=== PATIENT | female | born 1975 | race Caucasian/White ===

== ENCOUNTER → 2016-09-17 | Outpatient (CLI) | payer MEDICARE, OTHER ==
[~2016-09-17] MED LIST: ACET500T2; ALBU83IN; APLENZIN; CLAR5CHW; DARV100T; FLEXERIL; FLON0.05; FLUT22IN; INSULANT; Janumet; PRED10TA2; SERT25TA2; VENTAER
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
== END ==
LOC: M PAIN 13:20
PROVIDERS: ATTEND Nurse Practitioner Family
DX: Z09 Encounter for follow-up examination after completed treatment for conditions other than malignant neoplasm (principal); G89.29 Other chronic pain; M05.79 Rheumatoid arthritis with rheumatoid factor of multiple sites without organ or systems involvement; M47.892 Other spondylosis, cervical region; M43.07 Spondylolysis, lumbosacral region; M79.7 Fibromyalgia; E11.9 Type 2 diabetes mellitus without complications; I10 Essential (primary) hypertension; F32.9 Major depressive disorder, single episode, unspecified; F41.9 Anxiety disorder, unspecified; Z88.8 Allergy status to other drugs, medicaments and biological substances; Z91.048 Other nonmedicinal substance allergy status; Z79.891 Long term (current) use of opiate analgesic; Z79.52 Long term (current) use of systemic steroids; Z79.4 Long term (current) use of insulin; Z79.899 Other long term (current) drug therapy

== ENCOUNTER → 2016-10-03 | Outpatient (CLI) | payer MEDICARE, OTHER ==
[~2016-10-03] MED LIST changes: +BUPIVACAINE HCL 0.25% 30 ML VIAL As Ordered ONE; +ISOVUE-M 300 61% 15ML VIAL (Q9967) As Ordered ONE; +LIDOCAINE 1% SDV INJ 30 ML VIAL As Ordered ONE; +TRIAMCINOLONE ACETONIDE SUSP 40 MG/ML VIAL (J3301) As Ordered ONE; +diazePAM 5 MG TAB As Ordered ONE; +oxyCODONE 5MG TAB As Ordered ONE
--- NOTE | 2016-10-03 12:17 | REP ---
Partial lumbar spine series: Five views. History: Therapeutic injection for pain. 34 seconds of fluoroscopy time is reported. Findings: A sequence of five fluoroscopically obtained intraprocedural spot radiographs of the lumbar spine document various needle positions and contrast injections associated with bilateral facet injection procedure. Signed by Amaury Emery MD 10/03/2016 03:09 P
--- NOTE | 2016-10-10 | ECWPNPC ---
PATIENT NAME: WAQAR ESPINOZA : 1975 GENDER: FEMALE VISIT DATE: 10/03/2016 DISCHARGE DATE: 10/03/16 1052 VISIT LOCKED DATE TIME: PHYSICIAN: ELEAZAR MROIN RESOURCE: ELEAZAR MORIN REASON FOR APPOINTMENT 1. THERAPEUTIC LUMBAR FACET HISTORY OF PRESENT ILLNESS HISTORY OF PRESENT ILLNESS: PAIN THE PATIENT DESCRIBES THE PAIN... FALL RISK SCREENING: SCREENING :NO FALLS IN THE PAST YEAR CURRENT MEDICATIONS TAKING METHOTREXATE 2.5 MG TABLET 8 TABS ORALLY EVERY ., NOTES: 09/18/16 TAKING LYRICA 150 MG CAPSULE 1 CAPSULE ORALLY THREE TIMES A DAY, NOTES: 10/03/16644 TAKING VICODIN ES 7.5-300 MG TABLET 2 TABLET NEEDED ORALLY EVERY 8 HRS, NOTES: 10/03/16644 TAKING FETZIMA 40 MG CAPSULE EXTENDED RELEASE 24 HOUR 1 CAPSULE ORALLY ONCE A DAY, NOTES: 10/03/16644 TAKING LISINOPRIL 20 MG TABLET 1 TABLET ORALLY ONCE A DAY, NOTES: 10/03/16644 TAKING LASIX 20 MG TABLET 1 TO 2 TABLETS ORALLY ONCE A DAY/ NEEDED, NOTES: > 2 WEEKS TAKING TIZANIDINE HCL 4 MG TABLET 1 TABLET NEEDED ORALLY EVERY 8 HRS, NOTES: 10/03/16644 TAKING PREDNISONE 5 MG TABLET 1-2 TABLETS ORALLY ONCE A DAY DIRECTED, NOTES: 10/03/16644 TAKING OMEPRAZOLE 40 MG CAPSULE DELAYED RELEASE 1 CAPSULE ORALLY ONCE A DAY, NOTES: 10/03/16644 TAKING LORATADINE 10 MG TABLET 1 TABLET ORALLY ONCE A DAY NEEDED, NOTES: > 2 WEEKS AGO TAKING JANUMET 50-1000 MG TABLET 1 TABLET WITH MEALS ORALLY TWICE A DAY, NOTES: 10/03/16644 TAKING FOLIC ACID 1 MG TABLET 1 TABLET ORALLY ONCE A DAY, NOTES: 10/03/16644 TAKING TRAZODONE HCL 100 MG TABLET 1 TABLET AT BEDTIME ORALLY ONCE A DAY/ NEEDED, NOTES: > 2 WEEKS TAKING HYDROCHLOROTHIAZIDE 25 MG TABLET 1 TABLET ORALLY ONCE A DAY, NOTES: 10/03/16644 TAKING BUSPIRONE HCL 10 MG TABLET 2 TABS ORALLY TWICE A DAY, NOTES: 10/03/16644 TAKING SULFASALAZINE 500 MG TABLET 3TABLET ORALLY TWICE DAILY, NOTES: 10/03/16644 TAKING HUMIRA 40 MG/0.8ML PREFILLED SYRINGE KIT 0.8 ML SUBCUTANEOUS EVERY OTHER WK., NOTES: 09/02/16 TAKING FLONASE 50 MCG/ACT SUSPENSION 1 SPRAY IN EACH NOSTRIL NASALLY ONCE A DAY NEEDED, NOTES: > 2 WEEKS AGO TAKING MULTIVITAMINS - TABLET 1 TABLET ORALLY ONCE A DAY, NOTES: 10/03/16644 TAKING VITAMIN B12 100 MCG TABLET 1 500MCG. TAB ORALLY ONCE A DAY, NOTES: 10/03/16644 TAKING HUMALOG 100 UNIT/ML SOLUTION SUBCUTANEOUS SLIDING SCALE BEFORE BREAKFAST AND BEFORE DINNER, NOTES: 10/02/16 0700 TAKING ROPINIROLE HCL 0.25 MG TABLET 1 TABLET 1 TO 3 HOURS BEFORE BEDTIME ORALLY ONCE A DAY, NOTES: 10/03/162129 TAKING PROAIR HFA 108 (90 BASE) MCG/ACT AEROSOL SOLUTION 2 PUFFS NEEDED INHALATION EVERY 4 HRS, NOTES: 10/02/16 07 TAKING ALBUTEROL-IPRATROPIUM 2.5-0.5 MG/3ML SOLUTION 3 ML NEBULIZER EVERY 6 HRS NEEDED, NOTES: > 2 WEEKS TAKING VITAMIN D-3 1000 UNIT CAPSULE 1 CAPSULE ORALLY ONCE A DAY (PT UNSURE OF DOSE), NOTES: 10/03/16644 TAKING TOUJEO SOLOSTAR 300 UNIT/ML SOLUTION PEN-INJECTOR 50 UNITS SUBCUTANEOUS BID, NOTES: 10/02/162229 TAKING MAGNESIUM 500 MG TABLET 1 TABLET WITH A MEAL ORALLY ONCE A DAY, NOTES: 10/03/16644 NOT-TAKING ROPINIROLE HCL 0.25 MG TABLET 1 TABLET ORALLY ONCE A DAY/AT NIGHT NOT-TAKING PLAQUENIL 200 MG TABLET 2 TABLET WITH FOOD OR MILK ORALLY ONCE A DAY NOT-TAKING LANTUS 100 UNIT/ML SOLUTION 50 UNITS SUBCUTANEOUS AT HOUR OF SLEEP MEDICATION LIST REVIEWED AND RECONCILED WITH THE PATIENT PAST MEDICAL HISTORY DM RHEUMATOID ARTHRITIS FIBROMYALGIA CHRONIC FUNGAL INFECTIONS HTN DEPRSSION ANXIETY UTI ALLERGIES ZOLOFT: EXCESSIVE SWEATING: SIDE EFFECTS CODEINE PHOSPHATE (FOR ALLERGIES USE ONLY): SOB: ALLERGY ALOE VERA: RASH: ALLERGY BACITRACIN: RASH: ALLERGY PRISTIQ: ANGRY OUTBURSTS: ALLERGY SOCIAL HISTORY GENERAL: TOBACCO USE ARE YOU A:NONSMOKER LEARNING BARRIERS / SPECIAL NEEDS ORIENTED TO PLAN OF CARE: PATIENT, PAIN MANAGEMENT PATIENT, ORIENTED TO PLAN OF CARE: PATIENT, PAIN MANAGEMENT PATIENT. NEW PATIENT PAIN DIARY TODAY'S VISITNOTES FROM 0-10, WHAT LEVEL IS YOUR PAIN TODAY?0 PAIN CLINIC PFS, CLERGY, PUBLIC HEALTH REFERRALS PFS REFERRAL NEEDED?NO CLERGY REFERRAL NEEDED?NO PUBLIC HEALTH REFERRAL NEEDED?NO WAS THE PROVIDER NOTIFIED OF ANY PERTINENT INFO?NO PFS REFERRAL NEEDED?NO CLERGY REFERRAL NEEDED?NO PUBLIC HEALTH REFERRAL NEEDED?NO WAS THE PROVIDER NOTIFIED OF ANY PERTINENT INFO?NO REVIEW OF SYSTEMS CONSTITUTIONAL: ANY CHANGE IN YOUR MEDICAL CONDITION? NO . CHILLS NO . FEVER NO . INFECTION: DO YOU HAVE NEW INFECTIONS? NO . DO YOU HAVE HISTORY OF MRSA? NO . MUSCULOSKELETAL: ANY NEW PATTERNS OF PAIN OR NUMBNESS? NO . GASTROENTEROLOGY: ANY NEW CHANGE IN BOWEL CONTROL? NO . GENITOURINARY: ANY NEW CHANGE IN BLADDER CONTROL? NO . IS THERE A CHANCE YOU COULD BE ? NO . HEMATOLOGY/LYMPH: DO YOU TAKE ANY BLOOD THINNERS? (FOR EXAMPLE- COUMADIN, PLAVIX, AGGRENOX, PLATEL, PRADAXA, OR XARELTO) NO . WHEN WAS YOUR LAST DOSE? DATE: TIME: . NEUROLOGY: HAVE YOU FALLEN IN THE PAST 6 MONTHS? NO . ANY NEW EXTREMITY NUMBNESS OR WEAKNESS? NO . CARDIOLOGY: DO YOU HAVE A PACEMAKER OR DEFIBRILLATOR? NO . RESPIRATORY: HAVE YOU BEEN SICK IN THE PAST WEEK? NO . FEVER NO . FLU LIKE SYMPTOMS? NO . COUGH NO . INTEGUMENTARY: DO YOU HAVE ANY RASHES OR OPEN SORES? NO . ALLERGIC/IMMUNO: ARE YOU ALLERGIC TO SHELLFISH OR IV DYE? NO . ANY NEW ALLERGIES? NO . PSYCHIATRIC: DO YOU HAVE THOUGHTS OF HURTING YOURSELF OR SOMEONE ELSE? NO . ARE YOU ABUSED, NEGLECTED, OR IN AN UNSAFE ENVIRONMENT? NO . ENDOCRINOLOGY: ARE YOU DIABETIC? YES . OTHER: DO YOU NEED ANY PRESCRIPTIONS? NO . IF YES, PLEASE LIST: ____ . ANY NEW PROBLEMS WITH YOUR MEDICATIONS? NO . WHEN DID YOU LAST EAT? ____10/02/16 2130 . WHEN DID YOU LAST DRINK? ____10/03/16 0655 . WHAT DID YOU LAST DRINK? ____WATER . NAME OF PERSON DRIVING YOU HOME? ____DEBBIE (MOM) . DO YOU HAVE ANY OTHER QUESTIONS OR CONCERNS NO . REVIEWED BY: PROVIDER: . VITAL SIGNS WT 363 LBS, HT 66 IN, BMI 58.58 INDEX, BP 134/60 MM HG, HR 96 /MIN, RR 16 /MIN, TEMP 96.8 F, OXYGEN SAT % 97, BLOOD GLUCOSE LEVEL 163, SAFE IN ENV? (Y/N) YES, NA INITIALS TL 0905, REVIEWED BY: LAS. 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 ELEAZAR MORIN DRYWALL CARRIER NONE ANESTHESIA LOCAL PRE PROCEDURE NOTE THE PATIENT HAS A HISTORY OF CHRONIC LOW BACK PAIN. I EVALUATE THE PATIENT AND REVIEWED THE CHART. I WENT OVER THE RISKS, ALTERNATIVES, AND BENEFITS ASSOCIATED WITH THIS PROCEDURE. THE PATIENT WOULD LIKE TO PROCEED AND GIVE CONSENT TO PERFORMED THE PROCEDURE. THE PATIENT DENIES UNEXPLAINABLE WEIGHT LOSS, FEVER, CHILLS, OR NEW CHANGES IN URINARY OR BOWEL CONTROL DESCRIPTION OF PROCEDURE THE PATIENT WAS BROUGHT TO THE PROCEDURE ROOM AND PLACED IN THE PRONE POSITION. THE LUMBOSACRAL AREA WAS CLEANED WITH CHLORAPREP SOLUTION AND DRAPED ASEPTICALLY. THE PROCEDURE WAS DONE UNDER STERILE CONDITIONS. I CHECKED LATERALITY AND THE LEVEL WHERE THE PROCEDURE WAS GOING TO BE PERFORMED WITH THE PATIENT AND THE SUPPORTING STAFF AT THE MOMENT OF THE TIME OUT IN THE PROCEDURE ROOM. UNDER FLUOROSCOPIC GUIDANCE, THE TARGET POINT WAS SELECTED AT THE RIGHT AND LEFT L2-L3 AND RIGHT AND LEFT L3-L4 FACET JOINT. TARGET POINT WAS SELECTED AFTER LATERAL ROTATION AND TILT OF THE MAGNIFIER OF THE C-ARM. LIDOCAINE 0.5% WAS USED TO NUMB THE SKIN AND THE SUBCUTANEOUS TISSUE BELOW IT. SPINAL NEEDLES, 22-GAUGE, WERE ADVANCED UNDER FLUOROSCOPIC GUIDANCE AND FOLLOWING PATIENT FEEDBACK UNTIL THE TARGETS WERE TOUCHED. THE POSITION OF THE NEEDLES WAS VERIFIED WITH AP AND LATERAL VIEWS. AFTER PROPER POSITION OF THE NEEDLES WAS ACHIEVED, ISOVUE-M DYE 30% 0.1 ML WAS INJECTED SHOWING ADEQUATE SPREAD OF THE DYE. THEN A SOLUTION OF 1.9 ML OF BUPIVACAINE 0.125% OF KENALOG 10 MG WAS INJECTED AT EACH SITE. THERE WAS NO EVIDENCE OF BLOOD, PARESTHESIA OR CEREBROSPINAL FLUID DURING THE PROCEDURE. THE PATIENT WAS SENT TO THE RECOVERY ROOM. THE PATIENT WAS MOVING THE EXTREMITIES AND DOING WELL. THERE WAS NO COMPLICATION DURING THE PROCEDURE. FLUOROSCOPY TIME WAS 34 SECONDS POST PROCEDURE NOTE THE PATIENT WILL BE SEEN IN A FOLLOW UP IN THE NEXT FEW WEEKS. INSTRUCTIONS WERE GIVEN, QUESTIONS WERE ANSWERED, AND THE PATIENT EXPRESSED UNDERSTANDING AND AGREES WITH THE PLAN. INSTRUCTIONS WERE GIVEN, QUESTIONS WERE ANSWERED, PATIENT REPORTS UNDERSTANDING AND AGREES WITH THE PLAN. I, ANITHA OMALLEY, DOCUMENTED THE ABOVE INFORMATION ACTING A SCRIBE FOR DR. MORIN. I HAVE REVIEWED THE ABOVE DOCUMENT, WRITTEN BY ANITHA OMALLEY SCRIBE AND I VERIFY THAT IT IS ACCURATE. DIAGNOSTIC IMAGING [facility] FACET BLOCK (PAIN)[id number] PROCEDURE CODES 30900 INJ PARAVERT F JNT L/S 1 LEV 24996 INJ PARAVERT F JNT L/S 2 LEV 6045F RADXPS IN END [id number] PXD FOLLOW UP 3 WEEKS ELECTRONICALLY SIGNED BY ELEAZAR MORIN MD ON 10/09/2016 AT 09:45 PM EST DISCLAIMER : THIS IS A VISIT SUMMARY EXTRACTED FROM THE [employer] CHART. IT IS NOT A COPY OF THE [employer] PROGRESS NOTE. MTDD
== END ==
LOC: M PAIN 09:10
PROVIDERS: ATTEND Anesthesiology
DX: G89.29 Other chronic pain (principal); M47.816 Spondylosis without myelopathy or radiculopathy, lumbar region; E11.9 Type 2 diabetes mellitus without complications; M06.9 Rheumatoid arthritis, unspecified; M79.7 Fibromyalgia; I10 Essential (primary) hypertension; F32.9 Major depressive disorder, single episode, unspecified; F41.9 Anxiety disorder, unspecified; Z88.5 Allergy status to narcotic agent; Z91.048 Other nonmedicinal substance allergy status; Z88.1 Allergy status to other antibiotic agents; Z88.8 Allergy status to other drugs, medicaments and biological substances; Z79.891 Long term (current) use of opiate analgesic; Z79.899 Other long term (current) drug therapy; Z79.52 Long term (current) use of systemic steroids; Z79.4 Long term (current) use of insulin
CPT/HCPCS: 64493; 64494; J3301; Q9967

== ENCOUNTER → 2016-10-14 | Outpatient (CLI) | payer MEDICARE, OTHER ==
[~2016-10-14] MED LIST changes: -BUPIVACAINE HCL 0.25% 30 ML VIAL As Ordered ONE; -ISOVUE-M 300 61% 15ML VIAL (Q9967) As Ordered ONE; -LIDOCAINE 1% SDV INJ 30 ML VIAL As Ordered ONE; -TRIAMCINOLONE ACETONIDE SUSP 40 MG/ML VIAL (J3301) As Ordered ONE; -diazePAM 5 MG TAB As Ordered ONE; -oxyCODONE 5MG TAB As Ordered ONE
[2016-10-14 12:34] LABS: ALBUMIN 3.7 GM/DL (3.2-5.2); ALBUMIN/GLOBULIN RATIO 0.88 (1.00-1.93); ALKALINE PHOSPHATASE 113 U/L (45-117); ALT/SGPT 46 U/L (12-78); ANION GAP 9 MEQ/L (8-16); AST/SGOT 39 U/L (15-37); BILIRUBIN,TOTAL 0.3 MG/DL (0.2-1.0); BLOOD UREA NITROGEN 13 MG/DL (7-18); CALCIUM LEVEL 8.9 MG/DL (8.5-10.1); CARBON DIOXIDE LEVEL 29 MEQ/L (21-32); CHLORIDE LEVEL 101 MEQ/L (98-107); CREATININE FOR GFR 0.74 MG/DL (0.55-1.02); GLOMERULAR FILTRATION RATE > 60.0 (>60); GLUCOSE, FASTING 135 MG/DL (70-105); MAGNESIUM LEVEL 1.8 MG/DL (1.8-2.4); POTASSIUM SERUM 4.2 MEQ/L (3.5-5.1); SODIUM LEVEL 139 MEQ/L (136-145); TOTAL PROTEIN 7.9 GM/DL (6.4-8.2)
== END | disposition home or self-care (01) ==
LOC: M WUC 08:48
PROVIDERS: ATTEND Family Medicine
DX: E11.9 Type 2 diabetes mellitus without complications (principal); R25.2 Cramp and spasm

== ENCOUNTER → 2016-10-17 | Outpatient (CLI) | payer MEDICARE, OTHER ==
--- NOTE | 2016-10-19 00:19 | ECWPNPC ---
PATIENT NAME: WAQAR ESPINOZA : 1975 GENDER: FEMALE VISIT DATE: 10/17/2016 DISCHARGE DATE: 10/17/16 1008 VISIT LOCKED DATE TIME: PHYSICIAN: AMBER LOUISE RESOURCE: AMBER LOUISE REASON FOR APPOINTMENT 1. POST PROCEDURE HISTORY OF PRESENT ILLNESS HISTORY OF PRESENT ILLNESS: HERE FOR POST PROC. F/U.HAD BILAT. THERAPEUTIC FACET BLOCK 10-03-16.REPORTS>50% REDUCTION IN PAIN THAT CONTINUES TODAY.RATING PAIN VAS 2/10.PAIN IS LOCATED IN NECK AND LOW BACK. PAIN THE PATIENT DESCRIBES THE PAIN... FALL RISK SCREENING: SCREENING :NO FALLS IN THE PAST YEAR CURRENT MEDICATIONS TAKING METHOTREXATE 2.5 MG TABLET 8 TABS ORALLY EVERY ., NOTES: 09/18/16 TAKING LYRICA 150 MG CAPSULE 1 CAPSULE ORALLY THREE TIMES A DAY, NOTES: 10/03/16644 TAKING VICODIN ES 7.5-300 MG TABLET 2 TABLET NEEDED ORALLY EVERY 8 HRS, NOTES: 10/03/16644 TAKING FETZIMA 40 MG CAPSULE EXTENDED RELEASE 24 HOUR 1 CAPSULE ORALLY ONCE A DAY, NOTES: 10/03/16644 TAKING LISINOPRIL 20 MG TABLET 1 TABLET ORALLY ONCE A DAY, NOTES: 10/03/16644 TAKING LASIX 20 MG TABLET 1 TO 2 TABLETS ORALLY ONCE A DAY/ NEEDED, NOTES: > 2 WEEKS TAKING TIZANIDINE HCL 4 MG TABLET 1 TABLET NEEDED ORALLY EVERY 8 HRS, NOTES: 10/03/16644 TAKING PREDNISONE 5 MG TABLET 1-2 TABLETS ORALLY ONCE A DAY DIRECTED, NOTES: 10/03/16644 TAKING OMEPRAZOLE 40 MG CAPSULE DELAYED RELEASE 1 CAPSULE ORALLY ONCE A DAY, NOTES: 10/03/16644 TAKING LORATADINE 10 MG TABLET 1 TABLET ORALLY ONCE A DAY NEEDED, NOTES: > 2 WEEKS AGO TAKING JANUMET 50-1000 MG TABLET 1 TABLET WITH MEALS ORALLY TWICE A DAY, NOTES: 10/03/16644 TAKING FOLIC ACID 1 MG TABLET 1 TABLET ORALLY ONCE A DAY, NOTES: 10/03/16644 TAKING TRAZODONE HCL 100 MG TABLET 1 TABLET AT BEDTIME ORALLY ONCE A DAY/ NEEDED, NOTES: > 2 WEEKS TAKING HYDROCHLOROTHIAZIDE 25 MG TABLET 1 TABLET ORALLY ONCE A DAY, NOTES: 1/19/17 0645 TAKING BUSPIRONE HCL 10 MG TABLET 2 TABS ORALLY TWICE A DAY, NOTES: 10/03/16644 TAKING SULFASALAZINE 500 MG TABLET 3TABLET ORALLY TWICE DAILY, NOTES: 10/03/16644 TAKING HUMIRA 40 MG/0.8ML PREFILLED SYRINGE KIT 0.8 ML SUBCUTANEOUS EVERY OTHER WK., NOTES: 09/02/16 TAKING FLONASE 50 MCG/ACT SUSPENSION 1 SPRAY IN EACH NOSTRIL NASALLY ONCE A DAY NEEDED, NOTES: > 2 WEEKS AGO TAKING MULTIVITAMINS - TABLET 1 TABLET ORALLY ONCE A DAY, NOTES: 10/03/16644 TAKING VITAMIN B12 100 MCG TABLET 1 500MCG. TAB ORALLY ONCE A DAY, NOTES: 10/03/16644 TAKING HUMALOG 100 UNIT/ML SOLUTION SUBCUTANEOUS SLIDING SCALE BEFORE BREAKFAST AND BEFORE DINNER, NOTES: 10/02/16 07 TAKING ROPINIROLE HCL 0.25 MG TABLET 1 TABLET 1 TO 3 HOURS BEFORE BEDTIME ORALLY ONCE A DAY, NOTES: 10/03/162129 TAKING PROAIR HFA 108 (90 BASE) MCG/ACT AEROSOL SOLUTION 2 PUFFS NEEDED INHALATION EVERY 4 HRS, NOTES: 10/02/16 07 TAKING ALBUTEROL-IPRATROPIUM 2.5-0.5 MG/3ML SOLUTION 3 ML NEBULIZER EVERY 6 HRS NEEDED, NOTES: > 2 WEEKS TAKING VITAMIN D-3 1000 UNIT CAPSULE 1 CAPSULE ORALLY ONCE A DAY (PT UNSURE OF DOSE), NOTES: 10/03/16644 TAKING TOUJEO SOLOSTAR 300 UNIT/ML SOLUTION PEN-INJECTOR 50 UNITS SUBCUTANEOUS BID, NOTES: 10/02/162229 TAKING MAGNESIUM 500 MG TABLET 1 TABLET WITH A MEAL ORALLY ONCE A DAY, NOTES: 10/03/16644 NOT-TAKING ROPINIROLE HCL 0.25 MG TABLET 1 TABLET ORALLY ONCE A DAY/AT NIGHT NOT-TAKING PLAQUENIL 200 MG TABLET 2 TABLET WITH FOOD OR MILK ORALLY ONCE A DAY NOT-TAKING LANTUS 100 UNIT/ML SOLUTION 50 UNITS SUBCUTANEOUS AT HOUR OF SLEEP MEDICATION LIST REVIEWED AND RECONCILED WITH THE PATIENT PAST MEDICAL HISTORY DM RHEUMATOID ARTHRITIS FIBROMYALGIA CHRONIC FUNGAL INFECTIONS HTN DEPRSSION ANXIETY UTI ALLERGIES ZOLOFT: EXCESSIVE SWEATING: SIDE EFFECTS CODEINE PHOSPHATE (FOR ALLERGIES USE ONLY): SOB: ALLERGY ALOE VERA: RASH: ALLERGY BACITRACIN: RASH: ALLERGY PRISTIQ: ANGRY OUTBURSTS: ALLERGY SOCIAL HISTORY GENERAL: TOBACCO USE ARE YOU A:NONSMOKER LEARNING BARRIERS / SPECIAL NEEDS ORIENTED TO PLAN OF CARE: PATIENT, PAIN MANAGEMENT PATIENT, ORIENTED TO PLAN OF CARE: PATIENT, PAIN MANAGEMENT PATIENT. NEW PATIENT PAIN DIARY TODAY'S VISITNOTES FROM 0-10, WHAT LEVEL IS YOUR PAIN TODAY?0 PAIN CLINIC PFS, CLERGY, PUBLIC HEALTH REFERRALS PFS REFERRAL NEEDED?NO CLERGY REFERRAL NEEDED?NO PUBLIC HEALTH REFERRAL NEEDED?NO WAS THE PROVIDER NOTIFIED OF ANY PERTINENT INFO?NO PFS REFERRAL NEEDED?NO CLERGY REFERRAL NEEDED?NO PUBLIC HEALTH REFERRAL NEEDED?NO WAS THE PROVIDER NOTIFIED OF ANY PERTINENT INFO?NO REVIEW OF SYSTEMS CONSTITUTIONAL: ANY CHANGE IN YOUR MEDICAL CONDITION? NO . CHILLS NO . FEVER NO . INFECTION: DO YOU HAVE NEW INFECTIONS? NO . DO YOU HAVE HISTORY OF MRSA? NO . MUSCULOSKELETAL: ANY NEW PATTERNS OF PAIN OR NUMBNESS? YES, PAIN RIGHT SHOULDER, INTERMITENT,RANGES FROM SHARP, STABBING TO DULL ACHE . GASTROENTEROLOGY: ANY NEW CHANGE IN BOWEL CONTROL? NO . GENITOURINARY: ANY NEW CHANGE IN BLADDER CONTROL? NO . IS THERE A CHANCE YOU COULD BE ? NO . HEMATOLOGY/LYMPH: DO YOU TAKE ANY BLOOD THINNERS? (FOR EXAMPLE- COUMADIN, PLAVIX, AGGRENOX, PLATEL, PRADAXA, OR XARELTO) NO . WHEN WAS YOUR LAST DOSE? DATE: TIME: . NEUROLOGY: HAVE YOU FALLEN IN THE PAST 6 MONTHS? NO . ANY NEW EXTREMITY NUMBNESS OR WEAKNESS? NO . CARDIOLOGY: DO YOU HAVE A PACEMAKER OR DEFIBRILLATOR? NO . RESPIRATORY: HAVE YOU BEEN SICK IN THE PAST WEEK? NO . FEVER NO . FLU LIKE SYMPTOMS? NO . COUGH NO . INTEGUMENTARY: DO YOU HAVE ANY RASHES OR OPEN SORES? YES CHRONIC RASH IN AREAS THAT SHE TENDS TO SWEAT, NOW UNDER BREAST . ALLERGIC/IMMUNO: ARE YOU ALLERGIC TO SHELLFISH OR IV DYE? NO . ANY NEW ALLERGIES? NO . PSYCHIATRIC: DO YOU HAVE THOUGHTS OF HURTING YOURSELF OR SOMEONE ELSE? NO . ARE YOU ABUSED, NEGLECTED, OR IN AN UNSAFE ENVIRONMENT? NO . ENDOCRINOLOGY: ARE YOU DIABETIC? YES . OTHER: DO YOU NEED ANY PRESCRIPTIONS? NO . IF YES, PLEASE LIST: ____ . ANY NEW PROBLEMS WITH YOUR MEDICATIONS? NO . WHEN DID YOU LAST EAT? ____ . WHEN DID YOU LAST DRINK? ____ . WHAT DID YOU LAST DRINK? ____ . NAME OF PERSON DRIVING YOU HOME? ____ . DO YOU HAVE ANY OTHER QUESTIONS OR CONCERNS NO . REVIEWED BY: PROVIDER: AMBER GAMBINO . VITAL SIGNS WT 366 LBS, HT 66 IN, BMI 59.07 INDEX, BP 185/96 (L), REPEAT BP DID NOT REGISTER IN RIGHT ARM, HR 113 /MIN, RR 20 /MIN, TEMP 97.3 F, OXYGEN SAT % 100, NA INITIALS MP, REVIEWED BY: ADNURSE NOTIFIED OF HIGH BLOOD PRESSURE AND PULSEREPEAT B/P 143/96, HR 102. EXAMINATION GENERAL EXAMINATION: HEENT:HEAD:, NORMOCEPHALIC, EYES:, EYES NORMAL, NOSE:, NOSE CLEAR, THROAT: NORMAL. LUNGS:LUNG SOUNDS ARE CLEAR. HEART:HEART RATE REGULAR. ABDOMEN:SOFT AND NOT TENDER, NON-DISTENDED. MUSCULOSKELETAL:*. LUMBAR SACRAL SPINEMUSCLE STRENGTH TESTING 5/5 BILATERAL LOWER EXTREMITIES. PALPATION: POSITIVE FOR PAIN OVER L/S SPINE. POSITIVE FOR PAIN OVER L/S PARASPINALS. THORACIC SPINENEGATIVE FOR PAIN WITH PALPATION OF THORACIC SPINE. NEGATIVE FOR PAIN WITH PALPATION OF THORACIC PARASPINAL. CERVICALPOSITIVE FOR PAIN WITH PALPATION OF CERVICAL SPINE. POSITIVE FOR PAIN WITH PALPATION OF CERVICAL PARASPINALS. NEGATIVE FOR PAIN WITH PALPATION OF TRAPEZIUS BILAT. SKIN:NORMAL, NO RASH. NEUROLOGIC EXAM:ALERT AND ORIENTED X 3, DTRS 1-2+ IN ALL 4 EXTREMITIES, DENIES UPPER EXTREMETIES SENSORY LOSS, DENIES LOWER EXTREMETIES SENSORY LOSS. DIAGNOSTIC:MRI L/S [id number]-REVIEWED.. 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 PREVENTIVE MEDICINE PRINTED INFORMATION ON HCP PROVIDED TO AND EXPLAINED TO PATIENT. PROCEDURE CODES FA211 ESTABILISHED PATIENT [facility] CHARGE F1354 BP SCR PRFRM RCMDD DEFIND SCR INTVL G7595 PAIN ASSESS POS TOOL F/U PLAN DOC 3016F PT SCRND UNHLTHY [place] USE 1124F ACP DISCUSS-NO DSCNMKR DOCD 1036F TOBACCO NON-USER 0518F FALL PLAN OF CARE DOCD G8427 DOC MEDS VERIFIED W/PT OR RE G8417 BMI >=30 CALCUATE W/FOLLOWUP 3288F FALL RISK ASSESSMENT DOCD FOLLOW UP 2 MONTHS ELECTRONICALLY SIGNED BY MAKI ZHAO ON 10/18/2016 AT 02:38 PM EST DISCLAIMER : THIS IS A VISIT SUMMARY EXTRACTED FROM THE [email or web address] CHART. IT IS NOT A COPY OF THE [email or web address] PROGRESS NOTE. MTDD
== END ==
LOC: M PAIN 09:00
PROVIDERS: ATTEND Nurse Practitioner Family
DX: Z09 Encounter for follow-up examination after completed treatment for conditions other than malignant neoplasm (principal); G89.29 Other chronic pain; M05.79 Rheumatoid arthritis with rheumatoid factor of multiple sites without organ or systems involvement; M47.892 Other spondylosis, cervical region; M43.07 Spondylolysis, lumbosacral region; M79.7 Fibromyalgia; E11.9 Type 2 diabetes mellitus without complications; M06.9 Rheumatoid arthritis, unspecified; I10 Essential (primary) hypertension; F32.9 Major depressive disorder, single episode, unspecified; Z87.440 Personal history of urinary (tract) infections; Z88.8 Allergy status to other drugs, medicaments and biological substances; Z88.5 Allergy status to narcotic agent; L23.89 Allergic contact dermatitis due to other agents; Z88.1 Allergy status to other antibiotic agents; Z79.891 Long term (current) use of opiate analgesic; Z79.52 Long term (current) use of systemic steroids; Z79.4 Long term (current) use of insulin; Z79.899 Other long term (current) drug therapy

== ENCOUNTER → 2016-11-05 | Outpatient (CLI) | payer MEDICARE ==
--- NOTE | 2016-11-05 12:07 | REP ---
Clinical: Abnormal menstrual cycles . Technique: Transabdominal pelvic ultrasound followed by transvaginal examination for better evaluation of the endometrium and adnexa with color Doppler evaluation of the ovaries. Findings: Bladder is collapsed currently measuring 2.3 x 1.5 x 5.0 cm. Retroverted uterus measures 9.3 x 4.3 x 4.8 cm . The endometrial complex measures up to 13.9 mm thickness. Nabothian cysts measuring up to 2.4 cm are identified. The ovaries are not visualized. No pelvic fluid or adnexal mass lesion identified. Impression: 1. Uterus with mildly thickened endometrium and Nabothian cysts measuring up to 2.4 cm. 2. Ovaries not visualized. No pelvic fluid or adnexal mass lesion identified.
== END ==
LOC: M WHC 10:19
PROVIDERS: ATTEND Nurse Practitioner Family
DX: N92.1 Excessive and frequent menstruation with irregular cycle (principal)

== ENCOUNTER → 2016-11-22 | Outpatient (CLI) | payer MEDICARE, MEDICAID ==
[2016-11-22 19:52] LABS: MEAN CORPUSCULAR HEMOGLOBIN 27.7 pg (27.0-33.0); MEAN CORPUSCULAR HGB CONC 30.6 g/dl (32.0-36.5); MEAN CORPUSCULAR VOLUME 90.8 fl (80.0-96.0); RED CELL DISTRIBUTION WIDTH 14.7 % (11.5-14.5); WHITE BLOOD COUNT 12.8 K/mm3 (4.0-10.0)
[2016-11-22 20:07] LABS: BLOOD UREA NITROGEN 8 MG/DL (7-18); GLUCOSE, FASTING 281 MG/DL (70-105)
[2016-11-22 20:08] LABS: ALBUMIN 3.3 GM/DL (3.2-5.2); ALBUMIN/GLOBULIN RATIO 0.89 (1.00-1.93); ALKALINE PHOSPHATASE 95 U/L (45-117); ALT/SGPT 57 U/L (12-78); ANION GAP 13 MEQ/L (8-16); AST/SGOT 46 U/L (15-37); BILIRUBIN,TOTAL 0.2 MG/DL (0.2-1.0); CALCIUM LEVEL 8.2 MG/DL (8.5-10.1); CARBON DIOXIDE LEVEL 24 MEQ/L (21-32); CHLORIDE LEVEL 102 MEQ/L (98-107); GLOMERULAR FILTRATION RATE > 60.0 (>60); MAGNESIUM LEVEL 1.5 MG/DL (1.8-2.4); POTASSIUM SERUM 4.3 MEQ/L (3.5-5.1); SODIUM LEVEL 139 MEQ/L (136-145)
== END ==
LOC: M WUC 12:52
PROVIDERS: ATTEND Family Medicine
DX: E61.2 Magnesium deficiency (principal); R60.9 Edema, unspecified; R06.02 Shortness of breath

== ENCOUNTER → 2016-12-06 | Outpatient (CLI) | payer MEDICARE, MEDICAID ==
[2016-12-06 18:19] LABS: ANION GAP 13 MEQ/L (8-16); BLOOD UREA NITROGEN 10 MG/DL (7-18); CARBON DIOXIDE LEVEL 25 MEQ/L (21-32); CHLORIDE LEVEL 99 MEQ/L (98-107); GLOMERULAR FILTRATION RATE > 60.0 (>60); GLUCOSE, FASTING 191 MG/DL (70-105); MAGNESIUM LEVEL 1.4 MG/DL (1.8-2.4); POTASSIUM SERUM 3.7 MEQ/L (3.5-5.1); SODIUM LEVEL 137 MEQ/L (136-145)
== END ==
LOC: M WUC 11:49
PROVIDERS: ATTEND Family Medicine
DX: E61.2 Magnesium deficiency (principal); R60.9 Edema, unspecified

== ENCOUNTER → 2016-12-16 | Outpatient (CLI) | payer MEDICARE ==
--- NOTE | 2016-12-20 00:59 | ECWPNPC ---
PATIENT NAME: WAQAR ESPINOZA : 1975 GENDER: FEMALE VISIT DATE: 12/16/2016 DISCHARGE DATE: 12/16/16 1011 VISIT LOCKED DATE TIME: PHYSICIAN: AMBER LOUISE RESOURCE: AMBER LOUISE REASON FOR APPOINTMENT 1. FOLLOWUP-BACK HISTORY OF PRESENT ILLNESS HISTORY OF PRESENT ILLNESS: HERE FOR F/U.HAD BILAT. THERAPEUTIC FACET BLOCK 10-03-16.REPORTED>50% REDUCTION IN PAIN THAT CONTINUES TODAY.RATING PAIN VAS 6/10.PAIN IS LOCATED IN NECK AND LOW BACK.WORSE AREA OF PAIN NECK AND SHOULDERS.SUFFERS FROM RHEUMATOID DISEASE.DISCUSSED TREATMENT OPTIONS.SHE HAS BENEFITED FROM PT IN PAST. PAIN THE PATIENT DESCRIBES THE PAIN... THE PATIENT DESCRIBES THE PAIN... FALL RISK SCREENING: SCREENING :NO FALLS IN THE PAST YEAR CURRENT MEDICATIONS TAKING METHOTREXATE 2.5 MG TABLET 8 TABS ORALLY EVERY ., NOTES: 09/18/16 TAKING LYRICA 150 MG CAPSULE 1 CAPSULE ORALLY THREE TIMES A DAY, NOTES: 10/03/16644 TAKING VICODIN ES 7.5-300 MG TABLET 2 TABLET NEEDED ORALLY EVERY 8 HRS, NOTES: 10/03/16644 TAKING FETZIMA 40 MG CAPSULE EXTENDED RELEASE 24 HOUR 1 CAPSULE ORALLY ONCE A DAY, NOTES: 10/03/16644 TAKING LISINOPRIL 20 MG TABLET 1 TABLET ORALLY ONCE A DAY, NOTES: 10/03/16644 TAKING TIZANIDINE HCL 4 MG TABLET 1 TABLET NEEDED ORALLY EVERY 8 HRS, NOTES: 10/03/16644 TAKING PREDNISONE 5 MG TABLET 1 TABLET ORALLY ONCE A DAY, NOTES: 10/03/16644 TAKING OMEPRAZOLE 40 MG CAPSULE DELAYED RELEASE 1 CAPSULE ORALLY ONCE A DAY, NOTES: 10/03/16644 TAKING LORATADINE 10 MG TABLET 1 TABLET ORALLY ONCE A DAY NEEDED, NOTES: > 2 WEEKS AGO TAKING JANUMET 50-1000 MG TABLET 1 TABLET WITH MEALS ORALLY TWICE A DAY, NOTES: 10/03/16644 TAKING FOLIC ACID 1 MG TABLET 1 TABLET ORALLY ONCE A DAY, NOTES: 10/03/16644 TAKING TRAZODONE HCL 100 MG TABLET 1 TABLET AT BEDTIME ORALLY ONCE A DAY/ NEEDED TAKING BUSPIRONE HCL 10 MG TABLET 2 TABS ORALLY TWICE A DAY, NOTES: 10/03/16644 TAKING SULFASALAZINE 500 MG TABLET 3TABLET ORALLY TWICE DAILY, NOTES: 10/03/16644 TAKING HUMIRA 40 MG/0.8ML PREFILLED SYRINGE KIT 0.8 ML SUBCUTANEOUS EVERY OTHER WK., NOTES: 09/02/16 TAKING FLONASE 50 MCG/ACT SUSPENSION 1 SPRAY IN EACH NOSTRIL NASALLY ONCE A DAY NEEDED, NOTES: > 2 WEEKS AGO TAKING MULTIVITAMINS - TABLET 1 TABLET ORALLY ONCE A DAY, NOTES: 10/03/16644 TAKING VITAMIN B12 100 MCG TABLET 1 500MCG. TAB ORALLY ONCE A DAY, NOTES: 10/03/16644 TAKING HUMALOG 100 UNIT/ML SOLUTION SUBCUTANEOUS SLIDING SCALE, BEFORE MEALS, NOTES: 10/02/16 0700 TAKING ROPINIROLE HCL 0.25 MG TABLET 1 TABLET 1 TO 3 HOURS BEFORE BEDTIME ORALLY ONCE A DAY, NOTES: 10/03/162129 TAKING PROAIR HFA 108 (90 BASE) MCG/ACT AEROSOL SOLUTION 2 PUFFS NEEDED INHALATION EVERY 4 HRS, NOTES: 10/02/16 07 TAKING ALBUTEROL-IPRATROPIUM 2.5-0.5 MG/3ML SOLUTION 3 ML NEBULIZER EVERY 6 HRS NEEDED, NOTES: > 2 WEEKS TAKING VITAMIN D-3 1000 UNIT CAPSULE 1 CAPSULE ORALLY ONCE A DAY (PT UNSURE OF DOSE), NOTES: 10/03/16644 TAKING TOUJEO SOLOSTAR 300 UNIT/ML SOLUTION PEN-INJECTOR 55 SUBCUTANEOUS BID, NOTES: 10/02/162229 TAKING MAGNESIUM 400 MG TABLET 1 TABLET WITH A MEAL ORALLY ONCE A DAY, NOTES: 10/03/16644 TAKING TORSEMIDE 20 MG TABLET 2 ORALLY DISCONTINUED LASIX 20 MG TABLET 2 TABLETS ORALLY ONCE A DAY, NOTES: > 2 WEEKS DISCONTINUED PROVERA 10 MG TABLET 1 TABLET ORALLY ONCE A DAY MEDICATION LIST REVIEWED AND RECONCILED WITH THE PATIENT PAST MEDICAL HISTORY DM RHEUMATOID ARTHRITIS FIBROMYALGIA CHRONIC FUNGAL INFECTIONS HTN DEPRSSION ANXIETY UTI ALLERGIES ZOLOFT: EXCESSIVE SWEATING: SIDE EFFECTS CODEINE PHOSPHATE (FOR ALLERGIES USE ONLY): SOB: ALLERGY ALOE VERA: RASH: ALLERGY BACITRACIN: RASH: ALLERGY PRISTIQ: ANGRY OUTBURSTS: ALLERGY SOCIAL HISTORY GENERAL: PAIN CLINIC PFS, CLERGY, PUBLIC HEALTH REFERRALS CLERGY REFERRAL NEEDED?NO WAS THE PROVIDER NOTIFIED OF ANY PERTINENT INFO?NO PFS REFERRAL NEEDED?NO PUBLIC HEALTH REFERRAL NEEDED?NO PATIENT: ____. REVIEW OF SYSTEMS CONSTITUTIONAL: ANY CHANGE IN YOUR MEDICAL CONDITION? YES, RETAINING FLUID . CHILLS NO . FEVER NO . INFECTION: DO YOU HAVE NEW INFECTIONS? NO . DO YOU HAVE HISTORY OF MRSA? NO . MUSCULOSKELETAL: ANY NEW PATTERNS OF PAIN OR NUMBNESS? YES, . GASTROENTEROLOGY: ANY NEW CHANGE IN BOWEL CONTROL? NO . GENITOURINARY: ANY NEW CHANGE IN BLADDER CONTROL? NO . IS THERE A CHANCE YOU COULD BE ? NO . HEMATOLOGY/LYMPH: DO YOU TAKE ANY BLOOD THINNERS? (FOR EXAMPLE- COUMADIN, PLAVIX, AGGRENOX, PLATEL, PRADAXA, OR XARELTO) NO . WHEN WAS YOUR LAST DOSE? DATE: TIME: . NEUROLOGY: HAVE YOU FALLEN IN THE PAST 6 MONTHS? NO . ANY NEW EXTREMITY NUMBNESS OR WEAKNESS? NO . CARDIOLOGY: DO YOU HAVE A PACEMAKER OR DEFIBRILLATOR? NO . RESPIRATORY: HAVE YOU BEEN SICK IN THE PAST WEEK? NO . FEVER NO . FLU LIKE SYMPTOMS? NO . COUGH NO . INTEGUMENTARY: DO YOU HAVE ANY RASHES OR OPEN SORES? YES . ALLERGIC/IMMUNO: ARE YOU ALLERGIC TO SHELLFISH OR IV DYE? NO . ANY NEW ALLERGIES? NO . PSYCHIATRIC: DO YOU HAVE THOUGHTS OF HURTING YOURSELF OR SOMEONE ELSE? NO . ARE YOU ABUSED, NEGLECTED, OR IN AN UNSAFE ENVIRONMENT? NO . ENDOCRINOLOGY: ARE YOU DIABETIC? YES . OTHER: DO YOU NEED ANY PRESCRIPTIONS? NO . IF YES, PLEASE LIST: ____ . ANY NEW PROBLEMS WITH YOUR MEDICATIONS? NO . WHEN DID YOU LAST EAT? ____ . WHEN DID YOU LAST DRINK? ____ . WHAT DID YOU LAST DRINK? ____ . NAME OF PERSON DRIVING YOU HOME? ____ . DO YOU HAVE ANY OTHER QUESTIONS OR CONCERNS YES, OTHER ROUTES OF TREATMENT . REVIEWED BY: PROVIDER: AMBER GAMBINO . VITAL SIGNS WT 376.2 LBS, HT 66 IN, BMI 60.71 INDEX, BP 131/67 MM HG, HR 104 /MIN, RR 18 /MIN, TEMP 97.3 F, OXYGEN SAT % 96%, NA INITIALS SC09:23. EXAMINATION GENERAL EXAMINATION: HEENT:HEAD:, NORMOCEPHALIC, EYES:, EYES NORMAL, NOSE:, NOSE CLEAR, THROAT: NORMAL. LUNGS:LUNG SOUNDS ARE CLEAR. HEART:HEART RATE REGULAR. ABDOMEN:SOFT AND NOT TENDER, NON-DISTENDED. MUSCULOSKELETAL:*. LUMBAR SACRAL SPINEMUSCLE STRENGTH TESTING 5/5 BILATERAL LOWER EXTREMITIES. PALPATION: POSITIVE FOR PAIN OVER L/S SPINE. POSITIVE FOR PAIN OVER L/S PARASPINALS. THORACIC SPINENEGATIVE FOR PAIN WITH PALPATION OF THORACIC SPINE. NEGATIVE FOR PAIN WITH PALPATION OF THORACIC PARASPINAL. CERVICALPOSITIVE FOR PAIN WITH PALPATION OF CERVICAL SPINE. POSITIVE FOR PAIN WITH PALPATION OF CERVICAL PARASPINALS. NEGATIVE FOR PAIN WITH PALPATION OF TRAPEZIUS BILAT. SKIN:NORMAL, NO RASH. NEUROLOGIC EXAM:ALERT AND ORIENTED X 3, DTRS 1-2+ IN ALL 4 EXTREMITIES, DENIES UPPER EXTREMETIES SENSORY LOSS, DENIES LOWER EXTREMETIES SENSORY LOSS. DIAGNOSTIC:MRI L/S [id number]-REVIEWED.. ASSESSMENTS RHEUMATOID ARTHRITIS INVOLVING MULTIPLE SITES WITH POSITIVE RHEUMATOID FACTOR - M05.79 (PRIMARY) OTHER OSTEOARTHRITIS OF SPINE, CERVICAL REGION - M47.892 LUMBOSACRAL SPONDYLOLYSIS - M43.07 MYALGIA - M79.1 TREATMENT RHEUMATOID ARTHRITIS INVOLVING MULTIPLE SITES WITH POSITIVE RHEUMATOID FACTOR NOTES: PT 2XWK MYOFASCIAL RELEASE UPPER BACK /NECK. PROCEDURE CODES FA211 ESTABILISHED PATIENT [facility] CHARGE DISPOSITION & COMMUNICATION FOLLOW UP 2 MONTHS ELECTRONICALLY SIGNED BY MAKI ZHAO ON 12/16/2016 AT 03:57 PM EDT DISCLAIMER : THIS IS A VISIT SUMMARY EXTRACTED FROM THE [employer] CHART. IT IS NOT A COPY OF THE [employer] PROGRESS NOTE. MTDD
== END ==
LOC: M PAIN 09:00
PROVIDERS: ATTEND Nurse Practitioner Family
DX: Z09 Encounter for follow-up examination after completed treatment for conditions other than malignant neoplasm (principal); M47.892 Other spondylosis, cervical region; M54.2 Cervicalgia; M54.5 Low back pain; M05.79 Rheumatoid arthritis with rheumatoid factor of multiple sites without organ or systems involvement; M43.07 Spondylolysis, lumbosacral region; M79.1 Myalgia; E11.9 Type 2 diabetes mellitus without complications; I10 Essential (primary) hypertension; F32.9 Major depressive disorder, single episode, unspecified; F41.9 Anxiety disorder, unspecified; Z88.5 Allergy status to narcotic agent; Z88.1 Allergy status to other antibiotic agents; Z88.8 Allergy status to other drugs, medicaments and biological substances; Z91.048 Other nonmedicinal substance allergy status; Z79.891 Long term (current) use of opiate analgesic; Z79.52 Long term (current) use of systemic steroids; Z79.4 Long term (current) use of insulin; Z79.84 Long term (current) use of oral hypoglycemic drugs; Z79.899 Other long term (current) drug therapy

== ENCOUNTER 2017-01-09 10:46 | Outpatient (RCR) | payer MEDICARE ==
[2017-01-14] MEDS ORDERED: TOUJ1.2I SC (16:01)
[2017-01-14] MEDS ORDERED: OMEP40CA2 PO (16:01)
[2017-01-14] MEDS ORDERED: VITA500T53 PO (16:01)
[2017-01-14] MEDS ORDERED: LYRI150C PO (16:01)
[2017-01-14] MEDS ORDERED: MAGN1TAB25 PO (16:01)
[2017-01-14] MEDS ORDERED: HUMA100I3 SC (16:01)
[2017-01-14] MEDS ORDERED: ALBU83IN INH (16:01)
[2017-01-14] MEDS ORDERED: PROA1AER INH (16:01)
[2017-01-14] MEDS ORDERED: MULTCAP8 PO (16:01)
[2017-01-14] MEDS ORDERED: VICO5TAB16 PO (16:01)
[2017-01-14] MEDS ORDERED: LISI-538 PO (16:01)
[2017-01-14] MEDS ORDERED: TRAZ10TA GT (16:01)
[2017-01-14] MEDS ORDERED: ROPI0.25 PO (16:01)
[2017-01-14] MEDS ORDERED: TORS20TA2 PO (16:01)
[2017-01-14] MEDS ORDERED: HUMI40KI SC (16:01)
[2017-01-14] MEDS ORDERED: FLUT1SPR2 (16:01)
[2017-01-14] MEDS ORDERED: CLAR10CA3 PO (16:01)
[2017-01-14] MEDS ORDERED: SULF500T2 PO (16:01)
[2017-01-14] MEDS ORDERED: METH2.5TA PO (16:01)
[2017-01-14] MEDS ORDERED: FOLI1TAB2 PO (16:01)
[2017-01-14] MEDS ORDERED: TIZA4CAP3 PO (16:01)
[2017-01-14] MEDS ORDERED: FLUT22IN INH (16:01)
[2017-01-14] MEDS ORDERED: VITA20008 PO (16:01)
[2017-01-14] MEDS ORDERED: PRED5CON PO (16:01)
[2017-01-14] MEDS ORDERED: FETZ1CAP3 PO (16:01)
== END 2017-01-12 ==
LOC: M PT 10:46
PROVIDERS: ATTEND Nurse Practitioner Family
DX: Z51.89 Encounter for other specified aftercare (principal); M54.2 Cervicalgia; M79.1 Myalgia
CPT/HCPCS: 97110; 97140; 97161; G8984; G8985

== ENCOUNTER → 2017-01-14 | Outpatient (CLI) | payer MEDICARE ==
[~2017-01-14] MED LIST changes: +ALBU83IN INH; +CLAR10CA3 PO; +FETZ1CAP3 PO; +FLUT1SPR2; +FLUT22IN INH; +FOLI1TAB2 PO; +HUMA100I3 SC; +HUMI40KI SC; +LISI-538 PO; +LYRI150C PO; +MAGN1TAB25 PO; +METH2.5TA PO; +MULTCAP8 PO; +OMEP40CA2 PO; +PRED5CON PO; +PROA1AER INH; +ROPI0.25 PO; +SULF500T2 PO; +TIZA4CAP3 PO; +TORS20TA2 PO; +TOUJ1.2I SC; +TRAZ10TA GT; +VICO5TAB16 PO; +VITA20008 PO; +VITA500T53 PO
[2017-01-14 14:00] LABS: MEAN CORPUSCULAR HEMOGLOBIN 28.1 pg (27.0-33.0); MEAN CORPUSCULAR HGB CONC 31.8 g/dl (32.0-36.5); MEAN CORPUSCULAR VOLUME 88.1 fl (80.0-96.0); RED CELL DISTRIBUTION WIDTH 16.8 % (11.5-14.5)
[2017-01-14 14:32] LABS: ALBUMIN 3.5 GM/DL (3.2-5.2); ALKALINE PHOSPHATASE 112 U/L (45-117); ALT/SGPT 47 U/L (12-78); ANION GAP 8 MEQ/L (8-16); AST/SGOT 31 U/L (15-37); BILIRUBIN,TOTAL 0.2 MG/DL (0.2-1.0); BLOOD UREA NITROGEN 11 MG/DL (7-18); CALCIUM LEVEL 8.3 MG/DL (8.5-10.1); CARBON DIOXIDE LEVEL 29 MEQ/L (21-32); CHLORIDE LEVEL 98 MEQ/L (98-107); CREATININE FOR GFR 0.74 MG/DL (0.55-1.02); GLOMERULAR FILTRATION RATE > 60.0 (>60); GLUCOSE, FASTING 225 MG/DL (70-105); POTASSIUM SERUM 3.5 MEQ/L (3.5-5.1); SODIUM LEVEL 135 MEQ/L (136-145); TOTAL PROTEIN 7.9 GM/DL (6.4-8.2)
--- NOTE | 2017-01-16 18:03 | ECGEPIP ---
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
== END ==
LOC: M EKG 12:17 → M LAB 12:17
PROVIDERS: ATTEND Family Medicine
DX: E11.9 Type 2 diabetes mellitus without complications (principal); R00.0 Tachycardia, unspecified

== ENCOUNTER 2017-01-21 11:00 | Outpatient (RCR) | payer MEDICARE ==
[2017-01-24] MEDS ORDERED: JANU50TA8 PO ×2 (10:06→10:08)
[2017-01-24] MEDS ORDERED: BUSP10TA PO (10:06)
== END 2017-02-12 ==
LOC: M PT 11:00
PROVIDERS: ATTEND Nurse Practitioner Family
DX: Z51.89 Encounter for other specified aftercare (principal); M54.2 Cervicalgia; M79.1 Myalgia
CPT/HCPCS: 97110; 97140; 97530; G8984; G8985; G8986

== ENCOUNTER → 2017-01-24 | Day surgery (SDC) | payer MEDICARE ==
[~2017-01-24] VITALS: Ht 165.1 cm; Wt 170.6 kg
[~2017-01-24] MED LIST changes: +BUSP10TA PO; +CHLOROPROCAINE 2 % INJ PRES.FREE 20 ML VIAL (J2400) As Ordered ONE; +JANU50TA8 PO; +KETAMINE HCL 200 MG/20 ML VIAL As Ordered ONE; +KETOROLAC 30 MG/ML VIAL (J1885) As Ordered ONE; +KETOROLAC 30 MG/ML VIAL (J1885) IV ONE; +LIDOCAINE 1% SDV INJ 30 ML VIAL As Ordered ONE; +LR 1,000 ML IV ONE; +LR 1,000 ML IV SCH; +MIDAZOLAM INJ 2 MG/2 ML VIAL (J2250) As Ordered ONE; +ONDANSETRON 4MG/2ML VIAL (J2405) IV PRN; +PHENYLephrine HCL 500 MCG/5 ML (100MCG/ML) SYRINGE (J2370) As Ordered ONE; +PROPOFOL 200 MG/20 ML VIAL As Ordered ONE; +SILVER NITRATE APPLICATOR XX ONE; +ePHEDrine SULFATE 25 MG/5 ML(5MG/ML) SYRINGE As Ordered ONE; +fentaNYL 100 MCG/2 ML INJECTION (J3010) As Ordered ONE; +fentaNYL 100 MCG/2 ML INJECTION (J3010) IV PRN
[2017-01-24 09:51] LABS: MEAN CORPUSCULAR HEMOGLOBIN 27.9 pg (27.0-33.0); MEAN CORPUSCULAR HGB CONC 32.4 g/dl (32.0-36.5); RED CELL DISTRIBUTION WIDTH 16.6 % (11.5-14.5); WHITE BLOOD COUNT 12.8 K/mm3 (4.0-10.0)
[2017-01-24 10:09] LABS: CONTROL LINE HCG INT CTR LINE PRESENT
[2017-01-24 15:20] VITALS: BP 172/89
--- NOTE | 2017-01-26 07:53 | RO ---
DATE OF PROCEDURE: 01/24/2017 PREOPERATIVE DIAGNOSES: 1. Abnormal uterine bleeding. 2. Morbid obesity with multiple comorbidities, body mass index (BMI) of 62. POSTOPERATIVE DIAGNOSES: 1. Abnormal uterine bleeding. 2. Morbid obesity with multiple comorbidities, body mass index (BMI) of 62. PROCEDURE PERFORMED: 1. Cervical cancer screening with co-testing, Pap smear and direct human papillomavirus (HPV). 2. Hysteroscopy, dilation and curettage (D and C). 3. Insertion of Mirena intrauterine device (IUD). SURGEON: Dr. Rome Alvarado. FASHION BUYER: MARY Bishop-3 ANESTHESIA: Spinal. ESTIMATED BLOOD LOSS: 5 mL FLUIDS REPLACED: 700 mL lactated ringers. DRAINS: In-and-out catheter 50 mL. COMPLICATIONS: None. PREOPERATIVE ANTIBIOTICS: None indicated. INDICATIONS FOR PROCEDURE: 41-year-old G0 with abnormal uterine bleeding. She has multiple comorbidities to include morbid obesity and insulin dependent diabetes. Her BMI is 62. An attempt at in office endometrial biopsy and Pap smear was unsuccessful by her primary care provider, therefore the decision was made to proceed with the following under anesthesia: Cervical cancer screening, hysteroscopy, dilation and curettage and Mirena IUD insertion. The patient was preoperatively counseled on potential benefits of local progesterone therapy on a long-term basis. PROCEDURE: The patient was counseled and consented on the risks, benefits, indications and alternatives of the procedure. Informed consent was obtained. She was taken to the operating room with an IV running and she was placed on operating table where spinal anesthesia was obtained without any difficulty. She was placed in dorsal supine position. Anesthesia was found be adequate. The patient was placed in low lithotomy. She was prepared and draped in normal sterile fashion. Time-out was performed per protocol. The patient was then placed in high lithotomy. The bladder was drained with an in-and-out catheter. Sterile speculum was placed with good visualization of the cervix. Cervical cancer screening was performed (Pap and direct HPV). Glove switch was performed. The cervix was then sequentially dilated with Matthew dilators. The uterus sounded to 9.5 cm. The 3 mm hysteroscope was placed transcervically into the intrauterine cavity and the intrauterine cavity was examined, uniform thin appearance of the endometrium was noted. Bilateral tubal ostia were visualized. No intrauterine mass present. The hysteroscope was removed. Sharp curette was placed transcervically into the intrauterine cavity and sharp curettage was performed throughout the entire intrauterine cavity until gritty texture was noted throughout. Tissue obtained was sent to pathology for permanent section. The sharp curette was removed. The uterine sound was placed transcervically. No evidence of uterine perforation was noted by palpation. The uterus again sounded to 9.5 cm. The uterine sound was removed. The Mirena IUD was inserted under statement clerks supervisor's guidelines. The strings were cut approximately 2.5 to 3 cm beyond the external cervical os. Minimal bleeding from the cervical os was noted. The single-tooth tenaculum was placed, the anterior lip of the cervix was removed and the tenaculum sites were noted to be hemostatic. Sponge, lap, needle, and instrument counts were correct. The patient tolerated the entire procedure very well. She was transferred to the postanesthesia care unit in good and stable condition. ARIA
== END | disposition home or self-care (01) ==
LOC: M SDC 09:06
PROVIDERS: ATTEND Obstetrics & Gynecology
DX: N93.9 Abnormal uterine and vaginal bleeding, unspecified (principal); N84.0 Polyp of corpus uteri; R87.610 Atypical squamous cells of undetermined significance on cytologic smear of cervix (ASC-US); Z12.4 Encounter for screening for malignant neoplasm of cervix; E66.01 Morbid (severe) obesity due to excess calories; Z68.44 Body mass index [BMI] 60.0-69.9, adult; Z30.430 Encounter for insertion of intrauterine contraceptive device; E11.9 Type 2 diabetes mellitus without complications; I10 Essential (primary) hypertension; J45.20 Mild intermittent asthma, uncomplicated; M79.7 Fibromyalgia; M79.89 Other specified soft tissue disorders; K21.9 Gastro-esophageal reflux disease without esophagitis; M06.9 Rheumatoid arthritis, unspecified; F41.9 Anxiety disorder, unspecified; F32.9 Major depressive disorder, single episode, unspecified; G25.81 Restless legs syndrome; G47.00 Insomnia, unspecified; G47.33 Obstructive sleep apnea (adult) (pediatric); M19.90 Unspecified osteoarthritis, unspecified site; F43.10 Post-traumatic stress disorder, unspecified; Z88.5 Allergy status to narcotic agent; Z88.3 Allergy status to other anti-infective agents; Z88.8 Allergy status to other drugs, medicaments and biological substances; Z87.891 Personal history of nicotine dependence; Z79.899 Other long term (current) drug therapy; Z79.4 Long term (current) use of insulin; Z79.51 Long term (current) use of inhaled steroids
CPT/HCPCS: 36415; 58300; 58558; 84703; 85027; 86850; 86900; 86901; 87624; 88305; G0123; J1885; J2250; J2370; J2400; J3010; J7298

== ENCOUNTER → 2017-02-13 | Outpatient (CLI) | payer MEDICARE ==
[~2017-02-13] MED LIST changes: -CHLOROPROCAINE 2 % INJ PRES.FREE 20 ML VIAL (J2400) As Ordered ONE; -KETAMINE HCL 200 MG/20 ML VIAL As Ordered ONE; -KETOROLAC 30 MG/ML VIAL (J1885) As Ordered ONE; -KETOROLAC 30 MG/ML VIAL (J1885) IV ONE; -LIDOCAINE 1% SDV INJ 30 ML VIAL As Ordered ONE; -LR 1,000 ML IV ONE; -LR 1,000 ML IV SCH; -MIDAZOLAM INJ 2 MG/2 ML VIAL (J2250) As Ordered ONE; -ONDANSETRON 4MG/2ML VIAL (J2405) IV PRN; -PHENYLephrine HCL 500 MCG/5 ML (100MCG/ML) SYRINGE (J2370) As Ordered ONE; -PROPOFOL 200 MG/20 ML VIAL As Ordered ONE; -SILVER NITRATE APPLICATOR XX ONE; -ePHEDrine SULFATE 25 MG/5 ML(5MG/ML) SYRINGE As Ordered ONE; -fentaNYL 100 MCG/2 ML INJECTION (J3010) As Ordered ONE; -fentaNYL 100 MCG/2 ML INJECTION (J3010) IV PRN
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
== END ==
LOC: M PAIN 10:00
PROVIDERS: ATTEND Nurse Practitioner Family
DX: G89.29 Other chronic pain (principal); M05.79 Rheumatoid arthritis with rheumatoid factor of multiple sites without organ or systems involvement; M47.892 Other spondylosis, cervical region; M43.07 Spondylolysis, lumbosacral region; M79.1 Myalgia; E11.9 Type 2 diabetes mellitus without complications; I10 Essential (primary) hypertension; F32.9 Major depressive disorder, single episode, unspecified; F41.9 Anxiety disorder, unspecified; Z87.440 Personal history of urinary (tract) infections; Z79.891 Long term (current) use of opiate analgesic; Z79.52 Long term (current) use of systemic steroids; Z79.84 Long term (current) use of oral hypoglycemic drugs; Z79.4 Long term (current) use of insulin; Z79.899 Other long term (current) drug therapy; Z88.5 Allergy status to narcotic agent; Z88.1 Allergy status to other antibiotic agents; Z88.8 Allergy status to other drugs, medicaments and biological substances; Z91.048 Other nonmedicinal substance allergy status

== ENCOUNTER → 2017-09-23 | Outpatient (CLI) | payer MEDICARE, OTHER, MEDICAID ==
[2017-09-23 20:56] LABS: ALBUMIN 3.4 GM/DL (3.2-5.2); ALBUMIN/GLOBULIN RATIO 0.71 (1.00-1.93); ALKALINE PHOSPHATASE 118 U/L (45-117); ALT/SGPT 31 U/L (12-78); ANION GAP 7 MEQ/L (8-16); AST/SGOT 19 U/L (7-37); BILIRUBIN,TOTAL 0.2 MG/DL (0.2-1.0); BLOOD UREA NITROGEN 9 MG/DL (7-18); CALCIUM LEVEL 8.4 MG/DL (8.5-10.1); CARBON DIOXIDE LEVEL 31 MEQ/L (21-32); CHLORIDE LEVEL 99 MEQ/L (98-107); CREATININE FOR GFR 0.67 MG/DL (0.55-1.02); GLOMERULAR FILTRATION RATE > 60.0 (>60); GLUCOSE, FASTING 234 MG/DL (70-105); SODIUM LEVEL 137 MEQ/L (136-145); TOTAL PROTEIN 8.2 GM/DL (6.4-8.2)
== END ==
LOC: M WUC 17:22
DX: R60.9 Edema, unspecified (principal)
CPT/HCPCS: 84443

== ENCOUNTER → 2017-11-21 | Outpatient (CLI) | payer MEDICARE, MEDICAID ==
[2017-11-21 16:23] LABS: BASO # 0.1 10^3/uL (0.0-0.2); BASO % 0.6 % (0.0-1.0); EOS # 0.3 10^3/uL (0.0-0.50); EOS % 3.2 % (0.0-3.0); HEMATOCRIT 39.1 % (36.0-47.0); IMMATURE GRANULOCYTE % 0.5 % (0-3.0); LYMPH # 2.8 10^3/uL (1.5-4.5); LYMPH % 29.5 % (24.0-44.0); MEAN CORPUSCULAR HEMOGLOBIN 30.7 pg (27.0-33.0); MEAN CORPUSCULAR HGB CONC 33.2 g/dl (32.0-36.5); MEAN CORPUSCULAR VOLUME 92.4 fl (80.0-96.0); MONO # 0.7 10^3/uL (0.0-0.8); MONO % 7.5 % (0.0-5.0); NEUTROPHILS # 5.7 10^3/uL (1.8-7.7); NEUTROPHILS % 58.7 % (36.0-66.0); PLATELET COUNT, AUTOMATED 350 10^3/uL (150-450); RED BLOOD COUNT 4.23 10^6/uL (4.00-5.40); RED CELL DISTRIBUTION WIDTH 13.5 % (11.5-14.5); WHITE BLOOD COUNT 9.6 10^3/uL (4.0-10.0)
[2017-11-21 16:51] LABS: ERYTHROCYTE SEDIMENTATION RATE 79 mm/hr (0-20)
[2017-11-21 17:04] LABS: ALBUMIN 4.1 GM/DL (3.2-5.2); ALBUMIN/GLOBULIN RATIO 0.82 (1.00-1.93); ALKALINE PHOSPHATASE 136 U/L (45-117); ALT/SGPT 35 U/L (12-78); ANION GAP 8 MEQ/L (8-16); AST/SGOT 25 U/L (7-37); BILIRUBIN,TOTAL 0.3 MG/DL (0.2-1.0); BLOOD UREA NITROGEN 11 MG/DL (7-18); CALCIUM LEVEL 9.2 MG/DL (8.5-10.1); CARBON DIOXIDE LEVEL 30 MEQ/L (21-32); CHLORIDE LEVEL 98 MEQ/L (98-107); GLOMERULAR FILTRATION RATE > 60.0 (>60); GLUCOSE, FASTING 189 MG/DL (70-100); POTASSIUM SERUM 4.2 MEQ/L (3.5-5.1); SODIUM LEVEL 136 MEQ/L (136-145); TOTAL PROTEIN 9.1 GM/DL (6.4-8.2)
== END ==
LOC: M WUC 14:19
DX: R60.9 Edema, unspecified (principal); M06.9 Rheumatoid arthritis, unspecified
CPT/HCPCS: 80053

== ENCOUNTER → 2018-01-30 | Outpatient (CLI) | payer MEDICARE, OTHER | LOC: M RAD 18:02 | DX: N88.8 Other specified noninflammatory disorders of cervix uteri (principal) | CPT/HCPCS: 76856 ==

== ENCOUNTER → 2018-02-23 | Outpatient (REF) | payer MEDICARE, MEDICAID | LOC: M LAB REF 19:02 | DX: Z12.4 Encounter for screening for malignant neoplasm of cervix (principal) | CPT/HCPCS: G0123 ==

== ENCOUNTER → 2018-08-25 | Outpatient (CLI) | payer MEDICARE, OTHER ==
[~2018-08-25] MED LIST changes: -FOLI1TAB2 PO; +FOLI1TAB5 PO; +METH2.5T48 PO; -METH2.5TA PO; -PROA1AER INH; +PROAAER10 INH; -ROPI0.25 PO; +ROPI0.253 PO; +TIZA4CAP PO; -TIZA4CAP3 PO
[2018-08-25 17:58] LABS: HEMATOCRIT 39.1 % (36.0-47.0); HEMOGLOBIN 12.9 g/dl (12.0-15.5); MEAN CORPUSCULAR HEMOGLOBIN 31.2 pg (27.0-33.0); MEAN CORPUSCULAR VOLUME 94.7 fl (80.0-96.0); PLATELET COUNT, AUTOMATED 261 10^3/uL (150-450); RED BLOOD COUNT 4.13 10^6/uL (4.00-5.40)
[2018-08-25 18:34] LABS: FREE THYROXINE INDEX 2.1 % (1.3-4.8); THYROID STIMULATING HORMONE 0.845 uIU/ML (0.358-3.740); THYROXINE (T4) 9.6 UG/DL (4.5-12.0)
== END ==
LOC: M SMT 14:36
PROVIDERS: ATTEND Obstetrics & Gynecology
DX: N93.9 Abnormal uterine and vaginal bleeding, unspecified (principal); R53.82 Chronic fatigue, unspecified

== ENCOUNTER → 2018-10-05 | Outpatient (CLI) | payer MEDICARE, MEDICAID ==
[~2018-10-05] MED LIST changes: +FOLI1TAB11 PO; -FOLI1TAB5 PO; +NORC1TAB4 PO
[2018-10-05 17:11] LABS: BASO % 0.5 % (0.0-1.0); EOS # 0.3 10^3/uL (0.0-0.50); EOS % 3.3 % (0.0-3.0); HEMOGLOBIN 12.2 g/dl (12.0-15.5); LYMPH # 2.3 10^3/uL (1.5-4.5); LYMPH % 28.6 % (24.0-44.0); MEAN CORPUSCULAR HGB CONC 33.9 g/dl (32.0-36.5); MEAN CORPUSCULAR VOLUME 91.4 fl (80.0-96.0); MONO # 0.4 10^3/uL (0.0-0.8); MONO % 4.9 % (0.0-5.0); PLATELET COUNT, AUTOMATED 278 10^3/uL (150-450); RED BLOOD COUNT 3.94 10^6/uL (4.00-5.40); WHITE BLOOD COUNT 8.1 10^3/uL (4.0-10.0)
[2018-10-05 17:28] LABS: HEMOGLOBIN A1c 10.2 %
[2018-10-05 17:32] LABS: ALBUMIN 3.5 GM/DL (3.2-5.2); ALT/SGPT 49 U/L (12-78); BILIRUBIN,TOTAL 0.4 MG/DL (0.2-1.0); BLOOD UREA NITROGEN 8 MG/DL (7-18); CALCIUM LEVEL 8.8 MG/DL (8.5-10.1); CARBON DIOXIDE LEVEL 27 MEQ/L (21-32); CHLORIDE LEVEL 100 MEQ/L (98-107); CREATININE FOR GFR 0.86 MG/DL (0.55-1.30); GLOMERULAR FILTRATION RATE > 60.0 (>58); GLUCOSE, FASTING 361 MG/DL (70-100); POTASSIUM SERUM 4.7 MEQ/L (3.5-5.1); SODIUM LEVEL 134 MEQ/L (136-145); TOTAL PROTEIN 7.8 GM/DL (6.4-8.2)
--- NOTE | 2018-10-05 21:21 | ECGEPIP ---
Stationary ECG Study [facility] Test Date: 2018-10-05 Pat Name: WAQAR ESPINOZA Department: Room: - Gender: F Case Checker: [facility] : 1975 Requested By: ALFRED LI Order Number: [id number] Reading MD: Claudio Davis Measurements Intervals [place] Rate: 109 P: 56 OR: 145 QRS: 53 QRSD: 84 T: 24 QT: 323 QTc: 437 Interpretive Statements Sinus tachycardia Left atrial enlargement Low QRS complex voltage in the limb leads Delayed anterior R wave progression Nonspecific T wave abnormality No significant change when compared to prior tracing of 01/14/2017 Electronically Signed On 10-05-2018 21:20:30 EST by Claudio Davis
== END ==
LOC: M LAB 16:00
PROVIDERS: ATTEND Family Medicine
DX: Z01.812 Encounter for preprocedural laboratory examination (principal); Z79.899 Other long term (current) drug therapy

== ENCOUNTER 2018-10-07 18:01 | Emergency (ER) | payer OTHER, MEDICARE, MEDICAID ==
[~2018-10-07] VITALS: Ht 167.6 cm; Wt 150.9 kg
[~2018-10-07 18:01] MED LIST changes: -NORC1TAB4 PO
[2018-10-07] MEDS ORDERED: NS 1,000 ML IV ONE (19:15)
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
[2018-10-07 20:22] LABS: BASO # 0.1 10^3/uL (0.0-0.2); BASO % 0.4 % (0.0-1.0); EOS # 0.5 10^3/uL (0.0-0.50); EOS % 3.9 % (0.0-3.0); HEMOGLOBIN 12.8 g/dl (12.0-15.5); LYMPH # 2.4 10^3/uL (1.5-4.5); LYMPH % 18.7 % (24.0-44.0); MEAN CORPUSCULAR HEMOGLOBIN 31.3 pg (27.0-33.0); MEAN CORPUSCULAR HGB CONC 33.7 g/dl (32.0-36.5); MEAN CORPUSCULAR VOLUME 92.9 fl (80.0-96.0); MONO # 0.6 10^3/uL (0.0-0.8); MONO % 4.5 % (0.0-5.0); NEUTROPHILS # 9.4 10^3/uL (1.8-7.7); NEUTROPHILS % 71.7 % (36.0-66.0); RED BLOOD COUNT 4.09 10^6/uL (4.00-5.40); WHITE BLOOD COUNT 13.1 10^3/uL (4.0-10.0)
[2018-10-07 20:26] LABS: INR 0.9; PROTHROMBIN TIME 12.3 SECONDS (12.1-14.4)
[2018-10-07 20:38] LABS: ALBUMIN 3.7 GM/DL (3.2-5.2); ALT/SGPT 42 U/L (12-78); AMYLASE 36 U/L (25-115); BILIRUBIN,DIRECT < 0.1 MG/DL (0.0-0.2); BILIRUBIN,TOTAL 0.3 MG/DL (0.2-1.0); BLOOD UREA NITROGEN 12 MG/DL (7-18); CALCIUM LEVEL 8.6 MG/DL (8.5-10.1); CARBON DIOXIDE LEVEL 26 MEQ/L (21-32); CHLORIDE LEVEL 99 MEQ/L (98-107); CPK CREATINE PHOSPHOKINASE 107 U/L (26-192); CREATININE FOR GFR 0.91 MG/DL (0.55-1.30); ETHYL ALCOHOL (ETHANOL) < 0.003 % (0.000-0.010); GLOMERULAR FILTRATION RATE > 60.0 (>58); GLUCOSE, FASTING 265 MG/DL (70-100); LIPASE 104 U/L (73-393); MB/CK RELATIVE INDEX 1.03 (< OR =4); POTASSIUM SERUM 4.2 MEQ/L (3.5-5.1); SODIUM LEVEL 135 MEQ/L (136-145); TOTAL PROTEIN 7.8 GM/DL (6.4-8.2); TROPONIN I < 0.02 NG/ML (< 0.10)
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
[2018-10-07 21:46] LABS: AMPHETAMINES LEVEL URINE NEGATIVE (NEGATIVE); BARBITURATES URINE NEGATIVE (NEGATIVE); BENZODIAZEPINES URINE NEGATIVE (NEGATIVE); CANNABINOIDS URINE POSITIVE (NEGATIVE); COCAINE METABOLITE URINE NEGATIVE (NEGATIVE); METHADONE URINE NEGATIVE (NEGATIVE); OPIATES URINE POSITIVE (NEGATIVE); PHENCYCLIDINE URINE NEGATIVE (NEGATIVE)
[2018-10-07] MEDS ORDERED: NORC1TAB4 PO (22:03)
[2018-10-07] MEDS ORDERED: KETOROLAC 30 MG/ML VIAL (J1885) IV ONE (22:15)
[2018-10-07 22:28] VITALS: BP 142/78
--- NOTE | 2018-10-11 11:18 | ED PDOC ---
Post-Departure Follow-Up dr ordaz faxed formal report of t c spine for Louisa Lazo MD Oct 11, 2018 11:18
== END 2018-10-07 22:30 | disposition home or self-care (01) ==
LOC: M ED 18:01 → EDBD 18:01 → M ED 22:30
DX: Z04.1 Encounter for examination and observation following transport accident (principal); E11.9 Type 2 diabetes mellitus without complications; I10 Essential (primary) hypertension; F32.9 Major depressive disorder, single episode, unspecified; Z87.891 Personal history of nicotine dependence
CPT/HCPCS: 70450; 72125; 73030; 80048; 80076; 80307; 81001; 82150; 82550; 82553; 83605; 83690; 84484; 85025; 85610; 85730; 87086; 96361; 96374; 99284; G0480; J1885

== ENCOUNTER → 2018-10-22 | Outpatient (CLI) | payer MEDICARE ==
[~2018-10-22] MED LIST changes: +NORC1TAB4 PO
[2018-10-22 15:34] LABS: FREE T4 1.12 NG/DL (0.76-1.46); THYROID STIMULATING HORMONE 1.15 uIU/ML (0.358-3.740)
== END ==
LOC: M WUC 11:14
DX: E11.42 Type 2 diabetes mellitus with diabetic polyneuropathy (principal); E11.65 Type 2 diabetes mellitus with hyperglycemia

== ENCOUNTER 2019-01-12 21:58 | Emergency (ER) | payer MEDICARE, MEDICAID ==
[~2019-01-12] VITALS: Ht 167.6 cm; Wt 147.7 kg
[~2019-01-12 21:58] MED LIST changes: -MAGN1TAB25 PO; +MAGN1TAB26 PO; -NORC1TAB4 PO; +NORC1TAB7 PO; -VICO5TAB16 PO; +VICO5TAB17 PO; +VITA500T17 PO; -VITA500T53 PO
[2019-01-12] MEDS ORDERED: CLON0.5T17 PO (22:20)
[2019-01-12] MEDS ORDERED: SPIR50TA4 PO (22:20)
[2019-01-12] MEDS ORDERED: VICT18IN SC (22:20)
[2019-01-12] MEDS ORDERED: BRIM0.2S13 OS (22:20)
[2019-01-12] MEDS ORDERED: PODI1CAP PO (22:20)
[2019-01-12] MEDS ORDERED: MIXE1CAP PO (22:20)
[2019-01-12] MEDS ORDERED: SERO1TAB3 PO (22:20)
[2019-01-12] MEDS ORDERED: KP BTAB PO (22:20)
[2019-01-12] MEDS ORDERED: LEFL20TA10 PO (22:20)
[2019-01-12] MEDS ORDERED: ENBR50IN2 SC (22:20)
[2019-01-12] MEDS ORDERED: SYMB80INH INH (22:20)
[2019-01-12] MEDS ORDERED: TUMS500C PO (22:20)
[2019-01-12] MEDS ORDERED: ALPH600C PO (22:20)
[2019-01-13] MEDS ORDERED: KETOROLAC 30 MG/ML VIAL (J1885) IM ONE
[2019-01-13] MEDS ORDERED: predniSONE 5 MG TAB PO ONE (00:15)
[2019-01-13 00:35] VITALS: BP 142/86
== END 2019-01-13 00:42 | disposition home or self-care (01) ==
LOC: M ED 21:58
DX: M25.50 Pain in unspecified joint (principal); E11.65 Type 2 diabetes mellitus with hyperglycemia; M06.9 Rheumatoid arthritis, unspecified; I10 Essential (primary) hypertension; J45.909 Unspecified asthma, uncomplicated; M79.7 Fibromyalgia; E11.40 Type 2 diabetes mellitus with diabetic neuropathy, unspecified; G56.00 Carpal tunnel syndrome, unspecified upper limb; G47.30 Sleep apnea, unspecified; K21.9 Gastro-esophageal reflux disease without esophagitis; F17.210 Nicotine dependence, cigarettes, uncomplicated; Z88.5 Allergy status to narcotic agent; Z88.8 Allergy status to other drugs, medicaments and biological substances; Z79.899 Other long term (current) drug therapy; Z79.51 Long term (current) use of inhaled steroids; F33.1 Major depressive disorder, recurrent, moderate; F40.10 Social phobia, unspecified; F43.10 Post-traumatic stress disorder, unspecified
CPT/HCPCS: 90834; 96372; 99284; J1885

== ENCOUNTER → 2019-02-25 | Outpatient (CLI) | payer MEDICARE, MEDICAID ==
[~2019-02-25] MED LIST changes: +ALPH600C PO; +BRIM0.2S13 OS; +CLON0.5T17 PO; +ENBR50IN2 SC; +KP BTAB PO; +LEFL20TA10 PO; +MIXE1CAP PO; +PODI1CAP PO; +SERO1TAB3 PO; +SPIR50TA4 PO; +SYMB80INH INH; +TUMS500C PO; +VICT18IN SC
== END ==
LOC: M SMT 13:41
PROVIDERS: ATTEND Obstetrics & Gynecology
DX: Z15.01 Genetic susceptibility to malignant neoplasm of breast (principal)

== ENCOUNTER → 2019-03-11 | Outpatient (CLI) | payer MEDICARE, MEDICAID ==
[~2019-03-11] MED LIST changes: +AMMO12CR7 TOP; -BRIM0.2S13 OS; +BRIM0.2S13 OU; +FETZ1CAP2 PO; +FLUTISP; +HUMA50IN4 SC; +HYDR-4514 PO; +MULT-40 PO; +VITA200028 PO
[2019-03-11 13:16] LABS: BASO # 0.1 10^3/uL (0.0-0.2); BASO % 0.4 % (0.0-1.0); EOS # 0.4 10^3/uL (0.0-0.50); HEMATOCRIT 41.4 % (36.0-47.0); HEMOGLOBIN 13.4 g/dl (12.0-15.5); LYMPH # 2.3 10^3/uL (1.5-4.5); LYMPH % 19.5 % (24.0-44.0); MEAN CORPUSCULAR HEMOGLOBIN 29.8 pg (27.0-33.0); MEAN CORPUSCULAR HGB CONC 32.4 g/dl (32.0-36.5); MEAN CORPUSCULAR VOLUME 92.2 fl (80.0-96.0); MONO # 0.4 10^3/uL (0.0-0.8); MONO % 3.5 % (0.0-5.0); NEUTROPHILS # 8.6 10^3/uL (1.8-7.7); NEUTROPHILS % 73.1 % (36.0-66.0); PLATELET COUNT, AUTOMATED 306 10^3/uL (150-450); RED BLOOD COUNT 4.49 10^6/uL (4.00-5.40); WHITE BLOOD COUNT 11.8 10^3/uL (4.0-10.0)
[2019-03-11 13:23] LABS: HCG, SERUM QUALITATIVE NEGATIVE (NEGATIVE)
[2019-03-11 13:28] LABS: ALBUMIN 3.2 GM/DL (3.2-5.2); ALT/SGPT 25 U/L (12-78); BILIRUBIN,TOTAL 0.4 MG/DL (0.2-1.0); BLOOD UREA NITROGEN 7 MG/DL (7-18); CALCIUM LEVEL 8.1 MG/DL (8.5-10.1); CARBON DIOXIDE LEVEL 29 MEQ/L (21-32); CHLORIDE LEVEL 98 MEQ/L (98-107); CREATININE FOR GFR 0.84 MG/DL (0.55-1.30); GLOMERULAR FILTRATION RATE > 60.0 (>58); GLUCOSE, FASTING 325 MG/DL (70-100); POTASSIUM SERUM 3.7 MEQ/L (3.5-5.1); SODIUM LEVEL 136 MEQ/L (136-145); TOTAL PROTEIN 7.6 GM/DL (6.4-8.2)
== END ==
LOC: M SMT 10:45
PROVIDERS: ATTEND Family Medicine
DX: R11.10 Vomiting, unspecified (principal)

== ENCOUNTER → 2019-03-19 | Outpatient (CLI) | payer MEDICARE, MEDICAID ==
[2019-03-19 17:07] LABS: ALBUMIN 3.2 GM/DL (3.2-5.2); ALT/SGPT 22 U/L (12-78); BILIRUBIN,TOTAL 1.2 MG/DL (0.2-1.0); BLOOD UREA NITROGEN 7 MG/DL (7-18); CALCIUM LEVEL 9.9 MG/DL (8.5-10.1); CARBON DIOXIDE LEVEL 29 MEQ/L (21-32); CHLORIDE LEVEL 99 MEQ/L (98-107); CREATININE FOR GFR 0.76 MG/DL (0.55-1.30); GLOMERULAR FILTRATION RATE > 60.0 (>58); GLUCOSE, FASTING 216 MG/DL (70-100); SODIUM LEVEL 136 MEQ/L (136-145); TOTAL PROTEIN 7.4 GM/DL (6.4-8.2)
[2019-03-19 17:35] LABS: BASO % 0.2 % (0.0-1.0); EOS # 0.1 10^3/uL (0.0-0.50); EOS % 0.4 % (0.0-3.0); HEMATOCRIT 40.5 % (36.0-47.0); HEMOGLOBIN 13.1 g/dl (12.0-15.5); LYMPH # 2.1 10^3/uL (1.5-4.5); LYMPH % 11.3 % (24.0-44.0); MEAN CORPUSCULAR HEMOGLOBIN 30.6 pg (27.0-33.0); MEAN CORPUSCULAR HGB CONC 32.3 g/dl (32.0-36.5); MEAN CORPUSCULAR VOLUME 94.6 fl (80.0-96.0); MONO # 0.5 10^3/uL (0.0-0.8); MONO % 2.5 % (0.0-5.0); NEUTROPHILS # 15.5 10^3/uL (1.8-7.7); NEUTROPHILS % 85.2 % (36.0-66.0); PLATELET COUNT, AUTOMATED 236 10^3/uL (150-450); RED BLOOD COUNT 4.28 10^6/uL (4.00-5.40); WHITE BLOOD COUNT 18.2 10^3/uL (4.0-10.0)
== END ==
LOC: M WUC 13:04
PROVIDERS: ATTEND Physician Assistant
DX: L03.313 Cellulitis of chest wall (principal)

== ENCOUNTER 2019-03-26 17:51 | Inpatient (IN) | payer MEDICARE, MEDICAID ==
[~2019-03-26] VITALS: Ht 167.6 cm; Wt 153.6 kg
[~2019-03-26 17:51] MED LIST changes: +DOXY-350 PO; +NICO21PAT TD
[2019-03-26] MEDS ORDERED: METF500T4 PO (18:07)
[2019-03-26 21:06] LABS: BASO % 0.4 % (0.0-1.0); EOS # 0.2 10^3/uL (0.0-0.50); EOS % 2.3 % (0.0-3.0); HEMATOCRIT 34.1 % (36.0-47.0); LYMPH # 1.5 10^3/uL (1.5-4.5); LYMPH % 18.6 % (24.0-44.0); MEAN CORPUSCULAR HEMOGLOBIN 30.1 pg (27.0-33.0); MEAN CORPUSCULAR HGB CONC 32.3 g/dl (32.0-36.5); MEAN CORPUSCULAR VOLUME 93.4 fl (80.0-96.0); MONO # 0.4 10^3/uL (0.0-0.8); MONO % 5.3 % (0.0-5.0); NEUTROPHILS # 5.7 10^3/uL (1.8-7.7); NEUTROPHILS % 72.1 % (36.0-66.0); PLATELET COUNT, AUTOMATED 411 10^3/uL (150-450); RED BLOOD COUNT 3.65 10^6/uL (4.00-5.40); WHITE BLOOD COUNT 7.9 10^3/uL (4.0-10.0)
[2019-03-26 21:24] LABS: ERYTHROCYTE SEDIMENTATION RATE 116 mm/hr (0-20)
[2019-03-26 21:28] LABS: ALBUMIN 2.5 GM/DL (3.2-5.2); ALT/SGPT 41 U/L (12-78); BILIRUBIN,DIRECT < 0.1 MG/DL (0.0-0.2); BILIRUBIN,TOTAL < 0.1 MG/DL (0.2-1.0); C REACTIVE PROTEIN QUANTITATIV 7.69 MG/DL (0.00-0.30)
--- NOTE | 2019-03-26 21:39 | REPVR ---
EXAM: US Right Breast Limited EXAM DATE/TIME: 03/26/2019 8:43 PM CLINICAL HISTORY: 43 years old, female; Pain; Other: Redness and swelling; Additional info: Swelling/red/drainage TECHNIQUE: Imaging protocol: Limited ultrasound of Right breast with image documentation, including axilla when performed. COMPARISON: US Breast 03/19/2019 11:31 PM FINDINGS: Scanning in the area of interest demonstrates a complex fluid collection measuring 3.5 x 2.5 x 1.8 cm with irregular shape. No internal vascularity. IMPRESSION: Complex collection in the area of interest measuring 3.5 x 2.5 x 1.8 cm which may reflect abscess. Electronically signed by: Lazaro Pina On 03/26/2019 21:39:16 PM
[2019-03-26] MEDS ORDERED: NORCO, ANEXSIA 5/325MG TABLET (HYDROcodone/ACETAMINOPHEN) PO ONE (21:45)
--- NOTE | 2019-03-26 23:49 | REPVR ---
EXAM: CT Chest Without Contrast EXAM DATE/TIME: 03/26/2019 11:25 PM CLINICAL HISTORY: 43 years old, female; Abnormal findings; Abnormal radiologic exam of lung or chest; Additional info: ? Mass vs infiltrate on cxr. SOB TECHNIQUE: Imaging protocol: Axial computed tomography images of the chest without intravenous contrast. Coronal and sagittal reformatted images were created and reviewed. 3D rendering: MIP reconstructed images were created and reviewed. Radiation optimization: All CT scans at this facility use at least one of these dose optimization techniques: automated exposure control; mA and/or kV adjustment per patient size (includes targeted exams where dose is matched to clinical indication); or iterative reconstruction. COMPARISON: CR Chest, 2 view PA, Lat 03/26/2019 9:15 PM FINDINGS: Lungs: Bilateral patchy pulmonary infiltrates with focal areas of consolidation in the superior segment of the right lower lobe and the anterolateral left upper lobe. Small mediastinal nodes which are upper normal. Pleural space: Unremarkable. No pneumothorax. No pleural effusion. Heart: Unremarkable. No cardiomegaly. No pericardial effusion. Aorta: Unremarkable. No aortic aneurysm. Lymph nodes: See Lungs Finding. Bones/joints: Unremarkable. No acute fracture. Soft tissues: Subcutaneous edema about the upper abdomen, right greater than left. IMPRESSION: 1. Minimal patchy bilateral pulmonary infiltrates with mild focal areas of consolidation in the superior segment of the right lower lobe and the left upper lobe consistent with pneumonia. 2. Otherwise negative CT chest. Electronically signed by: Lazaro Pina On 03/26/2019 23:48:43 PM
[2019-03-27] VITALS (8 sets, daily range): BP systolic 105–162; BP diastolic 61–83
[2019-03-27] MEDS ORDERED: UNRESOLVED CLARIFICATION ENTRY XX SCH (00:01)
[2019-03-27] MEDS ORDERED: DOXY100T16 PO (00:41)
[2019-03-27] MEDS ORDERED: LACTIC ACID 12% LOTION 225 GM BTL TOP PRN (01:00)
[2019-03-27] MEDS ORDERED: GLUCAGON FOR INJ 1 MG VIAL (J1610) SC PRN (01:00)
[2019-03-27] MEDS ORDERED: GLUCOSE 4 GM CHEW TABLET PO PRN (01:00)
[2019-03-27] MEDS ORDERED: PERCOCET 5MG/325MG TAB PO PRN (01:00)
[2019-03-27] MEDS ORDERED: DEXTROSE 50% 50 ML SYRINGE IV PRN (01:00)
[2019-03-27] MEDS ORDERED: VANCOMYCIN HCL 1,000 MG, VIAL MATE ADAPTER 1 EACH in D5W 250 ML IV ONE ×8 (01:00→03:00)
--- NOTE | 2019-03-27 02:41 | HPEPDOC ---
General Date of Admission Mar 27, 2019 at 00:46 Date of Service: Mar 27, 2019 Chief Complaint The patient is a 43-year-old female admitted with a reason for visit of Breast Abcess. History of Present Illness 43-year-old female with past medical history of hypertension, diabetes mellitus, asthma, tobacco use, rheumatoid arthritis, fibromyalgia, depression/anxiety was initially admitted from 03/20-03/25/19 for right breast cellulitis. Patient was treated with IV antibiotic therapy and transitioned to by mouth medications when her white blood cell count normalized and her CRP markers continue to downward trend. After discharge, the patient states that she began to have increased redness and swelling of the right breast with increased purulent discharge. The patient also endorsed having increased cough, but no sputum production. She also noted subjective fevers at home. She returned to the ER for further evaluation. In the ER, an ultrasound of the breast revealed a 3.5 x 2.5 x 1.8 cm fluid ty ection suggestive of possible abscess. The ER provider did discuss the case with Dr. Gaspar of General Surgery, who did not recommend any surgical intervention at this time. The patient will be admitted to the hospitalist service for further evaluation and management. Home Medications Scheduled Alpha Lipoic Acid (Alpha Lipoic Acid) 600 Mg Capsule, 600 MG PO DAILY, (Reported) Brimonidine Tartrate (Brimonidine Tartrate) 0.2% 5ML Drops, 1 DROP OU TID, (Reported) Budesonide/Formoterol (Symbicort 80-4.5 Mcg Inhaler) 6.9 Gm Hfa.aer.ad, 2 PUFF INH BID, (Reported) Buspirone HCl (Buspirone HCl) 10 Mg Tab, 20 MG PO BID, (Reported) Cyanocobalamin (Vitamin B-12) (Vitamin B-12) 500 Mcg Tab, 500 MCG PO DAILY, (Reported) Doxycycline Monohydrate (Doxycycline Monohydrate) 100 Mg Tablet, 100 MG PO BID, (Reported) Ergocalciferol (Vitamin D2) (Vitamin D2) 2,000 Unit Tablet, 2,000 UNIT PO DAILY, (Reported) Etanercept (Enbrel) 50 Mg/1 Ml Syringe, 50 MG SC 1XWK, (Reported) USES ON FRIDAY Fluticasone Propionate (Fluticasone Propionate) 16 Gm [place].susp, 1 SPRAY NA BID, (Reported) Folic Acid (Folic Acid) 1 Mg Tab, 1 MG PO DAILY, (Reported) Insulin Glargine,Hum.rec.anlog (Toujeo Solostar) 300 Unit/Ml Inj, 100 UNIT SC BID, (Reported) Insulin Lispro (Humalog Kwikpen U-200) 200 Unit/1 Ml Insuln.pen, 200 UNIT SC AC, (Reported) Leflunomide (Leflunomide) 10 Mg Tablet, 10 MG PO DAILY, (Reported) Liraglutide (Victoza 2-Usman) 0.6 Mg/0.1 Ml Pen.injctr, 1.8 MG SC DAILY, (Reported) TAKES WITH 1.2 MG FOR TOTAL AM DOSE OF 3MG Liraglutide (Victoza 2-Usman) 0.6 Mg/0.1 Ml Pen.injctr, 1.2 MG SC DAILY, (Rep orted) TAKES WITH 1.8MG FOR TOTAL AM DOSE OF 3.0 MG Lisinopril (Lisinopril) 20 Mg Tab, 20 MG PO DAILY, (Reported) Magnesium Oxide (Magnesium Oxide) 400 Mg Tab, 400 MG PO BID, (Reported) Metformin HCl (Metformin HCl ER) 500 Mg Tab.er.24h, 2 TAB PO BID, (Reported) Methotrexate Sodium (Methotrexate) 2.5 Mg Tab, 20 MG PO QWEEK, (Reported) TAKES ON WEDNESDAYS Multivitamin (Multivitamins) 1 Each Tablet, 1 TAB PO DAILY, (Reported) Nicotine (Nicotine Patch) 21 Mg Patch.td24, 1 PATCH TD DAILY Omeprazole (Omeprazole) 40 Mg Cap, 40 MG PO DAILY, (Reported) Pregabalin (Lyrica) 150 Mg Cap, 150 MG PO TID, (Reported) Ropinirole HCl (Ropinirole HCl) 0.25 Mg Tab, 0.25 MG PO QHS, (Reported) Spironolactone (Spironolactone) 50 Mg Tablet, 50 MG PO DAILY, (Reported) Torsemide (Torsemide) 20 Mg Tab, 40 MG PO DAILY, (Reported) Vit B1 Mn/B2/B3/B5/B6/B12/C/FA (B Complex with Vitamin C Tab) 1 Each Tablet, 1 TAB PO DAILY, (Reported) Vit B6/Me-Thfolate/Me-B12/Ala (Podiapn Capsule) 1 Each Capsule, 1 CAP PO DAILY, (Reported) Vit E/Vit E Mx/Squal/Phytostrl (Mixed Tocotrienols 50 mg Sftgl) 1 Each Capsule, 1 CAP PO DAILY, (Reported) Scheduled PRN Albuterol Sulf (Albuterol Sulfate) 2.5 Mg/3 Ml Nebu, 1 INH INH Q4H PRN for SHORTNESS OF BREATH, (Reported) Ammonium Lactate (Ammonium Lactate) 12% Cream..g., 1 DOSE TOP BID PRN for DRY SKIN, (Reported) Hydrocodone/Acetaminophen (Hydrocodone-Acetamin 7.5-325) 1 Each Tablet, 1-2 TAB PO Q6H PRN for PAIN, (Reported) Prednisone (Prednisone Intensol) 5 Mg/Ml Con, 5 MG PO PRN PRN for FOR COMFORT, (Reported) Tizanidine HCl (Tizanidine HCl) 4 Mg Cap, 4 MG PO Q8HP PRN for PAIN, (Reported) Miscellaneous Medications Levomilnacipran HCl (Fetzima) 20 Mg Cap.sa.24h, 100 MG PO, (Reported) Allergies Coded Allergies: codeine (Verified Allergy, Severe, SOB, 03/19/19) desvenlafaxine (Verified Adverse Reaction, Intermediate, ANGRY OUTBURSTS, 03/19/19) polymyxin B (Verified Adverse Reaction, Intermediate, CONTACT DERMATITIS, 03/19/19) aloe vera (Verified Adverse Reaction, Mild, CONTACT DERMATITIS, 03/19/19) bacitracin (Verified Adverse Reaction, Mild, CONTACT DERMATITIS, 03/19/19) neomycin (Verified Adverse Reaction, Mild, CONTACT DERMATITIS, 03/19/19) sertraline (Verified Adverse Reaction, Unknown, SWEATING, 03/19/19) Past Medical History Medical History As noted in HPI. Surgical History IUD Placement Social History * Smoker: current smoker (smokes greater than one pack of tobacco per day) Alcohol: Denies Drugs: denies Review of Systems Other systems 10 point review of systems negative unless otherwise specified in HPI. Physical Examination General Exam: Positive: Alert, Cooperative, No Acute Distress ENT Exam: Positive: Atraumatic, Mucous membr. moist/pink Neck Exam: Negative: JVD Chest Exam: Positive: Diminished Heart Exam: Positive: Rate Normal, Normal S1, Normal S2 Abdomen Exam: Positive: Soft; Negative: Tenderness Extremity Exam: Negative: Tenderness, Swelling Skin Exam: Positive: Other skin issue (Right breast noted to have an area of induration, erythema along the lateral surface with associated swelling. No clear open wound noted, however the patient is noted to be draining serosanguineous fluid. No drainage or involvement of the nipple noted. No pain on palpation.) Psych Exam: Positive: Oriented x 3 Vital Signs Vital Signs Date Time Temp Pulse Resp B/P (MAP) Pulse Ox O2 Delivery O2 Flow Rate FiO2 03/27/19 02:00 96.8 109 22 134/83 (100) 96 03/26/19 22:33 Room Air Laboratory Data Labs 24H Laboratory Tests 2 03/26/19 20:52: Immature Granulocyte % (Auto) 1.3, White Blood Count 7.9, Red Blood Count 3.65L, Hemoglobin 11.0L, Hematocrit 34.1L, Mean Corpuscular Volume 93.4, Mean Corpuscular Hemoglobin 30.1, Mean Corpuscular Hemoglobin Concent 32.3, Red Cell Distribution Width 15.1H, Platelet Count 411, Neutrophils (%) (Auto) 72.1H, Lymphocytes (%) (Auto) 18.6L, Monocytes (%) (Auto) 5.3H, Eosinophils (%) (Auto) 2.3, Basophils (%) (Auto) 0.4, Neutrophils # (Auto) 5.7, Lymphocytes # (Auto) 1.5, Monocytes # (Auto) 0.4, Eosinophils # (Auto) 0.2, Basophils # (Auto) 0.0, Nucleated Red Blood Cells % (auto) 0.0, Erythrocyte Sedimentation Rate 116H, Lactic Acid Level 1.1, Aspartate Amino Transf (AST/SGOT) 28, Alanine Mcfarland otransferase (ALT/SGPT) 41, Alkaline Phosphatase 117, Total Bilirubin < 0.1L, Direct Bilirubin < 0.1, C-Reactive Protein, Quantitative 7.69H, Total Protein 7.0, Albumin 2.5L, Albumin/Globulin Ratio 0.56L 03/26/19 21:02: POC Glucose (Misc Panel) 144H, POC Sodium (Misc Panel) 138, POC Potassium (Misc Panel) 3.9, POC Chloride (Misc Panel) 96L, POC Total CO2 (Misc Panel) 30.0H, POC Blood Urea Nitrogen (Misc Panel 4L, POC Ionized Calcium (Misc Panel) 4.5, POC Creatinine (Misc Panel) 0.6, POC Hematocrit (Misc Panel) 30.0L CBC/BMP Laboratory Tests 03/26/19 20:52 Red Blood Count 3.65 L, Mean Corpuscular Volume 93.4, Mean Corpuscular Hemoglobin 30.1, Mean Corpuscular Hemoglobin Concent 32.3, Red Cell Distribution Width 15.1 H, Neutrophils (%) (Auto) 72.1 H, Lymphocytes (%) (Auto) 18.6 L, Monocytes (%) (Auto) 5.3 H, Eosinophils (%) (Auto) 2.3, Basophils (%) (Auto) 0.4, Neutrophils # (Auto) 5.7, Lymphocytes # (Auto) 1.5, Monocytes # (Auto) 0.4, Eosinophils # (Auto) 0.2, Basophils # (Auto) 0.0 Microbiology Microbiology 03/26/19 Blood Culture, Received Pending 03/26/19 Blood Culture, Received Pending Plan / VTE VTE Prophylaxis Ordered?: Yes Plan Plan Right Breast Cellulitis with Fluid Collection vs Abscess U/S of the Right Breast notable for complex fluid collection measuring 3.5 x 2.5 x 1.8 cm The ER provider did discuss the case with Dr. Gaspar of General Surgery, who did not recommend any surgical intervention at this time Blood and wound cultures ordered We will start the patient on empiric antibiotic therapy and place a formal consultation to Gen. surgery in the a.m. The patient may benefit from ultrasound-guided drainage if this does not improve, and surgery is not indicated We will continue to monitor the patient closely in the interim--plan of care discussed at length with the patient, and her mother at the bedside. They have verbalized understanding of the care plan and agree with the same. RLL and AUSTEN Pneumonia, HAP Given recent hospitalization we will cover the patient with Vanco and Zosyn Procalcitonin level, sputum cultures ordered Diabetes mellitus Continue insulin regimen as ordered Asthma, stable Continue current regimen Hypertension Continue lisinopril, spironolactone, torsemide Anxiety/depression Continue current regimen GERD Continue PPI Peripheral neuropathy Continue Lyrica Tobacco use Nicotine patch Morbid obesity Complicating medical care DVT prophylaxis Lovenox subcutaneous VIDAL CASTRO MD Mar 27, 2019 02:41
[2019-03-27] MEDS: rOPINIRole 0.25 MG TAB(REQUIP) PO SCH ×2 (04:45→20:52)
[2019-03-27] MEDS: PERCOCET 5MG/325MG TAB PO PRN ×3 (04:46→17:43)
--- NOTE | 2019-03-27 05:08 | PHACANCOPD ---
PHARMACY VANCOMYCIN DOSING Pt Demographics Demographics Patient Age:43 , Weight:153.600 , Gender: female Adjusted Body Weight Date: 03/27/19, Adjusted Body Weight: [93.8] Kg Vancomycin Vancomycin indication: BREAST ABCESS/CELLULITIS Vancomycin Target Ranges: 15-20 mcg/ml Vancomycin Load Y/N: Yes Load Dose Date Time Vancomycin Load Dose: 2GM Date:03/27 Time: 2-3AM Vancomycin Dose Date: 03/27/19. Current Vancomycin Dose: [1 GM Q8H] Intermittent Dosing?: No Labs Labs Laboratory Tests 03/26/19 20:52 Red Blood Count 3.65 L, Mean Corpuscular Volume 93.4, Mean Corpuscular Hemoglobin 30.1, Mean Corpuscular Hemoglobin Concent 32.3, Red Cell Distribution Width 15.1 H, Neutrophils (%) (Auto) 72.1 H, Lymphocytes (%) (Auto) 18.6 L, Monocytes (%) (Auto) 5.3 H, Eosinophils (%) (Auto) 2.3, Basophils (%) (Auto) 0.4, Neutrophils # (Auto) 5.7, Lymphocytes # (Auto) 1.5, Monocytes # (Auto) 0.4, Eosinophils # (Auto) 0.2, Basophils # (Auto) 0.0 Micro Microbiology 03/26/19 Blood Culture, Received Pending 03/26/19 Blood Culture, Received Pending Creatinine Clearance Date:03/27/19. Creatinine Clearance: [123].CALCULATED Assessment and Plan Maintaining Current Dose?: Yes Reason for dose change: Significant event Pharmacist Note Pharmacist Note Date: 03/27/19. Pharmacist note:43 yof ADMITTED W/CELLULITIS & BREAST ABCESS.HT:5.6,TU=043.45KGABW=93.8)KG.SCR=0.6,SAZM=912 CALCULATED.tO RECEIVE PIP/TAZO 3.375GM [id number] DOSED VANCOMYCIN.vANCOMYCIN 2 GRAM LOAD BEGUN 03/26@2330 WITH A REGIMEN OF 1 GRAM IV [id number].FIRST TROUGH IS DUE 03/28 @0200 (PRIOR TO THE 4TH DOSE).wILL CONTINUE TO FOLLOW LABS AND MAKE ADJUSTMENTS NEEDED. [facility] Mar 27, 2019 05:08
[2019-03-27] MEDS: ENOXAPARIN 40 MG/0.4 ML SYRINGE (J1650) SC SCH (05:50)
[2019-03-27 06:44] LABS: HEMATOCRIT 30.4 % (36.0-47.0); HEMOGLOBIN 9.8 g/dl (12.0-15.5); MEAN CORPUSCULAR HEMOGLOBIN 29.3 pg (27.0-33.0); MEAN CORPUSCULAR HGB CONC 32.2 g/dl (32.0-36.5); PLATELET COUNT, AUTOMATED 388 10^3/uL (150-450); RED BLOOD COUNT 3.34 10^6/uL (4.00-5.40); WHITE BLOOD COUNT 6.5 10^3/uL (4.0-10.0)
[2019-03-27] MEDS: PIPERACILLIN/TAZOBACTAM SOD 3.375 GM in D5W MINI-BAG PLUS 50 ML IV SCH ×4 (06:46→22:28)
[2019-03-27] MEDS: IPRATROPIUM 0.5MG/ALBUTEROL 2.5MG INH SOL UD 3ML (DUONEB)(J7620) NEB PRN ×3 (06:57→20:52)
[2019-03-27 07:06] LABS: ALBUMIN 2.4 GM/DL (3.2-5.2); ALT/SGPT 31 U/L (12-78); BILIRUBIN,TOTAL 0.3 MG/DL (0.2-1.0); BLOOD UREA NITROGEN 5 MG/DL (7-18); C REACTIVE PROTEIN QUANTITATIV 6.22 MG/DL (0.00-0.30); CALCIUM LEVEL 8.6 MG/DL (8.5-10.1); CARBON DIOXIDE LEVEL 30 MEQ/L (21-32); CHLORIDE LEVEL 101 MEQ/L (98-107); CREATININE FOR GFR 0.69 MG/DL (0.55-1.30); GLOMERULAR FILTRATION RATE > 60.0 (>58); GLUCOSE, FASTING 151 MG/DL (70-100); MAGNESIUM LEVEL 1.7 MG/DL (1.8-2.4); POTASSIUM SERUM 3.8 MEQ/L (3.5-5.1); SODIUM LEVEL 136 MEQ/L (136-145); TOTAL PROTEIN 7.3 GM/DL (6.4-8.2)
[2019-03-27] MEDS: SYMBICORT 80/4.5MCG INHALER 6GM INH SCH ×2 (07:59→20:00)
[2019-03-27] MEDS: MAGNESIUM OXIDE 400 MG TAB (MAG-OX) PO SCH ×2 (08:56→20:52)
[2019-03-27] MEDS: CYANOCOBALAMIN 500 MCG TAB PO SCH (08:56)
[2019-03-27] MEDS: VITAMIN D 1,000 INTERNATIONAL UNITS TABLET PO SCH (08:57)
[2019-03-27] MEDS: OMEPRAZOLE 20 MG CAP PO SCH (08:57)
[2019-03-27] MEDS: PREGABALIN 75 MG CAP(LYRICA) PO SCH ×3 (08:57→20:52)
[2019-03-27] MEDS: TORSEMIDE 20 MG TAB PO SCH (08:57)
[2019-03-27] MEDS: busPIRone 10 MG TAB PO SCH ×2 (08:58→20:51)
[2019-03-27] MEDS: NICOTINE 21MG/24HR 1 EA TRANSDERMAL TD SCH (08:58)
[2019-03-27] MEDS: HumaLOG INSULIN (NovoLOG) PER UNIT SC SCH ×4 (08:59→20:53)
[2019-03-27] MEDS: LEVEMIR (INSULIN DETEMIR) 1 UNITS/0.01ML SC SCH ×2 (08:59→22:27)
[2019-03-27] MEDS: FLUTICASONE PROP 0.05% NASAL SPRAY 16 GM (FLONASE) SCH ×2 (09:00→20:54)
[2019-03-27] MEDS: FOLIC ACID 1 MG TAB PO SCH (09:00)
[2019-03-27] MEDS: SPIRONOLACTONE 50 MG TAB PO SCH (09:00)
[2019-03-27] MEDS: LISINOPRIL 20 MG TAB PO SCH (09:00)
--- NOTE | 2019-03-27 09:21 | REP ---
Chest x-ray: Three views presented. History: Short of breath. Comparison study: January 25. Findings: There is an infiltrate just below the minor fissure on the frontal view. This is difficult to localize on the lateral film but appears to be in the lower lobe distribution. There is also a patchy somewhat linear area of increased density in the left perihilar region. The heart is not enlarged. Pulmonary vasculature is not increased. The pleural angles are sharp. Impression: Bilateral infiltrate suspected. Consistent with pneumonia. Electronically Signed by Amaury Emery MD 03/27/2019 09:13 A
[2019-03-27] MEDS ORDERED: MAG SULF 1GM/100ML (MAG RUN) 1 GM in APPROPRIATE DILUENT 1 EA IV ONE (10:00)
[2019-03-27] MEDS: VANCOMYCIN HCL 1,000 MG, VIAL MATE ADAPTER 1 EACH in D5W 250 ML IV SCH ×2 (11:31→18:30)
[2019-03-27] MEDS: LEVOMILNACIPRAN PO SCH (18:13)
[2019-03-27] MEDS: BRIMONIDINE 0.15% OPHTH SOLN 5 ML OU SCH (20:53)
[2019-03-27] MEDS: ACETAMINOPHEN TAB 650MG DOSE (2X325MG) PO PRN (22:28)
[2019-03-28] VITALS (8 sets, daily range): BP systolic 118–142; BP diastolic 65–88
[2019-03-28] MEDS: IPRATROPIUM 0.5MG/ALBUTEROL 2.5MG INH SOL UD 3ML (DUONEB)(J7620) NEB PRN ×6 (02:46→19:35)
[2019-03-28] MEDS: VANCOMYCIN HCL 1,000 MG, VIAL MATE ADAPTER 1 EACH in D5W 250 ML IV SCH ×3 (03:36→18:30)
[2019-03-28] MEDS ORDERED: VANCOMYCIN HCL 500 MG in D5W MINI-BAG PLUS 100 ML IV ONE (04:00)
[2019-03-28] MEDS: ENOXAPARIN 40 MG/0.4 ML SYRINGE (J1650) SC SCH (05:13)
[2019-03-28] MEDS: PIPERACILLIN/TAZOBACTAM SOD 3.375 GM in D5W MINI-BAG PLUS 50 ML IV SCH ×4 (06:20→23:06)
--- NOTE | 2019-03-28 06:38 | PHACANCOPD ---
PHARMACY VANCOMYCIN DOSING Pt Demographics Demographics Patient Age:43 , Weight:153.600 , Gender: female Adjusted Body Weight Date: 03/27/19, Adjusted Body Weight: [93.8] Kg Vancomycin Vancomycin indication: BREAST ABCESS/CELLULITIS Vancomycin Target Ranges: 15-20 mcg/ml Vancomycin Load Y/N: Yes Load Dose Date Time Vancomycin Load Dose: 2GM Date:03/27 Time: 2-3AM Vancomycin Dose Date: 03/27/19. Current Vancomycin Dose: [1 GM Q8H] Intermittent Dosing?: No Labs Micro Microbiology 03/26/19 Blood Culture - Preliminary, Resulted No growth after 24 hours . All specim... 03/26/19 Blood Culture - Preliminary, Resulted No growth after 24 hours . All specim... 03/27/19 Gram Stain, Received Pending 03/27/19 Body Fluid Culture, Received Pending Creatinine Clearance Date:03/27/19. Creatinine Clearance: [123].CALCULATED Assessment and Plan Maintaining Current Dose?: Yes Reason for dose change: No Dose Change Pharmacist Note Pharmacist Note Date: 03/28/19. Pharmacist note:Vancomycin trough drawn this morning@2:19 reported as 12.5.Will administer additional 500mg Vancomycin@0400 and maintain current 1 gram IV Q8Hour regimen.Next trough is scheduled for 03/29@000 Date: 03/27/19. Pharmacist note:43 yof ADMITTED W/CELLULITIS & BREAST ABCESS.HT:5.6,YE=541.45KGABW=93.8)KG.SCR=0.6,TOZL=770 CALCULATED.tO RECEIVE PIP/TAZO 3.375GM [id number] DOSED VANCOMYCIN.vANCOMYCIN 2 GRAM LOAD BEGUN 03/26@2330 WITH A REGIMEN OF 1 GRAM IV [id number].FIRST TROUGH IS DUE 03/28 @0200 (PRIOR TO THE 4TH DOSE).wILL CONTINUE TO FOLLOW LABS AND MAKE ADJUSTMENTS NEEDED. [facility] Mar 28, 2019 06:38
--- NOTE | 2019-03-28 07:01 | REP ---
Ultrasound-guided needle aspiration procedure right breast: History: Right breast abscess. The patient reports recent spontaneous drainage and improvement in the size of the right breast. Comparison sonography March 26, 2019 showed a 3.5 x 2.5 x 1.8 cm complex collection thought likely to be abscess. Procedure: The patient was interviewed and informed consent was obtained. The patient was brought to sonography. Preliminary scanning showed significant improvement compared to the ultrasound findings from the previous day. Despite this, a 1.5 x 0.5 cm irregular hypoechoic area was identified and targeted. The patient safety time-out was articulated and agreed upon. The skin was marked at the projected skin entry site. The skin in the undersurface of the right breast was prepped and draped in the usual fashion. 1% lidocaine was utilized for local anesthetic with a total of 4 ml injected. Under real time sonographic guidance, a 5-Spanish Skater catheter was passed into the hypoechoic area under direct visualization without technical difficulty. Only 1 ml of serosanguineous fluid was aspirated through the Skater catheter lumen. This was submitted for gram stain and C S. The patient tolerated procedure well. Impression: Procedure note for ultrasound-guided right breast aspiration procedure. Only 1 ml of aspirate was retrieved. The sonographic findings are improved from the previous day. Electronically Signed by Amaury Emery MD 03/28/2019 09:36 A
[2019-03-28] MEDS: SYMBICORT 80/4.5MCG INHALER 6GM INH SCH ×2 (07:32→21:24)
[2019-03-28 07:37] LABS: HEMATOCRIT 32.2 % (36.0-47.0); HEMOGLOBIN 10.4 g/dl (12.0-15.5); MEAN CORPUSCULAR HEMOGLOBIN 30.2 pg (27.0-33.0); MEAN CORPUSCULAR HGB CONC 32.3 g/dl (32.0-36.5); MEAN CORPUSCULAR VOLUME 93.6 fl (80.0-96.0); PLATELET COUNT, AUTOMATED 387 10^3/uL (150-450); RED BLOOD COUNT 3.44 10^6/uL (4.00-5.40); WHITE BLOOD COUNT 6.3 10^3/uL (4.0-10.0)
[2019-03-28] MEDS: PERCOCET 5MG/325MG TAB PO PRN ×3 (07:40→20:36)
[2019-03-28 08:00] LABS: ALBUMIN 2.4 GM/DL (3.2-5.2); ALT/SGPT 26 U/L (12-78); BILIRUBIN,TOTAL 0.2 MG/DL (0.2-1.0); BLOOD UREA NITROGEN 6 MG/DL (7-18); C REACTIVE PROTEIN QUANTITATIV 9.71 MG/DL (0.00-0.30); CALCIUM LEVEL 8.6 MG/DL (8.5-10.1); CARBON DIOXIDE LEVEL 31 MEQ/L (21-32); CHLORIDE LEVEL 98 MEQ/L (98-107); CREATININE FOR GFR 0.88 MG/DL (0.55-1.30); GLOMERULAR FILTRATION RATE > 60.0 (>58); GLUCOSE, FASTING 116 MG/DL (70-100); POTASSIUM SERUM 3.8 MEQ/L (3.5-5.1); SODIUM LEVEL 136 MEQ/L (136-145); TOTAL PROTEIN 7.5 GM/DL (6.4-8.2)
[2019-03-28] MEDS: LISINOPRIL 20 MG TAB PO SCH (09:00)
[2019-03-28] MEDS: SPIRONOLACTONE 50 MG TAB PO SCH (09:00)
[2019-03-28] MEDS: LEVOMILNACIPRAN PO SCH (09:34)
[2019-03-28] MEDS: LEVEMIR (INSULIN DETEMIR) 1 UNITS/0.01ML SC SCH ×2 (09:34→22:42)
[2019-03-28] MEDS: FOLIC ACID 1 MG TAB PO SCH (09:34)
[2019-03-28] MEDS: CYANOCOBALAMIN 500 MCG TAB PO SCH (09:34)
[2019-03-28] MEDS: PREGABALIN 75 MG CAP(LYRICA) PO SCH ×3 (09:34→20:33)
[2019-03-28] MEDS: OMEPRAZOLE 20 MG CAP PO SCH (09:35)
[2019-03-28] MEDS: HumaLOG INSULIN (NovoLOG) PER UNIT SC SCH ×5 (09:35→21:00)
[2019-03-28] MEDS: VITAMIN D 1,000 INTERNATIONAL UNITS TABLET PO SCH (09:35)
[2019-03-28] MEDS: TORSEMIDE 20 MG TAB PO SCH (09:36)
[2019-03-28] MEDS: busPIRone 10 MG TAB PO SCH ×2 (09:36→20:33)
[2019-03-28] MEDS: BRIMONIDINE 0.15% OPHTH SOLN 5 ML OU SCH ×3 (09:36→22:42)
[2019-03-28] MEDS: FLUTICASONE PROP 0.05% NASAL SPRAY 16 GM (FLONASE) SCH ×2 (09:36→20:48)
[2019-03-28] MEDS: NICOTINE 21MG/24HR 1 EA TRANSDERMAL TD SCH ×2 (09:36→13:03)
[2019-03-28] MEDS: MAGNESIUM OXIDE 400 MG TAB (MAG-OX) PO SCH ×2 (09:37→20:33)
--- NOTE | 2019-03-28 10:17 | IPNPDOC ---
Text Note Date of Service The patient was seen on 03/28/19. NOTE Subjective: Patient seen and examined at bedside. Feels better today with regards to her breast pain. She notes coughing occasionally productive. Objective: General: NAD, lying comfortably in bed eating breakfast HEENT: NC/AT Lungs: diminished breath sounds Heart: +S1S2, RRR Abd: soft, obese, NT, +BS Ext: trace edema A/P: 43 yo female for right breast cellulitis failing outpatient therapy #Right Breast Cellulitis with Fluid Collection vs Abscess - s/p drainage - fluid gram stain/culture pending - surgery c/s appreciated - continue vanco #RLL and AUSTEN Pneumonia, HAP - SCx pending - contineu Vanco and Zosyn - respiratory treatments - IS/acapella #Diabetes mellitus - Continue insulin regimen as ordered #Asthma, stable - Continue current regimen #Hypertension - Continue lisinopril, spironolactone, torsemide #Anxiety/depression - Continue current regimen #GERD - Continue PPI #Peripheral neuropathy - Continue Lyrica #Tobacco use - Nicotine patch #Morbid obesity - Complicating medical care #DVT prophylaxis - Lovenox subcutaneous VS,Fishbone, I+O VS, Fishbone, I+O Laboratory Tests 03/28/19 07:04 Red Blood Count 3.44 L, Mean Corpuscular Volume 93.6, Mean Corpuscular Hemoglobin 30.2, Mean Corpuscular Hemoglobin Concent 32.3, Red Cell Distribution Width 15.5 H, Calcium Level 8.6, Aspartate Amino Transf (AST/SGOT) 18, Alanine Aminotransferase (ALT/SGPT) 26, Alkaline Phosphatase 87, Total Bilirubin 0.2, Total Protein 7.5, Albumin 2.4 L Vital Signs Date Time Temp Pulse Resp B/P (MAP) Pulse Ox O2 Delivery O2 Flow Rate FiO2 03/28/19 09:00 118/71 03/28/19 08:30 110 18 03/28/19 06:00 98.6 90 03/26/19 22:33 Room Air I&O- Last 24 Hours up to 6 AM 03/28/19 06:00 Intake Total 2510 ml Output Total 8450 ml Balance -5940 ml ROSEANNE CAMERON MD Mar 28, 2019 10:17
[2019-03-28] MEDS: guaiFENesin 200 MG TAB PO PRN ×2 (12:41→17:11)
[2019-03-28] MEDS: BENZONATATE 100 MG CAP PO PRN (14:43)
[2019-03-28] MEDS ORDERED: DEXTROMETHORPHAN 5 ML SYRUP (ROBITUSSIN PEDIATRIC COUGH) PO PRN (20:30)
[2019-03-28] MEDS: rOPINIRole 0.25 MG TAB(REQUIP) PO SCH (20:33)
[2019-03-28] MEDS: guaiFENesin DM LIQ 10ML UD PO PRN (22:34)
[2019-03-29] MEDS: BENZONATATE 100 MG CAP PO PRN ×2 (00:50→17:25)
[2019-03-29] MEDS: IPRATROPIUM 0.5MG/ALBUTEROL 2.5MG INH SOL UD 3ML (DUONEB)(J7620) NEB PRN ×3 (01:25→21:53)
[2019-03-29 02:00] VITALS: BP 114/72
[2019-03-29] MEDS: VANCOMYCIN HCL 1,000 MG, VIAL MATE ADAPTER 1 EACH in D5W 250 ML IV SCH ×2 (03:26→11:12)
[2019-03-29] MEDS: PIPERACILLIN/TAZOBACTAM SOD 3.375 GM in D5W MINI-BAG PLUS 50 ML IV SCH ×4 (04:55→22:22)
[2019-03-29 06:00] VITALS: BP 138/74
[2019-03-29] MEDS: ACETAMINOPHEN TAB 650MG DOSE (2X325MG) PO PRN (06:18)
[2019-03-29] MEDS: ENOXAPARIN 40 MG/0.4 ML SYRINGE (J1650) SC SCH (06:19)
[2019-03-29 06:26] LABS: HEMATOCRIT 32.2 % (36.0-47.0); HEMOGLOBIN 10.3 g/dl (12.0-15.5); MEAN CORPUSCULAR HEMOGLOBIN 29.3 pg (27.0-33.0); MEAN CORPUSCULAR VOLUME 91.5 fl (80.0-96.0); PLATELET COUNT, AUTOMATED 370 10^3/uL (150-450); RED BLOOD COUNT 3.52 10^6/uL (4.00-5.40)
[2019-03-29 06:49] LABS: ALBUMIN 2.5 GM/DL (3.2-5.2); ALT/SGPT 23 U/L (12-78); BILIRUBIN,TOTAL 0.3 MG/DL (0.2-1.0); BLOOD UREA NITROGEN 8 MG/DL (7-18); CALCIUM LEVEL 8.3 MG/DL (8.5-10.1); CARBON DIOXIDE LEVEL 34 MEQ/L (21-32); CHLORIDE LEVEL 99 MEQ/L (98-107); CREATININE FOR GFR 0.98 MG/DL (0.55-1.30); GLOMERULAR FILTRATION RATE > 60.0 (>58); GLUCOSE, FASTING 132 MG/DL (70-100); POTASSIUM SERUM 3.6 MEQ/L (3.5-5.1); SODIUM LEVEL 136 MEQ/L (136-145); TOTAL PROTEIN 7.8 GM/DL (6.4-8.2)
[2019-03-29] MEDS: SYMBICORT 80/4.5MCG INHALER 6GM INH SCH ×2 (07:04→20:28)
[2019-03-29] MEDS: HumaLOG INSULIN (NovoLOG) PER UNIT SC SCH ×4 (07:30→21:13)
[2019-03-29] MEDS: LEVEMIR (INSULIN DETEMIR) 1 UNITS/0.01ML SC SCH ×2 (08:36→21:14)
[2019-03-29] MEDS: VITAMIN D 1,000 INTERNATIONAL UNITS TABLET PO SCH (08:37)
[2019-03-29] MEDS: TORSEMIDE 20 MG TAB PO SCH (08:37)
[2019-03-29] MEDS: PREGABALIN 75 MG CAP(LYRICA) PO SCH ×3 (08:38→21:12)
[2019-03-29] MEDS: FOLIC ACID 1 MG TAB PO SCH (08:38)
[2019-03-29] MEDS: CYANOCOBALAMIN 500 MCG TAB PO SCH (08:38)
[2019-03-29] MEDS: OMEPRAZOLE 20 MG CAP PO SCH (08:38)
[2019-03-29] MEDS: MAGNESIUM OXIDE 400 MG TAB (MAG-OX) PO SCH ×2 (08:38→21:12)
[2019-03-29] MEDS: LEVOMILNACIPRAN PO SCH (08:38)
[2019-03-29] MEDS: busPIRone 10 MG TAB PO SCH ×2 (08:38→21:11)
[2019-03-29] MEDS: LISINOPRIL 20 MG TAB PO SCH (08:39)
[2019-03-29] MEDS: NICOTINE 21MG/24HR 1 EA TRANSDERMAL TD SCH (08:39)
[2019-03-29] MEDS: FLUTICASONE PROP 0.05% NASAL SPRAY 16 GM (FLONASE) SCH ×2 (08:39→21:14)
[2019-03-29] MEDS: SPIRONOLACTONE 50 MG TAB PO SCH (08:40)
[2019-03-29] MEDS: BRIMONIDINE 0.15% OPHTH SOLN 5 ML OU SCH ×3 (08:40→21:14)
[2019-03-29 10:00] VITALS: BP 112/55
[2019-03-29] MEDS: DOXYCYCLINE HYCLATE 100 MG TAB PO SCH ×2 (12:30→21:12)
[2019-03-29 14:00] VITALS: BP 110/71
[2019-03-29] MEDS: predniSONE 20 MG TAB PO SCH (14:42)
[2019-03-29] MEDS: rOPINIRole 0.25 MG TAB(REQUIP) PO SCH (21:12)
[2019-03-29] MEDS: guaiFENesin DM LIQ 10ML UD PO PRN (21:12)
[2019-03-29 22:00] VITALS: BP 148/84
--- NOTE | 2019-03-29 23:13 | IPNPDOC ---
Text Note Date of Service The patient was seen on 03/29/19. NOTE Pt was seen and examined at bedside. Pt is sitting at the edge of bed. Denies any pain or purulent discharge. Pt with Hx of smoking, cough and sputum production. Pt has T2DM on insulin. PHE: General: NAD, AAOx3 HEENT: MELISA EOMI neck supple no icterus no LAP no JVD Lungs: diminished breath sounds no wheezing no rale Heart: S1 S2 nomurmur Abd: soft, obese, NT, +BS Ext: 1+edema no cyanosis no tenderness Neuro: mood affect appropriate Vital Signs Date Time Temp Pulse Resp B/P (MAP) Pulse Ox O2 Delivery O2 Flow Rate FiO2 03/29/19 22:00 96.5 110 19 148/84 (105) 93 3.0 03/29/19 14:00 94.9 106 22 110/71 (84) 94 3.0 03/29/19 10:00 96.2 88 18 112/55 (74) 93 3.0 03/29/19 08:39 138/74 03/29/19 06:00 100.1 114 20 138/74 (95) 91 3.0 03/29/19 02:00 97.8 113 22 114/72 (86) 92 3.0 Intake & Output 03/29/19 06:00 Intake Total 4780 ml Output Total 7750 ml Balance -2970 ml Laboratory Tests 03/29/19 06:08: White Blood Count 6.0, Red Blood Count 3.52L, Hemoglobin 10.3L, Hematocrit 32.2L, Mean Corpuscular Volume 91.5, Mean Corpuscular Hemoglobin 29.3, Mean Corpuscular Hemoglobin Concent 32.0, Red Cell Distribution Width 15.5H, Platelet Count 370, Nucleated Red Blood Cells % (auto) 0.0, Blood Urea Nitrogen 8, Creatinine 0.98, Sodium Level 136, Potassium Level 3.6, Chloride Level 99, Carbon Dioxide Level 34H, Calcium Level 8.3L, Aspartate Amino Transf (AST/SGOT) 23, Alanine Aminotransferase (ALT/SGPT) 23, Alkaline Phosphatase 86, Total Bilirubin 0.3, Total Protein 7.8, Albumin 2.5L, Anion Gap 3L, Glomerular Filtration Rate > 60.0, Fasting Glucose 132H, C-Reactive Protein, Quantitative 12.70H, Albumin/Globulin Ratio 0.47L 03/29/19 09:54: Vancomycin Level Trough 12.3 Microbiology 03/27/19 Gram Stain - Final, Complete 03/27/19 Body Fluid Culture - Final, Complete Current Medications Medications (Trade) Dose Ordered Sig/Chevy Route PRN Reason Start Time Stop Time Status Last Admin Dose Admin Acetaminophen (Tylenol Tab) 650 mg Q4H PRN PO PAIN OR FEVER 03/27/19 01:00 03/29/19 06:18 650 MG Albuterol/ Ipratropium (Duoneb (Ipr 0.5mg/Alb 2.5mg)) 3 ml Q2HP PRN NEB SOB/WHEEZING 03/27/19 01:00 03/29/19 21:53 3 ML Benzonatate (Tessalon Perles) 200 mg TIDP PRN PO COUGH 03/28/19 14:15 03/29/19 17:25 200 MG Brimonidine Tartrate (Alphagan P 0.15%) 1 drop TID OU 03/27/19 21:00 03/29/19 21:14 1 DROP Budesonide/ Formoterol Fumarate (Symbicort 80/ 4.5mcg) 2 puff RBID INH 03/27/19 08:00 03/29/19 20:28 2 PUFF Buspirone HCl (Buspar) 20 mg BID PO 03/27/19 09:00 03/29/19 21:11 20 MG Cyanocobalamin (Vitamin B12) 500 mcg DAILY PO 03/27/19 09:00 03/29/19 08:38 500 MCG Doxycycline Hyclate (Vibramycin) 100 mg BID PO 03/29/19 09:00 03/29/19 21:12 100 MG Enoxaparin Sodium (Lovenox) 40 mg DAILY@0600 SC 03/27/19 06:00 03/29/19 06:19 40 MG Fluticasone Propionate (Flonase 0.05% Nasal [place]) 1 spray BID NA 03/27/19 09:00 03/29/19 21:14 1 SPRAY Folic Acid (Folic Acid) 1 mg DAILY PO 03/27/19 09:00 03/29/19 08:38 1 MG Guaifenesin/ Dextromethorphan (Robitussin Dm) 15 ml Q6HP PRN PO COUGH 03/28/19 21:30 7/15/19 21:12 15 ML Insulin Detemir (Levemir Insulin) 100 units BID SC 03/27/19 09:00 03/29/19 21:14 100 UNITS Insulin Human Lispro (HumaLOG INSULIN) SEE PROTOCOL TABLE QHS SC 03/27/19 21:00 03/29/19 21:13 2 UNITS Lisinopril (Prinivil) 20 mg DAILY PO 03/27/19 09:00 03/29/19 08:39 20 MG Magnesium Oxide (Mag-Ox) 400 mg BID PO 03/27/19 09:00 03/29/19 21:12 400 MG Nicotine (Nicoderm Cq 21mg) 1 patch DAILY TD 03/27/19 09:00 03/29/19 08:39 1 PATCH Omeprazole (PriLOSEC) 40 mg DAILY PO 03/27/19 09:00 03/29/19 08:38 40 MG Oxycodone/ Acetaminophen (Percocet 5mg/ 325mg Tablet) 2 tab Q6HP PRN PO SEVERE PAIN (PS 8-10) 03/27/19 01:00 03/28/19 20:36 2 TAB Patient Own Medication (Patient'S Own Med) Fetzima 100mg PO daily ... DAILY PO 03/27/19 09:00 03/29/19 08:38 1 EA Piperacillin Sod/ Tazobactam Sod 3.375 gm/Dextrose 50 ml @ 50 mls/hr Q6H IV 03/27/19 04:00 03/29/19 22:22 50 MLS/HR Prednisone (Deltasone) 40 mg DAILY PO 03/29/19 09:00 03/29/19 14:42 40 MG Pregabalin (Lyrica) 150 mg TID PO 03/27/19 09:00 03/29/19 21:12 150 MG Ropinirole HCl (Requip) 0.25 mg QHS PO 03/26/19 21:00 03/29/19 21:12 0.25 MG Spironolactone (Aldactone) 50 mg DAILY PO 03/27/19 09:00 03/29/19 08:40 50 MG Torsemide (Demadex) 40 mg DAILY PO 03/27/19 09:00 03/29/19 08:37 40 MG Vitamin D (Vitamin D) 2,000 units DAILY PO 03/27/19 09:00 03/29/19 08:37 2,000 UNITS A/P: 43 yo female for right breast cellulitis failing outpatient therapy 1-Right Breast Cellulitis with Abscess formation - s/p drainage - fluid gram stain/culture pending - surgery c/s appreciated - DC Vanc -Doxycycline started -Cont Zosyn pt is diabetic high risk for gr negative anaerobic infection 2-RLL and AUSTEN Pneumonia, HAP - SCx pending -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 -Steroids added - respiratory treatments - IS/acapella 3-T2DM - Continue insulin regimen as ordered 4-Hypertension - Continue lisinopril, spironolactone, torsemide 5-Anxiety/depression - Continue current regimen 6-GERD - Continue PPI 7-Peripheral neuropathy - Continue Lyrica 8-Nicotine Dependence - Nicotine patch 9-Morbid obesity - Complicating medical care #DVT prophylaxis - Lovenox sc VS,Fishbone, I+O VS, Fishbone, I+O Laboratory Tests 03/29/19 06:08 Red Blood Count 3.52 L, Mean Corpuscular Volume 91.5, Mean Corpuscular Hemoglobin 29.3, Mean Corpuscular Hemoglobin Concent 32.0, Red Cell Distribution Width 15.5 H, Calcium Level 8.3 L, Aspartate Amino Transf (AST/SGOT) 23, Alanine Aminotransferase (ALT/SGPT) 23, Alkaline Phosphatase 86, Total Bilirubin 0.3, Total Protein 7.8, Albumin 2.5 L Vital Signs Date Time Temp Pulse Resp B/P (MAP) Pulse Ox O2 Delivery O2 Flow Rate FiO2 03/29/19 22:00 96.5 110 19 148/84 (105) 93 3.0 03/26/19 22:33 Room Air I&O- Last 24 Hours up to 6 AM 03/29/19 06:00 Intake Total 4780 ml Output Total 7750 ml Balance -2970 ml NEIDA LYNN MD Mar 29, 2019 23:13
[2019-03-30] MEDS: PIPERACILLIN/TAZOBACTAM SOD 3.375 GM in D5W MINI-BAG PLUS 50 ML IV SCH ×5 (03:57→21:30)
[2019-03-30] MEDS: ENOXAPARIN 40 MG/0.4 ML SYRINGE (J1650) SC SCH (06:01)
[2019-03-30 06:05] LABS: HEMATOCRIT 31.8 % (36.0-47.0); HEMOGLOBIN 10.1 g/dl (12.0-15.5); MEAN CORPUSCULAR HEMOGLOBIN 29.4 pg (27.0-33.0); MEAN CORPUSCULAR HGB CONC 31.8 g/dl (32.0-36.5); MEAN CORPUSCULAR VOLUME 92.4 fl (80.0-96.0); PLATELET COUNT, AUTOMATED 380 10^3/uL (150-450); RED BLOOD COUNT 3.44 10^6/uL (4.00-5.40); WHITE BLOOD COUNT 3.7 10^3/uL (4.0-10.0)
[2019-03-30 06:30] LABS: ALBUMIN 2.3 GM/DL (3.2-5.2); ALT/SGPT 22 U/L (12-78); BILIRUBIN,TOTAL 0.2 MG/DL (0.2-1.0); BLOOD UREA NITROGEN 9 MG/DL (7-18); C REACTIVE PROTEIN QUANTITATIV 9.27 MG/DL (0.00-0.30); CALCIUM LEVEL 8.3 MG/DL (8.5-10.1); CARBON DIOXIDE LEVEL 33 MEQ/L (21-32); CHLORIDE LEVEL 101 MEQ/L (98-107); CREATININE FOR GFR 0.94 MG/DL (0.55-1.30); GLOMERULAR FILTRATION RATE > 60.0 (>58); GLUCOSE, FASTING 317 MG/DL (70-100); SODIUM LEVEL 137 MEQ/L (136-145); TOTAL PROTEIN 7.8 GM/DL (6.4-8.2)
[2019-03-30] MEDS: SYMBICORT 80/4.5MCG INHALER 6GM INH SCH ×2 (08:17→20:46)
[2019-03-30] MEDS: IPRATROPIUM 0.5MG/ALBUTEROL 2.5MG INH SOL UD 3ML (DUONEB)(J7620) NEB PRN (08:29)
[2019-03-30] MEDS: busPIRone 10 MG TAB PO SCH ×2 (08:30→21:29)
[2019-03-30] MEDS: OMEPRAZOLE 20 MG CAP PO SCH (08:30)
[2019-03-30] MEDS: TORSEMIDE 20 MG TAB PO SCH (08:30)
[2019-03-30] MEDS: VITAMIN D 1,000 INTERNATIONAL UNITS TABLET PO SCH (08:30)
[2019-03-30] MEDS: PREGABALIN 75 MG CAP(LYRICA) PO SCH ×3 (08:30→21:29)
[2019-03-30] MEDS: predniSONE 20 MG TAB PO SCH (08:30)
[2019-03-30] MEDS: LISINOPRIL 20 MG TAB PO SCH (08:31)
[2019-03-30] MEDS: MAGNESIUM OXIDE 400 MG TAB (MAG-OX) PO SCH ×2 (08:31→21:29)
[2019-03-30] MEDS: guaiFENesin DM LIQ 10ML UD PO PRN ×2 (08:31→15:44)
[2019-03-30] MEDS: FOLIC ACID 1 MG TAB PO SCH (08:32)
[2019-03-30] MEDS: DOXYCYCLINE HYCLATE 100 MG TAB PO SCH (08:32)
[2019-03-30] MEDS: CYANOCOBALAMIN 500 MCG TAB PO SCH (08:32)
[2019-03-30] MEDS: SPIRONOLACTONE 50 MG TAB PO SCH (08:32)
[2019-03-30] MEDS: NICOTINE 21MG/24HR 1 EA TRANSDERMAL TD SCH (08:32)
[2019-03-30] MEDS: LEVEMIR (INSULIN DETEMIR) 1 UNITS/0.01ML SC SCH ×2 (08:33→21:28)
[2019-03-30] MEDS: FLUTICASONE PROP 0.05% NASAL SPRAY 16 GM (FLONASE) SCH ×2 (08:34→21:30)
[2019-03-30] MEDS: BRIMONIDINE 0.15% OPHTH SOLN 5 ML OU SCH ×3 (08:34→21:30)
[2019-03-30] MEDS: LEVOMILNACIPRAN PO SCH (08:34)
[2019-03-30] MEDS: HumaLOG INSULIN (NovoLOG) PER UNIT SC SCH ×4 (08:34→21:29)
[2019-03-30] MEDS ORDERED: VANCOMYCIN HCL 1,000 MG, VIAL MATE ADAPTER 1 EACH in D5W 250 ML IV SCH (09:45)
[2019-03-30 10:00] VITALS: BP 150/80
[2019-03-30] MEDS ORDERED: VANCOMYCIN HCL 1,000 MG, VIAL MATE ADAPTER 1 EACH in D5W 250 ML IV ONE (11:00)
[2019-03-30] MEDS: tiZANidine 4 MG TAB PO PRN (11:28)
[2019-03-30] MEDS: BENZONATATE 100 MG CAP PO PRN (11:28)
[2019-03-30] MEDS: PERCOCET 5MG/325MG TAB PO PRN (11:30)
[2019-03-30] MEDS: IPRATROPIUM 0.5MG/ALBUTEROL 2.5MG INH SOL UD 3ML (DUONEB)(J7620) NEB SCH ×4 (12:36→23:09)
[2019-03-30 14:00] VITALS: BP 159/73
--- NOTE | 2019-03-30 15:54 | PHACANCOPD ---
PHARMACY VANCOMYCIN DOSING Pt Demographics Demographics Patient Age:43 , Weight:153.600 , Gender: female Adjusted Body Weight Date: 03/27/19, Adjusted Body Weight: [93.8] Kg Vancomycin Vancomycin indication: BREAST ABCESS/CELLULITIS Vancomycin Target Ranges: 15-20 mcg/ml Vancomycin Load Y/N: Yes Load Dose Date Time Vancomycin Load Dose: 1500mg Date 03/30 Time: 1600 Vancomycin Load Dose: 2GM Date:03/27 Time: 2-3AM Vancomycin Dose Date: 03/30/19. Current Vancomycin Dose: [1250mg iv q8h@00] Date: 03/27/19. Current Vancomycin Dose: [1 GM Q8H] Intermittent Dosing?: No Labs Labs Vital Signs Label Value Date Time Patient Temperature 98.6 degrees F 03/30/19 1000 Temperature Source Temporal 03/30/19 1000 Patient Temperature 96.1 degrees F 03/30/19 1400 Temperature Source Temporal 03/30/19 1400 Item Value Date Time White Blood Count 6.0 10^3/uL 03/29/19 0608 White Blood Count 3.7 10^3/uL L 03/30/19 0543 Procalcitonin 0.04 NG/ML 03/27/19 0604 Creatinine 0.94 MG/DL 03/30/19 0543 Vancomycin Level Trough 12.5 UG/ML 03/28/19 0219 Vancomycin Level Trough 12.3 UG/ML 03/29/19 0954 Micro Microbiology 03/26/19 Blood Culture - Preliminary, Resulted No Growth after 72 hours. All specime... 03/26/19 Blood Culture - Preliminary, Resulted No Growth after 72 hours. All specime... 03/27/19 Gram Stain - Final, Complete 03/27/19 Body Fluid Culture - Final, Complete 03/29/19 Gram Stain - Final, Resulted 03/29/19 Sputum Culture, Resulted Pending Creatinine Clearance Date:03/27/19. Creatinine Clearance: [123].CALCULATED Assessment and Plan Maintaining Current Dose?: Yes Reason for dose change: No Dose Change Pharmacist Note Pharmacist Note 03/30: Patient was restarted today on Vancomycin for her breast cellulitis. Her last dose of Vancomycin was yesterday of 1000mg at 11am. She had a trough that resulted yesterday at 12.3 after 4 days of being on Vancomycin 1gm IV q8h with an additional 500mg given on 03/28. Today she was loaded with 1500mg IV Vancomycin because she has gone over 24 hours with no doses. She will be continued on Vancomycin 1250mg IV q8h starting at midnight. Her WBC is within normal limits and she is afebrile. We will continue to monitor and make adjustments as necessary. Date: 03/28/19. Pharmacist note:Vancomycin trough drawn this morning@2:19 reported as 12.5.Will administer additional 500mg Vancomycin@0400 and maintain current 1 gram IV Q8Hour regimen.Next trough is scheduled for 03/29@000 Date: 03/27/19. Pharmacist note:43 yof ADMITTED W/CELLULITIS & BREAST ABCESS.HT:5.6,MR=097.45KGABW=93.8)KG.SCR=0.6,RSHD=090 CALCULATED.tO RECEIVE PIP/TAZO 3.375GM [id number] DOSED VANCOMYCIN.vANCOMYCIN 2 GRAM LOAD BEGUN 03/26@2330 WITH A REGIMEN OF 1 GRAM IV [id number].FIRST TROUGH IS DUE 03/28 @0200 (PRIOR TO THE 4TH DOSE).wILL CONTINUE TO FOLLOW LABS AND MAKE ADJUSTMENTS NEEDED. [facility] Mar 30, 2019 15:54
[2019-03-30] MEDS ORDERED: VANCOMYCIN HCL 500 MG in D5W MINI-BAG PLUS 100 ML IV ONE (17:00)
[2019-03-30] MEDS: SANTYL OINT 30GM TOP SCH (17:40)
[2019-03-30 18:00] VITALS: BP 156/72
[2019-03-30] MEDS: rOPINIRole 0.25 MG TAB(REQUIP) PO SCH (21:29)
[2019-03-30 22:00] VITALS: BP 147/65
--- NOTE | 2019-03-30 23:30 | IPNPDOC ---
Text Note Date of Service The patient was seen on 03/30/19. NOTE Pt was seen and examined at bedside. Pt with mild wheezing and respiratory distress. cellulitis on Rt breast extending to Axilla has worsened since prior exam. Wound is open with purulent discharge. Afebrile. Pt does not appear ill or toxic. paid search specialist consulted for further management. PHE: General: NAD, AAOx3 HEENT: MELISA EOMI neck supple no icterus no LAP no JVD Lungs: diminished breath sounds no rale Heart: S1 S2 no murmur Abd: soft, obese, NT, +BS Ext: 1+edema no cyanosis no tenderness , 3x3 cm area of cellulitis with open wound with white colored tissue worsened since prior exam Neuro: mood affect appropriate Vital Signs Date Time Temp Pulse Resp B/P (MAP) Pulse Ox O2 Delivery O2 Flow Rate FiO2 03/30/19 22:00 97.6 98 18 147/65 (92) 94 3.0 03/30/19 18:00 96.8 98 19 156/72 (100) 3.0 03/30/19 14:00 96.1 99 19 159/73 (101) 95 3.0 03/30/19 13:02 18 03/30/19 11:30 18 03/30/19 10:00 98.6 100 19 150/80 (103) 94 3.0 03/30/19 08:31 138/74 03/30/19 06:00 98.8 104 18 90 3.0 Intake & Output 03/30/19 06:00 Intake Total 2740 ml Output Total 7400 ml Balance -4660 ml Laboratory Tests 03/30/19 00:03: Urine Color STRAW, Urine Appearance CLEAR, Urine pH 6.0, Urine Specific Organ 1.002, Urine Protein NEGATIVE, Urine Glucose (UA) 3+H, Urine Ketones NEGATIVE, Urine Blood 3+H, Urine Nitrite NEGATIVE, Urine Bilirubin NEGATIVE, Urine Urobilinogen 0.2, Urine Leukocyte Esterase NEGATIVE, Urine WBC (Auto) 1, Urine RBC (Auto) 77H, Urine Hyaline Casts (Auto) 0, Urine Bacteria (Auto) 1+H, Urine Squamous Epithelial Cells 0, Urine Sperm (Auto) 03/30/19 05:43: White Blood Count 3.7L, Red Blood Count 3.44L, Hemoglobin 10.1L, Hematocrit 31.8L, Mean Corpuscular Volume 92.4, Mean Corpuscular Hemoglobin 29.4, Mean Corpuscular Hemoglobin Concent 31.8L, Red Cell Distribution Width 15.2H, Platelet Count 380, Nucleated Red Blood Cells % (auto) 0.0, Blood Urea Nitrogen 9, Creatinine 0.94, Sodium Level 137, Potassium Level 4.0, Chloride Level 101, Carbon Dioxide Level 33H, Calcium Level 8.3L, Aspartate Amino Transf (AST/SGOT) 19, Alanine Aminotransferase (ALT/SGPT) 22, Alkaline Phosphatase 84, Total Bilir ubin 0.2, Total Protein 7.8, Albumin 2.3L, Anion Gap 3L, Glomerular Filtration Rate > 60.0, Fasting Glucose 317H, C-Reactive Protein, Quantitative 9.27H, Albumin/Globulin Ratio 0.42L Microbiology 03/27/19 Gram Stain - Final, Complete 03/27/19 Body Fluid Culture - Final, Complete Current Medications Medications (Trade) Dose Ordered Sig/Chevy Route PRN Reason Start Time Stop Time Status Last Admin Dose Admin Acetaminophen (Tylenol Tab) 650 mg Q4H PRN PO PAIN OR FEVER 03/27/19 01:00 03/29/19 06:18 650 MG Albuterol/ Ipratropium (Duoneb (Ipr 0.5mg/Alb 2.5mg)) 3 ml RQ4H NEB 03/30/19 12:00 03/30/19 23:09 3 ML Benzonatate (Tessalon Perles) 200 mg TIDP PRN PO COUGH 03/28/19 14:15 03/30/19 11:28 200 MG Brimonidine Tartrate (Alphagan P 0.15%) 1 drop TID OU 03/27/19 21:00 03/30/19 21:30 1 DROP Budesonide/ Formoterol Fumarate (Symbicort 80/ 4.5mcg) 2 puff RBID INH 03/27/19 08:00 03/30/19 20:46 2 PUFF Buspirone HCl (Buspar) 20 mg BID PO 03/27/19 09:00 03/30/19 21:29 20 MG Collagenase (Santyl) 1 dose DAILY TOP 03/30/19 13:00 03/30/19 17:40 1 DOSE Cyanocobalamin (Vitamin B12) 500 mcg DAILY PO 03/27/19 09:00 03/30/19 08:32 500 MCG Enoxaparin Sodium (Lovenox) 40 mg DAILY@0600 SC 03/27/19 06:00 03/30/19 06:01 40 MG Fluticasone Propionate (Flonase 0.05% Nasal [place]) 1 spray BID NA 03/27/19 09:00 03/30/19 21:30 1 SPRAY Folic Acid (Folic Acid) 1 mg DAILY PO 03/27/19 09:00 03/30/19 08:32 1 MG Guaifenesin/ Dextromethorphan (Robitussin Dm) 15 ml Q6HP PRN PO COUGH 03/28/19 21:30 03/30/19 15:44 15 ML Insulin Detemir (Levemir Insulin) 100 units BID SC 03/27/19 09:00 03/30/19 21:28 100 UNITS Insulin Human Lispro (HumaLOG INSULIN) SEE PROTOCOL TABLE QHS SC 03/27/19 21:00 03/30/19 21:29 8 UNITS Lisinopril (Prinivil) 20 mg DAILY PO 03/27/19 09:00 03/30/19 08:31 20 MG Magnesium Oxide (Mag-Ox) 400 mg BID PO 03/27/19 09:00 03/30/19 21:29 400 MG Nicotine (Nicoderm Cq 21mg) 1 patch DAILY TD 03/27/19 09:00 03/30/19 08:32 1 PATCH Omeprazole (PriLOSEC) 40 mg DAILY PO 03/27/19 09:00 03/30/19 08:30 40 MG Oxycodone/ Acetaminophen (Percocet 5mg/ 325mg Tablet) 2 tab Q6HP PRN PO SEVERE PAIN (PS 8-10) 03/27/19 01:00 03/30/19 11:30 2 TAB Patient Own Medication (Patient'S Own Med) Fetzima 100mg PO daily ... DAILY PO 03/27/19 09:00 03/30/19 08:34 1 EA Piperacillin Sod/ Tazobactam Sod 3.375 gm/Dextrose 50 ml @ 50 mls/hr Q6H IV 03/27/19 04:00 03/30/19 21:30 50 MLS/HR Prednisone (Deltasone) 40 mg DAILY PO 03/29/19 09:00 03/30/19 08:30 40 MG Pregabalin (Lyrica) 150 mg TID PO 03/27/19 09:00 03/30/19 21:29 150 MG Ropinirole HCl (Requip) 0.25 mg QHS PO 03/26/19 21:00 03/30/19 21:29 0.25 MG Spironolactone (Aldactone) 50 mg DAILY PO 03/27/19 09:00 03/30/19 08:32 50 MG Tizanidine HCl (Zanaflex) 4 mg Q8HP PRN PO PAIN 03/27/19 01:00 03/30/19 11:28 4 MG Torsemide (Demadex) 40 mg DAILY PO 03/27/19 09:00 03/30/19 08:30 40 MG Vitamin D (Vitamin D) 2,000 units DAILY PO 03/27/19 09:00 03/30/19 08:30 2,000 UNITS A/P: 43 yo female for right breast cellulitis failing outpatient therapy 1-Right Breast Cellulitis with Abscess formation - s/p drainage - fluid gram stain/culture pending - surgery reconsult Vanc resumed -Cont Zosyn pt is diabetic high risk for gr negative anaerobic infection leasing specialist consult 2-RLL and AUSTEN Pneumonia, HAP - SCx pending -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 -Steroids added - respiratory treatments - IS/acapella 3-T2DM - Continue insulin regimen as ordered 4-Hypertension - Continue lisinopril, spironolactone, torsemide 5-Anxiety/depression - Continue current regimen 6-GERD - Continue PPI 7-Peripheral neuropathy - Continue Lyrica 8-Nicotine Dependence - Nicotine patch 9-Morbid obesity - Complicating medical care #DVT prophylaxis - Lovenox sc VS,Fishbone, I+O VS, Fishbone, I+O Laboratory Tests 03/30/19 05:43 Red Blood Count 3.44 L, Mean Corpuscular Volume 92.4, Mean Corpuscular Hemoglobin 29.4, Mean Corpuscular Hemoglobin Concent 31.8 L, Red Cell Distribution Width 15.2 H, Calcium Level 8.3 L, Aspartate Amino Transf (AST/SGOT) 19, Alanine Aminotransferase (ALT/SGPT) 22, Alkaline Phosphatase 84, Total Bilirubin 0.2, Total Protein 7.8, Albumin 2.3 L Vital Signs Date Time Temp Pulse Resp B/P (MAP) Pulse Ox O2 Delivery O2 Flow Rate FiO2 03/30/19 22:00 97.6 98 18 147/65 (92) 94 3.0 03/26/19 22:33 Room Air I&O- Last 24 Hours up to 6 AM 03/30/19 06:00 Intake Total 2740 ml Output Total 7400 ml Balance -4660 ml NEIDA LYNN MD Mar 30, 2019 23:30
[2019-03-31] MEDS: BENZONATATE 100 MG CAP PO PRN ×2 (00:08→08:46)
[2019-03-31] MEDS: VANCOMYCIN HCL 750 MG, VIAL MATE ADAPTER 1 EACH in D5W 250 ML IV SCH ×3 (00:08→17:14)
[2019-03-31] MEDS: PERCOCET 5MG/325MG TAB PO PRN ×3 (01:22→16:24)
[2019-03-31] MEDS: tiZANidine 4 MG TAB PO PRN ×3 (01:22→22:29)
[2019-03-31] MEDS: guaiFENesin DM LIQ 10ML UD PO PRN ×2 (01:26→22:28)
[2019-03-31 02:00] VITALS: BP 138/65
[2019-03-31] MEDS: VANCOMYCIN HCL 500 MG in D5W MINI-BAG PLUS 100 ML IV SCH ×3 (02:12→17:15)
[2019-03-31] MEDS: PIPERACILLIN/TAZOBACTAM SOD 3.375 GM in D5W MINI-BAG PLUS 50 ML IV SCH ×4 (03:32→22:10)
[2019-03-31] MEDS: IPRATROPIUM 0.5MG/ALBUTEROL 2.5MG INH SOL UD 3ML (DUONEB)(J7620) NEB SCH ×5 (04:54→20:00)
[2019-03-31] MEDS: ENOXAPARIN 40 MG/0.4 ML SYRINGE (J1650) SC SCH (05:10)
[2019-03-31 06:00] VITALS: BP 133/60
[2019-03-31 06:37] LABS: HEMATOCRIT 31.2 % (36.0-47.0); HEMOGLOBIN 9.9 g/dl (12.0-15.5); MEAN CORPUSCULAR HEMOGLOBIN 29.4 pg (27.0-33.0); MEAN CORPUSCULAR HGB CONC 31.7 g/dl (32.0-36.5); MEAN CORPUSCULAR VOLUME 92.6 fl (80.0-96.0); PLATELET COUNT, AUTOMATED 415 10^3/uL (150-450); RED BLOOD COUNT 3.37 10^6/uL (4.00-5.40); WHITE BLOOD COUNT 6.9 10^3/uL (4.0-10.0)
[2019-03-31 07:13] LABS: ALBUMIN 2.6 GM/DL (3.2-5.2); ALT/SGPT 29 U/L (12-78); BILIRUBIN,TOTAL 0.2 MG/DL (0.2-1.0); BLOOD UREA NITROGEN 15 MG/DL (7-18); C REACTIVE PROTEIN QUANTITATIV 5.42 MG/DL (0.00-0.30); CALCIUM LEVEL 8.6 MG/DL (8.5-10.1); CARBON DIOXIDE LEVEL 30 MEQ/L (21-32); CHLORIDE LEVEL 100 MEQ/L (98-107); CREATININE FOR GFR 0.94 MG/DL (0.55-1.30); GLOMERULAR FILTRATION RATE > 60.0 (>58); GLUCOSE, FASTING 250 MG/DL (70-100); POTASSIUM SERUM 3.5 MEQ/L (3.5-5.1); SODIUM LEVEL 137 MEQ/L (136-145); TOTAL PROTEIN 8.1 GM/DL (6.4-8.2)
[2019-03-31] MEDS: SYMBICORT 80/4.5MCG INHALER 6GM INH SCH ×2 (07:16→20:51)
[2019-03-31] MEDS: busPIRone 10 MG TAB PO SCH ×2 (08:46→21:18)
[2019-03-31] MEDS: PREGABALIN 75 MG CAP(LYRICA) PO SCH ×3 (08:46→21:19)
[2019-03-31] MEDS: OMEPRAZOLE 20 MG CAP PO SCH (08:46)
[2019-03-31] MEDS: VITAMIN D 1,000 INTERNATIONAL UNITS TABLET PO SCH (08:46)
[2019-03-31] MEDS: TORSEMIDE 20 MG TAB PO SCH (08:46)
[2019-03-31] MEDS: LEVOMILNACIPRAN PO SCH (08:47)
[2019-03-31] MEDS: LISINOPRIL 20 MG TAB PO SCH (08:47)
[2019-03-31] MEDS: SPIRONOLACTONE 50 MG TAB PO SCH (08:47)
[2019-03-31] MEDS: MAGNESIUM OXIDE 400 MG TAB (MAG-OX) PO SCH ×2 (08:47→21:19)
[2019-03-31] MEDS: FOLIC ACID 1 MG TAB PO SCH (08:47)
[2019-03-31] MEDS: predniSONE 20 MG TAB PO SCH (08:47)
[2019-03-31] MEDS: CYANOCOBALAMIN 500 MCG TAB PO SCH (08:47)
[2019-03-31] MEDS: NICOTINE 21MG/24HR 1 EA TRANSDERMAL TD SCH (08:48)
[2019-03-31] MEDS: BRIMONIDINE 0.15% OPHTH SOLN 5 ML OU SCH ×3 (08:49→21:20)
[2019-03-31] MEDS: FLUTICASONE PROP 0.05% NASAL SPRAY 16 GM (FLONASE) SCH ×2 (08:49→21:20)
[2019-03-31] MEDS: LEVEMIR (INSULIN DETEMIR) 1 UNITS/0.01ML SC SCH ×2 (08:50→21:19)
[2019-03-31] MEDS: HumaLOG INSULIN (NovoLOG) PER UNIT SC SCH ×4 (08:50→21:20)
[2019-03-31 10:00] VITALS: BP 131/70
[2019-03-31] MEDS: SANTYL OINT 30GM TOP SCH (10:00)
[2019-03-31] MEDS ORDERED: LIDOCAINE 1% MDV 20ML VIAL As Ordered ONE (12:56)
--- NOTE | 2019-03-31 16:14 | PHACANCOPD ---
PHARMACY VANCOMYCIN DOSING Pt Demographics Demographics Patient Age:43 , Weight:153.600 , Gender: female Adjusted Body Weight Date: 03/27/19, Adjusted Body Weight: [93.8] Kg Events Past 24 Hours Events Past 24 Hours: NO: Dialysis, Diuretic Therapy, Change in CrCl, Fever, Elevation in WBC, Pending Diagnostics, Pending Procedures, Other Vancomycin Vancomycin indication: BREAST ABCESS/CELLULITIS Vancomycin Target Ranges: 15-20 mcg/ml Vancomycin Load Y/N: Yes Load Dose Date Time Vancomycin Load Dose: 1500mg Date 03/30 Time: 1600 Vancomycin Load Dose: 2GM Date:03/27 Time: 2-3AM Vancomycin Dose Date: 03/30/19. Current Vancomycin Dose: [1250mg iv q8h@00] Date: 03/27/19. Current Vancomycin Dose: [1 GM Q8H] Intermittent Dosing?: No Labs Labs Vital Signs Label Value Date Time Patient Temperature 96.2 degrees F 03/31/19 1000 Temperature Source Temporal 03/31/19 1000 Patient Temperature 97.9 degrees F 03/31/19 0600 Temperature Source Temporal 03/31/19 0600 Item Value Date Time White Blood Count 3.7 10^3/uL L 03/30/19 0543 White Blood Count 6.9 10^3/uL 03/31/19 0604 White Blood Count 6.0 10^3/uL 03/29/19 0608 Creatinine 0.94 MG/DL 03/31/19 0604 Creatinine 0.94 MG/DL 03/30/19 0543 Creatinine 0.98 MG/DL 03/29/19 0608 C-Reactive Protein, Quantitative 5.42 MG/DL H 03/31/19 0604 C-Reactive Protein, Quantitative 9.27 MG/DL H 03/30/19 0543 C-Reactive Protein, Quantitative 12.70 MG/DL H 03/29/19 0608 Vancomycin Level Trough 16.1 UG/ML 03/31/19 1521 Vancomycin Level Trough 12.3 UG/ML 03/29/19 0954 Micro Microbiology 03/26/19 Blood Culture - Preliminary, Resulted No Growth after 72 hours. All specime... 03/26/19 Blood Culture - Preliminary, Resulted No Growth after 72 hours. All specime... 03/27/19 Gram Stain - Final, Complete 03/27/19 Body Fluid Culture - Final, Complete 03/29/19 Gram Stain - Final, Resulted 03/29/19 Sputum Culture, Resulted Pending Creatinine Clearance Date:03/27/19. Creatinine Clearance: [123].CALCULATED Assessment and Plan Maintaining Current Dose?: Yes Reason for dose change: No Dose Change Pharmacist Note Pharmacist Note 03/31/19: Trough today resulted at 16.1mcg/ml. This is exactly where we would like the patient to be. We will continue her current dose of Vanco 1250mg IV Q8H. We will continue to monitor and adjust dose as needed. 03/30: Patient was restarted today on Vancomycin for her breast cellulitis. Her last dose of Vancomycin was yesterday of 1000mg at 11am. She had a trough that resulted yesterday at 12.3 after 4 days of being on Vancomycin 1gm IV q8h with an additional 500mg given on 03/28. Today she was loaded with 1500mg IV Vancomycin because she has gone over 24 hours with no doses. She will be continued on Vancomycin 1250mg IV q8h starting at midnight. Her WBC is within normal limits and she is afebrile. We will continue to monitor and make adjustments as necessary. Date: 03/28/19. Pharmacist note:Vancomycin trough drawn this morning@2:19 reported as 12.5.Will administer additional 500mg Vancomycin@0400 and maintain current 1 gram IV Q8Hour regimen.Next trough is scheduled for 03/29@000 Date: 03/27/19. Pharmacist note:43 yof ADMITTED W/CELLULITIS & BREAST ABCESS.HT:5.6,JI=005.45KGABW=93.8)KG.SCR=0.6,BAPP=369 CALCULATED.tO RECEIVE PIP/TAZO 3.375GM D2VQWHL [facility]ARMACY DOSED VANCOMYCIN.vANCOMYCIN 2 GRAM LOAD BEGUN 03/26@2330 WITH A REGIMEN OF 1 GRAM IV [id number].FIRST TROUGH IS DUE 03/28 @0200 (PRIOR TO THE 4TH DOSE).wILL CONTINUE TO FOLLOW LABS AND MAKE ADJUSTMENTS NEEDED. [facility] Mar 31, 2019 16:14
[2019-03-31] MEDS: rOPINIRole 0.25 MG TAB(REQUIP) PO SCH (21:19)
[2019-03-31 22:00] VITALS: BP 138/76
--- NOTE | 2019-03-31 23:13 | IPNPDOC ---
Text Note Date of Service The patient was seen on 03/31/19. NOTE Pt was seen and examined at bedside. Pt breathing has improved, wheezing has decreased now. continues to have dry cough. Denies severe pain or tenderness at the site of the wound. Continues to have mucopurulent discharge. Otherwise overall clinically improving. PHE: General: NAD, AAOx3 HEENT: MELISA EOMI neck supple no icterus no LAP no JVD Lungs: diminished breath sounds no rale Heart: S1 S2 no murmur Abd: soft, obese, NT, +BS Ext: 1+edema no cyanosis no tenderness , 3x3 cm area of cellulitis with open wound with white colored tissue worsened since prior exam Neuro: mood affect appropriate Vital Signs Date Time Temp Pulse Resp B/P (MAP) Pulse Ox O2 Delivery O2 Flow Rate FiO2 03/31/19 22:00 96.8 97 19 138/76 (96) 95 03/31/19 17:15 18 03/31/19 16:24 18 03/31/19 10:00 96.2 88 18 131/70 (90) 92 3.0 03/31/19 10:00 18 03/31/19 08:47 133/60 03/31/19 08:00 2.0 03/31/19 06:00 97.9 95 18 133/60 (84) 95 03/31/19 02:00 96.8 94 18 138/65 (89) 94 3.0 03/31/19 01:52 97 2.0 03/31/19 01:22 20 97 2.0 Intake & Output 03/31/19 06:00 Intake Total 2495 ml Output Total 4650 ml Balance -2155 ml Laboratory Tests 03/31/19 06:04: White Blood Count 6.9, Red Blood Count 3.37L, Hemoglobin 9.9L, Hematocrit 31.2L, Mean Corpuscular Volume 92.6, Mean Corpuscular Hemoglobin 29.4, Mean Corpuscular Hemoglobin Concent 31.7L, Red Cell Distribution Width 15.0H, Platelet Count 415, Nucleated Red Blood Cells % (auto) 0.0, Blood Urea Nitrogen 15#, Creatinine 0.94, Sodium Level 137, Potassium Level 3.5, Chloride Level 100, Carbon Dioxide Level 30, Calcium Level 8.6, Aspartate Amino Transf (AST/SGOT) 20, Alanine Aminotransferase (ALT/SGPT) 29, Alkaline Phosphatase 88, Total Bilirubin 0.2, Total Protein 8.1, Albumin 2.6L, Anion Gap 7L, Glomerular Filtration Rate > 60.0, Fasting Glucose 250H, C-Reactive Protein, Quantitative 5.42H, Albumin/Globulin Ratio 0.47L 03/31/19 11:29: Bedside Glucose (Misc Panel) 228H 03/31/19 15:21: Vancomycin Level Trough 16.1 03/31/19 16:25: Bedside Glucose (Misc Panel) 369H Microbiology 03/26/19 Blood Culture - Final, Complete NO GROWTH AFTER 5 DAYS 03/26/19 Blood Culture - Final, Complete NO GROWTH AFTER 5 DAYS 03/27/19 Gram Stain - Final, Complete 03/27/19 Body Fluid Culture - Final, Complete Current Medications Medications (Trade) Dose Ordered Sig/Chevy Route PRN Reason Start Time Stop Time Status Last Admin Dose Admin Acetaminophen (Tylenol Tab) 650 mg Q4H PRN PO PAIN OR FEVER 03/27/19 01:00 03/29/19 06:18 650 MG Albuterol/ Ipratropium (Duoneb (Ipr 0.5mg/Alb 2.5mg)) 3 ml RQ4H NEB 03/30/19 12:00 03/31/19 15:29 3 ML Benzonatate (Tessalon Perles) 200 mg TIDP PRN PO COUGH 03/28/19 14:15 03/31/19 08:46 200 MG Brimonidine Tartrate (Alphagan P 0.15%) 1 drop TID OU 03/27/19 21:00 03/31/19 21:20 1 DROP Budesonide/ Formoterol Fumarate (Symbicort 80/ 4.5mcg) 2 puff RBID INH 03/27/19 08:00 03/31/19 20:51 2 PUFF Buspirone HCl (Buspar) 20 mg BID PO 03/27/19 09:00 03/31/19 21:18 20 MG Collagenase (Santyl) 1 dose DAILY TOP 03/30/19 13:00 03/31/19 10:00 1 DOSE Cyanocobalamin (Vitamin B12) 500 mcg DAILY PO 03/27/19 09:00 03/31/19 08:47 500 MCG Enoxaparin Sodium (Lovenox) 40 mg DAILY@0600 SC 03/27/19 06:00 03/31/19 05:10 40 MG Fluticasone Propionate (Flonase 0.05% Nasal Kyle) 1 spray BID NA 03/27/19 09:00 03/31/19 21:20 1 SPRAY Folic Acid (Folic Acid) 1 mg DAILY PO 03/27/19 09:00 03/31/19 08:47 1 MG Guaifenesin/ Dextromethorphan (Robitussin Dm) 15 ml Q6HP PRN PO COUGH 03/28/19 21:30 03/31/19 22:28 15 ML Insulin Detemir (Levemir Insulin) 100 units BID SC 03/27/19 09:00 03/31/19 21:19 100 UNITS Insulin Human Lispro (HumaLOG INSULIN) SEE PROTOCOL TABLE QHS SC 03/27/19 21:00 03/31/19 21:20 8 UNITS Lisinopril (Prinivil) 20 mg DAILY PO 03/27/19 09:00 03/31/19 08:47 20 MG Magnesium Oxide (Mag-Ox) 400 mg BID PO 03/27/19 09:00 03/31/19 21:19 400 MG Nicotine (Nicoderm Cq 21mg) 1 patch DAILY TD 03/27/19 09:00 03/31/19 08:48 1 PATCH Omeprazole (PriLOSEC) 40 mg DAILY PO 03/27/19 09:00 03/31/19 08:46 40 MG Oxycodone/ Acetaminophen (Percocet 5mg/ 325mg Tablet) 2 tab Q6HP PRN PO SEVERE PAIN (PS 8-10) 03/27/19 01:00 03/31/19 16:24 2 TAB Patient Own Medication (Patient'S Own Med) Fetzima 100mg PO daily ... DAILY PO 03/27/19 09:00 03/31/19 08:47 1 EA Piperacillin Sod/ Tazobactam Sod 3.375 gm/Dextrose 50 ml @ 50 mls/hr Q6H IV 03/27/19 04:00 03/31/19 22:10 50 MLS/HR Prednisone (Deltasone) 40 mg DAILY PO 03/29/19 09:00 03/31/19 08:47 40 MG Pregabalin (Lyrica) 150 mg TID PO 03/27/19 09:00 03/31/19 21:19 150 MG Ropinirole HCl (Requip) 0.25 mg QHS PO 03/26/19 21:00 03/31/19 21:19 0.25 MG Spironolactone (Aldactone) 50 mg DAILY PO 03/27/19 09:00 03/31/19 08:47 50 MG Tizanidine HCl (Zanaflex) 4 mg Q8HP PRN PO PAIN 03/27/19 01:00 03/31/19 22:29 4 MG Torsemide (Demadex) 40 mg DAILY PO 03/27/19 09:00 03/31/19 08:46 40 MG Vancomycin HCl 500 mg/Dextrose 110 ml @ 110 mls/hr Q8H IV 03/31/19 01:00 03/31/19 17:15 110 MLS/HR Vancomycin HCl 750 mg/IV Miscellaneous Supplies 1 each/ Dextrose 275 ml @ 275 mls/hr Q8H IV 03/31/19 00:00 03/31/19 17:14 275 MLS/HR Vitamin D (Vitamin D) 2,000 units DAILY PO 03/27/19 09:00 03/31/19 08:46 2,000 UNITS A/P: 43 yo female for right breast cellulitis failing outpatient therapy 1-Right Breast Cellulitis with Abscess formation - s/p drainage - fluid gram stain/culture pending - surgery reconsult Vanc resumed -Cont Zosyn pt is diabetic high risk for gr negative and anaerobic infection service center specialist consult 2-RLL and AUSTEN Pneumonia, HAP - SCx pending -Pt with possible 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 -Steroids added - respiratory treatments - IS/acapella 3-T2DM - Continue insulin regimen as ordered 4-Hypertension - Continue lisinopril, spironolactone, torsemide 5-Anxiety/depression - Continue current regimen 6-GERD - Continue PPI 7-Peripheral neuropathy - Continue Lyrica 8-Nicotine Dependence - Nicotine patch 9-Morbid obesity - Complicating medical care #DVT prophylaxis - Lovenox sc VS,Fishbone, I+O VS, Fishbone, I+O Laboratory Tests 03/31/19 06:04 Red Blood Count 3.37 L, Mean Corpuscular Volume 92.6, Mean Corpuscular Hemoglobin 29.4, Mean Corpuscular Hemoglobin Concent 31.7 L, Red Cell Distribution Width 15.0 H, Calcium Level 8.6, Aspartate Amino Transf (AST/SGOT) 20, Alanine Aminotransferase (ALT/SGPT) 29, Alkaline Phosphatase 88, Total Bilirubin 0.2, Total Protein 8.1, Albumin 2.6 L Vital Signs Date Time Temp Pulse Resp B/P (MAP) Pulse Ox O2 Delivery O2 Flow Rate FiO2 03/31/19 22:00 96.8 97 19 138/76 (96) 95 03/31/19 10:00 3.0 03/26/19 22:33 Room Air I&O- Last 24 Hours up to 6 AM 03/31/19 06:00 Intake Total 2495 ml Output Total 4650 ml Balance -2155 ml NEIDA LYNN MD Mar 31, 2019 23:13
[2019-04-01] MEDS: VANCOMYCIN HCL 750 MG, VIAL MATE ADAPTER 1 EACH in D5W 250 ML IV SCH ×2 (00:01→09:06)
[2019-04-01] MEDS: VANCOMYCIN HCL 500 MG in D5W MINI-BAG PLUS 100 ML IV SCH ×2 (01:08→09:06)
[2019-04-01] MEDS: BENZONATATE 100 MG CAP PO PRN ×3 (01:08→17:36)
[2019-04-01] MEDS: IPRATROPIUM 0.5MG/ALBUTEROL 2.5MG INH SOL UD 3ML (DUONEB)(J7620) NEB SCH ×5 (04:02→15:12)
[2019-04-01] MEDS: PIPERACILLIN/TAZOBACTAM SOD 3.375 GM in D5W MINI-BAG PLUS 50 ML IV SCH ×2 (04:33→09:22)
[2019-04-01] MEDS: ENOXAPARIN 40 MG/0.4 ML SYRINGE (J1650) SC SCH (05:44)
[2019-04-01 06:00] VITALS: BP 122/74
[2019-04-01] MEDS: guaiFENesin DM LIQ 10ML UD PO PRN (06:04)
[2019-04-01 06:19] LABS: HEMATOCRIT 29.8 % (36.0-47.0); HEMOGLOBIN 9.3 g/dl (12.0-15.5); MEAN CORPUSCULAR HGB CONC 31.2 g/dl (32.0-36.5); MEAN CORPUSCULAR VOLUME 92.8 fl (80.0-96.0); PLATELET COUNT, AUTOMATED 347 10^3/uL (150-450); RED BLOOD COUNT 3.21 10^6/uL (4.00-5.40); WHITE BLOOD COUNT 6.8 10^3/uL (4.0-10.0)
[2019-04-01 06:38] LABS: ALBUMIN 2.5 GM/DL (3.2-5.2); ALT/SGPT 58 U/L (12-78); BILIRUBIN,TOTAL 0.2 MG/DL (0.2-1.0); BLOOD UREA NITROGEN 15 MG/DL (7-18); C REACTIVE PROTEIN QUANTITATIV 2.38 MG/DL (0.00-0.30); CALCIUM LEVEL 8.4 MG/DL (8.5-10.1); CARBON DIOXIDE LEVEL 31 MEQ/L (21-32); CHLORIDE LEVEL 101 MEQ/L (98-107); CREATININE FOR GFR 1.01 MG/DL (0.55-1.30); GLOMERULAR FILTRATION RATE > 60.0 (>58); GLUCOSE, FASTING 335 MG/DL (70-100); POTASSIUM SERUM 3.9 MEQ/L (3.5-5.1); SODIUM LEVEL 137 MEQ/L (136-145); TOTAL PROTEIN 7.6 GM/DL (6.4-8.2)
[2019-04-01] MEDS: SYMBICORT 80/4.5MCG INHALER 6GM INH SCH (08:05)
[2019-04-01] MEDS ORDERED: FETZIMA 20 MG PO SCH (09:00)
[2019-04-01] MEDS ORDERED: FETZIMA 80 MG PO SCH (09:00)
[2019-04-01] MEDS: LEVEMIR (INSULIN DETEMIR) 1 UNITS/0.01ML SC SCH (09:06)
[2019-04-01 09:14] VITALS: BP 122/74
[2019-04-01] MEDS: predniSONE 20 MG TAB PO SCH (09:14)
[2019-04-01] MEDS: SPIRONOLACTONE 50 MG TAB PO SCH (09:14)
[2019-04-01] MEDS: FOLIC ACID 1 MG TAB PO SCH (09:14)
[2019-04-01] MEDS: LISINOPRIL 20 MG TAB PO SCH (09:14)
[2019-04-01] MEDS: NICOTINE 21MG/24HR 1 EA TRANSDERMAL TD SCH (09:14)
[2019-04-01] MEDS: VITAMIN D 1,000 INTERNATIONAL UNITS TABLET PO SCH (09:14)
[2019-04-01] MEDS: busPIRone 10 MG TAB PO SCH (09:15)
[2019-04-01] MEDS: TORSEMIDE 20 MG TAB PO SCH (09:15)
[2019-04-01] MEDS: CYANOCOBALAMIN 500 MCG TAB PO SCH (09:15)
[2019-04-01] MEDS: OMEPRAZOLE 20 MG CAP PO SCH (09:15)
[2019-04-01] MEDS: MAGNESIUM OXIDE 400 MG TAB (MAG-OX) PO SCH (09:16)
[2019-04-01] MEDS: PERCOCET 5MG/325MG TAB PO PRN ×2 (09:17→16:38)
[2019-04-01] MEDS: tiZANidine 4 MG TAB PO PRN ×2 (09:17→17:36)
[2019-04-01] MEDS: PREGABALIN 75 MG CAP(LYRICA) PO SCH ×2 (09:17→16:37)
[2019-04-01] MEDS: BRIMONIDINE 0.15% OPHTH SOLN 5 ML OU SCH (09:18)
[2019-04-01] MEDS: HumaLOG INSULIN (NovoLOG) PER UNIT SC SCH ×2 (09:18→13:38)
[2019-04-01] MEDS: FLUTICASONE PROP 0.05% NASAL SPRAY 16 GM (FLONASE) SCH (09:18)
[2019-04-01] MEDS: SANTYL OINT 30GM TOP SCH (09:18)
[2019-04-01] MEDS ORDERED: SODIUM CHLORIDE 0.9% INJ 10 ML SYR IV PRN (10:45)
--- NOTE | 2019-04-01 11:42 | REP ---
PICC line insertion under ultrasound guidance. The procedure was performed by SHEY Cornejo, under the direct supervision of Dr. Saul. The risks and benefits of the procedure were explained to the patient and informed consent was obtained the verbally and written. Directly prior to the start of the procedure, a formal timeout was completed in the procedure room. The basilic vein was localized using ultrasound guidance. The skin was prepped and draped in the sterile fashion. 1 ml 1% lidocaine was used as a local anesthetic. Using ultrasound guidance the left basilic vein was cannulated and a 0.018 guidewire was inserted and advanced to the right atrium using fluoroscopic guidance. The needle was removed and a 5.5 Yakut dilator and peel-away sheath was inserted over the guidewire. A 5.5 Yakut double lumen catheter was cut to the length of 43 cm. The dilator was removed and the catheter was inserted over the guide wire with the tip ending in the SVC. The peel-away sheath was removed and the catheter was flushed with heparinized saline as per hospital protocol. The catheter was affixed to the skin and a sterile dressing was applied. The patient tolerated the procedure well and there were no immediate complications. Less than 0.1 minutes of fluoroscopy time was utilized for this procedure. Some fluoroscopic images are performed with last image hold technology. These images require no additional radiation. Reviewed by SHEY Foley 03/31/2019 03:11 P Electronically Signed by Dov Saul MD 04/01/2019 11:34 A
[2019-04-01 14:00] VITALS: BP 142/58
[2019-04-01] MEDS ORDERED: DOXY-350 PO (16:33)
[2019-04-01] MEDS ORDERED: TESS100C PO (16:35)
[2019-04-01] MEDS ORDERED: ROBI1LIQ9 PO (16:36)
[2019-04-01] MEDS ORDERED: SODIUM CHLORIDE 0.9% INJ 10 ML SYR IV SCH (18:00)
--- NOTE | 2019-04-01 19:53 | DS.PDOC ---
Discharge Summary General Date of Admission Mar 27, 2019 at 00:46 Date of Discharge 04/01/19 Discharge Summary PROCEDURES PERFORMED DURING STAY: 1-PICC line insertion under ultrasound guidance 03/31/19 2-Rwuylueibu-iakjta needle aspiration procedure right breast 03/27/19 ADMITTING DIAGNOSES: 1-Right Breast Cellulitis with Abscess formation 2-RLL and AUSTEN Pneumonia, HAP possible gram negative and/or MRSA in diabetic pt with uncontrolled hyperglycemia 3- Uncontrolled T2DM 4-Hypertension 5-Anxiety/depression 6-GERD 7-Peripheral neuropathy 8-Nicotine Dependence 9-Morbid obesity DISCHARGE DIAGNOSES: same as above COMPLICATIONS/CHIEF COMPLAINT: Breast Abcess. HISTORY OF PRESENT ILLNESS: As per H&P: 43-year-old female with past medical history of hypertension, diabetes mellitus, asthma, tobacco use, rheumatoid arthritis, fibromyalgia, depression/anxiety was initially admitted from 03/20-03/25/19 for right breast cellulitis. Patient was treated with IV antibiotic therapy and transitioned to by mouth medications when her white blood cell count normalized and her CRP markers continue to downward trend. After discharge, the patient states that she began to have increased redness and swelling of the right breast with increased purulent discharge. The patient also endorsed having increased cough, but no sputum production. She also noted subjective fevers at home. She returned to the ER for further evaluation. In the ER, an ultrasound of the breast revealed a 3.5 x 2.5 x 1.8 cm fluid collection suggestive of possible abscess. The ER provider did discuss the case with Dr. Gaspar of General Surgery, who did not recommend any surgical intervention at this time. The patient will be admitted to the hospitalist service for further evaluation and management. HOSPITAL COURSE: Pt was admitted to [facility] with above presentation. She received broad spectrum Abx Zosyn and Vancomycin, IVF, Insulin long acting ans short acting for management of T2DM. Her home meds for chronic conditions continued. Pt received account management specialist for cellulitis/Abscess of right breast. On 03/27 underwent needle aspiration of abscess with no complications. Pt received bronchodilator treatment as well as steroids for her COPD. Pt has clinically improved in view of her cellulitis, pneumonia and respiratory symptoms due to COPD. She is now medically optimized to dc home with wound care instruction and Doxycycline for 7 days. DISCHARGE MEDICATIONS: Please see below. ALLERGIES: Please see below. PHYSICAL EXAMINATION ON DISCHARGE: General: NAD, AAOx3 HEENT: MELISA EOMI neck supple no icterus no LAP no JVD Lungs: diminished breath sounds at bases no rales no wheezing Heart: S1 S2 no murmur Abd: soft, obese, NT, +BS Ext: 1+edema no cyanosis no tenderness , 3x3 cm area of cellulitis with open wound with white colored tissue Neuro: mood affect appropriate LABORATORY DATA: Please see below. IMAGING: Ultrasound-guided needle aspiration procedure right breast 03/27/19 History: Right breast abscess. The patient reports recent spontaneous drainage and improvement in the size of the right breast. Comparison sonography March 26, 2019 showed a 3.5 x 2.5 x 1.8 cm complex collection thought likely to be abscess. Procedure: The patient was interviewed and informed consent was obtained. The patient was brought to sonography. Preliminary scanning showed significant improvement compared to the ultrasound findings from the previous day. Despite this, a 1.5 x 0.5 cm irregular hypoechoic area was identified and targeted. The patient safety time-out was articulated and agreed upon. The skin was marked at the projected skin entry site. The skin in the undersurface of the right breast was prepped and draped in the usual fashion. 1% lidocaine was utilized for local anesthetic with a total of 4 ml injected. Under real time sonographic guidance, a 5-Hungarian Skater catheter was passed into the hypoechoic area under direct visualization without technical difficulty. Only 1 ml of serosanguineous fluid was aspirated through the Skater catheter lumen. This was submitted for gram stain and C S. The patient tolerated procedure well. Impression: Procedure note for ultrasound-guided right breast aspiration procedure. Only 1 ml of aspirate was retrieved. The sonographic findings are improved from the previous day. PROGNOSIS: Fair ACTIVITY: [As tolerated]. DIET: Diabetic, low calorie, low fat DISPOSITION: 01 Home, Self-Care. DISCHARGE INSTRUCTIONS: 1. Wound care as educated ITEMS TO FOLLOWUP ON ON OUTPATIENT: 1. PCP in one week, 2-Dr. Gaspar on one week DISCHARGE CONDITION: [Stable]. TIME SPENT ON DISCHARGE: 45 minutes. Vital Signs/I&Os Vital Signs Date Time Temp Pulse Resp B/P (MAP) Pulse Ox O2 Delivery O2 Flow Rate FiO2 04/01/19 17:32 18 04/01/19 14:00 98.2 80 142/58 (86) 93 04/01/19 08:00 2.0 03/26/19 22:33 Room Air I&O- Last 24 Hours up to 6 AM 04/01/19 06:00 Intake Total 2810 ml Output Total 2350 ml Balance 460 ml Laboratory Data Labs 24H Laboratory Tests 2 03/31/19 20:08: Bedside Glucose (Misc Panel) 410H 04/01/19 05:43: Nucleated Red Blood Cells % (auto) 0.0, Anion Gap 5L, Glomerular Filtration Rate > 60.0, Blood Urea Nitrogen 15, Creatinine 1.01, Sodium Level 137, Potassium Level 3.9, Chloride Level 101, Carbon Dioxide Level 31, Calcium Level 8.4L, Aspartate Amino Transf (AST/SGOT) 40H, Alanine Aminotransferase (ALT/SGPT) 58, Alkaline Phosphatase 99, Total Bilirubin 0.2, Total Protein 7.6, Albumin 2.5L, C-Reactive Protein, Quantitative 2.38H, Albumin/Globulin Ratio 0.49L 04/01/19 11:55: Bedside Glucose (Misc Panel) 274H CBC/BMP Laboratory Tests 04/01/19 05:43 Red Blood Count 3.21 L, Mean Corpuscular Volume 92.8, Mean Corpuscular Hemoglobin 29.0, Mean Corpuscular Hemoglobin Concent 31.2 L, Red Cell Distribution Width 14.8 H, Calcium Level 8.4 L, Aspartate Amino Transf (AST/SGOT) 40 H, Alanine Aminotransferase (ALT/SGPT) 58, Alkaline Phosphatase 99, Total Bilirubin 0.2, Total Protein 7.6, Albumin 2.5 L FSBS Laboratory Tests Test 03/31/19 20:08 04/01/19 11:55 Range/Units Bedside Glucose (Misc Panel) 410 274 70-105 MG/DL Microbiology Microbiology 03/26/19 Blood Culture - Final, Complete NO GROWTH AFTER 5 DAYS 03/26/19 Blood Culture - Final, Complete NO GROWTH AFTER 5 DAYS 03/27/19 Gram Stain - Final, Complete 03/27/19 Body Fluid Culture - Final, Complete 03/29/19 Gram Stain - Final, Resulted 03/29/19 Sputum Culture, Resulted Pending Discharge Medications Scheduled Alpha Lipoic Acid (Alpha Lipoic Acid) 600 Mg Capsule, 600 MG PO DAILY, (Reported) Benzonatate (Tessalon Perle) 100 Mg Capsule, 1 CAP PO TID for cough Brimonidine Tartrate (Brimonidine Tartrate) 0.2% 5ML Drops, 1 DROP OU TID, (Repo rted) Budesonide/Formoterol (Symbicort 80-4.5 Mcg Inhaler) 6.9 Gm Hfa.aer.ad, 2 PUFF INH BID, (Reported) Buspirone HCl (Buspirone HCl) 10 Mg Tab, 20 MG PO BID, (Reported) Cyanocobalamin (Vitamin B-12) (Vitamin B-12) 500 Mcg Tab, 500 MCG PO DAILY, (Reported) Doxycycline Monohydrate (Doxycycline) 100 Mg Capsule, 100 MG PO BID Ergocalciferol (Vitamin D2) (Vitamin D2) 2,000 Unit Tablet, 2,000 UNIT PO DAILY, (Reported) Etanercept (Enbrel) 50 Mg/1 Ml Syringe, 50 MG SC 1XWK, (Reported) USES ON FRIDAY Fluticasone Propionate (Fluticasone Propionate) 16 Gm Francisco.susp, 1 SPRAY NA BID, (Reported) Folic Acid (Folic Acid) 1 Mg Tab, 1 MG PO DAILY, (Reported) Guaifenesin/Dextromethorphan (Robitussin Cough-Chest Dm Liq) 237 Ml Liquid, 10 ML PO Q8H Insulin Glargine,Hum.rec.anlog (Toujeo Solostar) 300 Unit/Ml Inj, 100 UNIT SC BID, (Reported) Insulin Lispro (Humalog Kwikpen U-200) 200 Unit/1 Ml Insuln.pen, 200 UNIT SC AC, (Reported) Leflunomide (Leflunomide) 10 Mg Tablet, 10 MG PO DAILY, (Reported) Levomilnacipran HCl (Fetzima) 20 Mg Cap.sa.24h, 20 MG PO DAILY, (Reported) Liraglutide (Victoza 2-Usman) 0.6 Mg/0.1 Ml Pen.injctr, 1.8 MG SC DAILY, (Reported) TAKES WITH 1.2 MG FOR TOTAL AM DOSE OF 3MG Liraglutide (Victoza 2-Usman) 0.6 Mg/0.1 Ml Pen.injctr, 1.2 MG SC DAILY, (Reported) TAKES WITH 1.8MG FOR TOTAL AM DOSE OF 3.0 MG Lisinopril (Lisinopril) 20 Mg Tab, 20 MG PO DAILY, (Reported) Magnesium Oxide (Magnesium Oxide) 400 Mg Tab, 400 MG PO BID, (Reported) Metformin HCl (Metformin HCl ER) 500 Mg Tab.er.24h, 2 TAB PO BID, (Reported) Methotrexate Sodium (Methotrexate) 2.5 Mg Tab, 20 MG PO QWEEK, (Reported) TAKES ON WEDNESDAYS Multivitamin (Multivitamins) 1 Each Tablet, 1 TAB PO DAILY, (Reported) Nicotine (Nicotine Patch) 21 Mg Patch.td24, 1 PATCH TD DAILY Omeprazole (Omeprazole) 40 Mg Cap, 40 MG PO DAILY, (Reported) Pregabalin (Lyrica) 150 Mg Cap, 150 MG PO TID, (Reported) Ropinirole HCl (Ropinirole HCl) 0.25 Mg Tab, 0.25 MG PO QHS, (Reported) Spironolactone (Spironolactone) 50 Mg Tablet, 50 MG PO DAILY, (Reported) Torsemide (Torsemide) 20 Mg Tab, 40 MG PO DAILY, (Reported) Vit B1 Mn/B2/B3/B5/B6/B12/C/FA (B Complex with Vitamin C Tab) 1 Each Tablet, 1 T AB PO DAILY, (Reported) Vit B6/Me-Thfolate/Me-B12/Ala (Podiapn Capsule) 1 Each Capsule, 1 CAP PO DAILY, (Reported) Vit E/Vit E Mx/Squal/Phytostrl (Mixed Tocotrienols 50 mg Sftgl) 1 Each Capsule, 1 CAP PO DAILY, (Reported) Scheduled PRN Albuterol Sulf (Albuterol Sulfate) 2.5 Mg/3 Ml Nebu, 1 INH INH Q4H PRN for SHORTNESS OF BREATH, (Reported) Ammonium Lactate (Ammonium Lactate) 12% Cream..g., 1 DOSE TOP BID PRN for DRY SKIN, (Reported) Hydrocodone/Acetaminophen (Hydrocodone-Acetamin 7.5-325) 1 Each Tablet, 1-2 TAB PO Q6H PRN for PAIN, (Reported) Prednisone (Prednisone Intensol) 5 Mg/Ml Con, 5 MG PO PRN PRN for FOR COMFORT, (Reported) Tizanidine HCl (Tizanidine HCl) 4 Mg Cap, 4 MG PO Q8HP PRN for PAIN, (Reported) Allergies Coded Allergies: codeine (Verified Allergy, Severe, SOB, 03/19/19) desvenlafaxine (Verified Adverse Reaction, Intermediate, ANGRY OUTBURSTS, 03/19/19) polymyxin B (Verified Adverse Reaction, Intermediate, CONTACT DERMATITIS, 03/19/19) aloe vera (Verified Adverse Reaction, Mild, CONTACT DERMATITIS, 03/19/19) bacitracin (Verified Adverse Reaction, Mild, CONTACT DERMATITIS, 03/19/19) neomycin (Verified Adverse Reaction, Mild, CONTACT DERMATITIS, 03/19/19) sertraline (Verified Adverse Reaction, Unknown, SWEATING, 03/19/19) NEIDA LYNN MD Apr 01, 2019 19:53
== END 2019-04-01 17:41 | disposition home or self-care (01) | DRG 178 ==
LOC: M ED 17:51 → M ED INP 03-27 00:46 → M PCU 03-27 01:50 → M MSPAV 03-27 03:27
PROVIDERS: ADMIT Internal Medicine; ATTEND Hospitalist
PROC: 0H9T3ZZ Drainage of Right Breast, Percutaneous Approach (ICD-10-PCS; principal; 2019-03-27)
PROC: 02HV33Z Insertion of Infusion Device into Superior Vena Cava, Percutaneous Approach (ICD-10-PCS; 2019-03-31)
DX: J15.6 Pneumonia due to other Gram-negative bacteria (principal); Z68.43 Body mass index [BMI] 50.0-59.9, adult; N61.0 Mastitis without abscess; I10 Essential (primary) hypertension; E11.42 Type 2 diabetes mellitus with diabetic polyneuropathy; J45.909 Unspecified asthma, uncomplicated; M06.9 Rheumatoid arthritis, unspecified; E66.01 Morbid (severe) obesity due to excess calories; E11.65 Type 2 diabetes mellitus with hyperglycemia; M79.7 Fibromyalgia; K21.9 Gastro-esophageal reflux disease without esophagitis; F17.200 Nicotine dependence, unspecified, uncomplicated; F32.9 Major depressive disorder, single episode, unspecified; F41.9 Anxiety disorder, unspecified; Z79.4 Long term (current) use of insulin; Z79.899 Other long term (current) drug therapy; Z88.5 Allergy status to narcotic agent; Z88.1 Allergy status to other antibiotic agents; Z88.8 Allergy status to other drugs, medicaments and biological substances; Y95 Nosocomial condition

== ENCOUNTER → 2019-06-14 | Outpatient (RCR) | payer MEDICARE, MEDICAID ==
[~2019-06-14] MED LIST changes: +DOXY100T16 PO; -ENBR50IN2 SC; +ETAN50SY SC; +METF-791 PO; +ROBI1LIQ9 PO; +TESS100C PO
== END ==
LOC: M PT 05-26 10:35
PROVIDERS: ATTEND Family Medicine
DX: M25.122 Fistula, left elbow (principal); M54.9 Dorsalgia, unspecified

== ENCOUNTER 2019-06-30 13:04 | Outpatient (RCR) | payer MEDICARE, MEDICAID ==
[~2019-06-30 13:04] MED LIST changes: -DOXY100T16 PO; +DOXY100T27 PO; -OMEP40CA2 PO; +OMEP40CA97 PO
== END 2019-07-15 ==
LOC: M PT 13:04
PROVIDERS: ATTEND Family Medicine
DX: M25.512 Pain in left shoulder (principal); M54.9 Dorsalgia, unspecified

== ENCOUNTER 2019-10-14 19:03 | Emergency (ER) | payer OTHER, MEDICARE, MEDICAID ==
[~2019-10-14] VITALS: Ht 167.6 cm; Wt 131.4 kg
[~2019-10-14 19:03] MED LIST changes: -TRAZ10TA GT; +TRAZ1TAB12 GT
[2019-10-14] MEDS ORDERED: ACTE162I SC (19:25)
[2019-10-14] MEDS ORDERED: LIDOCAINE 5% OINT 30 GM TOP STA (22:11)
[2019-10-14] MEDS ORDERED: LIDO1CRE2 TOP (23:08)
[2019-10-14 23:09] VITALS: BP 148/73
--- NOTE | 2019-10-15 00:58 | REP ---
Clinical: Pain. Technique: Internal rotation, external rotation, and Y view of the left shoulder. Findings: No acute fracture dislocation is appreciated. Cortical irregularity and spurring at the acromioclavicular joint and to a lesser extent along the humeral head and greater tuberosity suggest mild chronic degenerative changes. Subacromial space is normal. No significant periarticular calcifications or loose bodies identified. Impression: Mild arthritic degenerative changes. Electronically Signed by Sharad Marion MD 10/15/2019 12:50 A
--- NOTE | 2019-10-15 13:23 | ECGEPIP ---
[facility] - ED Test Date: 2019-10-14 Pat Name: WAQAR ESPINOZA Department: Room: - Gender: Female Director General: CT : 1975 Requested By: Yamil Buckner Order Number: [id number] Reading MD: Penny Vazquez Measurements Intervals [place] Rate: 107 P: 43 SC: 124 QRS: 60 QRSD: 97 T: 22 QT: 360 QTc: 481 Interpretive Statements SINUS TACHYCARDIA NONSPECIFIC T-WAVE ABNORMALITY ABNORMAL RHYTHM ECG Electronically Signed on 10-15-2019 13:23:55 EST by Penny Vazquez
[2019-11-11] MEDS ORDERED: CIPR-249 PO (09:35)
== END 2019-10-14 23:26 | disposition home or self-care (01) ==
LOC: M ED 19:03
DX: G89.29 Other chronic pain (principal); M25.512 Pain in left shoulder; R00.0 Tachycardia, unspecified; E11.9 Type 2 diabetes mellitus without complications; F17.200 Nicotine dependence, unspecified, uncomplicated; I10 Essential (primary) hypertension; J45.909 Unspecified asthma, uncomplicated; Z79.4 Long term (current) use of insulin; Z79.51 Long term (current) use of inhaled steroids; Z79.899 Other long term (current) drug therapy; Z88.6 Allergy status to analgesic agent; Z88.8 Allergy status to other drugs, medicaments and biological substances; Z91.09 Other allergy status, other than to drugs and biological substances

== ENCOUNTER → 2019-10-29 | Outpatient (CLI) | payer MEDICARE, MEDICAID ==
[~2019-10-29] MED LIST changes: +ACTE162I SC; +CIPR-249 PO; +LIDO1CRE2 TOP; +MACR100C43 PO
--- NOTE | 2019-11-01 08:34 | REP ---
MRI left shoulder without contrast: History: Impingement syndrome. Comparison shoulder radiographs October 14, 2019. October 07, 2018 radiographs are also reviewed. Technique: Axial, oblique coronal and oblique sagittal imaging planes were utilized. T1 and T2-weighted scans were obtained in the usual fashion. MRI findings: There is moderate osteoarthritic hypertrophy at the acromioclavicular joint with subcortical cyst formation on both sides and superior and inferior hypertrophy. The inferior hypertrophy compresses the musculotendinous junction somewhat. There is subcortical cyst formation in the posterolateral humeral head occupying an area 2 cm in greatest diameter. Cortical and medullary bone signal intensity are otherwise normal. Glenohumeral articulation is normally aligned. On oblique coronal T1-weighted scans there is diffuse tendinosis with swelling and increased signal intensity in the distal supraspinatus tendon. There is partial thickness T2 hyperintensity at the distal insertion of the supraspinatus tendon consistent with partial thickness distal insertion tear. No evidence of a full-thickness or retracted tear. Superior labrum appears intact. There is no evidence of anterior or posterior cartilaginous labral disruption. No para labral cyst is appreciated. The subscapularis, biceps, and infraspinatus tendons appear intact. The soft tissue calcific deposits visible radiographically are seen adjacent to the bony bicipital groove and the distal insertion of the subscapularis tendons. Impression: Diffuse tendinosis in the distal supraspinatus with partial thickness T2 lesion at its distal insertion. AC joint osteoarthritis. Subcortical cyst formation in the humeral head. There is periarticular low T1 low T2 signal intensity calcific deposit adjacent to the distal attachment of the subscapularis and the bony bicipital groove. Electronically Signed by Amaury Emery MD 11/01/2019 11:04 A
== END ==
LOC: M RAD 18:00
PROVIDERS: ATTEND Orthopaedic Surgery
DX: M75.42 Impingement syndrome of left shoulder (principal)

== ENCOUNTER 2019-11-08 17:05 | Emergency (ER) | payer MEDICARE, MEDICAID ==
[~2019-11-08] VITALS: Ht 165.1 cm; Wt 131.3 kg
[~2019-11-08 17:05] MED LIST changes: -CIPR-249 PO; -MACR100C43 PO
[2019-11-08 19:51] LABS: BLOOD UREA NITROGEN 7 MG/DL (7-18); CALCIUM LEVEL 9.1 MG/DL (8.5-10.1); CARBON DIOXIDE LEVEL 30 MEQ/L (21-32); CHLORIDE LEVEL 99 MEQ/L (98-107); CREATININE FOR GFR 0.73 MG/DL (0.55-1.30); GLOMERULAR FILTRATION RATE > 60.0 (>58); GLUCOSE, FASTING 381 MG/DL (70-100); POTASSIUM SERUM 4.5 MEQ/L (3.5-5.1); SODIUM LEVEL 134 MEQ/L (136-145)
--- NOTE | 2019-11-08 20:52 | REPVR ---
PROCEDURE INFORMATION: Exam: US Retroperitoneal Limited, Kidneys Exam date and time: 11/08/2019 8:20 PM Age: 43 years old Clinical indication: Left flank pain TECHNIQUE: Imaging protocol: Real-time ultrasound of the retroperitoneum with image documentation. Examination was focused on the kidneys. COMPARISON: No relevant prior studies available. FINDINGS: Limited liver: The echogenicity of the liver is increased compared to the renal cortices and there is poor sound transmission through the liver, which are findings compatible with fatty liver infiltration. The liver was not fully imaged. Right kidney: Unremarkable. There is no renal cortical thinning. The renal cortical echogenicity is within normal limits. No renal lesion is seen. There is no hydronephrosis. No obvious stones are seen in the renal collecting system. The right kidney measures 12.7 cm x 6.3 cm x 6 cm. Left kidney: Unremarkable. There is no renal cortical thinning. The renal cortical echogenicity is within normal limits. No renal lesion is seen. There is no hydronephrosis. No obvious stones are seen in the renal collecting system. The left kidney measures 13.6 cm x 5.2 cm x 6.9 cm. Bladder: The partially distended urinary bladder is unremarkable. IMPRESSION: 1. Normal renal ultrasound. 2. Fatty liver. Electronically signed by: Romaine Gudino On 11/08/2019 20:52:29 PM
[2019-11-08] MEDS ORDERED: MACR100C43 PO (22:03)
[2019-11-08 22:11] VITALS: BP 134/64
[2019-11-11] MEDS ORDERED: CIPR-249 PO (09:35)
== END 2019-11-08 22:13 | disposition home or self-care (01) ==
LOC: M ED 17:05
DX: M62.830 Muscle spasm of back (principal); N39.0 Urinary tract infection, site not specified; M54.9 Dorsalgia, unspecified; G89.29 Other chronic pain; E11.9 Type 2 diabetes mellitus without complications; K21.9 Gastro-esophageal reflux disease without esophagitis; M06.9 Rheumatoid arthritis, unspecified; M79.7 Fibromyalgia; F33.9 Major depressive disorder, recurrent, unspecified; Z79.4 Long term (current) use of insulin; Z79.899 Other long term (current) drug therapy; Z79.51 Long term (current) use of inhaled steroids; Z91.018 Allergy to other foods; Z88.1 Allergy status to other antibiotic agents; Z88.5 Allergy status to narcotic agent; Z88.8 Allergy status to other drugs, medicaments and biological substances

== ENCOUNTER → 2020-05-02 | Outpatient (REF) | payer MEDICARE, MEDICAID ==
[~2020-05-02] MED LIST changes: +CIPR-249 PO; +MACR100C43 PO; -METF-791 PO; +METF-838 PO
[2020-06-22 08:32] LABS: HEMATOCRIT 43.3 % (36.0-47.0); HEMOGLOBIN 14.5 g/dl (12.0-15.5); MEAN CORPUSCULAR HGB CONC 33.5 g/dl (32.0-36.5); MEAN CORPUSCULAR VOLUME 92.5 fl (80.0-96.0); NEUTROPHILS % 60.1 % (36.0-66.0); PLATELET COUNT, AUTOMATED 252 10^3/uL (150-450); RED BLOOD COUNT 4.68 10^6/uL (4.00-5.40); WHITE BLOOD COUNT 10.1 10^3/uL (4.0-10.0)
[2020-06-22 08:33] LABS: BASO # 0.1 10^3/uL (0.0-0.2); BASO % 0.5 % (0.0-1.0); EOS # 0.3 10^3/uL (0.0-0.5); EOS % 2.8 % (0.0-3.0); LYMPH # 3.1 10^3/uL (1.5-5.0); LYMPH % 30.5 % (24.0-44.0); MONO # 0.5 10^3/uL (0.0-0.8); MONO % 5.3 % (0.0-5.0); NEUTROPHILS # 6.1 10^3/uL (1.5-8.5)
[2020-06-22 08:47] LABS: ERYTHROCYTE SEDIMENTATION RATE 55 mm/hr (0-20)
[2020-06-26 04:18] LABS: ALBUMIN 3.3 GM/DL (3.2-5.2); ALT/SGPT 24 U/L (12-78); BILIRUBIN,TOTAL 0.5 MG/DL (0.2-1.0); BLOOD UREA NITROGEN 11 MG/DL (7-18); CALCIUM LEVEL 8.6 MG/DL (8.5-10.1); CARBON DIOXIDE LEVEL 31 MEQ/L (21-32); CHLORIDE LEVEL 99 MEQ/L (98-107); CREATININE FOR GFR 0.83 MG/DL (0.55-1.30); GLOMERULAR FILTRATION RATE > 60.0 (>58); GLUCOSE, FASTING 398 MG/DL (70-100); POTASSIUM SERUM 4.2 MEQ/L (3.5-5.1); SODIUM LEVEL 134 MEQ/L (136-145); TOTAL PROTEIN 6.9 GM/DL (6.4-8.2)
== END ==
LOC: M WUC 11:06
PROVIDERS: ATTEND Internal Medicine Rheumatology
DX: M05.79 Rheumatoid arthritis with rheumatoid factor of multiple sites without organ or systems involvement (principal)

== ENCOUNTER 2020-08-07 17:08 | Emergency (ER) | payer OTHER, MEDICARE, MEDICAID ==
[~2020-08-07] VITALS: Ht 167.6 cm; Wt 133.1 kg
[2020-08-07] MEDS ORDERED: LIDO5DIS41 TD (17:55)
[2020-08-07] MEDS ORDERED: CYCL5TAB PO (17:55)
[2020-08-07] MEDS ORDERED: MEDR4PAK PO (17:55)
[2020-08-07] MEDS ORDERED: predniSONE 20 MG TAB PO ONE (18:00)
[2020-08-07] MEDS ORDERED: PERCOCET 5MG/325MG TAB PO ONE (18:00)
[2020-08-07] MEDS ORDERED: LIDOCAINE 5% (LIDODERM) PATCH TD ONE (18:00)
[2020-08-07] MEDS ORDERED: CYCLOBENZAPRINE 10MG TABLET PO ONE (18:00)
[2020-08-07 18:27] VITALS: BP 143/99
[2020-08-07] MEDS ORDERED: **NOTE PATIENT COMMENT** MISC XX SCH (21:00)
[2020-08-09] MEDS ORDERED: PROAAER10 INH (11:04)
[2020-08-09] MEDS ORDERED: TOUJ300I2 SC (11:04)
[2020-08-09] MEDS ORDERED: FETZ1CAP4 PO (11:04)
== END 2020-08-07 18:32 | disposition home or self-care (01) ==
LOC: M ED 17:08
DX: M25.512 Pain in left shoulder (principal); G89.29 Other chronic pain; E11.9 Type 2 diabetes mellitus without complications; I10 Essential (primary) hypertension; F41.9 Anxiety disorder, unspecified; F32.9 Major depressive disorder, single episode, unspecified; G62.9 Polyneuropathy, unspecified; K21.9 Gastro-esophageal reflux disease without esophagitis; G47.33 Obstructive sleep apnea (adult) (pediatric); F17.200 Nicotine dependence, unspecified, uncomplicated; E78.00 Pure hypercholesterolemia, unspecified; J45.909 Unspecified asthma, uncomplicated; F43.10 Post-traumatic stress disorder, unspecified; Z88.1 Allergy status to other antibiotic agents; Z88.5 Allergy status to narcotic agent; Z88.8 Allergy status to other drugs, medicaments and biological substances; Z79.4 Long term (current) use of insulin; Z79.899 Other long term (current) drug therapy

== ENCOUNTER → 2020-08-11 | Outpatient (CLI) | payer OTHER ==
[~2020-08-11] MED LIST changes: +CYCL5TAB PO; +FETZ1CAP4 PO; +LIDO5DIS41 TD; +MEDR4PAK PO; +TOUJ300I2 SC
--- NOTE | 2020-08-11 16:04 | REP ---
INDICATION: ENCOUNTER FOR OTHER PREPROCEDURAL EXAMINATION, LAB 1ST EKG COMPARISON: 03/26/2019 TECHNIQUE: PA and lateral. FINDINGS: The mediastinum and cardiac silhouette are normal. The lung avelar are clear and without acute consolidation, effusion, or pneumothorax. The skeletal structures are intact and normal. IMPRESSION: No acute cardiopulmonary process. <Electronically signed by Sharad Marion > 08/11/20 1600
[2020-08-11 16:17] LABS: HEMATOCRIT 45.7 % (36.0-47.0); HEMOGLOBIN 15.1 g/dl (12.0-15.5); MEAN CORPUSCULAR VOLUME 90.9 fl (80.0-96.0); PLATELET COUNT, AUTOMATED 236 10^3/uL (150-450); RED BLOOD COUNT 5.03 10^6/uL (4.00-5.40); WHITE BLOOD COUNT 10.8 10^3/uL (4.0-10.0)
[2020-08-11 17:02] LABS: ALBUMIN 3.4 GM/DL (3.2-5.2); ALT/SGPT 19 U/L (12-78); BILIRUBIN,TOTAL 0.6 MG/DL (0.2-1.0); BLOOD UREA NITROGEN 13 MG/DL (7-18); CALCIUM LEVEL 8.8 MG/DL (8.5-10.1); CARBON DIOXIDE LEVEL 26 MEQ/L (21-32); CHLORIDE LEVEL 101 MEQ/L (98-107); CREATININE FOR GFR 0.67 MG/DL (0.55-1.30); GLOMERULAR FILTRATION RATE > 60.0 (>58); GLUCOSE, FASTING 241 MG/DL (70-100); SODIUM LEVEL 135 MEQ/L (136-145)
--- NOTE | 2020-08-14 07:16 | ECGEPIP ---
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
== END ==
LOC: M LAB 14:40
PROVIDERS: ATTEND Family Medicine
DX: Z01.818 Encounter for other preprocedural examination (principal)

== ENCOUNTER → 2020-08-16 | Outpatient (CLI) | payer OTHER, MEDICARE, MEDICAID | LOC: M LABSMTC 12:12 | PROVIDERS: ATTEND Anesthesiology | DX: Z01.812 Encounter for preprocedural laboratory examination (principal); Z20.828 Contact with and (suspected) exposure to other viral communicable diseases ==

== ENCOUNTER 2020-08-21 10:00 | Day surgery (SDC) | payer OTHER ==
[~2020-08-21] VITALS: Ht 167.6 cm; Wt 130.2 kg
[~2020-08-21 10:00] MED LIST changes: +LR 1,000 ML IV ONE; +ceFAZolin SOD 1 GM in D5W MINI-BAG PLUS 50 ML IV ONE; +ceFAZolin SOD 2 GM in IV 1 EA IV ONE
[2020-08-21] MEDS ORDERED: HumaLOG INSULIN (NovoLOG) PER UNIT SC ONE ×2 (12:00→17:00)
[2020-08-21] MEDS ORDERED: ROCURONIUM BROMIDE 50 MG/5 ML VIAL As Ordered ONE (12:09)
[2020-08-21] MEDS ORDERED: fentaNYL 100 MCG/2 ML INJECTION (J3010) As Ordered ONE ×2 (12:09→12:20)
[2020-08-21] MEDS ORDERED: MIDAZOLAM INJ 2MG/2ML VIAL (J2250 PER 1MG) As Ordered ONE ×2 (12:09→12:20)
[2020-08-21] MEDS ORDERED: ONDANSETRON 4MG/2ML VIAL As Ordered ONE (12:09)
[2020-08-21] MEDS ORDERED: propofoL 200 MG/20 ML VIAL As Ordered ONE ×2 (12:09→15:14)
[2020-08-21] MEDS ORDERED: LIDOCAINE 2% 100MG/5ML SDV (FOR ANES.) As Ordered ONE (12:09)
[2020-08-21] MEDS ORDERED: dexameTHASONE 4 MG/ML 1ML VIAL (J1100 PER 1MG) As Ordered ONE (12:09)
[2020-08-21] MEDS ORDERED: ROPIvacaine 0.5% 30ML INJECTION (J2795 PER 1MG) As Ordered ONE (12:20)
[2020-08-21] MEDS ORDERED: EPINEPHrine INJ 1 MG/ML 1ML AMP As Ordered ONE (12:20)
[2020-08-21] MEDS ORDERED: LIDOCAINE 1% MDV 20ML VIAL As Ordered ONE (12:21)
[2020-08-21] MEDS ORDERED: ROPIvacaine 0.5% 30ML INJECTION (J2795 PER 1MG) XX ONE (12:30)
[2020-08-21] MEDS ORDERED: EPINEPHrine INJ 1 MG/ML 1ML AMP XX ONE (12:30)
[2020-08-21] MEDS ORDERED: LIDOCAINE 1% MDV 20ML VIAL XX ONE (12:30)
[2020-08-21] MEDS: fentaNYL 100 MCG/2 ML INJECTION (J3010) IV PRN ×2 (13:09→13:23)
[2020-08-21] MEDS: MIDAZOLAM INJ 2MG/2ML VIAL (J2250 PER 1MG) IV PRN ×2 (13:09→13:23)
[2020-08-21] MEDS ORDERED: SEVOFLURANE INHAL SOLN 250 ML BTL As Ordered ONE (14:13)
[2020-08-21] MEDS ORDERED: PHENYLephrine HCL 500 MCG/5 ML (100MCG/ML) SYRINGE (J2370) As Ordered ONE ×2 (15:10→15:15)
[2020-08-21] MEDS ORDERED: ACETAMINOPHEN 1000MG 100ML IV BTL (OFIRMEV) (J0131 PER 10MG) As Ordered ONE (15:27)
[2020-08-21] MEDS ORDERED: SUGAMMADEX SODIUM 500 MG/5 ML VIAL (BRIDION) As Ordered ONE (15:27)
[2020-08-21] MEDS ORDERED: LR 1,000 ML IV SCH (16:30)
[2020-08-21] MEDS ORDERED: PERCOCET 5MG/325MG TAB PO PRN (16:30)
[2020-08-21] MEDS ORDERED: ONDANSETRON 4MG/2ML VIAL IV PRN (16:30)
[2020-08-21] MEDS ORDERED: fentaNYL 100 MCG/2 ML INJECTION (J3010) IV PRN (16:30)
[2020-08-21] MEDS ORDERED: METOCLOPRAMIDE INJ 10MG/2ML VIAL (J2765 PER 1) IV PRN (16:30)
[2020-08-21 18:20] VITALS: BP 134/95
--- NOTE | 2020-09-24 12:54 | RO ---
OPERATIVE NOTE DATE OF OPERATION: 08/21/2020 PREOPERATIVE DIAGNOSIS: 1. Left shoulder impingement. 2. Left shoulder AC joint arthritis. 3. Left shoulder possible rotator cuff tear. POSTOPERATIVE DIAGNOSIS: 1. Left shoulder impingement. 2. Left shoulder AC joint arthritis. 3. Left shoulder labral tear. PROCEDURE: 1. Left shoulder manipulation with labral debridement. 2. Left shoulder arthroscopic subacromial decompression including acromioplasty. 3. Left shoulder arthroscopic distal clavicle excision. SURGEON: Eulalio Valladares M.D. MAIL TRUCK DRIVER: Two scrub techs. ANESTHESIA: General with preoperative nerve block. IV FLUIDS: Lactated Ringer's. ESTIMATED BLOOD LOSS: 5 mL IMPLANTS: None. SPECIMEN: None. CLOSURE: Nylon. PROCEDURE: The patient identified in the preoperative holding area. The left shoulder was marked. She underwent an interscalene nerve block. The patient was then brought to the operating room, placed supine on a well-padded OR table with a beanbag. General anesthesia was induced. Examination under anesthesia revealed 170 degrees of forward flexion, 80 degrees of external rotation and no increased anterior, posterior translation. She was then placed into the right side down, lateral decubitus position with an axillary roll and all bony prominences well padded. Bilateral lower extremity SCDs for DVT prophylaxis. The left arm was placed into the Arthrex Star sleeve lateral decubitus traction ng with 10 lb of traction. The left shoulder was then prepped and draped in a normal sterile fashion with ChloraPrep. Prior to incision, she received appropriate IV antibiotics within an hour of the incision. A timeout was then performed per hospital protocol. The left shoulder was insufflated with lactated Ringer's and a standard posterior viewing portal made with an 11 blade. A 30 degree arthroscope was introduced into the joint and diagnostic arthroscopy carried out. There was no tearing in the rotator cuff. There was some low grade fraying at the posteroinferior labrum. There was some minimal fraying of the long head of the biceps, more of a synovitis. An anterior working portal was then established through the rotator interval. On probing the long head of the biceps, the labral anchor was noted to be stable and there was no tearing of the biceps. The shaver was then used to debride some synovitis at the junction of the superior labrum and long head of the biceps. The articular surface of the rotator cuff was in excellent condition. The long head of the biceps was then brought into the joint and it was carefully inspected and there was no tearing. The joint was then irrigated and drained. The arthroscope was now placed into the subacromial space where there was moderate bursitis. Via a lateral working portal, a shaver was used to perform a bursectomy. A switching stick was used to palpate the bursal surface of the rotator cuff and there was no tearing. Cautery was used to clear soft tissue off the anterior acromion where there was a type 2 morphology. The bur was then used to perform a formal acromioplasty, turning this into a type1 morphology. A shaver was used to remove bony debris. Next, attention was turned to the AC joint where there was near [id number]-qa-dyck contact. Cautery was used to clear soft tissue out from the AC joint and then the bur was used through the anterior portal to remove bone from both sides of the joint. There was a spur on the acromion side of the AC joint inferiorly so that was removed with a bur and then the bur was used to remove approximately 6 mm of the distal clavicle. The arthroscope was intermittently placed through the anterior portal to get a direct view and ensure that no posterosuperior bone remained. A shaver again was used to remove bony debris. The arthroscope was removed and then portals closed with nylon suture. A bulky sterile dressing applied. Drapes were taken down. All counts were correct x2. Complications: None. She was then placed into an ARC 2 sling and extubated, transferred to the PACU in stable condition.
== END 2020-08-21 18:20 | disposition home or self-care (01) ==
LOC: M SDC 10:00
PROVIDERS: ATTEND Orthopaedic Surgery
DX: M19.012 Primary osteoarthritis, left shoulder (principal); M75.42 Impingement syndrome of left shoulder; I10 Essential (primary) hypertension; E11.9 Type 2 diabetes mellitus without complications; K21.9 Gastro-esophageal reflux disease without esophagitis; M79.7 Fibromyalgia; F17.218 Nicotine dependence, cigarettes, with other nicotine-induced disorders; F43.10 Post-traumatic stress disorder, unspecified; F41.9 Anxiety disorder, unspecified; F32.9 Major depressive disorder, single episode, unspecified; J45.909 Unspecified asthma, uncomplicated; Z79.4 Long term (current) use of insulin; Z79.51 Long term (current) use of inhaled steroids; Z79.52 Long term (current) use of systemic steroids; Z79.899 Other long term (current) drug therapy; Z92.21 Personal history of antineoplastic chemotherapy; Z88.5 Allergy status to narcotic agent; Z88.8 Allergy status to other drugs, medicaments and biological substances; G47.30 Sleep apnea, unspecified
CPT/HCPCS: 29824; 29826; 64415; 81025; J0131; J0690; J1100; J2250; J2370; J2405; J3010

== ENCOUNTER → 2020-11-08 | Outpatient (CLI) | payer OTHER ==
[~2020-11-08] MED LIST changes: -LISI-538 PO; +LISI20TA33 PO; -LR 1,000 ML IV ONE; -ceFAZolin SOD 1 GM in D5W MINI-BAG PLUS 50 ML IV ONE; -ceFAZolin SOD 2 GM in IV 1 EA IV ONE
[2020-11-08 12:41] LABS: ALBUMIN 3.5 GM/DL (3.2-5.2); ALT/SGPT 24 U/L (12-78); BILIRUBIN,TOTAL 0.5 MG/DL (0.2-1.0); BLOOD UREA NITROGEN 10 MG/DL (7-18); CALCIUM LEVEL 8.9 MG/DL (8.5-10.1); CARBON DIOXIDE LEVEL 26 MEQ/L (21-32); CHLORIDE LEVEL 102 MEQ/L (98-107); CHOLESTEROL LEVEL 203 MG/DL (<200); CHOLESTEROL RISK RATIO 4.833 (<5); CREATININE FOR GFR 0.66 MG/DL (0.55-1.30); GLOMERULAR FILTRATION RATE > 60.0 (>58); GLUCOSE, FASTING 341 MG/DL (70-100); HDL CHOLESTEROL 42 MG/DL (>40); LDL CHOLESTEROL 115 MG/DL (<100); NON-HDL-C 161 MG/DL; POTASSIUM SERUM 4.3 MEQ/L (3.5-5.1); SODIUM LEVEL 135 MEQ/L (136-145); TOTAL PROTEIN 7.1 GM/DL (6.4-8.2); TRIGLYCERIDES LEVEL 232 MG/DL (<150)
[2020-11-08 12:51] LABS: MALB URINE SIEMENS 12.9 MG/L; MAU/CREAT RATIO 17.9 MCG/MG (0.0-30.0)
[2020-11-08 13:31] LABS: HEMOGLOBIN A1c 12.4 %
== END ==
LOC: M LAB 11:15
PROVIDERS: ATTEND Physician Assistant
DX: E11.65 Type 2 diabetes mellitus with hyperglycemia (principal); I10 Essential (primary) hypertension; Z79.4 Long term (current) use of insulin

== ENCOUNTER 2020-12-13 18:22 | Emergency (ER) | payer MEDICARE, MEDICAID ==
[~2020-12-13] VITALS: Ht 167.6 cm; Wt 135.5 kg
[2020-12-13] MEDS ORDERED: CYCL-707 (18:37)
[2020-12-13] MEDS ORDERED: DULO1CAP4 (18:37)
[2020-12-13] MEDS ORDERED: IBUPROFEN 600MG TAB PO ONE (20:55)
[2020-12-13 21:15] LABS: HEMATOCRIT 45.9 % (36.0-47.0); HEMOGLOBIN 15.4 g/dl (12.0-15.5); MEAN CORPUSCULAR HEMOGLOBIN 30.3 pg (27.0-33.0); MEAN CORPUSCULAR HGB CONC 33.6 g/dl (32.0-36.5); MEAN CORPUSCULAR VOLUME 90.2 fl (80.0-96.0); PLATELET COUNT, AUTOMATED 235 10^3/uL (150-450); RED BLOOD COUNT 5.09 10^6/uL (4.00-5.40); WHITE BLOOD COUNT 16.7 10^3/uL (4.0-10.0)
--- NOTE | 2020-12-13 21:35 | REPVR ---
PROCEDURE INFORMATION: Exam: US Abdomen, Limited; Soft Tissue Exam date and time: 12/13/2020 9:27 PM Age: 45 years old Clinical indication: Other: Edema; Additional info: R/O abscess under left pandus TECHNIQUE: Imaging protocol: US abdomen. Real time ultrasound with image documentation. Limited exam focused on the soft tissues. COMPARISON: RENAL US 11/08/2019 8:11 PM FINDINGS: Intraperitoneal space: Imaging in the left lower quadrant demonstrates the presence of a complex fluid collection measuring 2.1 x 1.1 x 3.8 cm approximately 5 mm deep to the cutaneous surface. Hyperechoic soft tissue surrounds the collection which may suggest presence of edema. Soft tissues: Otherwise unremarkable. IMPRESSION: Complex cystic mass in left lower quadrant as described above. Differential diagnosis includes abscess and fat necrosis. Electronically signed by: Goyo Schmitt On 12/13/2020 21:35:53 PM
[2020-12-13 21:38] LABS: BLOOD UREA NITROGEN 7 MG/DL (7-18); CALCIUM LEVEL 9.2 MG/DL (8.5-10.1); CARBON DIOXIDE LEVEL 30 MEQ/L (21-32); CHLORIDE LEVEL 98 MEQ/L (98-107); CREATININE FOR GFR 0.57 MG/DL (0.55-1.30); GLOMERULAR FILTRATION RATE > 60.0 (>58); GLUCOSE, FASTING 294 MG/DL (70-100); POTASSIUM SERUM 3.9 MEQ/L (3.5-5.1); SODIUM LEVEL 133 MEQ/L (136-145)
[2020-12-13] MEDS ORDERED: LevoFLOXacin 750 MG TABLET PO ONE (22:20)
[2020-12-13] MEDS ORDERED: LOTR1CRE12 TOP (22:21)
[2020-12-13] MEDS ORDERED: LEVO500T3 PO (22:21)
[2020-12-13] MEDS ORDERED: DIFL150T PO (22:21)
[2020-12-13 22:42] VITALS: BP 141/94
== END 2020-12-13 22:43 | disposition home or self-care (01) ==
LOC: M ED 18:22
DX: L02.219 Cutaneous abscess of trunk, unspecified (principal); N39.0 Urinary tract infection, site not specified; I11.9 Hypertensive heart disease without heart failure; K21.9 Gastro-esophageal reflux disease without esophagitis; E11.9 Type 2 diabetes mellitus without complications; M32.9 Systemic lupus erythematosus, unspecified; M79.7 Fibromyalgia; Z88.5 Allergy status to narcotic agent; Z88.3 Allergy status to other anti-infective agents; Z91.048 Other nonmedicinal substance allergy status; Z88.8 Allergy status to other drugs, medicaments and biological substances; Z79.899 Other long term (current) drug therapy; Z79.4 Long term (current) use of insulin; Z79.51 Long term (current) use of inhaled steroids

== ENCOUNTER 2020-12-18 14:55 | Emergency (ER) | payer MEDICARE, MEDICAID ==
[~2020-12-18] VITALS: Ht 167.6 cm; Wt 134.6 kg
[~2020-12-18 14:55] MED LIST changes: +CYCL-707; +DIFL150T PO; +DULO1CAP4; +LEVO500T3 PO; +LOTR1CRE12 TOP
[2020-12-18] MEDS ORDERED: LIDOCAINE W/EPINEPHRINE 1% 20ML VIAL SC ONE (17:05)
[2020-12-18] MEDS ORDERED: DOXY100C37 PO (17:23)
[2020-12-18 17:55] VITALS: BP 166/93
== END 2020-12-18 18:01 | disposition home or self-care (01) ==
LOC: M ED 14:55
DX: L02.214 Cutaneous abscess of groin (principal); L03.315 Cellulitis of perineum; L03.311 Cellulitis of abdominal wall; I10 Essential (primary) hypertension; E78.5 Hyperlipidemia, unspecified; E11.40 Type 2 diabetes mellitus with diabetic neuropathy, unspecified; R51.9 Headache, unspecified; K21.9 Gastro-esophageal reflux disease without esophagitis; E03.9 Hypothyroidism, unspecified; M79.7 Fibromyalgia; M06.9 Rheumatoid arthritis, unspecified; M54.9 Dorsalgia, unspecified; F32.9 Major depressive disorder, single episode, unspecified; F41.9 Anxiety disorder, unspecified; J45.909 Unspecified asthma, uncomplicated; G47.33 Obstructive sleep apnea (adult) (pediatric); E66.01 Morbid (severe) obesity due to excess calories; Z68.42 Body mass index [BMI] 45.0-49.9, adult; Z88.8 Allergy status to other drugs, medicaments and biological substances; Z88.3 Allergy status to other anti-infective agents; Z88.5 Allergy status to narcotic agent; Z79.899 Other long term (current) drug therapy; Z79.2 Long term (current) use of antibiotics; Z79.4 Long term (current) use of insulin; Z79.51 Long term (current) use of inhaled steroids

== ENCOUNTER 2020-12-29 15:15 | Emergency (ER) | payer MEDICARE, MEDICAID ==
[~2020-12-29] VITALS: Ht 167.6 cm; Wt 135.1 kg
[~2020-12-29 15:15] MED LIST changes: +DOXY100C37 PO
--- NOTE | 2020-12-29 20:26 | REPVR ---
PROCEDURE INFORMATION: Exam: US Pelvis Limited, Transabdominal, Soft tissue Exam date and time: 12/29/2020 7:58 PM Age: 45 years old Clinical indication: Pain; Other: Lt groin; Prior surgery; Surgery date: <1 month; Surgery type: Patient had area lanced 12/18/2020, states incision is closing and area is growing in size; Additional info: Abscess assessment left groin TECHNIQUE: Imaging protocol: Real-time transabdominal pelvic ultrasound with image documentation. Limited exam. Exam focused on the soft tissue. COMPARISON: US PELVIC NON-OB COMPLETE 01/30/2018 6:04 PM FINDINGS: Soft tissues: Soft tissue edema demonstrated in the left inguinal region. Small irregular complex fluid collection measures 1.1 x 0.9 x 1.3 cm. No evidence of increased blood flow. Finding is decreased in size in comparison to the prior study of 12/13/2020. IMPRESSION: Decreasing size of a irregular hypoechoic focus in the left inguinal region. Finding may represent an abscess although fat necrosis not excluded. Image guided percutaneous aspiration may be of additional benefit if clinically desired. Electronically signed by: Goyo Schmitt On 12/29/2020 20:26:51 PM
[2020-12-29 21:10] VITALS: BP 168/110
== END 2020-12-29 21:11 | disposition home or self-care (01) ==
LOC: M ED 15:15
DX: L02.214 Cutaneous abscess of groin (principal); Z79.899 Other long term (current) drug therapy; Z79.4 Long term (current) use of insulin; Z88.1 Allergy status to other antibiotic agents; Z88.5 Allergy status to narcotic agent; Z88.8 Allergy status to other drugs, medicaments and biological substances; Z91.048 Other nonmedicinal substance allergy status

== ENCOUNTER → 2021-01-01 | Outpatient (REF) | payer MEDICARE, MEDICAID ==
[2021-01-01 13:06] LABS: PHOSPHORUS LEVEL 4.1 MG/DL (2.5-4.9)
== END ==
LOC: M SFHCRHEU 10:18
PROVIDERS: ATTEND Internal Medicine
DX: M79.7 Fibromyalgia (principal); R74.8 Abnormal levels of other serum enzymes
CPT/HCPCS: 82550; 82607; 82977; 83540; 83735; 84075; 84100; G0463

== ENCOUNTER → 2021-01-03 | Outpatient (CLI) | payer MEDICARE, MEDICAID ==
--- NOTE | 2021-01-03 12:52 | REP ---
INDICATION: JOINT PAIN COMPARISON: None. TECHNIQUE: AP, lateral, bilateral oblique views left and right foot. FINDINGS: Right foot: Minimal sclerosis and joint space narrowing noted at the 1st metatarsophalangeal joint. Age-related changes noted to the interphalangeal joints. Lateral view demonstrates subtle cortical irregularity of the midfoot joints and small calcaneal heel spur. No acute fracture or dislocation. Left foot: Minimal sclerosis and joint space narrowing noted at the 1st metatarsophalangeal joint. Age-related changes noted to the interphalangeal joints. Lateral view demonstrates subtle cortical irregularity of the midfoot joints and small calcaneal heel spur. No acute fracture or dislocation. IMPRESSION: Symmetric mild degenerative changes. <Electronically signed by Sharad Marion > 01/03/21 [id number]
--- NOTE | 2021-01-03 12:52 | REP ---
INDICATION: JOINT PAIN. COMPARISON: None. FINDINGS: Left hand: There is mild rather symmetric appearing intra digital joint space narrowing with slight marginal osteophytosis seen involving all DIP joints. There is no tevin periarticular osteopenia and there are no tevin marginal erosions. There is no acute fracture, dislocation, or subluxation. Right hand: There is very slight rather symmetric appearing intra digital joint space narrowing particularly affecting the DIP joints and seen with minimal marginal osteophyte formation involving the DIP joints of digits 2 and 3. There is no tevin periarticular osteopenia. There are no marginal erosions. There is no acute fracture, dislocation, or subluxation. IMPRESSION: Chronic changes as described above. <Electronically signed by Colt Cárdenas > 01/03/21 1132
--- NOTE | 2021-01-03 12:53 | REP ---
INDICATION: JOINT PAIN. COMPARISON: None. TECHNIQUE: Four views bilateral FINDINGS: No acute fracture or destructive osseous lesion. The cortical margins are smooth bilaterally. IMPRESSION: Within normal limits. <Electronically signed by Colt Cárdenas > 01/03/21 1503
--- NOTE | 2021-01-03 12:53 | REP ---
INDICATION: JOINT PAIN COMPARISON: None. TECHNIQUE: AP, lateral, bilateral oblique views right and left ankle. FINDINGS: Right ankle demonstrates cortical irregularity at the medial and lateral malleoli. The ankle mortise is intact. No acute fracture or dislocation. Lateral view demonstrates cortical irregularity and joint space narrowing along the superior aspect of the midfoot joints. Small to moderate calcaneal heel spur. No acute fracture or dislocation. Left ankle demonstrates cortical irregularity at the medial and lateral malleoli. The ankle mortise is intact. No acute fracture or dislocation. Lateral view demonstrates cortical irregularity and joint space narrowing along the superior aspect of the midfoot joints. Small to moderate calcaneal heel spur. No acute fracture or dislocation. IMPRESSION: Mild symmetric degenerative changes <Electronically signed by Sharad Marion > 01/03/21 [id number]
== END ==
LOC: M RAD 11:49
PROVIDERS: ATTEND Internal Medicine
DX: M19.041 Primary osteoarthritis, right hand (principal); M19.042 Primary osteoarthritis, left hand; M19.071 Primary osteoarthritis, right ankle and foot; M19.072 Primary osteoarthritis, left ankle and foot; M77.31 Calcaneal spur, right foot; M77.32 Calcaneal spur, left foot; M06.9 Rheumatoid arthritis, unspecified
CPT/HCPCS: 73110; 73130; 73610; 73630; G0463

== ENCOUNTER → 2021-02-14 | Outpatient (CLI) | payer MEDICARE, MEDICAID ==
[2021-02-14 18:23] LABS: HCG, SERUM QUALITATIVE NEGATIVE (NEGATIVE)
== END ==
LOC: M LAB 16:14
PROVIDERS: ATTEND Family Medicine
DX: N92.6 Irregular menstruation, unspecified (principal)

== ENCOUNTER → 2021-02-15 | Outpatient (REF) | payer MEDICARE ==
[~2021-02-15] MED LIST changes: -DOXY100C37 PO; +DOXY1CAP62 PO; +OMEP40CA4 PO; -OMEP40CA97 PO
[2021-02-15 17:37] LABS: BASO # 0.1 10^3/uL (0.0-0.2); BASO % 0.5 % (0.0-1.0); EOS # 0.3 10^3/uL (0.0-0.5); EOS % 2.9 % (0.0-3.0); HEMATOCRIT 47.3 % (36.0-47.0); HEMOGLOBIN 15.4 g/dl (12.0-15.5); LYMPH # 2.7 10^3/uL (1.5-5.0); LYMPH % 24.4 % (24.0-44.0); MEAN CORPUSCULAR HEMOGLOBIN 29.5 pg (27.0-33.0); MEAN CORPUSCULAR HGB CONC 32.6 g/dl (32.0-36.5); MEAN CORPUSCULAR VOLUME 90.6 fl (80.0-96.0); MONO # 0.5 10^3/uL (0.0-0.8); MONO % 4.2 % (2.0-8.0); NEUTROPHILS # 7.5 10^3/uL (1.5-8.5); NEUTROPHILS % 67.5 % (36.0-66.0); PLATELET COUNT, AUTOMATED 248 10^3/uL (150-450); RED BLOOD COUNT 5.22 10^6/uL (4.00-5.40); WHITE BLOOD COUNT 11.1 10^3/uL (4.0-10.0)
[2021-02-15 17:59] LABS: ALBUMIN 3.6 GM/DL (3.2-5.2); ALT/SGPT 26 U/L (12-78); BILIRUBIN,DIRECT 0.1 MG/DL (0.0-0.2); BILIRUBIN,TOTAL 0.4 MG/DL (0.2-1.0); BLOOD UREA NITROGEN 7 MG/DL (7-18); C REACTIVE PROTEIN QUANTITATIV 2.54 MG/DL (0.00-0.30); CARBON DIOXIDE LEVEL 29 MEQ/L (21-32); CHLORIDE LEVEL 103 MEQ/L (98-107); CREATININE FOR GFR 0.55 MG/DL (0.55-1.30); GLOMERULAR FILTRATION RATE > 60.0 (>58); GLUCOSE, FASTING 252 MG/DL (70-100); IMMUNOGLOBULIN G 1240 MG/DL (681-1648); IMMUNOGLOBULIN M 64.9 MG/DL (40-230); POTASSIUM SERUM 4.3 MEQ/L (3.5-5.1); RHEUMATOID FACTOR QUANT < 10.0 IU/ML (<15.0); SODIUM LEVEL 137 MEQ/L (136-145); TOTAL PROTEIN 7.7 GM/DL (6.4-8.2)
[2021-02-15 18:15] LABS: ERYTHROCYTE SEDIMENTATION RATE 47 mm/hr (0-20)
[2021-02-16 13:46] LABS: ALBUMIN 3.98 GM/DL (3.29-5.55); ALBUMIN % 51.7 % (55.8-66.1); ALPHA-1-GLOBULIN % 4.1 % (2.9-4.9); ALPHA-1-GLOBULINS 0.32 GM/DL (0.17-0.41); ALPHA-2-GLOBULINS 1.07 GM/DL (0.42-0.99); ALPHA-2-GLOBULINS % 13.9 % (7.1-11.8); BETA-1-GLOBULINS % 6.5 % (4.7-7.2); BETA-2-GLOBULINS 0.59 GM/DL (0.19-0.55); BETA-2-GLOBULINS % 7.6 % (3.2-6.5); GAMMA GLOBULIN % 16.2 % (11.1-18.8); GAMMA GLOBULINS 1.25 GM/DL (0.65-1.58)
== END ==
LOC: M SFHCRHEU 14:36
PROVIDERS: ATTEND Internal Medicine
DX: M06.9 Rheumatoid arthritis, unspecified (principal)
CPT/HCPCS: 80048; 80076; 82784; 84165; 85025; 85652; 86140; 86200; 86431; G0463

== ENCOUNTER → 2021-02-28 | Outpatient (CLI) | payer MEDICARE, MEDICAID ==
[~2021-02-28] MED LIST changes: +CEPH500C PO
[2021-02-28 14:26] LABS: INR 0.98; PROTHROMBIN TIME 13.2 SECONDS (12.5-14.3)
[2021-02-28 14:27] LABS: PARTIAL THROMBOPLASTIN TIME 27.7 SECONDS (24.2-38.5)
[2021-02-28 14:32] LABS: PLATELET COUNT, AUTOMATED 260 10^3/uL (150-450)
[2021-02-28 14:49] LABS: CHOLESTEROL LEVEL 237 MG/DL (<200); CHOLESTEROL RISK RATIO 9.115 (<5); HDL CHOLESTEROL 26 MG/DL (>40); NON-HDL-C 211 MG/DL; TRIGLYCERIDES LEVEL 999 MG/DL (<150)
[2021-02-28 14:57] LABS: CREATININE, URINE 87.8 MG/DL; MALB URINE SIEMENS 15.9 MG/L; MAU/CREAT RATIO 18.1 MCG/MG (0.0-30.0)
[2021-02-28 21:00] LABS: URINE PREG TEST NEGATIVE (NEGATIVE)
== END ==
LOC: M PLALAB 10:01
PROVIDERS: ATTEND Physical Medicine & Rehabilitation
DX: M47.22 Other spondylosis with radiculopathy, cervical region (principal); E11.65 Type 2 diabetes mellitus with hyperglycemia; Z79.4 Long term (current) use of insulin; I10 Essential (primary) hypertension; E66.01 Morbid (severe) obesity due to excess calories; Z68.43 Body mass index [BMI] 50.0-59.9, adult; F33.1 Major depressive disorder, recurrent, moderate; F40.10 Social phobia, unspecified; F43.10 Post-traumatic stress disorder, unspecified

== ENCOUNTER 2021-03-15 05:23 | Emergency (ER) | payer MEDICARE, MEDICAID ==
[~2021-03-15] VITALS: Ht 167.6 cm; Wt 133.3 kg
[~2021-03-15 05:23] MED LIST changes: -CEPH500C PO
[2021-03-15 05:24] VITALS: BP 130/92
[2021-03-15] MEDS ORDERED: CEPH500C PO (06:18)
[2021-03-15] MEDS ORDERED: CEPHALEXIN 500 MG CAP PO ONE (06:25)
== END 2021-03-15 06:40 | disposition home or self-care (01) ==
LOC: M ED 05:23
DX: N76.4 Abscess of vulva (principal); J45.909 Unspecified asthma, uncomplicated; I10 Essential (primary) hypertension; E78.5 Hyperlipidemia, unspecified; K21.9 Gastro-esophageal reflux disease without esophagitis; M79.7 Fibromyalgia; M06.9 Rheumatoid arthritis, unspecified; F17.200 Nicotine dependence, unspecified, uncomplicated; Z79.4 Long term (current) use of insulin; Z79.51 Long term (current) use of inhaled steroids; Z79.899 Other long term (current) drug therapy; Z91.048 Other nonmedicinal substance allergy status; Z88.1 Allergy status to other antibiotic agents; Z88.8 Allergy status to other drugs, medicaments and biological substances

== ENCOUNTER 2021-05-02 12:58 | Outpatient (CLI) | payer MEDICARE, MEDICAID ==
[~2021-05-02] VITALS: Ht 167.6 cm; Wt 132.6 kg
[~2021-05-02 12:58] MED LIST changes: +ALBUTEROL SULFATE 2.5 MG/0.5 ML INH NEB SOLN INH PRN; +CEPH500C PO; +EPINEPHrine INJ 1 MG/ML 1ML AMP IM PRN; +diphenhydrAMINE 50MG/ML VIAL (J1200) IV PRN; +methylPREDNISolone 125MG 2ML VIAL IV PRN
[2021-05-02] MEDS ORDERED: TOCILIZUMAB IV ONE ×2 (13:00)
[2021-05-02] MEDS ORDERED: ACETAMINOPHEN TAB 650MG DOSE (2X325MG) PO ONE (13:00)
[2021-05-02] MEDS ORDERED: NS IV ONE ×2 (13:00)
[2021-05-02] MEDS ORDERED: diphenhydrAMINE 50MG/ML VIAL (J1200) IV ONE (13:00)
[2021-05-02 13:05] VITALS: BP 140/88
[2021-05-02 14:53] VITALS: BP 148/77
[2021-05-02 15:10] VITALS: BP 150/90
== END 2021-05-02 15:30 | disposition home or self-care (01) ==
LOC: M INFU 12:58
PROVIDERS: ATTEND Internal Medicine
DX: M06.9 Rheumatoid arthritis, unspecified (principal); Z88.1 Allergy status to other antibiotic agents; Z88.8 Allergy status to other drugs, medicaments and biological substances; Z88.5 Allergy status to narcotic agent
CPT/HCPCS: 96365; 96375; J1200; J3262

== ENCOUNTER 2021-05-30 12:45 | Outpatient (CLI) | payer MEDICARE, MEDICAID ==
[~2021-05-30] VITALS: Ht 167.6 cm; Wt 132.6 kg
[~2021-05-30 12:45] MED LIST changes: +LEFL10TA12 PO; -LEFL20TA10 PO
[2021-05-30] MEDS ORDERED: diphenhydrAMINE 50MG/ML VIAL (J1200) IV ONE (13:00)
[2021-05-30] MEDS ORDERED: NS IV ONE (13:00)
[2021-05-30] MEDS ORDERED: TOCILIZUMAB IV ONE (13:00)
[2021-05-30] MEDS ORDERED: ACETAMINOPHEN TAB 650MG DOSE (2X325MG) PO ONE (13:00)
[2021-05-30 15:23] VITALS: BP 130/80
== END 2021-05-30 15:30 | disposition home or self-care (01) ==
LOC: M INFU 12:45
PROVIDERS: ATTEND Internal Medicine
DX: M06.9 Rheumatoid arthritis, unspecified (principal); Z88.1 Allergy status to other antibiotic agents; Z88.8 Allergy status to other drugs, medicaments and biological substances
CPT/HCPCS: 96365; 96375; J1200; J3262

== ENCOUNTER 2021-06-24 21:33 | Emergency (ER) | payer MEDICARE, MEDICAID ==
[~2021-06-24] VITALS: Ht 167.6 cm; Wt 134.1 kg
[~2021-06-24 21:33] MED LIST changes: -ALBUTEROL SULFATE 2.5 MG/0.5 ML INH NEB SOLN INH PRN; -EPINEPHrine INJ 1 MG/ML 1ML AMP IM PRN; -diphenhydrAMINE 50MG/ML VIAL (J1200) IV PRN; -methylPREDNISolone 125MG 2ML VIAL IV PRN
[2021-06-24 21:34] VITALS: BP 132/87
[2021-06-24] MEDS ORDERED: DOXY100C3 PO (21:48)
[2021-06-24] MEDS ORDERED: ACTE80IN IV (21:48)
[2021-06-25 01:24] LABS: BASO # 0.1 10^3/uL (0.0-0.2); BASO % 0.5 % (0.0-1.0); EOS # 0.4 10^3/uL (0.0-0.5); EOS % 2.5 % (0.0-3.0); HEMATOCRIT 43.2 % (36.0-47.0); HEMOGLOBIN 15.1 g/dl (12.0-15.5); LYMPH # 3.3 10^3/uL (1.5-5.0); LYMPH % 22.8 % (24.0-44.0); MEAN CORPUSCULAR HEMOGLOBIN 30.7 pg (27.0-33.0); MEAN CORPUSCULAR VOLUME 87.8 fl (80.0-96.0); MONO # 0.7 10^3/uL (0.0-0.8); MONO % 5.1 % (2.0-8.0); NEUTROPHILS # 9.9 10^3/uL (1.5-8.5); NEUTROPHILS % 68.4 % (36.0-66.0); PLATELET COUNT, AUTOMATED 182 10^3/uL (150-450); RED BLOOD COUNT 4.92 10^6/uL (4.00-5.40); WHITE BLOOD COUNT 14.5 10^3/uL (4.0-10.0)
--- NOTE | 2021-06-25 04:36 | REPVR ---
PROCEDURE INFORMATION: Exam: US Duplex Right Lower Extremity Veins, Limited Exam date and time: 06/25/2021 1:47 AM Age: 45 years old Clinical indication: Pain; Other: Rash lower leg; Leg, upper; Right; Additional info: R thigh pain, rash lower leg TECHNIQUE: Imaging protocol: Real-time Duplex ultrasound of the Right Lower Extremity with 2-D duran scale, color Doppler flow and spectral waveform analysis with image documentation. Limited exam was focused on the right lower extremity veins. COMPARISON: Pelvis, limited US 12/29/2020 7:52 PM FINDINGS: Right deep veins: Unremarkable. The common femoral, femoral, proximal profunda femoral and popliteal veins are patent without thrombus. Normal Doppler waveforms. Normal compressibility and/or augmentation response. Tibial trifurcation vasculature is limited due to patient body habitus. Right superficial veins: Unremarkable. Saphenofemoral junction is patent without thrombus. Soft tissues: Unremarkable. IMPRESSION: No evidence of deep vein thrombosis. Electronically signed by: Britt Ordoñez On 06/25/2021 04:35:57 AM
== END 2021-06-25 02:11 | disposition home or self-care (01) ==
LOC: M ED 21:33
DX: R21 Rash and other nonspecific skin eruption (principal); I10 Essential (primary) hypertension; E11.9 Type 2 diabetes mellitus without complications; E78.5 Hyperlipidemia, unspecified; M06.9 Rheumatoid arthritis, unspecified; M79.7 Fibromyalgia; Z88.1 Allergy status to other antibiotic agents; Z88.5 Allergy status to narcotic agent; Z88.8 Allergy status to other drugs, medicaments and biological substances; Z91.048 Other nonmedicinal substance allergy status

== ENCOUNTER 2021-07-04 13:17 | Outpatient (CLI) | payer MEDICARE, MEDICAID ==
[~2021-07-04] VITALS: Ht 167.6 cm; Wt 132.6 kg
[~2021-07-04 13:17] MED LIST changes: +ACTE80IN IV; +ALBUTEROL SULFATE 2.5 MG/0.5 ML INH NEB SOLN INH PRN; +DOXY-443 PO; +DOXY100C3 PO; -DOXY1CAP62 PO; +EPINEPHrine INJ 1 MG/ML 1ML AMP IM PRN; +diphenhydrAMINE 50MG/ML VIAL (J1200) IV PRN; +methylPREDNISolone 125MG 2ML VIAL IV PRN
[2021-07-04 13:20] VITALS: BP 160/70
[2021-07-04] MEDS ORDERED: TOCILIZUMAB IV ONE (13:30)
[2021-07-04] MEDS ORDERED: ACETAMINOPHEN TAB 650MG DOSE (2X325MG) PO ONE (13:30)
[2021-07-04] MEDS ORDERED: NS IV ONE (13:30)
[2021-07-04] MEDS ORDERED: diphenhydrAMINE 50MG/ML VIAL (J1200) IV ONE (13:30)
[2021-07-04 13:45] VITALS: BP 138/70
[2021-07-04 15:45] VITALS: BP 136/66
== END 2021-07-04 15:45 | disposition home or self-care (01) ==
LOC: M INFU 13:17
PROVIDERS: ATTEND Internal Medicine
DX: M06.9 Rheumatoid arthritis, unspecified (principal); Z88.1 Allergy status to other antibiotic agents; Z88.5 Allergy status to narcotic agent; Z88.8 Allergy status to other drugs, medicaments and biological substances
CPT/HCPCS: 96365; 96375; J1200; J3262

== ENCOUNTER → 2021-07-30 | Outpatient (REF) | payer MEDICARE ==
[~2021-07-30] MED LIST changes: -ALBUTEROL SULFATE 2.5 MG/0.5 ML INH NEB SOLN INH PRN; -EPINEPHrine INJ 1 MG/ML 1ML AMP IM PRN; -diphenhydrAMINE 50MG/ML VIAL (J1200) IV PRN; -methylPREDNISolone 125MG 2ML VIAL IV PRN
== END ==
LOC: M SFHCRHEU 12:28
PROVIDERS: ATTEND Internal Medicine
DX: M06.9 Rheumatoid arthritis, unspecified (principal); E55.9 Vitamin D deficiency, unspecified

== ENCOUNTER 2021-08-13 12:46 | Emergency (ER) | payer MEDICARE, MEDICAID ==
[~2021-08-13] VITALS: Ht 167.6 cm; Wt 134.1 kg
[~2021-08-13 12:46] MED LIST changes: -LEVO500T3 PO; +LEVO500T4 PO
[2021-08-13] MEDS ORDERED: LIDOCAINE 5% (LIDODERM) PATCH TD ONE (18:25)
[2021-08-13] MEDS ORDERED: PERCOCET 5MG/325MG TAB PO ONE (18:25)
[2021-08-13 18:58] VITALS: BP 168/89
[2021-08-13] MEDS ORDERED: **NOTE PATIENT COMMENT** MISC XX SCH (21:00)
== END 2021-08-13 18:59 | disposition home or self-care (01) ==
LOC: M ED 12:46
DX: S46.012A Strain of muscle(s) and tendon(s) of the rotator cuff of left shoulder, initial encounter (principal); X58.XXXA Exposure to other specified factors, initial encounter; Y92.89 Other specified places as the place of occurrence of the external cause; M75.22 Bicipital tendinitis, left shoulder; I10 Essential (primary) hypertension; E11.40 Type 2 diabetes mellitus with diabetic neuropathy, unspecified; J45.909 Unspecified asthma, uncomplicated; E03.9 Hypothyroidism, unspecified; E78.5 Hyperlipidemia, unspecified; K21.9 Gastro-esophageal reflux disease without esophagitis; M79.7 Fibromyalgia; M06.9 Rheumatoid arthritis, unspecified; Z79.899 Other long term (current) drug therapy; Z79.4 Long term (current) use of insulin; Z88.1 Allergy status to other antibiotic agents; Z88.5 Allergy status to narcotic agent; Z88.8 Allergy status to other drugs, medicaments and biological substances; Z91.048 Other nonmedicinal substance allergy status; F17.210 Nicotine dependence, cigarettes, uncomplicated

== ENCOUNTER 2021-08-16 15:09 | Outpatient (CLI) | payer MEDICARE, MEDICAID ==
[~2021-08-16] VITALS: Ht 167.6 cm; Wt 133.2 kg
[~2021-08-16 15:09] MED LIST changes: +ACETAMINOPHEN TAB 650MG DOSE (2X325MG) PO ONE; +ALBUTEROL SULFATE 2.5 MG/0.5 ML INH NEB SOLN INH PRN; +EPINEPHrine INJ 1 MG/ML 1ML AMP IM PRN; +NS IV ONE; +TOCILIZUMAB IV ONE; +diphenhydrAMINE 50MG/ML VIAL (J1200) IV ONE; +diphenhydrAMINE 50MG/ML VIAL (J1200) IV PRN; +methylPREDNISolone 125MG 2ML VIAL IV PRN
[2021-08-16 15:30] VITALS: BP 131/78
[2021-08-16 16:52] VITALS: BP 158/85
== END 2021-08-16 17:01 | disposition home or self-care (01) ==
LOC: M INFU 15:09
PROVIDERS: ATTEND Internal Medicine
DX: M06.9 Rheumatoid arthritis, unspecified (principal); Z88.1 Allergy status to other antibiotic agents; Z88.8 Allergy status to other drugs, medicaments and biological substances; Z88.6 Allergy status to analgesic agent; F33.1 Major depressive disorder, recurrent, moderate; F40.10 Social phobia, unspecified; F43.10 Post-traumatic stress disorder, unspecified
CPT/HCPCS: 90834; 96365; 96375; J1200; J3262

== ENCOUNTER → 2021-09-04 | Outpatient (CLI) | payer OTHER ==
[~2021-09-04] MED LIST changes: -ACETAMINOPHEN TAB 650MG DOSE (2X325MG) PO ONE; -ALBUTEROL SULFATE 2.5 MG/0.5 ML INH NEB SOLN INH PRN; -EPINEPHrine INJ 1 MG/ML 1ML AMP IM PRN; +LEVO500T3 PO; -LEVO500T4 PO; -NS IV ONE; -TOCILIZUMAB IV ONE; -diphenhydrAMINE 50MG/ML VIAL (J1200) IV ONE; -diphenhydrAMINE 50MG/ML VIAL (J1200) IV PRN; -methylPREDNISolone 125MG 2ML VIAL IV PRN
--- NOTE | 2021-09-04 16:06 | REP ---
INDICATION: IMPINGEMENT SYNDROME OF LEFT SHOULDER. COMPARISON: Preoperative examination of 10/29/2019 TECHNIQUE: Coronal oblique T1 and fat suppressed T2. Sagittal oblique fat suppressed T2. Axial [id number] and T2 FLASH. FINDINGS: On 08/21/2020 the patient underwent labral debridement and subacromial decompression with acromioplasty and distal clavicle excision. Postoperative changes are seen in the postoperative AC joint. There is mild patchy T2 hyper signal seen in the supraspinatus tendon. There is no evidence of supraspinatus muscle atrophy or musculotendinous retraction. The signal within the subscapularis, infraspinatus, teres minor tendons is within normal limits. The biceps tendon resides within the bicipital groove. Once again, there is slightly increased fluid seen surrounding the biceps tendon. The tiny signal void seen adjacent to the bicipital groove on the prior MRI are no longer present. There is no glenohumeral joint effusion. There is a small amount of fluid in the subcoracoid recess. The superior labrum appears somewhat truncated compared to the prior exam most consistent with previous labral debridement. There is subtle T2 hyper signal seen in the biceps labral complex. Once again, cystic degenerative changes are seen in the humeral head status quo. IMPRESSION: 1. Postoperative changes as described above. 2. There is mild supraspinatus tendinitis/tendinosis. 3. Postop changes involving the labrum as described above. There is mild T2 hyper signal in the biceps labral complex. Recurrent fraying cannot be ruled out. 4. Increased fluid surrounding the biceps tendon but unchanged from the prior exam. 5. Other findings as described above. <Electronically signed by Colt Cárdenas > 09/04/21 [id number]
== END ==
LOC: M PLAIMG 13:56
PROVIDERS: ATTEND Physician Assistant
DX: M75.42 Impingement syndrome of left shoulder (principal)

== ENCOUNTER → 2021-09-10 | Outpatient (CLI) | payer MEDICARE ==
[~2021-09-10] MED LIST changes: -LEVO500T3 PO; +LEVO500T4 PO
== END ==
LOC: M LAB 15:04
PROVIDERS: ATTEND Physician Assistant
DX: R11.0 Nausea (principal)

== ENCOUNTER → 2021-09-10 | Outpatient (CLI) | payer MEDICARE ==
[~2021-09-10] MED LIST changes: +LEVO500T3 PO; -LEVO500T4 PO
[2021-09-10 15:54] LABS: BASO # 0.1 10^3/uL (0.0-0.2); BASO % 0.5 % (0.0-1.0); EOS # 0.4 10^3/uL (0.0-0.5); EOS % 3.2 % (0.0-3.0); HEMATOCRIT 45.9 % (36.0-47.0); HEMOGLOBIN 15.9 g/dl (12.0-15.5); LYMPH # 2.7 10^3/uL (1.5-5.0); LYMPH % 21.6 % (24.0-44.0); MEAN CORPUSCULAR HEMOGLOBIN 30.9 pg (27.0-33.0); MEAN CORPUSCULAR HGB CONC 34.6 g/dl (32.0-36.5); MEAN CORPUSCULAR VOLUME 89.3 fl (80.0-96.0); MONO # 0.7 10^3/uL (0.0-0.8); MONO % 5.4 % (2.0-8.0); NEUTROPHILS # 8.5 10^3/uL (1.5-8.5); NEUTROPHILS % 68.8 % (36.0-66.0); PLATELET COUNT, AUTOMATED 198 10^3/uL (150-450); RED BLOOD COUNT 5.14 10^6/uL (4.00-5.40); WHITE BLOOD COUNT 12.3 10^3/uL (4.0-10.0)
[2021-09-10 16:39] LABS: ALBUMIN 3.6 GM/DL (3.2-5.2); ALT/SGPT 29 U/L (12-78); BILIRUBIN,DIRECT 0.1 MG/DL (0.0-0.2); BILIRUBIN,TOTAL 0.5 MG/DL (0.2-1.0); BLOOD UREA NITROGEN 10 MG/DL (7-18); C REACTIVE PROTEIN QUANTITATIV 4.45 MG/DL (0.00-0.30); CALCIUM LEVEL 8.9 MG/DL (8.5-10.1); CARBON DIOXIDE LEVEL 28 MEQ/L (21-32); CHLORIDE LEVEL 101 MEQ/L (98-107); CREATININE FOR GFR 0.74 MG/DL (0.55-1.30); GLOMERULAR FILTRATION RATE > 60.0 (>58); GLUCOSE, FASTING 409 MG/DL (70-100); POTASSIUM SERUM 4.4 MEQ/L (3.5-5.1); SODIUM LEVEL 135 MEQ/L (136-145); TOTAL 25(OH) VITAMIN D 19.7 NG/ML (30.0-100.0); TOTAL PROTEIN 7.6 GM/DL (6.4-8.2)
[2021-09-10 16:58] LABS: ERYTHROCYTE SEDIMENTATION RATE 44 mm/hr (0-20)
== END ==
LOC: M LAB 15:02
PROVIDERS: ATTEND Internal Medicine
DX: M06.9 Rheumatoid arthritis, unspecified (principal); E55.9 Vitamin D deficiency, unspecified; R11.0 Nausea

== ENCOUNTER 2021-09-13 14:54 | Outpatient (CLI) | payer MEDICARE, MEDICAID ==
[~2021-09-13] VITALS: Ht 167.6 cm; Wt 132.6 kg
[~2021-09-13 14:54] MED LIST changes: +ALBUTEROL SULFATE 2.5 MG/0.5 ML INH NEB SOLN INH PRN; +EPINEPHrine INJ 1 MG/ML 1ML AMP IM PRN; +diphenhydrAMINE 50MG/ML VIAL (J1200) IV PRN; +methylPREDNISolone 125MG 2ML VIAL IV PRN
[2021-09-13 14:55] VITALS: BP 148/80
[2021-09-13] MEDS ORDERED: [UNRECOGNIZED DRUG - OTHER] IV ONE ×6 (15:00→15:25)
[2021-09-13] MEDS ORDERED: diphenhydrAMINE 50MG/ML VIAL (J1200) IV ONE (15:00)
[2021-09-13] MEDS ORDERED: ACETAMINOPHEN TAB 650MG DOSE (2X325MG) PO ONE (15:00)
[2021-09-13] MEDS ORDERED: NS 1,000 ML IV SCH (15:00)
[2021-09-13 16:39] VITALS: BP 136/88
== END 2021-09-13 16:55 | disposition home or self-care (01) ==
LOC: M INFU 14:54
PROVIDERS: ATTEND Internal Medicine
DX: M06.9 Rheumatoid arthritis, unspecified (principal); Z88.1 Allergy status to other antibiotic agents; Z88.8 Allergy status to other drugs, medicaments and biological substances
CPT/HCPCS: 96365; 96375; J1200; J3262

== ENCOUNTER 2021-10-11 14:58 | Outpatient (CLI) | payer MEDICARE, MEDICAID ==
[~2021-10-11] VITALS: Ht 167.6 cm; Wt 133.2 kg
[~2021-10-11 14:58] MED LIST changes: -ALBUTEROL SULFATE 2.5 MG/0.5 ML INH NEB SOLN INH PRN; -EPINEPHrine INJ 1 MG/ML 1ML AMP IM PRN; -LEVO500T3 PO; +LEVO500T4 PO; -diphenhydrAMINE 50MG/ML VIAL (J1200) IV PRN; -methylPREDNISolone 125MG 2ML VIAL IV PRN
[2021-10-11] MEDS ORDERED: EPINEPHrine INJ 1 MG/ML 1ML AMP IM PRN (15:00)
[2021-10-11] MEDS ORDERED: diphenhydrAMINE 50MG/ML VIAL (J1200) IV PRN (15:00)
[2021-10-11] MEDS ORDERED: ALBUTEROL SULFATE 2.5 MG/0.5 ML INH NEB SOLN INH PRN (15:00)
[2021-10-11] MEDS ORDERED: ACETAMINOPHEN TAB 650MG DOSE (2X325MG) PO ONE (15:00)
[2021-10-11] MEDS ORDERED: diphenhydrAMINE 50MG/ML VIAL (J1200) IV ONE (15:00)
[2021-10-11] MEDS ORDERED: NS 1,000 ML IV SCH (15:00)
[2021-10-11] MEDS ORDERED: TOCILIZUMAB IV ONE ×2 (15:00→15:23)
[2021-10-11] MEDS ORDERED: NS IV ONE ×2 (15:00→15:23)
[2021-10-11] MEDS ORDERED: methylPREDNISolone 125MG 2ML VIAL IV PRN (15:00)
[2021-10-11 15:20] VITALS: BP 144/82
[2021-10-11 15:34] LABS: BASO # 0.1 10^3/uL (0.0-0.2); BASO % 0.5 % (0.0-1.0); EOS # 0.6 10^3/uL (0.0-0.5); EOS % 4.5 % (0.0-3.0); LYMPH # 3.1 10^3/uL (1.5-5.0); LYMPH % 24.2 % (24.0-44.0); MEAN CORPUSCULAR HEMOGLOBIN 30.7 pg (27.0-33.0); MEAN CORPUSCULAR HGB CONC 34.8 g/dl (32.0-36.5); MEAN CORPUSCULAR VOLUME 88.1 fl (80.0-96.0); MONO # 0.7 10^3/uL (0.0-0.8); MONO % 5.4 % (2.0-8.0); NEUTROPHILS # 8.4 10^3/uL (1.5-8.5); NEUTROPHILS % 64.4 % (36.0-66.0); PLATELET COUNT, AUTOMATED 227 10^3/uL (150-450); RED BLOOD COUNT 5.22 10^6/uL (4.00-5.40)
[2021-10-11 16:09] LABS: ALBUMIN 3.6 GM/DL (3.2-5.2); ALT/SGPT 29 U/L (12-78); BILIRUBIN,TOTAL 0.3 MG/DL (0.2-1.0); BLOOD UREA NITROGEN 13 MG/DL (7-18); CALCIUM LEVEL 9.4 MG/DL (8.5-10.1); CARBON DIOXIDE LEVEL 27 MEQ/L (21-32); CHLORIDE LEVEL 100 MEQ/L (98-107); CREATININE FOR GFR 0.68 MG/DL (0.55-1.30); GLOMERULAR FILTRATION RATE > 60.0 (>58); GLUCOSE, FASTING 384 MG/DL (70-100); POTASSIUM SERUM 4.5 MEQ/L (3.5-5.1); SODIUM LEVEL 137 MEQ/L (136-145); TOTAL PROTEIN 7.7 GM/DL (6.4-8.2)
[2021-10-11 16:17] LABS: ERYTHROCYTE SEDIMENTATION RATE 3 mm/hr (0-20)
[2021-10-11 16:40] VITALS: BP 145/64
== END 2021-10-11 16:45 | disposition home or self-care (01) ==
LOC: M INFU 14:58
PROVIDERS: ATTEND Internal Medicine
DX: M06.9 Rheumatoid arthritis, unspecified (principal); Z88.1 Allergy status to other antibiotic agents; Z88.8 Allergy status to other drugs, medicaments and biological substances
CPT/HCPCS: 36415; 80053; 83735; 84443; 85025; 85652; 96365; 96375; J1200; J3262

== ENCOUNTER 2021-11-08 14:59 | Outpatient (CLI) | payer MEDICARE, MEDICAID ==
[~2021-11-08] VITALS: Ht 167.6 cm; Wt 137.0 kg
[~2021-11-08 14:59] MED LIST changes: +ALBUTEROL SULFATE 2.5 MG/0.5 ML INH NEB SOLN INH PRN; +EPINEPHrine INJ 1 MG/ML 1ML AMP IM PRN; +diphenhydrAMINE 50MG/ML VIAL (J1200) IV PRN; +methylPREDNISolone 125MG 2ML VIAL IV PRN
[2021-11-08] MEDS ORDERED: diphenhydrAMINE 50MG/ML VIAL (J1200) IV ONE (15:00)
[2021-11-08] MEDS ORDERED: NS IV ONE (15:00)
[2021-11-08] MEDS ORDERED: TOCILIZUMAB IV ONE (15:00)
[2021-11-08] MEDS ORDERED: ACETAMINOPHEN TAB 650MG DOSE (2X325MG) PO ONE (15:00)
[2021-11-08 15:16] VITALS: BP 150/80
[2021-11-08 17:04] VITALS: BP 142/81
== END 2021-11-08 17:10 | disposition home or self-care (01) ==
LOC: M INFU 14:59
PROVIDERS: ATTEND Internal Medicine
DX: M06.9 Rheumatoid arthritis, unspecified (principal); Z88.1 Allergy status to other antibiotic agents; Z88.8 Allergy status to other drugs, medicaments and biological substances
CPT/HCPCS: 96365; 96366; J3262

== ENCOUNTER 2021-12-06 15:35 | Outpatient (CLI) | payer MEDICARE, MEDICAID ==
[~2021-12-06] VITALS: Ht 167.6 cm; Wt 137.0 kg
[~2021-12-06 15:35] MED LIST changes: +ACETAMINOPHEN TAB 650MG DOSE (2X325MG) PO ONE; +NS 1,000 ML IV SCH; +NS IV ONE; +TOCILIZUMAB IV ONE; +diphenhydrAMINE 50MG/ML VIAL (J1200) IV ONE
[2021-12-06 15:44] VITALS: BP 168/84
[2021-12-06 17:55] VITALS: BP 175/88
== END 2021-12-06 17:55 | disposition home or self-care (01) ==
LOC: M INFU 15:35
PROVIDERS: ATTEND Internal Medicine
DX: M06.9 Rheumatoid arthritis, unspecified (principal); Z88.1 Allergy status to other antibiotic agents; Z88.8 Allergy status to other drugs, medicaments and biological substances
CPT/HCPCS: 96365; J3262

== ENCOUNTER 2022-01-03 15:41 | Outpatient (CLI) | payer MEDICARE, MEDICAID ==
[~2022-01-03] VITALS: Ht 167.6 cm; Wt 137.0 kg
[~2022-01-03 15:41] MED LIST changes: -NS 1,000 ML IV SCH
[2022-01-03 16:22] VITALS: BP 160/100
[2022-01-03 16:59] VITALS: BP 169/88
[2022-01-03 18:00] VITALS: BP 174/88
[2022-01-03 18:25] VITALS: BP 167/94
== END 2022-01-03 18:25 | disposition home or self-care (01) ==
LOC: M INFU 15:41
PROVIDERS: ATTEND Internal Medicine
DX: M06.9 Rheumatoid arthritis, unspecified (principal); Z88.1 Allergy status to other antibiotic agents; Z88.8 Allergy status to other drugs, medicaments and biological substances; Z88.6 Allergy status to analgesic agent
CPT/HCPCS: 96365; 96366; 96375; J1200; J3262

== ENCOUNTER 2022-01-15 17:50 | Emergency (ER) | payer MEDICARE, MEDICAID ==
[~2022-01-15] VITALS: Ht 167.6 cm; Wt 142.4 kg
[~2022-01-15 17:50] MED LIST changes: -ACETAMINOPHEN TAB 650MG DOSE (2X325MG) PO ONE; -ALBUTEROL SULFATE 2.5 MG/0.5 ML INH NEB SOLN INH PRN; -EPINEPHrine INJ 1 MG/ML 1ML AMP IM PRN; -NS IV ONE; -TOCILIZUMAB IV ONE; -diphenhydrAMINE 50MG/ML VIAL (J1200) IV ONE; -diphenhydrAMINE 50MG/ML VIAL (J1200) IV PRN; -methylPREDNISolone 125MG 2ML VIAL IV PRN
[2022-01-15] MEDS ORDERED: HUMA50IN4 SC (18:34)
[2022-01-15] MEDS ORDERED: DULO1CAP4 PO (18:34)
[2022-01-15] MEDS ORDERED: TRUL0.5I SQ (18:34)
[2022-01-15] MEDS ORDERED: ALBU8.5H PO (18:34)
[2022-01-15 19:52] LABS: BASO # 0.1 10^3/uL (0.0-0.2); BASO % 0.8 % (0.0-1.0); EOS # 0.6 10^3/uL (0.0-0.5); EOS % 5.8 % (0.0-3.0); HEMATOCRIT 44.7 % (36.0-47.0); HEMOGLOBIN 15.7 g/dl (12.0-15.5); LYMPH # 3.7 10^3/uL (1.5-5.0); LYMPH % 34.5 % (24.0-44.0); MEAN CORPUSCULAR HEMOGLOBIN 31.5 pg (27.0-33.0); MEAN CORPUSCULAR HGB CONC 35.1 g/dl (32.0-36.5); MEAN CORPUSCULAR VOLUME 89.8 fl (80.0-96.0); MONO # 0.7 10^3/uL (0.0-0.8); MONO % 6.4 % (2.0-8.0); NEUTROPHILS # 5.5 10^3/uL (1.5-8.5); NEUTROPHILS % 51.5 % (36.0-66.0); PLATELET COUNT, AUTOMATED 198 10^3/uL (150-450); RED BLOOD COUNT 4.98 10^6/uL (4.00-5.40); WHITE BLOOD COUNT 10.6 10^3/uL (4.0-10.0)
[2022-01-15 20:13] LABS: HCG, SERUM QUALITATIVE NEGATIVE (NEGATIVE)
[2022-01-15 20:20] LABS: CK-MB VALUE MASS < 1.0 NG/ML (<3.6); CPK CREATINE PHOSPHOKINASE 129 U/L (26-192); MB/CK RELATIVE INDEX 0.78 (< OR =4)
[2022-01-15 20:24] LABS: ALBUMIN 3.7 GM/DL (3.2-5.2); ALT/SGPT 53 U/L (12-78); BILIRUBIN,DIRECT < 0.1 MG/DL (0.0-0.2); BILIRUBIN,TOTAL 0.3 MG/DL (0.2-1.0); BLOOD UREA NITROGEN 7 MG/DL (7-18); CALCIUM LEVEL 9.5 MG/DL (8.5-10.1); CARBON DIOXIDE LEVEL 26 MEQ/L (21-32); CHLORIDE LEVEL 102 MEQ/L (98-107); CREATININE FOR GFR 0.55 MG/DL (0.55-1.30); GLOMERULAR FILTRATION RATE > 60.0 (>58); GLUCOSE, FASTING 260 MG/DL (70-100); LIPASE 84 U/L (73-393); NT-PRO BNP 27 PG/ML (<125); POTASSIUM SERUM 3.9 MEQ/L (3.5-5.1); SODIUM LEVEL 138 MEQ/L (136-145); TOTAL PROTEIN 6.9 GM/DL (6.4-8.2)
[2022-01-15 20:37] LABS: HEMOGLOBIN A1c 9.5 %
[2022-01-15 21:18] LABS: MB/CK RELATIVE INDEX 1.05 (< OR =4)
[2022-01-15] MEDS ORDERED: LOSARTAN 50MG TABLET PO ONE (21:45)
[2022-01-15 22:15] VITALS: BP 185/105
[2022-01-15 22:28] VITALS: BP 217/106
== END 2022-01-15 22:35 | disposition home or self-care (01) ==
LOC: M ED 17:50
DX: R07.89 Other chest pain (principal); R00.0 Tachycardia, unspecified; I10 Essential (primary) hypertension; E11.9 Type 2 diabetes mellitus without complications; E78.5 Hyperlipidemia, unspecified; G47.33 Obstructive sleep apnea (adult) (pediatric); M79.7 Fibromyalgia; Z88.8 Allergy status to other drugs, medicaments and biological substances; Z79.899 Other long term (current) drug therapy

== ENCOUNTER 2022-01-31 15:01 | Outpatient (CLI) | payer MEDICARE, MEDICAID ==
[~2022-01-31] VITALS: Ht 167.6 cm; Wt 137.8 kg
[~2022-01-31 15:01] MED LIST changes: +ACETAMINOPHEN TAB 650MG DOSE (2X325MG) PO ONE; -ALBU2.5V10 INH; +ALBU83IN INH; +ALBUTEROL SULFATE 2.5 MG/0.5 ML INH NEB SOLN INH PRN; +EPINEPHrine INJ 1 MG/ML 1ML AMP IM PRN; +NS IV ONE; +TOCILIZUMAB IV ONE; +diphenhydrAMINE 50MG/ML VIAL (J1200) IV ONE; +diphenhydrAMINE 50MG/ML VIAL (J1200) IV PRN; +methylPREDNISolone 125MG 2ML VIAL IV PRN
[2022-01-31 16:30] VITALS: BP 168/96
== END 2022-01-31 17:32 | disposition home or self-care (01) ==
LOC: M INFU 15:01
PROVIDERS: ATTEND Internal Medicine
DX: M06.9 Rheumatoid arthritis, unspecified (principal); Z79.899 Other long term (current) drug therapy
CPT/HCPCS: 96365; J3262

== ENCOUNTER → 2022-01-31 | Outpatient (CLI) | payer MEDICARE, MEDICAID ==
[~2022-01-31] MED LIST changes: +ALBU2.5V10 INH; +ALBU8.5H PO; -ALBU83IN INH; +DULO1CAP4 PO; +TRUL0.5I SQ
[2022-01-31 17:17] LABS: FREE T4 0.93 NG/DL (0.76-1.46); THYROID STIMULATING HORMONE 1.26 uIU/ML (0.358-3.740)
[2022-02-01 18:29] LABS: FOLATE 19.6 NG/ML (>5.4)
[2022-02-18 15:09] LABS: VITAMIN B1 LEVEL WHOLE BLOOD 170.2 nmol/L (66.5-200.0); VITAMIN B6,PYRIDOXAL PHOSPHATE 10.1 ug/L (3.4-65.2); VITAMIN E(ALPHA TOCOPHEROL) 27.7 mg/L (7.0-25.1); VITAMIN E(GAMMA TOCOPHEROL) 7.7 mg/L (0.5-5.5)
== END ==
LOC: M LAB 15:07
PROVIDERS: ATTEND Psychiatry & Neurology Neurology
DX: R41.3 Other amnesia (principal); E03.9 Hypothyroidism, unspecified

== ENCOUNTER 2022-02-28 15:30 | Outpatient (CLI) | payer MEDICARE, MEDICAID ==
[~2022-02-28] VITALS: Ht 167.6 cm; Wt 141.8 kg
[~2022-02-28 15:30] MED LIST changes: +ALBU2.5V10 INH; -ALBU83IN INH
[2022-02-28 15:35] VITALS: BP 150/90
[2022-02-28 17:00] VITALS: BP 147/83
== END 2022-02-28 17:00 | disposition home or self-care (01) ==
LOC: M INFU 15:30
PROVIDERS: ATTEND Internal Medicine
DX: M06.9 Rheumatoid arthritis, unspecified (principal); Z88.1 Allergy status to other antibiotic agents; Z88.6 Allergy status to analgesic agent; Z88.8 Allergy status to other drugs, medicaments and biological substances
CPT/HCPCS: 96365; J3262

== ENCOUNTER 2022-03-08 07:51 | Emergency (ER) | payer MEDICARE, MEDICAID ==
[~2022-03-08] VITALS: Ht 167.6 cm; Wt 142.7 kg
[~2022-03-08 07:51] MED LIST changes: -ACETAMINOPHEN TAB 650MG DOSE (2X325MG) PO ONE; -ALBUTEROL SULFATE 2.5 MG/0.5 ML INH NEB SOLN INH PRN; -EPINEPHrine INJ 1 MG/ML 1ML AMP IM PRN; -NS IV ONE; -TOCILIZUMAB IV ONE; -diphenhydrAMINE 50MG/ML VIAL (J1200) IV ONE; -diphenhydrAMINE 50MG/ML VIAL (J1200) IV PRN; -methylPREDNISolone 125MG 2ML VIAL IV PRN
[2022-03-08] MEDS ORDERED: ACETAMINOPHEN 325 MG TAB PO ONE (10:15)
[2022-03-08 11:24] LABS: BASO # 0.1 10^3/uL (0.0-0.2); BASO % 0.4 % (0.0-1.0); EOS # 0.7 10^3/uL (0.0-0.5); HEMATOCRIT 45.9 % (36.0-47.0); HEMOGLOBIN 16.1 g/dl (12.0-15.5); LYMPH # 2.4 10^3/uL (1.5-5.0); MEAN CORPUSCULAR HGB CONC 35.1 g/dl (32.0-36.5); MEAN CORPUSCULAR VOLUME 91.3 fl (80.0-96.0); MONO # 0.8 10^3/uL (0.0-0.8); MONO % 5.6 % (2.0-8.0); NEUTROPHILS # 10.3 10^3/uL (1.5-8.5); NEUTROPHILS % 71.7 % (36.0-66.0); PLATELET COUNT, AUTOMATED 186 10^3/uL (150-450); RED BLOOD COUNT 5.03 10^6/uL (4.00-5.40); WHITE BLOOD COUNT 14.4 10^3/uL (4.0-10.0)
[2022-03-08 11:51] LABS: ERYTHROCYTE SEDIMENTATION RATE 6 mm/hr (0-20)
[2022-03-08 11:52] LABS: ALBUMIN 3.6 GM/DL (3.2-5.2); ALT/SGPT 56 U/L (12-78); BILIRUBIN,TOTAL 0.5 MG/DL (0.2-1.0); BLOOD UREA NITROGEN 10 MG/DL (7-18); CALCIUM LEVEL 8.3 MG/DL (8.5-10.1); CARBON DIOXIDE LEVEL 23 MEQ/L (21-32); CHLORIDE LEVEL 101 MEQ/L (98-107); CREATININE FOR GFR 0.61 MG/DL (0.55-1.30); GLOMERULAR FILTRATION RATE > 60.0 (>58); GLUCOSE, FASTING 403 MG/DL (70-100); POTASSIUM SERUM 4.4 MEQ/L (3.5-5.1); SODIUM LEVEL 133 MEQ/L (136-145)
[2022-03-08] MEDS ORDERED: NS 1,000 ML IV ONE ×2 (12:00→12:10)
[2022-03-08 12:41] LABS: HEMOGLOBIN A1c 9.4 %
[2022-03-08] MEDS ORDERED: HumuLIN R (REGULAR) INSULIN (NovoLIN R) **100U/ML** PER UNIT IV ONE (14:05)
[2022-03-08] MEDS ORDERED: DOXY-443 PO (15:05)
[2022-03-08] MEDS ORDERED: DOXYCYCLINE HYCLATE 100MG TABLET PO ONE (15:30)
[2022-03-08 16:16] VITALS: BP 158/89
== END 2022-03-08 16:46 | disposition home or self-care (01) ==
LOC: M ED 07:51
DX: L03.319 Cellulitis of trunk, unspecified (principal); E11.40 Type 2 diabetes mellitus with diabetic neuropathy, unspecified; E11.65 Type 2 diabetes mellitus with hyperglycemia; I10 Essential (primary) hypertension; E03.9 Hypothyroidism, unspecified; E78.5 Hyperlipidemia, unspecified; G47.33 Obstructive sleep apnea (adult) (pediatric); Z88.1 Allergy status to other antibiotic agents; Z88.5 Allergy status to narcotic agent; Z88.8 Allergy status to other drugs, medicaments and biological substances
CPT/HCPCS: 76882; 80053; 83036; 85025; 85652; 86140; 96361; 96374; 99284; J1815

== ENCOUNTER 2022-03-11 15:39 | Emergency (ER) | payer MEDICARE, MEDICAID ==
[~2022-03-11] VITALS: Ht 167.6 cm; Wt 143.9 kg
[2022-03-11 18:43] LABS: BASO # 0.1 10^3/uL (0.0-0.2); BASO % 0.6 % (0.0-1.0); EOS # 0.6 10^3/uL (0.0-0.5); EOS % 5.2 % (0.0-3.0); HEMATOCRIT 44.9 % (36.0-47.0); LYMPH # 2.9 10^3/uL (1.5-5.0); LYMPH % 24.1 % (24.0-44.0); MEAN CORPUSCULAR HEMOGLOBIN 33.2 pg (27.0-33.0); MEAN CORPUSCULAR HGB CONC 35.6 g/dl (32.0-36.5); MEAN CORPUSCULAR VOLUME 93.2 fl (80.0-96.0); MONO # 0.7 10^3/uL (0.0-0.8); MONO % 5.6 % (2.0-8.0); NEUTROPHILS # 7.6 10^3/uL (1.5-8.5); NEUTROPHILS % 64.1 % (36.0-66.0); PLATELET COUNT, AUTOMATED 264 10^3/uL (150-450); RED BLOOD COUNT 4.82 10^6/uL (4.00-5.40); WHITE BLOOD COUNT 11.9 10^3/uL (4.0-10.0)
[2022-03-11] MEDS ORDERED: NS 1,000 ML IV ONE (18:55)
[2022-03-11 19:34] LABS: BLOOD UREA NITROGEN 10 MG/DL (7-18); CALCIUM LEVEL 8.6 MG/DL (8.5-10.1); CARBON DIOXIDE LEVEL 28 MEQ/L (21-32); CHLORIDE LEVEL 102 MEQ/L (98-107); CREATININE FOR GFR 0.69 MG/DL (0.55-1.30); GLOMERULAR FILTRATION RATE > 60.0 (>58); GLUCOSE, FASTING 231 MG/DL (70-100); POTASSIUM SERUM 5.7 MEQ/L (3.5-5.1); SODIUM LEVEL 133 MEQ/L (136-145)
[2022-03-11] MEDS ORDERED: KETOROLAC 30 MG/ML 1ML VIAL IV ONE (20:40)
[2022-03-11 21:28] VITALS: BP 156/94
== END 2022-03-11 21:36 | disposition home or self-care (01) ==
LOC: M ED 15:39
DX: L03.319 Cellulitis of trunk, unspecified (principal); E11.9 Type 2 diabetes mellitus without complications; J45.909 Unspecified asthma, uncomplicated; M79.7 Fibromyalgia; M06.9 Rheumatoid arthritis, unspecified; R51.9 Headache, unspecified; Z97.5 Presence of (intrauterine) contraceptive device; Z88.1 Allergy status to other antibiotic agents; Z88.5 Allergy status to narcotic agent; Z88.8 Allergy status to other drugs, medicaments and biological substances; Z91.048 Other nonmedicinal substance allergy status; Z79.899 Other long term (current) drug therapy; Z79.4 Long term (current) use of insulin
CPT/HCPCS: 76882; 80047; 80048; 83605; 85025; 87070; 87077; 87186; 87205; 96361; 96374; 99283; J1885

== ENCOUNTER → 2022-04-15 | Outpatient (REF) | payer MEDICARE, MEDICAID ==
[~2022-04-15] MED LIST changes: +LEVO1TAB39 PO; -LEVO500T4 PO
== END ==
LOC: M SFHCDERM 09:26
PROVIDERS: ATTEND Physician Assistant
DX: L73.2 Hidradenitis suppurativa (principal)

== ENCOUNTER → 2022-04-29 | Outpatient (CLI) | payer MEDICARE, MEDICAID ==
[2022-04-29 21:09] LABS: BASO # 0.1 10^3/uL (0.0-0.2); BASO % 0.6 % (0.0-1.0); EOS # 0.6 10^3/uL (0.0-0.5); EOS % 4.4 % (0.0-3.0); HEMATOCRIT 48.2 % (36.0-47.0); HEMOGLOBIN 15.9 g/dl (12.0-15.5); LYMPH # 2.7 10^3/uL (1.5-5.0); LYMPH % 21.5 % (24.0-44.0); MEAN CORPUSCULAR HEMOGLOBIN 30.9 pg (27.0-33.0); MEAN CORPUSCULAR VOLUME 93.6 fl (80.0-96.0); MONO # 0.6 10^3/uL (0.0-0.8); MONO % 4.9 % (2.0-8.0); NEUTROPHILS # 8.5 10^3/uL (1.5-8.5); NEUTROPHILS % 68.2 % (36.0-66.0); PLATELET COUNT, AUTOMATED 286 10^3/uL (150-450); RED BLOOD COUNT 5.15 10^6/uL (4.00-5.40); WHITE BLOOD COUNT 12.4 10^3/uL (4.0-10.0)
[2022-04-29 21:39] LABS: ERYTHROCYTE SEDIMENTATION RATE 37 mm/hr (0-20)
[2022-04-29 22:03] LABS: ALBUMIN 3.6 GM/DL (3.2-5.2); ALT/SGPT 37 U/L (12-78); BILIRUBIN,DIRECT 0.2 MG/DL (0.0-0.2); BILIRUBIN,TOTAL 0.8 MG/DL (0.2-1.0); BLOOD UREA NITROGEN 9 MG/DL (7-18); C REACTIVE PROTEIN QUANTITATIV 2.36 MG/DL (0.00-0.30); CALCIUM LEVEL 9.3 MG/DL (8.5-10.1); CARBON DIOXIDE LEVEL 24 MEQ/L (21-32); CHLORIDE LEVEL 98 MEQ/L (98-107); CREATININE FOR GFR 0.94 MG/DL (0.55-1.30); GLOMERULAR FILTRATION RATE > 60.0 (>58); GLUCOSE, FASTING 575 MG/DL (70-100); POTASSIUM SERUM 4.2 MEQ/L (3.5-5.1); SODIUM LEVEL 129 MEQ/L (136-145); TOTAL PROTEIN 7.4 GM/DL (6.4-8.2)
== END ==
LOC: M WUC 14:45
PROVIDERS: ATTEND Internal Medicine
DX: M06.9 Rheumatoid arthritis, unspecified (principal)

== ENCOUNTER → 2022-05-28 | Outpatient (CLI) | payer MEDICAID, MEDICARE, OTHER ==
[~2022-05-28] MED LIST changes: +ISOVUE-300 61% 50ML VIAL As Ordered ONE; +LIDOCAINE 1% MDV 20ML VIAL As Ordered ONE; +methylPREDNISolone SUSP 40MG/ML 1ML VIAL (DEPO MEDROL) As Ordered ONE
== END ==
LOC: M RAD 15:14
PROVIDERS: ATTEND Physician Assistant
DX: M70.62 Trochanteric bursitis, left hip (principal)

== ENCOUNTER → 2022-07-10 | Outpatient (CLI) | payer OTHER ==
[~2022-07-10] MED LIST changes: -ISOVUE-300 61% 50ML VIAL As Ordered ONE; -LIDOCAINE 1% MDV 20ML VIAL As Ordered ONE; -methylPREDNISolone SUSP 40MG/ML 1ML VIAL (DEPO MEDROL) As Ordered ONE
== END ==
LOC: M RAD 08:24
PROVIDERS: ATTEND Physician Assistant
DX: M54.50 Low back pain, unspecified (principal)

== ENCOUNTER 2022-07-11 23:44 | Emergency (ER) | payer MEDICARE, OTHER ==
[~2022-07-11] VITALS: Ht 167.6 cm; Wt 133.7 kg
[2022-07-12 01:08] LABS: APPEARANCE, URINE MANUAL CLEAR (CLEAR); BASO # 0.1 10^3/uL (0.0-0.2); BASO % 0.6 % (0.0-1.0); COLOR, URINE MANUAL YELLOW (YELLOW); EOS # 0.4 10^3/uL (0.0-0.5); EOS % 3.4 % (0.0-3.0); HEMATOCRIT 44.5 % (36.0-47.0); HEMOGLOBIN 15.2 g/dl (12.0-15.5); LYMPH # 2.7 10^3/uL (1.5-5.0); LYMPH % 21.4 % (24.0-44.0); MEAN CORPUSCULAR HEMOGLOBIN 30.7 pg (27.0-33.0); MEAN CORPUSCULAR HGB CONC 34.2 g/dl (32.0-36.5); MEAN CORPUSCULAR VOLUME 89.9 fl (80.0-96.0); MONO # 0.6 10^3/uL (0.0-0.8); MONO % 4.6 % (2.0-8.0); NEUTROPHILS # 8.7 10^3/uL (1.5-8.5); NEUTROPHILS % 69.3 % (36.0-66.0); PLATELET COUNT, AUTOMATED 250 10^3/uL (150-450); RED BLOOD COUNT 4.95 10^6/uL (4.00-5.40); WHITE BLOOD COUNT 12.6 10^3/uL (4.0-10.0)
[2022-07-12 01:11] LABS: BILIRUBIN, URINE MANUAL NEGATIVE (NEGATIVE); BLOOD URINE MANUAL NEGATIVE (NEGATIVE); GLUCOSE, URINE (UA) MANUAL 4+(1000 MG/DL) mg/dL (NEGATIVE); KETONE, URINE MANUAL 2+ mg/dL (NEGATIVE); LEUKOCYTE ESTERASE, URINE MAN POSITIVE (NEGATIVE); NITRITE, URINE MANUAL NEGATIVE (NEGATIVE); PROTEIN, URINE MANUAL NEGATIVE (NEGATIVE); SPECIFIC GRAVITY,URINE MANUAL 1.015 (1.002-1.035); UROBILINOGEN, URINE MANUAL NORMAL (NORMAL)
[2022-07-12] MEDS ORDERED: GI COCKTAIL 50ML BTL(HYOSCYAMINE/MAALOX/LIDOCAINE VISCOUS)(1:3:1) PO ONE (01:25)
[2022-07-12] MEDS ORDERED: PANTOPRAZOLE 40MG VIAL IV ONE (01:25)
[2022-07-12] MEDS ORDERED: SUCRALFATE 1 GM TAB PO ONE (01:25)
[2022-07-12 01:27] LABS: RBC, URINE 0-1 /hpf (0-3); SQUAMOUS EPITHELIAL CELL URINE MOD AMOUNT /hpf (SMALL AMT)
[2022-07-12 01:28] LABS: AMORPHOUS SEDIMENT, URINE SMALL AMOUNT (NEGATIVE); BACTERIA, URINE SMALL AMOUNT; HYALINE CAST, URINE NONE SEEN /lpf (0-1)
[2022-07-12] MEDS ORDERED: NS 1,000 ML IV ONE (01:30)
[2022-07-12] MEDS ORDERED: HumuLIN R (REGULAR) INSULIN (NovoLIN R) **100U/ML** PER UNIT IV ONE ×2 (01:30→03:00)
[2022-07-12 01:32] LABS: HCG, SERUM QUALITATIVE NEGATIVE (NEGATIVE)
[2022-07-12] MEDS ORDERED: ISOVUE-370 76% 100ML VIAL As Ordered ONE (01:39)
[2022-07-12 01:40] LABS: VENOUS BASE EXCESS 0.3 (-2.0-2.0); VENOUS HCO3 26.2 MEQ/L (23.0-27.0); VENOUS O2 SATURATION 69.7 % (60.0-80.0); VENOUS PARTIAL PRESSURE CO2 46.9 mmHg (38.0-50.0); VENOUS PARTIAL PRESSURE O2 34.6 mmHg (30.0-50.0); VENOUS PH 7.365 UNITS (7.330-7.430); VENOUS TOTAL CO2 27.6 MEQ/L (24.0-28.0)
[2022-07-12 01:42] LABS: ALBUMIN 3.1 GM/DL (3.2-5.2); ALT/SGPT 37 U/L (12-78); BILIRUBIN,DIRECT < 0.1 MG/DL (0.0-0.2); BILIRUBIN,TOTAL 0.5 MG/DL (0.2-1.0); BLOOD UREA NITROGEN 13 MG/DL (7-18); CALCIUM LEVEL 8.2 MG/DL (8.5-10.1); CARBON DIOXIDE LEVEL 24 MEQ/L (21-32); CHLORIDE LEVEL 99 MEQ/L (98-107); GLOMERULAR FILTRATION RATE > 60.0 (>58); GLUCOSE, FASTING 464 MG/DL (70-100); LIPASE 201 U/L (73-393); POTASSIUM SERUM 4.2 MEQ/L (3.5-5.1); SODIUM LEVEL 133 MEQ/L (136-145)
[2022-07-12 01:53] VITALS: BP 163/74
[2022-07-12 02:00] LABS: HEMOGLOBIN A1c 12.3 %
[2022-07-12 02:29] LABS: CK-MB VALUE MASS 1.5 NG/ML (<3.6); MB/CK RELATIVE INDEX 1.46 (< OR =4)
== END 2022-07-12 05:08 | disposition home or self-care (01) ==
LOC: M ED 23:44
DX: R19.09 Other intra-abdominal and pelvic swelling, mass and lump (principal); R10.9 Unspecified abdominal pain; E11.65 Type 2 diabetes mellitus with hyperglycemia; R00.0 Tachycardia, unspecified; K76.0 Fatty (change of) liver, not elsewhere classified; R16.0 Hepatomegaly, not elsewhere classified; M48.061 Spinal stenosis, lumbar region without neurogenic claudication; I25.10 Atherosclerotic heart disease of native coronary artery without angina pectoris; M51.35 Other intervertebral disc degeneration, thoracolumbar region; E78.5 Hyperlipidemia, unspecified; I10 Essential (primary) hypertension; J45.909 Unspecified asthma, uncomplicated; G47.33 Obstructive sleep apnea (adult) (pediatric); M79.7 Fibromyalgia; M05.79 Rheumatoid arthritis with rheumatoid factor of multiple sites without organ or systems involvement; F17.200 Nicotine dependence, unspecified, uncomplicated; Z88.1 Allergy status to other antibiotic agents; Z88.8 Allergy status to other drugs, medicaments and biological substances; Z88.6 Allergy status to analgesic agent; Z79.51 Long term (current) use of inhaled steroids; Z79.4 Long term (current) use of insulin; Z79.899 Other long term (current) drug therapy
CPT/HCPCS: 71045; 74177; 76830; 76856; 80048; 80076; 81000; 82010; 82550; 82553; 82803; 83036; 83690; 84484; 84703; 85025; 93005; 93976; 96374; 99283; C9113; J1815; Q9967

== ENCOUNTER 2022-07-18 11:50 | Outpatient (CLI) | payer MEDICARE, OTHER ==
[~2022-07-18] VITALS: Ht 167.6 cm; Wt 132.9 kg
[~2022-07-18 11:50] MED LIST changes: +ALBUTEROL SULFATE 2.5 MG/0.5 ML INH NEB SOLN INH PRN; -DOXY-350 PO; +DOXY-444 PO; +EPINEPHrine INJ 1 MG/ML 1ML AMP IM PRN; +diphenhydrAMINE 50MG/ML VIAL (J1200) IV PRN; +methylPREDNISolone 125MG 2ML VIAL IV PRN
[2022-07-18] MEDS ORDERED: NS 1,000 ML IV SCH (12:00)
[2022-07-18] MEDS ORDERED: TOCILIZUMAB IV ONE (12:00)
[2022-07-18] MEDS ORDERED: NS IV ONE (12:00)
[2022-07-18] MEDS ORDERED: ACETAMINOPHEN TAB 650MG DOSE (2X325MG) PO ONE (12:00)
[2022-07-18 12:05] VITALS: BP 125/58
[2022-07-18 13:35] VITALS: BP 143/87
== END 2022-07-18 13:50 | disposition home or self-care (01) ==
LOC: M INFU 11:50
PROVIDERS: ATTEND Internal Medicine
DX: M06.9 Rheumatoid arthritis, unspecified (principal); Z88.1 Allergy status to other antibiotic agents; Z88.5 Allergy status to narcotic agent; Z91.048 Other nonmedicinal substance allergy status
CPT/HCPCS: 96365; J3262

== ENCOUNTER → 2022-07-24 | Outpatient (CLI) | payer MEDICARE ==
[~2022-07-24] MED LIST changes: -ALBUTEROL SULFATE 2.5 MG/0.5 ML INH NEB SOLN INH PRN; -EPINEPHrine INJ 1 MG/ML 1ML AMP IM PRN; -diphenhydrAMINE 50MG/ML VIAL (J1200) IV PRN; -methylPREDNISolone 125MG 2ML VIAL IV PRN
[2022-07-24 17:58] LABS: HCG, SERUM QUANTITATIVE 2 MIU/ML; LDH LACTATE DEHYDROGENASE 171 U/L (84-246)
== END ==
LOC: M PLALAB 14:51
PROVIDERS: ATTEND Obstetrics & Gynecology
DX: N83.201 Unspecified ovarian cyst, right side (principal)

== ENCOUNTER → 2022-07-30 | Outpatient (CLI) | payer OTHER | LOC: M RAD 07:20 | PROVIDERS: ATTEND Physician Assistant | DX: M16.12 Unilateral primary osteoarthritis, left hip (principal) ==

== ENCOUNTER 2022-08-11 13:18 | Emergency (ER) | payer MEDICARE, OTHER ==
[~2022-08-11] VITALS: Ht 167.6 cm; Wt 131.8 kg
[2022-08-11] MEDS ORDERED: PANTOPRAZOLE 40MG VIAL IV ONE (14:00)
[2022-08-11] MEDS ORDERED: GI COCKTAIL 50ML BTL(HYOSCYAMINE/MAALOX/LIDOCAINE VISCOUS)(1:3:1) PO ONE (14:00)
[2022-08-11 14:22] LABS: BASO # 0.1 10^3/uL (0.0-0.2); BASO % 0.7 % (0.0-1.0); EOS # 0.6 10^3/uL (0.0-0.5); EOS % 7.5 % (0.0-3.0); HEMATOCRIT 47.1 % (36.0-47.0); HEMOGLOBIN 16.4 g/dl (12.0-15.5); LYMPH # 2.4 10^3/uL (1.5-5.0); LYMPH % 28.1 % (24.0-44.0); MEAN CORPUSCULAR HEMOGLOBIN 30.5 pg (27.0-33.0); MEAN CORPUSCULAR HGB CONC 34.8 g/dl (32.0-36.5); MEAN CORPUSCULAR VOLUME 87.5 fl (80.0-96.0); MONO # 0.5 10^3/uL (0.0-0.8); MONO % 5.9 % (2.0-8.0); NEUTROPHILS # 4.9 10^3/uL (1.5-8.5); NEUTROPHILS % 57.5 % (36.0-66.0); PLATELET COUNT, AUTOMATED 175 10^3/uL (150-450); RED BLOOD COUNT 5.38 10^6/uL (4.00-5.40); WHITE BLOOD COUNT 8.6 10^3/uL (4.0-10.0)
[2022-08-11 14:24] LABS: URINE PREG TEST NEGATIVE (NEGATIVE)
[2022-08-11 15:01] LABS: ALBUMIN 3.8 G/DL (3.2-5.2); ALKALINE PHOSPHATASE 135 U/L (46-116); ALT/SGPT 32 U/L (7.0-40); AST/SGOT 16 U/L (<34); BILIRUBIN,DIRECT < 0.1 MG/DL (<0.4); BILIRUBIN,TOTAL 0.6 MG/DL (0.3-1.2); BLOOD UREA NITROGEN 13 MG/DL (9-23); CALCIUM LEVEL 8.9 MG/DL (8.5-10.1); CARBON DIOXIDE LEVEL 23 MMOL/L (20-31); CHLORIDE LEVEL 97 MMOL/L (98-107); CREATININE FOR GFR 0.38 MG/DL (0.55-1.30); GLOMERULAR FILTRATION RATE > 60.0 (>58); GLUCOSE, FASTING 430 MG/DL (60-100); LIPASE 30 U/L (12-53); POTASSIUM SERUM 4.6 MMOL/L (3.5-5.1); SODIUM LEVEL 132 MMOL/L (136-145); TOTAL PROTEIN 6.8 G/DL (5.7-8.2)
[2022-08-11] MEDS ORDERED: HumuLIN R (REGULAR) INSULIN (NovoLIN R) **100U/ML** PER UNIT IV ONE (15:15)
[2022-08-11] MEDS ORDERED: MORPHINE 4 MG/ML 1ML VIAL IV ONE (15:20)
[2022-08-11] MEDS ORDERED: ISOVUE-370 76% 100ML VIAL As Ordered ONE (15:24)
[2022-08-11 17:34] VITALS: BP 161/77
== END 2022-08-11 17:43 | disposition home or self-care (01) ==
LOC: M ED 13:18
DX: R10.12 Left upper quadrant pain (principal); E11.65 Type 2 diabetes mellitus with hyperglycemia; I10 Essential (primary) hypertension; K76.0 Fatty (change of) liver, not elsewhere classified; N83.291 Other ovarian cyst, right side; E78.5 Hyperlipidemia, unspecified; J45.909 Unspecified asthma, uncomplicated; G47.33 Obstructive sleep apnea (adult) (pediatric); F41.1 Generalized anxiety disorder; F43.10 Post-traumatic stress disorder, unspecified; F33.9 Major depressive disorder, recurrent, unspecified; F17.200 Nicotine dependence, unspecified, uncomplicated; Z88.1 Allergy status to other antibiotic agents; Z88.5 Allergy status to narcotic agent; Z88.8 Allergy status to other drugs, medicaments and biological substances; Z79.51 Long term (current) use of inhaled steroids; Z79.4 Long term (current) use of insulin; Z79.899 Other long term (current) drug therapy
CPT/HCPCS: 71275; 74177; 76705; 80048; 80076; 81000; 83690; 84484; 84703; 85025; 87086; 93005; 93041; 96374; 96375; 99284; C9113; J1815; J2270; Q9967

== ENCOUNTER 2022-08-15 13:10 | Outpatient (CLI) | payer MEDICARE ==
[~2022-08-15] VITALS: Ht 167.6 cm; Wt 133.0 kg
[~2022-08-15 13:10] MED LIST changes: +ACETAMINOPHEN TAB 650MG DOSE (2X325MG) PO ONE; +ALBUTEROL SULFATE 2.5 MG/0.5 ML INH NEB SOLN INH PRN; +EPINEPHrine INJ 1 MG/ML 1ML AMP IM PRN; +NS IV ONE; +TOCILIZUMAB IV ONE; +diphenhydrAMINE 50MG/ML VIAL IV ONE; +diphenhydrAMINE 50MG/ML VIAL IV PRN; +methylPREDNISolone 125MG 2ML VIAL IV PRN
[2022-08-15 13:17] VITALS: BP 140/82
[2022-08-15 15:16] VITALS: BP 124/76
== END 2022-08-15 15:15 | disposition home or self-care (01) ==
LOC: M INFU 13:10
PROVIDERS: ATTEND Internal Medicine
DX: M06.9 Rheumatoid arthritis, unspecified (principal); Z88.1 Allergy status to other antibiotic agents; Z88.5 Allergy status to narcotic agent; Z88.8 Allergy status to other drugs, medicaments and biological substances
CPT/HCPCS: 96365; J3262

== ENCOUNTER 2022-09-12 13:05 | Outpatient (CLI) | payer MEDICARE ==
[~2022-09-12] VITALS: Ht 167.6 cm; Wt 133.0 kg
[~2022-09-12 13:05] MED LIST changes: -ALBUTEROL SULFATE 2.5 MG/0.5 ML INH NEB SOLN INH PRN; +ALBUTEROL SULFATE 2.5MG/0.5ML INH NEB SOLN INH PRN
[2022-09-12 13:10] VITALS: BP 148/90
[2022-09-12 14:25] VITALS: BP 140/78
== END 2022-09-12 14:25 ==
LOC: M INFU 13:05
PROVIDERS: ATTEND Internal Medicine
DX: M06.9 Rheumatoid arthritis, unspecified (principal); Z88.5 Allergy status to narcotic agent; Z88.8 Allergy status to other drugs, medicaments and biological substances; Z91.048 Other nonmedicinal substance allergy status
CPT/HCPCS: 96365; J1200; J3262

== ENCOUNTER 2022-09-16 16:03 | Emergency (ER) | payer MEDICARE ==
[~2022-09-16] VITALS: Ht 167.6 cm; Wt 134.1 kg
[~2022-09-16 16:03] MED LIST changes: -ACETAMINOPHEN TAB 650MG DOSE (2X325MG) PO ONE; -ALBUTEROL SULFATE 2.5MG/0.5ML INH NEB SOLN INH PRN; -EPINEPHrine INJ 1 MG/ML 1ML AMP IM PRN; -NS IV ONE; -TOCILIZUMAB IV ONE; -diphenhydrAMINE 50MG/ML VIAL IV ONE; -diphenhydrAMINE 50MG/ML VIAL IV PRN; -methylPREDNISolone 125MG 2ML VIAL IV PRN
[2022-09-16] MEDS: COMBIVENT RESPIMAT 100-20MCG INHALER 4GM INH SCH ×3 (17:28→17:55)
[2022-09-16 17:52] LABS: BASO # 0.1 10^3/uL (0.0-0.2); BASO % 0.8 % (0.0-1.0); EOS # 0.7 10^3/uL (0.0-0.5); EOS % 8.4 % (0.0-3.0); HEMATOCRIT 48.1 % (36.0-47.0); HEMOGLOBIN 16.7 g/dl (12.0-15.5); LYMPH # 1.9 10^3/uL (1.5-5.0); MEAN CORPUSCULAR HEMOGLOBIN 30.9 pg (27.0-33.0); MEAN CORPUSCULAR HGB CONC 34.7 g/dl (32.0-36.5); MEAN CORPUSCULAR VOLUME 89.1 fl (80.0-96.0); MONO # 0.5 10^3/uL (0.0-0.8); MONO % 5.7 % (2.0-8.0); NEUTROPHILS # 5.4 10^3/uL (1.5-8.5); NEUTROPHILS % 62.5 % (36.0-66.0); PLATELET COUNT, AUTOMATED 195 10^3/uL (150-450); WHITE BLOOD COUNT 8.6 10^3/uL (4.0-10.0)
[2022-09-16 18:16] LABS: BLOOD UREA NITROGEN 6 MG/DL (9-23); CALCIUM LEVEL 8.9 MG/DL (8.5-10.1); CARBON DIOXIDE LEVEL 28 MMOL/L (20-31); CHLORIDE LEVEL 103 MMOL/L (98-107); GLOMERULAR FILTRATION RATE > 60.0 (>58); GLUCOSE, FASTING 188 MG/DL (60-100); POTASSIUM SERUM 4.1 MMOL/L (3.5-5.1); SODIUM LEVEL 139 MMOL/L (136-145)
[2022-09-16] MEDS ORDERED: predniSONE 20 MG TAB PO ONE (18:20)
[2022-09-16] MEDS ORDERED: CEFDINIR 300 MG CAP (OMNICEF) PO ONE (18:25)
[2022-09-16] MEDS ORDERED: AZITHROMYCIN 250MG TABLET PO ONE (18:25)
[2022-09-16] MEDS ORDERED: ZITH250T PO (19:16)
[2022-09-16] MEDS ORDERED: PRED20TA PO (19:16)
[2022-09-16] MEDS ORDERED: CEFD300C41 PO (19:16)
[2022-09-16] MEDS ORDERED: ALBU2.5V10 NEB (19:17)
[2022-09-16 19:38] VITALS: BP 141/77
== END 2022-09-16 19:47 | disposition home or self-care (01) ==
LOC: M ED 16:03
DX: J18.9 Pneumonia, unspecified organism (principal); J45.909 Unspecified asthma, uncomplicated; D11.9 Benign neoplasm of major salivary gland, unspecified; K21.9 Gastro-esophageal reflux disease without esophagitis; M05.79 Rheumatoid arthritis with rheumatoid factor of multiple sites without organ or systems involvement; Z88.1 Allergy status to other antibiotic agents; Z88.5 Allergy status to narcotic agent; Z88.8 Allergy status to other drugs, medicaments and biological substances; F17.210 Nicotine dependence, cigarettes, uncomplicated; Z79.51 Long term (current) use of inhaled steroids; Z79.4 Long term (current) use of insulin; Z79.899 Other long term (current) drug therapy
CPT/HCPCS: 36415; 71046; 80048; 85025; 94640; 99283; J7512

== ENCOUNTER 2022-10-30 08:56 | Outpatient (CLI) | payer MEDICARE, MEDICAID ==
[~2022-10-30] VITALS: Ht 167.6 cm; Wt 133.0 kg
[~2022-10-30 08:56] MED LIST changes: +ALBU2.5V10 NEB; +ALBUTEROL SULFATE 2.5MG/0.5ML INH NEB SOLN INH PRN; +CEFD300C41 PO; +EPINEPHrine INJ 1 MG/ML 1ML AMP IM PRN; +PRED20TA PO; +ZITH250T PO; +diphenhydrAMINE 50MG/ML VIAL IV PRN; +methylPREDNISolone 125MG 2ML VIAL IV PRN
[2022-10-30 09:00] VITALS: BP 128/78
[2022-10-30] MEDS ORDERED: NS IV ONE (09:00)
[2022-10-30] MEDS ORDERED: TOCILIZUMAB IV ONE (09:00)
[2022-10-30] MEDS ORDERED: ACETAMINOPHEN TAB 650MG DOSE (2X325MG) PO ONE (09:00)
[2022-10-30] MEDS ORDERED: diphenhydrAMINE 50MG/ML VIAL IV ONE (09:00)
[2022-10-30 10:40] VITALS: BP 110/70
== END 2022-10-30 10:45 | disposition home or self-care (01) ==
LOC: M INFU 08:56
PROVIDERS: ATTEND Internal Medicine
DX: M06.9 Rheumatoid arthritis, unspecified (principal); Z88.1 Allergy status to other antibiotic agents; Z88.5 Allergy status to narcotic agent; Z88.8 Allergy status to other drugs, medicaments and biological substances
CPT/HCPCS: 96413; J3262

== ENCOUNTER → 2022-11-13 | Outpatient (CLI) | payer MEDICARE, MEDICAID ==
[~2022-11-13] MED LIST changes: -ALBUTEROL SULFATE 2.5MG/0.5ML INH NEB SOLN INH PRN; -EPINEPHrine INJ 1 MG/ML 1ML AMP IM PRN; -diphenhydrAMINE 50MG/ML VIAL IV PRN; -methylPREDNISolone 125MG 2ML VIAL IV PRN
[2022-11-13 19:44] LABS: C REACTIVE PROTEIN QUANTITATIV < 0.40 MG/DL (<1.0)
[2022-11-13 19:46] LABS: BASO # 0.1 10^3/uL (0.0-0.2); BASO % 0.6 % (0.0-1.0); EOS # 0.5 10^3/uL (0.0-0.5); EOS % 4.8 % (0.0-3.0); HEMATOCRIT 45.7 % (36.0-47.0); HEMOGLOBIN 15.1 g/dl (12.0-15.5); LYMPH % 31.9 % (24.0-44.0); MEAN CORPUSCULAR HEMOGLOBIN 31.5 pg (27.0-33.0); MEAN CORPUSCULAR VOLUME 95.4 fl (80.0-96.0); MONO # 0.5 10^3/uL (0.0-0.8); MONO % 5.7 % (2.0-8.0); NEUTROPHILS # 5.4 10^3/uL (1.5-8.5); NEUTROPHILS % 56.7 % (36.0-66.0); PLATELET COUNT, AUTOMATED 195 10^3/uL (150-450); RED BLOOD COUNT 4.79 10^6/uL (4.00-5.40); WHITE BLOOD COUNT 9.4 10^3/uL (4.0-10.0)
[2022-11-13 19:49] LABS: ALBUMIN 3.4 G/DL (3.2-5.2); ALKALINE PHOSPHATASE 73 U/L (46-116); ALT/SGPT 32 U/L (7.0-40); AST/SGOT 23 U/L (<34); BILIRUBIN,DIRECT 0.2 MG/DL (<0.4); BILIRUBIN,TOTAL 0.7 MG/DL (0.3-1.2); BLOOD UREA NITROGEN 9 MG/DL (9-23); CALCIUM LEVEL 8.7 MG/DL (8.5-10.1); CARBON DIOXIDE LEVEL 30 MMOL/L (20-31); CHLORIDE LEVEL 105 MMOL/L (98-107); CREATININE FOR GFR 0.46 MG/DL (0.55-1.30); GLOMERULAR FILTRATION RATE > 60.0 (>58); GLUCOSE, FASTING 164 MG/DL (60-100); POTASSIUM SERUM 4.1 MMOL/L (3.5-5.1); SODIUM LEVEL 141 MMOL/L (136-145); TOTAL PROTEIN 6.3 G/DL (5.7-8.2)
[2022-11-13 20:01] LABS: ERYTHROCYTE SEDIMENTATION RATE 23 mm/hr (0-20)
== END ==
LOC: M WUC 15:24
PROVIDERS: ATTEND Internal Medicine
DX: M06.9 Rheumatoid arthritis, unspecified (principal)

== ENCOUNTER 2022-11-27 09:20 | Outpatient (CLI) | payer MEDICARE, MEDICAID ==
[~2022-11-27] VITALS: Ht 167.6 cm; Wt 132.9 kg
[2022-11-27 09:20] VITALS: BP 138/70
[~2022-11-27 09:20] MED LIST changes: +ACETAMINOPHEN TAB 650MG DOSE (2X325MG) PO ONE; +ALBUTEROL SULFATE 2.5MG/0.5ML INH NEB SOLN INH PRN; +EPINEPHrine INJ 1 MG/ML 1ML AMP IM PRN; +NS 1,000 ML IV SCH; +[UNRECOGNIZED DRUG - OTHER] IV ONE; +diphenhydrAMINE 50MG/ML VIAL IV ONE; +diphenhydrAMINE 50MG/ML VIAL IV PRN; +methylPREDNISolone 125MG 2ML VIAL IV PRN
[2022-11-27] MEDS ORDERED: NS IV ONE (09:33)
[2022-11-27] MEDS ORDERED: TOCILIZUMAB IV ONE (09:33)
[2022-11-27 11:30] VITALS: BP 132/78
== END 2022-11-27 11:30 | disposition home or self-care (01) ==
LOC: M INFU 09:20
PROVIDERS: ATTEND Internal Medicine
DX: M06.9 Rheumatoid arthritis, unspecified (principal); Z88.1 Allergy status to other antibiotic agents; Z88.5 Allergy status to narcotic agent; Z88.8 Allergy status to other drugs, medicaments and biological substances
CPT/HCPCS: 96413; J3262

== ENCOUNTER 2022-12-25 13:00 | Outpatient (CLI) | payer MEDICARE, MEDICAID ==
[~2022-12-25] VITALS: Ht 167.6 cm; Wt 132.9 kg
[2022-12-25 13:00] VITALS: BP 140/80
[~2022-12-25 13:00] MED LIST changes: -ACETAMINOPHEN TAB 650MG DOSE (2X325MG) PO ONE; +FLUT50SP17; -FLUTISP; -NS 1,000 ML IV SCH; -[UNRECOGNIZED DRUG - OTHER] IV ONE; -diphenhydrAMINE 50MG/ML VIAL IV ONE
[2022-12-25] MEDS ORDERED: TOCILIZUMAB IV ONE (13:30)
[2022-12-25] MEDS ORDERED: ACETAMINOPHEN TAB 650MG DOSE (2X325MG) PO ONE (13:30)
[2022-12-25] MEDS ORDERED: NS IV ONE (13:30)
[2022-12-25] MEDS ORDERED: diphenhydrAMINE 50MG/ML VIAL IV ONE (13:30)
[2022-12-25 15:00] VITALS: BP 142/68
== END 2022-12-25 15:00 | disposition home or self-care (01) ==
LOC: M INFU 13:00
PROVIDERS: ATTEND Internal Medicine
DX: M06.9 Rheumatoid arthritis, unspecified (principal); Z88.1 Allergy status to other antibiotic agents; Z88.5 Allergy status to narcotic agent; Z88.8 Allergy status to other drugs, medicaments and biological substances
CPT/HCPCS: 96365; J3262

== ENCOUNTER → 2023-01-02 | Outpatient (CLI) | payer MEDICARE, MEDICAID ==
[~2023-01-02] MED LIST changes: -ALBUTEROL SULFATE 2.5MG/0.5ML INH NEB SOLN INH PRN; -EPINEPHrine INJ 1 MG/ML 1ML AMP IM PRN; -diphenhydrAMINE 50MG/ML VIAL IV PRN; -methylPREDNISolone 125MG 2ML VIAL IV PRN
[2023-01-02 17:43] LABS: ALBUMIN 3.7 G/DL (3.2-5.2); ALKALINE PHOSPHATASE 88 U/L (46-116); ALT/SGPT 27 U/L (7.0-40); AST/SGOT 14 U/L (<34); BILIRUBIN,TOTAL 0.7 MG/DL (0.3-1.2); BLOOD UREA NITROGEN 14 MG/DL (9-23); CARBON DIOXIDE LEVEL 27 MMOL/L (20-31); CHLORIDE LEVEL 106 MMOL/L (98-107); CREATININE FOR GFR 0.52 MG/DL (0.55-1.30); GLOMERULAR FILTRATION RATE > 60.0 (>58); GLUCOSE, FASTING 188 MG/DL (60-100); POTASSIUM SERUM 4.2 MMOL/L (3.5-5.1); SODIUM LEVEL 140 MMOL/L (136-145); TOTAL PROTEIN 6.7 G/DL (5.7-8.2)
== END ==
LOC: M LAB 16:38
PROVIDERS: ATTEND Nurse Practitioner
DX: D39.11 Neoplasm of uncertain behavior of right ovary (principal); E11.65 Type 2 diabetes mellitus with hyperglycemia; Z79.4 Long term (current) use of insulin

== ENCOUNTER → 2023-01-09 | Outpatient (CLI) | payer MEDICARE, MEDICAID ==
[~2023-01-09] MED LIST changes: +GASTROGRAFIN SOLUTION 30ML As Ordered ONE; +ISOVUE-370 76% 100ML VIAL As Ordered ONE
== END ==
LOC: M RAD 13:30
PROVIDERS: ATTEND Obstetrics & Gynecology Gynecologic Oncology
DX: Z01.812 Encounter for preprocedural laboratory examination (principal); D39.11 Neoplasm of uncertain behavior of right ovary; E11.65 Type 2 diabetes mellitus with hyperglycemia; R63.5 Abnormal weight gain; Z79.4 Long term (current) use of insulin
CPT/HCPCS: 36415; 74177; 83036; Q9963; Q9967

== ENCOUNTER → 2023-01-09 | Outpatient (CLI) | payer MEDICARE, MEDICAID ==
[~2023-01-09] MED LIST changes: -GASTROGRAFIN SOLUTION 30ML As Ordered ONE; -ISOVUE-370 76% 100ML VIAL As Ordered ONE
[2023-01-09 14:55] LABS: HEMOGLOBIN A1c 5.6 % (4.0-6.0)
== END ==
LOC: M LAB 13:38
PROVIDERS: ATTEND Nurse Practitioner
DX: Z01.812 Encounter for preprocedural laboratory examination (principal); D39.11 Neoplasm of uncertain behavior of right ovary; E11.65 Type 2 diabetes mellitus with hyperglycemia; Z79.4 Long term (current) use of insulin

== ENCOUNTER 2023-01-10 14:31 | Emergency (ER) | payer MEDICARE, MEDICAID ==
[~2023-01-10] VITALS: Ht 167.6 cm; Wt 143.2 kg
[2023-01-10 16:24] VITALS: BP 138/86
== END 2023-01-10 16:51 | disposition home or self-care (01) ==
LOC: M ED 14:31
DX: R22.41 Localized swelling, mass and lump, right lower limb (principal); M25.571 Pain in right ankle and joints of right foot; Y92.009 Unspecified place in unspecified non-institutional (private) residence as the place of occurrence of the external cause; E11.9 Type 2 diabetes mellitus without complications; I10 Essential (primary) hypertension; E03.9 Hypothyroidism, unspecified; F43.10 Post-traumatic stress disorder, unspecified; K21.9 Gastro-esophageal reflux disease without esophagitis; J45.909 Unspecified asthma, uncomplicated; Z88.5 Allergy status to narcotic agent; Z88.1 Allergy status to other antibiotic agents; Z88.8 Allergy status to other drugs, medicaments and biological substances; Z79.4 Long term (current) use of insulin; Z79.51 Long term (current) use of inhaled steroids; Z79.899 Other long term (current) drug therapy

== ENCOUNTER → 2023-03-19 | Outpatient (CLI) | payer MEDICARE ==
[2023-03-19 16:51] LABS: BASO % 0.3 % (0.0-1.0); EOS # 0.4 10^3/uL (0.0-0.5); EOS % 3.4 % (0.0-3.0); LYMPH # 2.3 10^3/uL (1.5-5.0); LYMPH % 18.9 % (24.0-44.0); MEAN CORPUSCULAR HEMOGLOBIN 29.4 pg (27.0-33.0); MEAN CORPUSCULAR HGB CONC 32.6 g/dl (32.0-36.5); MEAN CORPUSCULAR VOLUME 90.3 fl (80.0-96.0); MONO # 0.6 10^3/uL (0.0-0.8); MONO % 4.6 % (2.0-8.0); NEUTROPHILS # 8.7 10^3/uL (1.5-8.5); NEUTROPHILS % 72.4 % (36.0-66.0); PLATELET COUNT, AUTOMATED 298 10^3/uL (150-450); RED BLOOD COUNT 4.76 10^6/uL (4.00-5.40); WHITE BLOOD COUNT 12.1 10^3/uL (4.0-10.0)
[2023-03-19 17:06] LABS: ERYTHROCYTE SEDIMENTATION RATE 105 mm/hr (0-20)
[2023-03-19 17:14] LABS: ALBUMIN 3.2 G/DL (3.2-5.2); ALKALINE PHOSPHATASE 109 U/L (46-116); ALT/SGPT 15 U/L (7.0-40); AST/SGOT < 8 U/L (<34); BILIRUBIN,DIRECT 0.2 MG/DL (<0.4); BILIRUBIN,TOTAL 0.6 MG/DL (0.3-1.2); BLOOD UREA NITROGEN 9 MG/DL (9-23); CALCIUM LEVEL 9.1 MG/DL (8.5-10.1); CARBON DIOXIDE LEVEL 27 MMOL/L (20-31); CHLORIDE LEVEL 107 MMOL/L (98-107); GLOMERULAR FILTRATION RATE > 60.0 (>58); GLUCOSE, FASTING 152 MG/DL (60-100); POTASSIUM SERUM 4.1 MMOL/L (3.5-5.1); SODIUM LEVEL 139 MMOL/L (136-145); TOTAL PROTEIN 6.7 G/DL (5.7-8.2)
[2023-03-19 17:16] LABS: TOTAL 25(OH) VITAMIN D 23.2 NG/ML (20.0-100.0)
== END ==
LOC: M LAB 16:15
PROVIDERS: ATTEND Internal Medicine
DX: M06.9 Rheumatoid arthritis, unspecified (principal)

== ENCOUNTER 2023-03-27 14:20 | Outpatient (CLI) | payer MEDICARE ==
[~2023-03-27] VITALS: Ht 167.6 cm; Wt 145.0 kg
[~2023-03-27 14:20] MED LIST changes: +ACETAMINOPHEN TAB 650MG DOSE (2X325MG) PO ONE; +ALBUTEROL SULFATE 2.5MG/0.5ML INH NEB SOLN INH PRN; +EPINEPHrine INJ 1 MG/ML 1ML AMP IM PRN; +NS IV ONE; -ROPI0.253 PO; +ROPI5TAB19 PO; +TOCILIZUMAB IV ONE; +diphenhydrAMINE 50MG/ML VIAL IV PRN; +methylPREDNISolone 125MG 2ML VIAL IV PRN
[2023-03-27 14:21] VITALS: BP 147/70; O2SAT 97
[2023-03-27 15:55] VITALS: BP 138/89; O2SAT 96
== END 2023-03-27 15:55 | disposition home or self-care (01) ==
LOC: M INFU 14:20
PROVIDERS: ATTEND Internal Medicine
DX: M06.9 Rheumatoid arthritis, unspecified (principal); Z88.1 Allergy status to other antibiotic agents; Z88.5 Allergy status to narcotic agent; Z88.8 Allergy status to other drugs, medicaments and biological substances
CPT/HCPCS: 96365; J3262

== ENCOUNTER 2023-04-24 10:35 | Outpatient (CLI) | payer MEDICARE, MEDICAID ==
[~2023-04-24] VITALS: Ht 165.1 cm; Wt 150.0 kg
[2023-04-24 10:30] VITALS: BP 150/80; O2SAT 98
[~2023-04-24 10:35] MED LIST changes: -ACETAMINOPHEN TAB 650MG DOSE (2X325MG) PO ONE; -NS IV ONE; -TOCILIZUMAB IV ONE
[2023-04-24] MEDS ORDERED: diphenhydrAMINE 50MG/ML VIAL IV PRN (10:45)
[2023-04-24] MEDS ORDERED: ACETAMINOPHEN TAB 650MG DOSE (2X325MG) PO ONE (11:00)
[2023-04-24] MEDS ORDERED: NS IV ONE (11:00)
[2023-04-24] MEDS ORDERED: TOCILIZUMAB IV ONE (11:00)
[2023-04-24 12:10] VITALS: BP 138/76; O2SAT 97
== END 2023-04-24 12:10 | disposition home or self-care (01) ==
LOC: M INFU 10:35
PROVIDERS: ATTEND Internal Medicine
DX: M06.9 Rheumatoid arthritis, unspecified (principal); Z88.1 Allergy status to other antibiotic agents; Z88.5 Allergy status to narcotic agent; Z88.8 Allergy status to other drugs, medicaments and biological substances
CPT/HCPCS: 96365; J3262

== ENCOUNTER 2023-05-22 10:35 | Outpatient (CLI) | payer MEDICARE, MEDICAID ==
[~2023-05-22] VITALS: Ht 162.6 cm; Wt 147.4 kg
[2023-05-22] MEDS ORDERED: diphenhydrAMINE 50MG/ML VIAL IV ONE (10:40)
[2023-05-22] MEDS ORDERED: NS IV ONE (10:40)
[2023-05-22] MEDS ORDERED: TOCILIZUMAB IV ONE (10:40)
[2023-05-22] MEDS ORDERED: ACETAMINOPHEN TAB 650MG DOSE (2X325MG) PO ONE (10:40)
[2023-05-22 10:42] VITALS: BP 184/86; O2SAT 95
[2023-05-22 11:57] VITALS: BP 179/87; O2SAT 97
== END 2023-05-22 11:58 | disposition home or self-care (01) ==
LOC: M INFU 10:35
PROVIDERS: ATTEND Internal Medicine
DX: M06.9 Rheumatoid arthritis, unspecified (principal); Z88.1 Allergy status to other antibiotic agents; Z88.5 Allergy status to narcotic agent; Z88.8 Allergy status to other drugs, medicaments and biological substances
CPT/HCPCS: 96365; J3262

== ENCOUNTER 2023-06-19 11:00 | Outpatient (CLI) | payer OTHER, MEDICAID ==
[~2023-06-19] VITALS: Ht 167.6 cm; Wt 143.0 kg
[~2023-06-19 11:00] MED LIST changes: +ACETAMINOPHEN TAB 650MG DOSE (2X325MG) PO ONE; +diphenhydrAMINE 50MG/ML VIAL IV ONE
[2023-06-19] MEDS ORDERED: TOCILIZUMAB IV ONE (11:20)
[2023-06-19] MEDS ORDERED: NS IV ONE (11:20)
[2023-06-19 11:37] VITALS: BP 165/84; O2SAT 96
[2023-06-19 12:55] VITALS: BP 140/80; O2SAT 97
== END 2023-06-19 13:00 ==
LOC: M INFU 11:00
PROVIDERS: ATTEND Internal Medicine
DX: M06.9 Rheumatoid arthritis, unspecified (principal); Z88.1 Allergy status to other antibiotic agents; Z88.5 Allergy status to narcotic agent; Z88.8 Allergy status to other drugs, medicaments and biological substances
CPT/HCPCS: 96365; J3262

== ENCOUNTER 2023-07-16 10:59 | Outpatient (CLI) | payer MEDICARE, MEDICAID ==
[~2023-07-16] VITALS: Ht 167.6 cm; Wt 151.3 kg
[~2023-07-16 10:59] MED LIST changes: -ACETAMINOPHEN TAB 650MG DOSE (2X325MG) PO ONE; -CEFD300C41 PO; +CEFD300C42 PO; -diphenhydrAMINE 50MG/ML VIAL IV ONE
[2023-07-16] MEDS ORDERED: diphenhydrAMINE 50MG/ML VIAL IV ONE (11:00)
[2023-07-16] MEDS ORDERED: TOCILIZUMAB IV ONE (11:00)
[2023-07-16] MEDS ORDERED: NS IV ONE (11:00)
[2023-07-16] MEDS ORDERED: ACETAMINOPHEN TAB 650MG DOSE (2X325MG) PO ONE (11:00)
[2023-07-16 11:23] VITALS: BP 146/69; TEMP 97.9; O2SAT 99
[2023-07-16 12:00] VITALS: BP 148/67; O2SAT 94
== END 2023-07-16 13:05 ==
LOC: M INFU 10:59
PROVIDERS: ATTEND Internal Medicine
DX: M06.9 Rheumatoid arthritis, unspecified (principal); Z88.1 Allergy status to other antibiotic agents; Z88.5 Allergy status to narcotic agent; Z88.8 Allergy status to other drugs, medicaments and biological substances
CPT/HCPCS: 96365; J3262

== ENCOUNTER → 2023-07-24 | Outpatient (REF) | payer MEDICARE ==
[~2023-07-24] MED LIST changes: -ALBUTEROL SULFATE 2.5MG/0.5ML INH NEB SOLN INH PRN; -EPINEPHrine INJ 1 MG/ML 1ML AMP IM PRN; -diphenhydrAMINE 50MG/ML VIAL IV PRN; -methylPREDNISolone 125MG 2ML VIAL IV PRN
[2023-07-24 17:37] LABS: BASO # 0.1 10^3/uL (0.0-0.2); BASO % 0.6 % (0.0-1.0); EOS # 0.7 10^3/uL (0.0-0.5); EOS % 7.4 % (0.0-3.0); HEMATOCRIT 45.6 % (36.0-47.0); HEMOGLOBIN 15.7 g/dl (12.0-15.5); LYMPH # 2.6 10^3/uL (1.5-5.0); LYMPH % 27.1 % (24.0-44.0); MEAN CORPUSCULAR HEMOGLOBIN 32.6 pg (27.0-33.0); MEAN CORPUSCULAR HGB CONC 34.4 g/dl (32.0-36.5); MEAN CORPUSCULAR VOLUME 94.6 fl (80.0-96.0); MONO # 0.6 10^3/uL (0.0-0.8); NEUTROPHILS # 5.6 10^3/uL (1.5-8.5); NEUTROPHILS % 58.5 % (36.0-66.0); PLATELET COUNT, AUTOMATED 177 10^3/uL (150-450); RED BLOOD COUNT 4.82 10^6/uL (4.00-5.40); WHITE BLOOD COUNT 9.5 10^3/uL (4.0-10.0)
[2023-07-24 17:48] LABS: ERYTHROCYTE SEDIMENTATION RATE 13 mm/hr (0-20)
[2023-07-24 18:05] LABS: C REACTIVE PROTEIN QUANTITATIV < 0.40 MG/DL (<1.0)
[2023-07-24 18:13] LABS: ALBUMIN 3.7 G/DL (3.2-5.2); ALKALINE PHOSPHATASE 125 U/L (46-116); ALT/SGPT 53 U/L (7.0-40); AST/SGOT 20 U/L (<34); BILIRUBIN,DIRECT < 0.1 MG/DL (<0.4); BILIRUBIN,TOTAL 0.3 MG/DL (0.3-1.2); BLOOD UREA NITROGEN 12 MG/DL (9-23); CARBON DIOXIDE LEVEL 28 MMOL/L (20-31); CHLORIDE LEVEL 102 MMOL/L (98-107); CREATININE FOR GFR 0.49 MG/DL (0.55-1.30); GLOMERULAR FILTRATION RATE > 60.0 (>58); GLUCOSE, FASTING 289 MG/DL (60-100); POTASSIUM SERUM 4.6 MMOL/L (3.5-5.1); SODIUM LEVEL 138 MMOL/L (136-145); TOTAL 25(OH) VITAMIN D 19.3 NG/ML (20.0-100.0); TOTAL PROTEIN 6.5 G/DL (5.7-8.2)
== END ==
LOC: M SFHCRHEU 11:58
PROVIDERS: ATTEND Internal Medicine
DX: M06.9 Rheumatoid arthritis, unspecified (principal); E55.9 Vitamin D deficiency, unspecified

== ENCOUNTER → 2023-07-30 | Outpatient (CLI) | payer OTHER, MEDICARE, MEDICAID ==
[~2023-07-30] MED LIST changes: +ISOVUE-300 61% 100ML VIAL As Ordered ONE; +LIDOCAINE 1% MDV 20ML VIAL As Ordered ONE; +methylPREDNISolone SUSP 40MG/ML 1ML VIAL (DEPO MEDROL) As Ordered ONE
== END ==
LOC: M RAD 13:01
PROVIDERS: ATTEND Physician Assistant
DX: M16.12 Unilateral primary osteoarthritis, left hip (principal)
CPT/HCPCS: 20610; 77002; J1030; Q9967

== ENCOUNTER 2023-08-13 11:05 | Outpatient (CLI) | payer MEDICARE, MEDICAID ==
[~2023-08-13] VITALS: Ht 167.6 cm; Wt 152.0 kg
[2023-08-13 11:05] VITALS: BP 130/78; O2SAT 98
[~2023-08-13 11:05] MED LIST changes: +ALBUTEROL SULFATE 2.5MG/0.5ML INH NEB SOLN INH PRN; +EPINEPHrine INJ 1 MG/ML 1ML AMP IM PRN; -ISOVUE-300 61% 100ML VIAL As Ordered ONE; -LIDOCAINE 1% MDV 20ML VIAL As Ordered ONE; +diphenhydrAMINE 50MG/ML VIAL IV PRN; +methylPREDNISolone 125MG 2ML VIAL IV PRN; -methylPREDNISolone SUSP 40MG/ML 1ML VIAL (DEPO MEDROL) As Ordered ONE
[2023-08-13] MEDS ORDERED: diphenhydrAMINE 50MG/ML VIAL IV ONE (11:30)
[2023-08-13] MEDS ORDERED: NS IV ONE (11:30)
[2023-08-13] MEDS ORDERED: TOCILIZUMAB IV ONE (11:30)
[2023-08-13] MEDS ORDERED: ACETAMINOPHEN TAB 650MG DOSE (2X325MG) PO ONE (11:30)
[2023-08-13 12:43] VITALS: BP 140/82; O2SAT 96
== END 2023-08-13 12:45 | disposition home or self-care (01) ==
LOC: M INFU 11:05
PROVIDERS: ATTEND Internal Medicine
DX: M06.9 Rheumatoid arthritis, unspecified (principal); Z88.1 Allergy status to other antibiotic agents; Z88.5 Allergy status to narcotic agent; Z88.8 Allergy status to other drugs, medicaments and biological substances
CPT/HCPCS: 96365; J3262

== ENCOUNTER 2023-09-10 11:05 | Outpatient (CLI) | payer MEDICARE, MEDICAID ==
[~2023-09-10] VITALS: Ht 167.6 cm; Wt 156.0 kg
[2023-09-10 11:05] VITALS: BP 186/87; O2SAT 93
[~2023-09-10 11:05] MED LIST changes: +ACETAMINOPHEN TAB 650MG DOSE (2X325MG) PO ONE; +CEFD1CAP9 PO; -CEFD300C42 PO; -FLUT50SP17; +FLUTISP; +NS IV ONE; +TOCILIZUMAB IV ONE; +diphenhydrAMINE 50MG/ML VIAL IV ONE
[2023-09-10 13:00] VITALS: BP 160/80; O2SAT 96
== END 2023-09-10 13:00 | disposition home or self-care (01) ==
LOC: M INFU 11:05
PROVIDERS: ATTEND Internal Medicine
DX: M06.9 Rheumatoid arthritis, unspecified (principal); Z88.5 Allergy status to narcotic agent; Z88.1 Allergy status to other antibiotic agents; Z88.8 Allergy status to other drugs, medicaments and biological substances
CPT/HCPCS: 96365; J3262

== ENCOUNTER 2023-09-15 16:01 | Emergency (ER) | payer MEDICARE, MEDICAID ==
[~2023-09-15] VITALS: Ht 167.6 cm; Wt 152.2 kg
[~2023-09-15 16:01] MED LIST changes: -ACETAMINOPHEN TAB 650MG DOSE (2X325MG) PO ONE; -ALBUTEROL SULFATE 2.5MG/0.5ML INH NEB SOLN INH PRN; -EPINEPHrine INJ 1 MG/ML 1ML AMP IM PRN; -NS IV ONE; -TOCILIZUMAB IV ONE; -diphenhydrAMINE 50MG/ML VIAL IV ONE; -diphenhydrAMINE 50MG/ML VIAL IV PRN; -methylPREDNISolone 125MG 2ML VIAL IV PRN
[2023-09-15] MEDS ORDERED: methylPREDNISolone 125MG 2ML VIAL IV ONE (17:40)
[2023-09-15] MEDS: IPRATROPIUM 0.5MG/ALBUTEROL 2.5MG INH SOL UD 3ML (DUONEB) NEB PRN ×3 (17:51→18:18)
[2023-09-15] MEDS ORDERED: methylPREDNISolone SUSP 40MG/ML 1ML VIAL (DEPO MEDROL) IM ONE (19:10)
[2023-09-15 20:31] VITALS: BP 130/80; TEMP 97.3; O2SAT 94
== END 2023-09-15 20:50 | disposition home or self-care (01) ==
LOC: M ED 16:01
DX: J45.901 Unspecified asthma with (acute) exacerbation (principal); J06.9 Acute upper respiratory infection, unspecified; B34.8 Other viral infections of unspecified site; E11.9 Type 2 diabetes mellitus without complications; Z79.4 Long term (current) use of insulin; Z88.5 Allergy status to narcotic agent; Z88.8 Allergy status to other drugs, medicaments and biological substances; Z88.1 Allergy status to other antibiotic agents; Z91.048 Other nonmedicinal substance allergy status; Z79.51 Long term (current) use of inhaled steroids; Z79.899 Other long term (current) drug therapy; Z79.891 Long term (current) use of opiate analgesic
CPT/HCPCS: 71046; 87486; 87581; 87633; 87798; 93005; 94640; 96372; 99284; J1030

== ENCOUNTER 2023-10-08 10:58 | Outpatient (CLI) | payer MEDICARE, MEDICAID ==
[~2023-10-08] VITALS: Ht 167.6 cm; Wt 153.0 kg
[~2023-10-08 10:58] MED LIST changes: +ALBUTEROL SULFATE 2.5MG/0.5ML INH NEB SOLN INH PRN; +EPINEPHrine INJ 1 MG/ML 1ML AMP IM PRN; +ERGO500029 PO; +FAMO40TA3 PO; +NAPR220C14 PO; +TIMO0.5S20; +diphenhydrAMINE 50MG/ML VIAL IV PRN; +methylPREDNISolone 125MG 2ML VIAL IV PRN
[2023-10-08] MEDS ORDERED: NS IV ONE (11:00)
[2023-10-08] MEDS ORDERED: ACETAMINOPHEN TAB 650MG DOSE (2X325MG) PO ONE (11:00)
[2023-10-08] MEDS ORDERED: TOCILIZUMAB IV ONE (11:00)
[2023-10-08] MEDS ORDERED: diphenhydrAMINE 50MG/ML VIAL IV ONE (11:00)
[2023-10-08 11:05] VITALS: BP 140/63; O2SAT 94
[2023-10-08 12:29] VITALS: BP 111/63; O2SAT 95
== END 2023-10-08 12:30 ==
LOC: M INFU 10:58
PROVIDERS: ATTEND Internal Medicine
DX: M06.9 Rheumatoid arthritis, unspecified (principal); Z88.1 Allergy status to other antibiotic agents; Z88.5 Allergy status to narcotic agent; Z88.8 Allergy status to other drugs, medicaments and biological substances
CPT/HCPCS: 96365; J3262

== ENCOUNTER 2023-10-14 06:43 | Day surgery (SDC) | payer MEDICARE, MEDICAID ==
[~2023-10-14] VITALS: Ht 167.6 cm; Wt 154.6 kg
[~2023-10-14 06:43] MED LIST changes: -ALBUTEROL SULFATE 2.5MG/0.5ML INH NEB SOLN INH PRN; -EPINEPHrine INJ 1 MG/ML 1ML AMP IM PRN; +NS 1,000 ML IV ONE; -diphenhydrAMINE 50MG/ML VIAL IV PRN; -methylPREDNISolone 125MG 2ML VIAL IV PRN
[2023-10-14] MEDS ORDERED: LIDOCAINE 2% 100MG/5ML SDV (FOR ANES.) As Ordered ONE (07:12)
[2023-10-14] MEDS ORDERED: fentaNYL 100 MCG/2 ML INJECTION As Ordered ONE (07:12)
[2023-10-14] MEDS ORDERED: propofoL 200 MG/20 ML VIAL As Ordered ONE (07:12)
[2023-10-14 08:30] VITALS: BP 149/82; O2SAT 93
== END 2023-10-14 08:40 | disposition home or self-care (01) ==
LOC: M OPP 06:43
PROVIDERS: ATTEND Internal Medicine Gastroenterology
DX: Z12.11 Encounter for screening for malignant neoplasm of colon (principal); K63.5 Polyp of colon; K64.4 Residual hemorrhoidal skin tags; K64.8 Other hemorrhoids; K29.70 Gastritis, unspecified, without bleeding; R12 Heartburn; F17.200 Nicotine dependence, unspecified, uncomplicated; E11.9 Type 2 diabetes mellitus without complications; G47.30 Sleep apnea, unspecified; Z99.89 Dependence on other enabling machines and devices; Z79.1 Long term (current) use of non-steroidal anti-inflammatories (NSAID); Z79.4 Long term (current) use of insulin; Z79.51 Long term (current) use of inhaled steroids; Z79.891 Long term (current) use of opiate analgesic; Z79.899 Other long term (current) drug therapy; Z88.1 Allergy status to other antibiotic agents; Z88.5 Allergy status to narcotic agent; Z88.8 Allergy status to other drugs, medicaments and biological substances
CPT/HCPCS: 43239; 45380; 45385; 88305; J3010

== ENCOUNTER 2023-11-10 14:10 | Outpatient (CLI) | payer MEDICARE, MEDICAID ==
[~2023-11-10] VITALS: Ht 167.6 cm; Wt 160.0 kg
[2023-11-10 14:10] VITALS: BP 160/78; O2SAT 95
[~2023-11-10 14:10] MED LIST changes: +ACETAMINOPHEN TAB 650MG DOSE (2X325MG) PO ONE; +ALBUTEROL SULFATE 2.5MG/0.5ML INH NEB SOLN INH PRN; +EPINEPHrine INJ 1 MG/ML 1ML AMP IM PRN; -NS 1,000 ML IV ONE; +NS IV ONE; +TOCILIZUMAB IV ONE; +diphenhydrAMINE 50MG/ML VIAL IV ONE; +diphenhydrAMINE 50MG/ML VIAL IV PRN; +methylPREDNISolone 125MG 2ML VIAL IV PRN
[2023-11-10] MEDS ORDERED: NS 1,000 ML IV SCH (14:50)
[2023-11-10] MEDS ORDERED: ACETAMINOPHEN TAB 650MG DOSE (2X325MG) PO ONE (14:50)
[2023-11-10] MEDS ORDERED: diphenhydrAMINE 50MG/ML VIAL IV ONE (14:50)
[2023-11-10] MEDS: NS IV ONE (14:51)
[2023-11-10] MEDS: TOCILIZUMAB IV ONE (14:51)
[2023-11-10 15:45] VITALS: BP 158/80; O2SAT 96
== END 2023-11-10 15:50 ==
LOC: M INFU 14:10
PROVIDERS: ATTEND Internal Medicine
DX: M06.9 Rheumatoid arthritis, unspecified (principal); Z88.1 Allergy status to other antibiotic agents; Z88.5 Allergy status to narcotic agent; Z88.8 Allergy status to other drugs, medicaments and biological substances
CPT/HCPCS: 96365; J3262

== ENCOUNTER → 2023-11-19 | Outpatient (CLI) | payer MEDICARE, MEDICAID ==
[~2023-11-19] MED LIST changes: -ACETAMINOPHEN TAB 650MG DOSE (2X325MG) PO ONE; -ALBUTEROL SULFATE 2.5MG/0.5ML INH NEB SOLN INH PRN; -EPINEPHrine INJ 1 MG/ML 1ML AMP IM PRN; -NS IV ONE; -TOCILIZUMAB IV ONE; -diphenhydrAMINE 50MG/ML VIAL IV ONE; -diphenhydrAMINE 50MG/ML VIAL IV PRN; -methylPREDNISolone 125MG 2ML VIAL IV PRN
[2023-11-19 14:20] LABS: BASO # 0.1 10^3/uL (0.0-0.2); BASO % 0.6 % (0.0-1.0); EOS # 0.6 10^3/uL (0.0-0.5); EOS % 6.3 % (0.0-3.0); HEMATOCRIT 45.8 % (36.0-47.0); HEMOGLOBIN 15.7 g/dl (12.0-15.5); LYMPH # 2.4 10^3/uL (1.5-5.0); LYMPH % 24.5 % (24.0-44.0); MEAN CORPUSCULAR HEMOGLOBIN 32.5 pg (27.0-33.0); MEAN CORPUSCULAR HGB CONC 34.3 g/dl (32.0-36.5); MEAN CORPUSCULAR VOLUME 94.8 fl (80.0-96.0); MONO # 0.5 10^3/uL (0.0-0.8); MONO % 5.2 % (2.0-8.0); NEUTROPHILS # 6.1 10^3/uL (1.5-8.5); NEUTROPHILS % 63.1 % (36.0-66.0); PLATELET COUNT, AUTOMATED 164 10^3/uL (150-450); RED BLOOD COUNT 4.83 10^6/uL (4.00-5.40); WHITE BLOOD COUNT 9.7 10^3/uL (4.0-10.0)
[2023-11-19 14:43] LABS: CREATININE, URINE 122.8 MG/DL
[2023-11-19 14:45] LABS: ALBUMIN 3.7 G/DL (3.2-5.2); ALKALINE PHOSPHATASE 97 U/L (46-116); ALT/SGPT 69 U/L (7.0-40); AST/SGOT 32 U/L (<34); BILIRUBIN,TOTAL 0.7 MG/DL (0.3-1.2); BLOOD UREA NITROGEN 9 MG/DL (9-23); CALCIUM LEVEL 8.3 MG/DL (8.5-10.1); CARBON DIOXIDE LEVEL 31 MMOL/L (20-31); CHLORIDE LEVEL 106 MMOL/L (98-107); CHOLESTEROL LEVEL 189 MG/DL (<200); CREATININE FOR GFR 0.56 MG/DL (0.55-1.30); GLOMERULAR FILTRATION RATE > 60.0 (>58); GLUCOSE, FASTING 119 MG/DL (60-100); HDL CHOLESTEROL 43.9 MG/DL (>40); LDL CHOLESTEROL 90.9 MG/DL (<100); NON-HDL-C 145.1 MG/DL; POTASSIUM SERUM 4.1 MMOL/L (3.5-5.1); SODIUM LEVEL 140 MMOL/L (136-145); TOTAL PROTEIN 6.1 G/DL (5.7-8.2); TRIGLYCERIDES LEVEL 271 MG/DL (<150)
[2023-11-19 14:45] LABS: MALB URINE SIEMENS < 3.0 MG/L; MAU/CREAT RATIO 2.4 MCG/MG (0.0-30.0)
[2023-11-19 14:46] LABS: THYROID STIMULATING HORMONE 1.107 uIU/ML (0.55-4.78)
== END ==
LOC: M LAB 12:51
PROVIDERS: ATTEND Family Medicine
DX: E11.9 Type 2 diabetes mellitus without complications (principal)

== ENCOUNTER → 2023-12-05 | Outpatient (CLI) | payer MEDICARE, MEDICAID | LOC: M LAB 17:09 | PROVIDERS: ATTEND Internal Medicine | DX: M06.9 Rheumatoid arthritis, unspecified (principal) ==

== ENCOUNTER 2023-12-08 14:44 | Outpatient (CLI) | payer MEDICARE, MEDICAID ==
[~2023-12-08] VITALS: Ht 167.6 cm; Wt 159.6 kg
[~2023-12-08 14:44] MED LIST changes: +ALBUTEROL SULFATE 2.5MG/0.5ML INH NEB SOLN INH PRN; +EPINEPHrine INJ 1 MG/ML 1ML AMP IM PRN; +NS 1,000 ML IV SCH; +NS IV ONE; +TOCILIZUMAB IV ONE; +diphenhydrAMINE 50MG/ML VIAL IV ONE; +diphenhydrAMINE 50MG/ML VIAL IV PRN; +methylPREDNISolone 125MG 2ML VIAL IV PRN
[2023-12-08 15:11] VITALS: BP 135/66; O2SAT 96
[2023-12-08] MEDS: ACETAMINOPHEN TAB 650MG DOSE (2X325MG) PO ONE (15:25)
[2023-12-08] MEDS: NS IV ONE (15:26)
[2023-12-08] MEDS: TOCILIZUMAB IV ONE (15:26)
[2023-12-08 16:35] VITALS: BP 144/89; O2SAT 95
== END 2023-12-08 16:35 ==
LOC: M INFU 14:44
PROVIDERS: ATTEND Internal Medicine
DX: M06.9 Rheumatoid arthritis, unspecified (principal); Z88.1 Allergy status to other antibiotic agents; Z88.5 Allergy status to narcotic agent; Z88.8 Allergy status to other drugs, medicaments and biological substances
CPT/HCPCS: 96365; J3262

== ENCOUNTER 2024-01-06 10:40 | Outpatient (CLI) | payer MEDICARE, MEDICAID ==
[~2024-01-06] VITALS: Ht 167.6 cm; Wt 159.0 kg
[2024-01-06 10:40] VITALS: BP 144/67; O2SAT 95
[~2024-01-06 10:40] MED LIST changes: -NS 1,000 ML IV SCH; -NS IV ONE; -TOCILIZUMAB IV ONE; -diphenhydrAMINE 50MG/ML VIAL IV ONE
[2024-01-06] MEDS: TOCILIZUMAB IV ONE (11:24)
[2024-01-06] MEDS: NS IV ONE (11:24)
[2024-01-06] MEDS: ACETAMINOPHEN 650MG PO PRIOR TO INFUSION PO ONE (11:29)
[2024-01-06] MEDS: diphenhydrAMINE 50MG IV PRIOR TO INFUSION IV ONE (11:29)
== END 2024-01-06 12:25 ==
LOC: M INFU 10:40
PROVIDERS: ATTEND Internal Medicine
DX: M06.9 Rheumatoid arthritis, unspecified (principal); Z88.1 Allergy status to other antibiotic agents; Z88.5 Allergy status to narcotic agent; Z88.8 Allergy status to other drugs, medicaments and biological substances
CPT/HCPCS: 96365; J3262

== ENCOUNTER 2024-02-18 12:40 | Outpatient (CLI) | payer MEDICARE, MEDICAID ==
[~2024-02-18] VITALS: Ht 165.1 cm; Wt 158.4 kg
[2024-02-18 12:40] VITALS: BP 168/96; O2SAT 96
[~2024-02-18 12:40] MED LIST changes: +ACETAMINOPHEN 650MG PO PRIOR TO INFUSION PO ONE; +ACETAMINOPHEN TAB 650MG DOSE (2X325MG) PO ONE; +DOXY-323 PO; +DOXY-440 PO; -DOXY-443 PO; -DOXY-444 PO; +NS 1,000 ML IV SCH; +[UNRECOGNIZED DRUG - OTHER] IV ONE; +diphenhydrAMINE 50MG IV PRIOR TO INFUSION IV ONE; +diphenhydrAMINE 50MG/ML VIAL IV ONE
[2024-02-18] MEDS: TOCILIZUMAB IV ONE (13:17)
[2024-02-18] MEDS: NS IV ONE (13:17)
[2024-02-18 14:30] VITALS: BP 130/74; O2SAT 96
== END 2024-02-18 14:30 ==
LOC: M INFU 12:40
PROVIDERS: ATTEND Internal Medicine
DX: M06.9 Rheumatoid arthritis, unspecified (principal); Z88.8 Allergy status to other drugs, medicaments and biological substances; Z88.1 Allergy status to other antibiotic agents
CPT/HCPCS: 96365; J3262

== ENCOUNTER 2024-03-17 12:05 | Outpatient (CLI) | payer MEDICARE, MEDICAID ==
[~2024-03-17] VITALS: Ht 165.1 cm; Wt 156.0 kg
[~2024-03-17 12:05] MED LIST changes: -ACETAMINOPHEN 650MG PO PRIOR TO INFUSION PO ONE; -NS 1,000 ML IV SCH; -[UNRECOGNIZED DRUG - OTHER] IV ONE; -diphenhydrAMINE 50MG IV PRIOR TO INFUSION IV ONE
[2024-03-17 12:10] VITALS: BP 130/71; O2SAT 96
[2024-03-17] MEDS: TOCILIZUMAB IV ONE (12:59)
[2024-03-17] MEDS: NS IV ONE (12:59)
[2024-03-17 14:00] VITALS: BP 140/70; O2SAT 95
== END 2024-03-17 14:10 ==
LOC: M INFU 12:05
PROVIDERS: ATTEND Internal Medicine
DX: M06.9 Rheumatoid arthritis, unspecified (principal); Z88.8 Allergy status to other drugs, medicaments and biological substances; Z88.1 Allergy status to other antibiotic agents
CPT/HCPCS: 96365; J3262

== ENCOUNTER 2024-04-14 13:43 | Outpatient (CLI) | payer MEDICARE, MEDICAID ==
[~2024-04-14] VITALS: Ht 165.7 cm; Wt 158.0 kg
[2024-04-14 13:40] VITALS: BP 144/82; O2SAT 91
[2024-04-14] MEDS: TOCILIZUMAB 800 MG in NS 60 ML IV ONE (14:25)
[2024-04-14 15:24] VITALS: BP 121/55; O2SAT 96
== END 2024-04-14 15:25 | disposition home or self-care (01) ==
LOC: M INFU 13:43
PROVIDERS: ATTEND Internal Medicine
DX: M06.9 Rheumatoid arthritis, unspecified (principal); Z88.1 Allergy status to other antibiotic agents; Z88.5 Allergy status to narcotic agent; Z88.8 Allergy status to other drugs, medicaments and biological substances
CPT/HCPCS: 96365; J3262

== ENCOUNTER 2024-05-12 14:10 | Outpatient (CLI) | payer MEDICARE, MEDICAID ==
[~2024-05-12] VITALS: Ht 165.1 cm; Wt 154.0 kg
[2024-05-12 14:15] VITALS: BP 151/73; O2SAT 96
[2024-05-12] MEDS: TOCILIZUMAB 800 MG in NS 60 ML IV ONE (14:43)
[2024-05-12 16:26] VITALS: BP 122/92; O2SAT 96
== END 2024-05-12 16:30 ==
LOC: M INFU 14:10
PROVIDERS: ATTEND Internal Medicine
DX: M06.9 Rheumatoid arthritis, unspecified (principal); Z88.2 Allergy status to sulfonamides; Z88.5 Allergy status to narcotic agent; Z88.8 Allergy status to other drugs, medicaments and biological substances
CPT/HCPCS: 96365; 96366; J3262

== ENCOUNTER → 2024-06-01 | Outpatient (REF) | payer MEDICARE ==
[~2024-06-01] MED LIST changes: -ACETAMINOPHEN TAB 650MG DOSE (2X325MG) PO ONE; -ALBUTEROL SULFATE 2.5MG/0.5ML INH NEB SOLN INH PRN; -EPINEPHrine INJ 1 MG/ML 1ML AMP IM PRN; -diphenhydrAMINE 50MG/ML VIAL IV ONE; -diphenhydrAMINE 50MG/ML VIAL IV PRN; -methylPREDNISolone 125MG 2ML VIAL IV PRN
== END ==
LOC: M SFHCRHEU 12:23
PROVIDERS: ATTEND Internal Medicine
DX: M06.9 Rheumatoid arthritis, unspecified (principal); E55.9 Vitamin D deficiency, unspecified; Z53.9 Procedure and treatment not carried out, unspecified reason

== ENCOUNTER 2024-06-09 14:20 | Outpatient (CLI) | payer MEDICARE, MEDICAID ==
[~2024-06-09] VITALS: Ht 165.1 cm; Wt 154.6 kg
[2024-06-09] MEDS: diphenhydrAMINE 50MG/ML VIAL IV ONE (14:00)
[2024-06-09] MEDS: ACETAMINOPHEN TAB 650MG DOSE (2X325MG) PO ONE (14:00)
[2024-06-09 14:20] VITALS: BP 171/85; O2SAT 93
[~2024-06-09 14:20] MED LIST changes: +ALBUTEROL SULFATE 2.5MG/0.5ML INH NEB SOLN INH PRN; +EPINEPHrine INJ 1 MG/ML 1ML AMP IM PRN; +diphenhydrAMINE 50MG/ML VIAL IV PRN; +methylPREDNISolone 125MG 2ML VIAL IV PRN
[2024-06-09] MEDS: TOCILIZUMAB 800 MG in NS 60 ML IV ONE (15:02)
[2024-06-09 16:00] VITALS: BP 168/90; O2SAT 96
== END 2024-06-09 16:00 ==
LOC: M INFU 14:20
PROVIDERS: ATTEND Internal Medicine
DX: M06.9 Rheumatoid arthritis, unspecified (principal); Z88.1 Allergy status to other antibiotic agents; Z88.5 Allergy status to narcotic agent; Z88.8 Allergy status to other drugs, medicaments and biological substances
CPT/HCPCS: 96365; J3262

== ENCOUNTER 2024-07-07 14:00 | Outpatient (CLI) | payer MEDICARE, MEDICAID ==
[~2024-07-07] VITALS: Ht 165.1 cm; Wt 155.0 kg
[~2024-07-07 14:00] MED LIST changes: -DOXY-323 PO; +DOXY-441 PO; +diphenhydrAMINE 50MG/ML VIAL IV ONE
[2024-07-07 14:10] VITALS: BP 138/64; O2SAT 94
[2024-07-07] MEDS: ACETAMINOPHEN 325 MG TAB PO ONE (14:26)
[2024-07-07] MEDS: TOCILIZUMAB 800 MG in NS 60 ML IV ONE (14:57)
[2024-07-07 16:38] VITALS: BP 110/56; O2SAT 95
== END 2024-07-07 16:40 ==
LOC: M INFU 14:00
PROVIDERS: ATTEND Internal Medicine
DX: M05.79 Rheumatoid arthritis with rheumatoid factor of multiple sites without organ or systems involvement (principal); Z88.1 Allergy status to other antibiotic agents; Z88.5 Allergy status to narcotic agent; Z88.8 Allergy status to other drugs, medicaments and biological substances
CPT/HCPCS: 96365; J3262

== ENCOUNTER → 2024-07-15 | Outpatient (CLI) | payer MEDICARE, MEDICAID ==
[~2024-07-15] MED LIST changes: -ALBUTEROL SULFATE 2.5MG/0.5ML INH NEB SOLN INH PRN; -EPINEPHrine INJ 1 MG/ML 1ML AMP IM PRN; -diphenhydrAMINE 50MG/ML VIAL IV ONE; -diphenhydrAMINE 50MG/ML VIAL IV PRN; -methylPREDNISolone 125MG 2ML VIAL IV PRN
[2024-07-15 12:40] LABS: ALBUMIN 3.8 G/DL (3.2-5.2); ALKALINE PHOSPHATASE 150 U/L (35-104); ALT/SGPT 99 U/L (7.0-40); AST/SGOT 45 U/L (<34); BILIRUBIN,TOTAL 0.8 MG/DL (0.3-1.2); BLOOD UREA NITROGEN 9 MG/DL (9-23); CALCIUM LEVEL 9.1 MG/DL (8.5-10.1); CARBON DIOXIDE LEVEL 28 MMOL/L (20-31); CHLORIDE LEVEL 107 MMOL/L (98-107); CHOLESTEROL LEVEL 215 MG/DL (<200); CHOLESTEROL RISK RATIO 5.28 (<5); CREATININE FOR GFR 0.54 MG/DL (0.55-1.30); GLOMERULAR FILTRATION RATE > 60.0 (>58); GLUCOSE, FASTING 179 MG/DL (60-100); HDL CHOLESTEROL 40.7 MG/DL (>40); NON-HDL-C 174.3 MG/DL; POTASSIUM SERUM 4.3 MMOL/L (3.5-5.1); SODIUM LEVEL 138 MMOL/L (136-145); TRIGLYCERIDES LEVEL 402 MG/DL (<150)
[2024-07-15 12:41] LABS: TOTAL 25(OH) VITAMIN D 24.5 NG/ML (20.0-100.0)
== END ==
LOC: M LAB 11:28
PROVIDERS: ATTEND Physician Assistant
DX: E78.5 Hyperlipidemia, unspecified (principal); E55.9 Vitamin D deficiency, unspecified; E11.65 Type 2 diabetes mellitus with hyperglycemia; Z79.4 Long term (current) use of insulin

== ENCOUNTER → 2024-07-15 | Outpatient (CLI) | payer MEDICARE, MEDICAID ==
[2024-07-15 12:10] LABS: BASO # 0.1 10^3/uL (0.0-0.2); BASO % 0.8 % (0.0-1.0); EOS # 0.5 10^3/uL (0.0-0.5); EOS % 5.6 % (0.0-3.0); HEMATOCRIT 46.9 % (36.0-47.0); LYMPH # 2.2 10^3/uL (1.5-5.0); LYMPH % 26.6 % (24.0-44.0); MEAN CORPUSCULAR HEMOGLOBIN 32.5 pg (27.0-33.0); MEAN CORPUSCULAR HGB CONC 34.1 g/dl (32.0-36.5); MEAN CORPUSCULAR VOLUME 95.3 fl (80.0-96.0); MONO # 0.5 10^3/uL (0.0-0.8); MONO % 6.1 % (2.0-8.0); NEUTROPHILS # 5.1 10^3/uL (1.5-8.5); NEUTROPHILS % 60.5 % (36.0-66.0); PLATELET COUNT, AUTOMATED 164 10^3/uL (150-450); RED BLOOD COUNT 4.92 10^6/uL (4.00-5.40); WHITE BLOOD COUNT 8.4 10^3/uL (4.0-10.0)
[2024-07-15 12:38] LABS: ERYTHROCYTE SEDIMENTATION RATE 9 mm/hr (0-20)
[2024-07-15 12:39] LABS: C REACTIVE PROTEIN QUANTITATIV < 0.40 MG/DL (<1.0)
[2024-07-15 12:43] LABS: ALBUMIN 3.8 G/DL (3.2-5.2); ALKALINE PHOSPHATASE 138 U/L (35-104); ALT/SGPT 101 U/L (7.0-40); AST/SGOT 46 U/L (<34); BILIRUBIN,DIRECT 0.2 MG/DL (<0.4); BILIRUBIN,TOTAL 0.7 MG/DL (0.3-1.2); BLOOD UREA NITROGEN 9 MG/DL (9-23); CALCIUM LEVEL 9.2 MG/DL (8.5-10.1); CARBON DIOXIDE LEVEL 27 MMOL/L (20-31); CHLORIDE LEVEL 108 MMOL/L (98-107); CREATININE FOR GFR 0.56 MG/DL (0.55-1.30); GLOMERULAR FILTRATION RATE > 60.0 (>58); GLUCOSE, FASTING 180 MG/DL (60-100); POTASSIUM SERUM 4.3 MMOL/L (3.5-5.1); SODIUM LEVEL 138 MMOL/L (136-145); TOTAL PROTEIN 6.8 G/DL (5.7-8.2)
== END ==
LOC: M LAB 11:23
PROVIDERS: ATTEND Internal Medicine
DX: M06.9 Rheumatoid arthritis, unspecified (principal); E55.9 Vitamin D deficiency, unspecified

== ENCOUNTER → 2024-07-15 | Outpatient (REF) | payer MEDICARE, MEDICAID | LOC: M SFHCWAGY 08:33 | PROVIDERS: ATTEND Obstetrics & Gynecology | DX: Z12.72 Encounter for screening for malignant neoplasm of vagina (principal) ==

== ENCOUNTER → 2024-07-15 | Outpatient (CLI) | payer MEDICARE, MEDICAID | LOC: M WHC 09:12 | PROVIDERS: ATTEND Obstetrics & Gynecology | DX: Z12.31 Encounter for screening mammogram for malignant neoplasm of breast (principal); R92.313 Mammographic fatty tissue density, bilateral breasts ==

== ENCOUNTER 2024-07-30 | Emergency (ER) | payer MEDICARE, MEDICAID ==
[~2024-07-30] VITALS: Ht 166.4 cm; Wt 156.8 kg
[~2024-07-30] MED LIST changes: -CYCL5TAB PO; +CYCL5TAB4 PO; -LIDO1CRE2 TOP; +LIDO4CRE12 TOP
[2024-07-30 01:17] LABS: BASO # 0.1 10^3/uL (0.0-0.2); BASO % 0.5 % (0.0-1.0); EOS # 0.5 10^3/uL (0.0-0.5); EOS % 4.6 % (0.0-3.0); HEMATOCRIT 42.4 % (36.0-47.0); HEMOGLOBIN 15.2 g/dl (12.0-15.5); LYMPH # 3.5 10^3/uL (1.5-5.0); MEAN CORPUSCULAR HEMOGLOBIN 33.4 pg (27.0-33.0); MEAN CORPUSCULAR HGB CONC 35.8 g/dl (32.0-36.5); MEAN CORPUSCULAR VOLUME 93.2 fl (80.0-96.0); MONO # 0.7 10^3/uL (0.0-0.8); MONO % 6.3 % (2.0-8.0); NEUTROPHILS # 5.8 10^3/uL (1.5-8.5); NEUTROPHILS % 55.2 % (36.0-66.0); PLATELET COUNT, AUTOMATED 150 10^3/uL (150-450); RED BLOOD COUNT 4.55 10^6/uL (4.00-5.40); WHITE BLOOD COUNT 10.6 10^3/uL (4.0-10.0)
[2024-07-30 01:42] LABS: LIPASE 33 U/L (12-53)
[2024-07-30] MEDS ORDERED: ISOVUE-370 76% 100ML VIAL As Ordered ONE (01:48)
[2024-07-30] MEDS: MORPHINE 4 MG/ML 1ML VIAL IV ONE (01:49)
[2024-07-30] MEDS: ONDANSETRON 4MG 2ML VIAL IV ONE (01:49)
[2024-07-30 01:51] LABS: ALBUMIN 3.5 G/DL (3.2-5.2); ALKALINE PHOSPHATASE 195 U/L (35-104); ALT/SGPT 111 U/L (7.0-40); AST/SGOT 51 U/L (<34); BILIRUBIN,DIRECT 0.1 MG/DL (<0.4); BILIRUBIN,TOTAL 0.4 MG/DL (0.3-1.2); BLOOD UREA NITROGEN 13 MG/DL (9-23); CALCIUM LEVEL 8.8 MG/DL (8.5-10.1); CARBON DIOXIDE LEVEL 21 MMOL/L (20-31); CHLORIDE LEVEL 106 MMOL/L (98-107); CREATININE FOR GFR 0.53 MG/DL (0.55-1.30); GLOMERULAR FILTRATION RATE > 60.0 (>58); GLUCOSE, FASTING 344 MG/DL (60-100); POTASSIUM SERUM 4.4 MMOL/L (3.5-5.1); SODIUM LEVEL 137 MMOL/L (136-145); TOTAL PROTEIN 6.2 G/DL (5.7-8.2)
[2024-07-30] MEDS: NS 1,000 ML IV ONE (01:52)
[2024-07-30 03:01] LABS: MAGNESIUM LEVEL 1.6 MG/DL (1.8-2.4)
[2024-07-30] MEDS: METOCLOPRAMIDE INJ 10MG/2ML VIAL IV ONE (04:49)
[2024-07-30] MEDS: FAMOTIDINE 20MG/2ML VIAL IVP ONE (04:49)
[2024-07-30] MEDS: MAG SULF 1GM/100ML (MAG RUN) 1 GM in IV 1 EA IV ONE (04:49)
[2024-07-30] MEDS ORDERED: REGL10TA6 PO (05:04)
[2024-07-30] MEDS ORDERED: OMEP-173 PO (05:04)
[2024-07-30 05:49] VITALS: BP 132/64; TEMP 97.2; O2SAT 94
== END 2024-07-30 05:56 | disposition home or self-care (01) ==
LOC: M ED
DX: K59.00 Constipation, unspecified (principal); E86.0 Dehydration; E83.42 Hypomagnesemia; R10.11 Right upper quadrant pain; I45.81 Long QT syndrome; M79.7 Fibromyalgia; E10.9 Type 1 diabetes mellitus without complications; E78.5 Hyperlipidemia, unspecified; J44.9 Chronic obstructive pulmonary disease, unspecified; G47.33 Obstructive sleep apnea (adult) (pediatric); F41.9 Anxiety disorder, unspecified; F32.A Depression, unspecified; F43.10 Post-traumatic stress disorder, unspecified; F17.210 Nicotine dependence, cigarettes, uncomplicated; F12.10 Cannabis abuse, uncomplicated; Z88.1 Allergy status to other antibiotic agents; Z88.5 Allergy status to narcotic agent; Z88.8 Allergy status to other drugs, medicaments and biological substances; Z79.51 Long term (current) use of inhaled steroids; Z79.4 Long term (current) use of insulin; Z79.899 Other long term (current) drug therapy
CPT/HCPCS: 74177; 80047; 80048; 80076; 81001; 82150; 83690; 83735; 85025; 93005; 96361; 96365; 96375; 99284; J2405; J2765; J3475; Q9967

== ENCOUNTER 2024-08-04 12:01 | Outpatient (CLI) | payer MEDICARE, MEDICAID ==
[~2024-08-04] VITALS: Ht 166.4 cm; Wt 154.0 kg
[~2024-08-04 12:01] MED LIST changes: +ACETAMINOPHEN 325 MG TAB PO ONE; +ALBUTEROL SULFATE 2.5MG/0.5ML INH NEB SOLN INH PRN; +EPINEPHrine INJ 1 MG/ML 1ML AMP IM PRN; +OMEP-173 PO; +REGL10TA6 PO; +diphenhydrAMINE 50MG/ML VIAL IV ONE; +diphenhydrAMINE 50MG/ML VIAL IV PRN; +methylPREDNISolone 125MG 2ML VIAL IV PRN
[2024-08-04 12:05] VITALS: BP 110/57; O2SAT 94
[2024-08-04] MEDS: TOCILIZUMAB 800 MG in NS 60 ML IV ONE (12:39)
[2024-08-04 13:47] VITALS: BP 139/70; O2SAT 96
== END 2024-08-04 13:25 ==
LOC: M INFU 12:01
PROVIDERS: ATTEND Internal Medicine
DX: M06.9 Rheumatoid arthritis, unspecified (principal); Z88.1 Allergy status to other antibiotic agents; Z88.5 Allergy status to narcotic agent; Z88.8 Allergy status to other drugs, medicaments and biological substances
CPT/HCPCS: 96365; J3262

== ENCOUNTER → 2024-08-18 | Outpatient (CLI) | payer MEDICARE, MEDICAID ==
[~2024-08-18] MED LIST changes: -ACETAMINOPHEN 325 MG TAB PO ONE; -ALBUTEROL SULFATE 2.5MG/0.5ML INH NEB SOLN INH PRN; -EPINEPHrine INJ 1 MG/ML 1ML AMP IM PRN; -diphenhydrAMINE 50MG/ML VIAL IV ONE; -diphenhydrAMINE 50MG/ML VIAL IV PRN; -methylPREDNISolone 125MG 2ML VIAL IV PRN
== END ==
LOC: M RAD 10:08
PROVIDERS: ATTEND Family Medicine
DX: R10.11 Right upper quadrant pain (principal); R60.9 Edema, unspecified

== ENCOUNTER 2024-09-01 10:30 | Outpatient (CLI) | payer MEDICARE, MEDICAID ==
[~2024-09-01] VITALS: Ht 165.1 cm; Wt 153.2 kg
[2024-09-01 10:30] VITALS: BP 160/84; O2SAT 97
[~2024-09-01 10:30] MED LIST changes: +ACETAMINOPHEN 325 MG TAB PO ONE; +ALBUTEROL SULFATE 2.5MG/0.5ML INH NEB SOLN INH PRN; +EPINEPHrine INJ 1 MG/ML 1ML AMP IM PRN; +diphenhydrAMINE 50MG/ML VIAL IV ONE; +diphenhydrAMINE 50MG/ML VIAL IV PRN; +methylPREDNISolone 125MG 2ML VIAL IV PRN
[2024-09-01] MEDS: [UNRECOGNIZED DRUG - OTHER] IV ONE (11:29)
[2024-09-01 12:30] VITALS: BP 152/88; O2SAT 98
== END 2024-09-01 12:35 ==
LOC: M INFU 10:30
PROVIDERS: ATTEND Internal Medicine
DX: M06.9 Rheumatoid arthritis, unspecified (principal)
CPT/HCPCS: 96365; J3262

== ENCOUNTER 2024-09-29 10:28 | Outpatient (CLI) | payer MEDICARE, MEDICAID ==
[~2024-09-29] VITALS: Ht 167.6 cm; Wt 149.5 kg
[~2024-09-29 10:28] MED LIST changes: -diphenhydrAMINE 50MG/ML VIAL IV ONE
[2024-09-29 10:35] VITALS: BP 144/67; O2SAT 96
[2024-09-29] MEDS: diphenhydrAMINE 50MG/ML VIAL IV ONE (11:10)
[2024-09-29] MEDS: ACETAMINOPHEN 325 MG TAB PO ONE (11:10)
[2024-09-29] MEDS: [UNRECOGNIZED DRUG - OTHER] IV ONE (11:11)
[2024-09-29 12:05] VITALS: BP 145/86; O2SAT 95
== END 2024-09-29 12:10 ==
LOC: M INFU 10:28
PROVIDERS: ATTEND Internal Medicine
DX: M06.9 Rheumatoid arthritis, unspecified (principal); Z88.1 Allergy status to other antibiotic agents; Z88.5 Allergy status to narcotic agent; Z88.8 Allergy status to other drugs, medicaments and biological substances; Z91.048 Other nonmedicinal substance allergy status
CPT/HCPCS: 96365; J3262

== ENCOUNTER 2024-10-13 16:11 | Emergency (ER) | payer MEDICARE, MEDICAID ==
[~2024-10-13] VITALS: Ht 165.1 cm; Wt 149.2 kg
[~2024-10-13 16:11] MED LIST changes: -ACETAMINOPHEN 325 MG TAB PO ONE; -ALBUTEROL SULFATE 2.5MG/0.5ML INH NEB SOLN INH PRN; -EPINEPHrine INJ 1 MG/ML 1ML AMP IM PRN; -diphenhydrAMINE 50MG/ML VIAL IV PRN; -methylPREDNISolone 125MG 2ML VIAL IV PRN
[2024-10-13] MEDS: IPRATROPIUM 0.5MG/ALBUTEROL 2.5MG INH SOL UD 3ML (DUONEB) NEB ONE (19:22)
[2024-10-13] MEDS ORDERED: BENZ200C70 PO (20:08)
[2024-10-13] MEDS ORDERED: PRED20TA PO (20:08)
[2024-10-13] MEDS ORDERED: IPRA0.00 NEB (20:10)
[2024-10-13] MEDS ORDERED: ZITH250T PO (20:15)
[2024-10-13 20:27] VITALS: BP 133/72; TEMP 99.2; O2SAT 97
== END 2024-10-13 20:32 | disposition home or self-care (01) ==
LOC: M ED 16:11
DX: J44.1 Chronic obstructive pulmonary disease with (acute) exacerbation (principal); E11.9 Type 2 diabetes mellitus without complications; J45.909 Unspecified asthma, uncomplicated; K21.9 Gastro-esophageal reflux disease without esophagitis; E78.5 Hyperlipidemia, unspecified; F17.210 Nicotine dependence, cigarettes, uncomplicated; Z88.1 Allergy status to other antibiotic agents; Z88.8 Allergy status to other drugs, medicaments and biological substances; Z79.51 Long term (current) use of inhaled steroids; Z79.4 Long term (current) use of insulin; Z79.52 Long term (current) use of systemic steroids; Z79.899 Other long term (current) drug therapy

== ENCOUNTER 2024-10-27 10:15 | Outpatient (CLI) | payer MEDICARE, MEDICAID ==
[~2024-10-27] VITALS: Ht 165.1 cm; Wt 149.5 kg
[2024-10-27 10:15] VITALS: BP 139/89; O2SAT 95
[~2024-10-27 10:15] MED LIST changes: +ALBUTEROL SULFATE 2.5MG/0.5ML INH NEB SOLN INH PRN; +BENZ200C70 PO; +EPINEPHrine INJ 1 MG/ML 1ML AMP IM PRN; +IPRA0.00 NEB; +diphenhydrAMINE 50MG/ML VIAL IV PRN; +methylPREDNISolone 125MG 2ML VIAL IV PRN
[2024-10-27] MEDS: [UNRECOGNIZED DRUG - OTHER] IV ONE (11:21)
[2024-10-27] MEDS: diphenhydrAMINE 50MG IV PRIOR TO INFUSION IV ONE (11:22)
[2024-10-27] MEDS: ACETAMINOPHEN 650MG PO PRIOR TO INFUSION PO ONE (11:22)
[2024-10-27 12:23] VITALS: BP 149/64; O2SAT 96
== END 2024-10-27 12:25 ==
LOC: M INFU 10:15
PROVIDERS: ATTEND Internal Medicine
DX: M06.9 Rheumatoid arthritis, unspecified (principal); Z88.1 Allergy status to other antibiotic agents; Z88.5 Allergy status to narcotic agent; Z88.8 Allergy status to other drugs, medicaments and biological substances
CPT/HCPCS: 96365; J3262

== ENCOUNTER 2024-11-24 11:00 | Outpatient (CLI) | payer MEDICARE, MEDICAID ==
[~2024-11-24] VITALS: Ht 165.1 cm; Wt 153.2 kg
[2024-11-24 11:00] VITALS: BP 160/80; O2SAT 95
[~2024-11-24 11:00] MED LIST changes: +ACETAMINOPHEN 325 MG TAB PO ONE; +ALBUTEROL SULFATE 2.5MG/0.5ML INH NEB SOLN INH PRN; +EPINEPHrine INJ 1 MG/ML 1ML AMP IM PRN; -PERC5TAB12 PO; -ROSU20TA86; -TIRZ7.5P; +diphenhydrAMINE 50MG/ML VIAL IV ONE; +diphenhydrAMINE 50MG/ML VIAL IV PRN; +methylPREDNISolone 125MG 2ML VIAL IV PRN
[2024-11-24] MEDS: TOCILIZUMAB 800 MG in NS 60 ML IV ONE (12:09)
[2024-11-24 13:05] VITALS: BP 140/82; O2SAT 97
== END 2024-11-24 13:05 ==
LOC: M INFU 11:00
PROVIDERS: ATTEND Family Medicine
DX: M06.9 Rheumatoid arthritis, unspecified (principal); Z88.1 Allergy status to other antibiotic agents; Z88.5 Allergy status to narcotic agent; Z88.8 Allergy status to other drugs, medicaments and biological substances; R74.01 Elevation of levels of liver transaminase levels
CPT/HCPCS: 36415; 80074; 83550; 86015; 86038; 86376; 86381; 96365; J3262

== ENCOUNTER → 2024-11-24 | Outpatient (CLI) | payer MEDICARE, MEDICAID ==
[~2024-11-24] MED LIST changes: -ALBUTEROL SULFATE 2.5MG/0.5ML INH NEB SOLN INH PRN; -EPINEPHrine INJ 1 MG/ML 1ML AMP IM PRN; +PERC5TAB12 PO; +ROSU20TA86; +TIRZ7.5P; -diphenhydrAMINE 50MG/ML VIAL IV PRN; -methylPREDNISolone 125MG 2ML VIAL IV PRN
[2024-11-24 14:45] LABS: IRON (FE) 84 UG/DL (50-170)
[2024-11-24 14:46] LABS: PERCENT SATURATION 26.4 % (13.2-45.0); TOTAL IRON BINDING CAPACITY 318 UG/DL (250-425)
[2024-11-24 15:04] LABS: HEPATITIS B SURFACE ANTIGEN NEGATIVE (NEGATIVE)
[2024-11-24 15:25] LABS: HEPATITIS C VIRUS ABY INDEX 0.04 INDEX (<0.8)
[2024-11-24 15:26] LABS: HEPATITIS B CORE ANTIBODY IGM NEGATIVE (NEGATIVE)
[2024-11-26 14:53] LABS: ANA SCREEN, IFA NEGATIVE (NEGATIVE)
== END ==
LOC: M LAB 13:11
PROVIDERS: ATTEND Internal Medicine Gastroenterology
DX: R74.01 Elevation of levels of liver transaminase levels (principal)

== ENCOUNTER 2024-11-27 09:21 | Emergency (ER) | payer MEDICARE, MEDICAID ==
[~2024-11-27] VITALS: Ht 165.1 cm; Wt 154.5 kg
[~2024-11-27 09:21] MED LIST changes: -ACETAMINOPHEN 325 MG TAB PO ONE; -ALBUTEROL SULFATE 2.5MG/0.5ML INH NEB SOLN INH PRN; -EPINEPHrine INJ 1 MG/ML 1ML AMP IM PRN; -diphenhydrAMINE 50MG/ML VIAL IV ONE; -diphenhydrAMINE 50MG/ML VIAL IV PRN; -methylPREDNISolone 125MG 2ML VIAL IV PRN
[2024-11-27] MEDS ORDERED: TIRZ7.5P (09:40)
[2024-11-27] MEDS ORDERED: ROSU20TA86 (09:40)
[2024-11-27 11:42] LABS: KETONE, URINE AUTO RFX NEGATIVE (NEGATIVE); LEUKOCYTE ESTERASE UR AUTO RFX NEGATIVE (NEGATIVE); NITRITE, URINE AUTO RFX NEGATIVE (NEGATIVE); RBC, URINE AUTO RFX 2 /HPF (0-3); SQUAM EPITHELIAL CELL UR AURFX 1 /HPF (0-6); WBC, URINE AUTO RFX 1 /HPF (0-3)
[2024-11-27 12:07] LABS: LIPASE 40 U/L (12-53)
[2024-11-27 12:09] LABS: ALBUMIN 3.5 G/DL (3.2-5.2); ALKALINE PHOSPHATASE 155 U/L (35-104); ALT/SGPT 109 U/L (7.0-40); AMYLASE 45 U/L (30-118); AST/SGOT 65 U/L (<34); BILIRUBIN,DIRECT 0.1 MG/DL (<0.4); BILIRUBIN,TOTAL 0.6 MG/DL (0.3-1.2); BLOOD UREA NITROGEN 10 MG/DL (9-23); CALCIUM LEVEL 8.5 MG/DL (8.5-10.1); CARBON DIOXIDE LEVEL 25 MMOL/L (20-31); CHLORIDE LEVEL 107 MMOL/L (98-107); CREATININE FOR GFR 0.48 MG/DL (0.55-1.30); GLOMERULAR FILTRATION RATE > 60.0 (>58); GLUCOSE, FASTING 269 MG/DL (60-100); POTASSIUM SERUM 4.9 MMOL/L (3.5-5.1); SODIUM LEVEL 141 MMOL/L (136-145); TOTAL PROTEIN 6.4 G/DL (5.7-8.2)
[2024-11-27] MEDS: NS 500 ML IV ONE (12:14)
[2024-11-27] MEDS ORDERED: ISOVUE-370 76% 100ML VIAL As Ordered ONE (12:16)
[2024-11-27 12:25] LABS: BASO # 0.1 10^3/uL (0.0-0.2); BASO % 0.6 % (0.0-1.0); EOS # 0.4 10^3/uL (0.0-0.5); EOS % 4.9 % (0.0-3.0); HEMATOCRIT 45.9 % (36.0-47.0); HEMOGLOBIN 15.9 g/dl (12.0-15.5); LYMPH % 25.4 % (24.0-44.0); MEAN CORPUSCULAR HEMOGLOBIN 32.8 pg (27.0-33.0); MEAN CORPUSCULAR HGB CONC 34.6 g/dl (32.0-36.5); MEAN CORPUSCULAR VOLUME 94.6 fl (80.0-96.0); MONO # 0.5 10^3/uL (0.0-0.8); MONO % 6.5 % (2.0-8.0); NEUTROPHILS % 62.1 % (36.0-66.0); PLATELET COUNT, AUTOMATED 142 10^3/uL (150-450); RED BLOOD COUNT 4.85 10^6/uL (4.00-5.40)
[2024-11-27] MEDS: MORPHINE 4 MG/ML 1ML VIAL IV ONE (12:47)
[2024-11-27 13:15] VITALS: BP 138/78
[2024-11-27 13:25] VITALS: TEMP 98.6
[2024-11-27] MEDS ORDERED: PERC5TAB12 PO (13:28)
[2024-11-27 13:55] VITALS: O2SAT 95
[2024-11-27] MEDS: PERCOCET 5MG/325MG TAB PO ONE (13:55)
== END 2024-11-27 14:04 | disposition home or self-care (01) ==
LOC: M ED 09:21
DX: S39.012A Strain of muscle, fascia and tendon of lower back, initial encounter (principal); J35.8 Other chronic diseases of tonsils and adenoids; X58.XXXA Exposure to other specified factors, initial encounter; Y92.9 Unspecified place or not applicable; Y93.9 Activity, unspecified; Y99.9 Unspecified external cause status; E10.40 Type 1 diabetes mellitus with diabetic neuropathy, unspecified; F17.200 Nicotine dependence, unspecified, uncomplicated; E78.5 Hyperlipidemia, unspecified; J45.909 Unspecified asthma, uncomplicated; K21.9 Gastro-esophageal reflux disease without esophagitis; Z88.8 Allergy status to other drugs, medicaments and biological substances; Z88.5 Allergy status to narcotic agent; Z79.4 Long term (current) use of insulin; Z79.899 Other long term (current) drug therapy
CPT/HCPCS: 36415; 70491; 71045; 74177; 80047; 80048; 80076; 81001; 82150; 83605; 83690; 85025; 87040; 87486; 87581; 87633; 87798; 87880; 93041; 96361; 96374; 99284; Q9967

== ENCOUNTER 2024-12-23 12:00 | Outpatient (CLI) | payer MEDICARE, MEDICAID ==
[~2024-12-23] VITALS: Ht 165.1 cm; Wt 149.5 kg
[2024-12-23 12:00] VITALS: BP 136/82; O2SAT 98
[~2024-12-23 12:00] MED LIST changes: +ALBUTEROL SULFATE 2.5MG/0.5ML INH CONCENTRATE NEB SOLN INH PRN; +EPINEPHrine INJ 1 MG/ML 1ML AMP IM PRN; +PERC5TAB12 PO; +ROSU20TA86; +TIRZ7.5P; +TOCILIZUMAB 800 MG in NS 60 ML IV ONE; +diphenhydrAMINE 50MG/ML VIAL IV PRN; +methylPREDNISolone 125MG 2ML VIAL IV PRN
[2024-12-23] MEDS: [UNRECOGNIZED DRUG - OTHER] IV ONE (12:50)
[2024-12-23] MEDS: ACETAMINOPHEN 325 MG TAB PO ONE (12:50)
[2024-12-23] MEDS: diphenhydrAMINE 50MG/ML VIAL IV ONE (12:51)
[2024-12-23 13:48] VITALS: BP 133/80; O2SAT 98
== END 2024-12-23 13:48 ==
LOC: M INFU 12:00
PROVIDERS: ATTEND Internal Medicine
DX: M06.9 Rheumatoid arthritis, unspecified (principal); Z88.1 Allergy status to other antibiotic agents; Z88.5 Allergy status to narcotic agent; Z88.8 Allergy status to other drugs, medicaments and biological substances
CPT/HCPCS: 96365; J3262

== ENCOUNTER 2025-01-17 21:30 | Emergency (ER) | payer MEDICAID, MEDICARE ==
[~2025-01-17] VITALS: Ht 165.1 cm; Wt 152.3 kg
[~2025-01-17 21:30] MED LIST changes: -ALBUTEROL SULFATE 2.5MG/0.5ML INH CONCENTRATE NEB SOLN INH PRN; -EPINEPHrine INJ 1 MG/ML 1ML AMP IM PRN; -TOCILIZUMAB 800 MG in NS 60 ML IV ONE; -diphenhydrAMINE 50MG/ML VIAL IV PRN; -methylPREDNISolone 125MG 2ML VIAL IV PRN
[2025-01-18 06:15] LABS: BASO # 0.1 10^3/uL (0.0-0.2); BASO % 0.4 % (0.0-1.0); EOS # 0.5 10^3/uL (0.0-0.5); EOS % 3.6 % (0.0-3.0); HEMATOCRIT 42.2 % (36.0-47.0); HEMOGLOBIN 14.7 g/dl (12.0-15.5); LYMPH # 2.4 10^3/uL (1.5-5.0); LYMPH % 18.1 % (24.0-44.0); MEAN CORPUSCULAR HEMOGLOBIN 33.1 pg (27.0-33.0); MEAN CORPUSCULAR HGB CONC 34.8 g/dl (32.0-36.5); MONO # 0.9 10^3/uL (0.0-0.8); MONO % 6.7 % (2.0-8.0); NEUTROPHILS # 9.3 10^3/uL (1.5-8.5); NEUTROPHILS % 70.7 % (36.0-66.0); PLATELET COUNT, AUTOMATED 159 10^3/uL (150-450); RED BLOOD COUNT 4.44 10^6/uL (4.00-5.40); WHITE BLOOD COUNT 13.1 10^3/uL (4.0-10.0)
[2025-01-18 06:45] VITALS: BP 148/67; TEMP 97.9; O2SAT 95
== END 2025-01-18 06:54 | disposition home or self-care (01) ==
LOC: M ED 21:30
DX: S90.121A Contusion of right lesser toe(s) without damage to nail, initial encounter (principal); Y92.019 Unspecified place in single-family (private) house as the place of occurrence of the external cause; Y93.9 Activity, unspecified; Y99.9 Unspecified external cause status; E11.9 Type 2 diabetes mellitus without complications; J44.9 Chronic obstructive pulmonary disease, unspecified; F41.9 Anxiety disorder, unspecified; Z88.1 Allergy status to other antibiotic agents; Z88.5 Allergy status to narcotic agent; Z88.8 Allergy status to other drugs, medicaments and biological substances; Z79.4 Long term (current) use of insulin; Z79.51 Long term (current) use of inhaled steroids; Z79.899 Other long term (current) drug therapy

== ENCOUNTER 2025-01-20 10:40 | Outpatient (CLI) | payer MEDICARE, MEDICAID ==
[~2025-01-20] VITALS: Ht 165.1 cm; Wt 125.3 kg
[2025-01-20 10:40] VITALS: BP 136/72; O2SAT 97
[~2025-01-20 10:40] MED LIST changes: +ALBUTEROL SULFATE 2.5MG/0.5ML INH CONCENTRATE NEB SOLN INH PRN; +EPINEPHrine INJ 1 MG/ML 1ML AMP IM PRN; +diphenhydrAMINE 50MG/ML VIAL IV PRN; +methylPREDNISolone 125MG 2ML VIAL IV PRN
[2025-01-20] MEDS: ACETAMINOPHEN 325 MG TAB PO ONE (10:44)
[2025-01-20] MEDS: diphenhydrAMINE 50MG/ML VIAL IV ONE (10:44)
[2025-01-20] MEDS: TOCILIZUMAB 800 MG in NS 60 ML IV ONE (11:30)
== END 2025-01-20 12:35 | disposition home or self-care (01) ==
LOC: M INFU 10:40
PROVIDERS: ATTEND Internal Medicine
DX: M06.9 Rheumatoid arthritis, unspecified (principal); Z88.1 Allergy status to other antibiotic agents; Z88.5 Allergy status to narcotic agent; Z88.8 Allergy status to other drugs, medicaments and biological substances
CPT/HCPCS: 96365; J3262

== ENCOUNTER 2025-03-14 21:43 | Emergency (ER) | payer MEDICARE, MEDICAID ==
[~2025-03-14] VITALS: Ht 165.1 cm; Wt 152.7 kg
[~2025-03-14 21:43] MED LIST changes: -ALBUTEROL SULFATE 2.5MG/0.5ML INH CONCENTRATE NEB SOLN INH PRN; -ALPH600C PO; +ALPH600C2 PO; +AMMO12CR4 TOP; -AMMO12CR7 TOP; -EPINEPHrine INJ 1 MG/ML 1ML AMP IM PRN; +LIDO1ADH93 TD; -LIDO5DIS41 TD; -ROSU20TA86; +ROSU20TA86 PO; +TIRZ12.5; -diphenhydrAMINE 50MG/ML VIAL IV PRN; -methylPREDNISolone 125MG 2ML VIAL IV PRN
[2025-03-15 06:41] VITALS: BP 132/63; TEMP 97.7; O2SAT 96
== END 2025-03-15 06:42 | disposition home or self-care (01) ==
LOC: M ED 21:43
DX: M25.462 Effusion, left knee (principal); S80.912A Unspecified superficial injury of left knee, initial encounter; Y92.019 Unspecified place in single-family (private) house as the place of occurrence of the external cause; Y93.9 Activity, unspecified; Y99.9 Unspecified external cause status; E11.9 Type 2 diabetes mellitus without complications; E03.9 Hypothyroidism, unspecified; F17.210 Nicotine dependence, cigarettes, uncomplicated; F19.10 Other psychoactive substance abuse, uncomplicated; Z88.1 Allergy status to other antibiotic agents; Z88.5 Allergy status to narcotic agent; Z88.8 Allergy status to other drugs, medicaments and biological substances; Z79.51 Long term (current) use of inhaled steroids; Z79.4 Long term (current) use of insulin; Z79.899 Other long term (current) drug therapy

== ENCOUNTER 2025-03-23 10:32 | Day surgery (SDC) | payer MEDICARE, MEDICAID ==
[~2025-03-23] VITALS: Ht 165.1 cm; Wt 152.4 kg
[~2025-03-23 10:32] MED LIST changes: +LIDOCAINE 2% 100 MG/5 ML SDV (FOR ANES.) As Ordered ONE; +MIDAZOLAM INJ 2 MG/2 ML VIAL As Ordered ONE; +ROCURONIUM BROMIDE 50MG/5ML VIAL As Ordered ONE
[2025-03-23] MEDS ORDERED: LR 1,000 ML IV SCH (11:30)
[2025-03-23] MEDS ORDERED: ceFAZolin SOD 1 GM in DEXTROSE 5% (D5W) ADV/MINI-BAG 50 ML IV ONE (12:00)
[2025-03-23] MEDS: INDOCYANINE GREEN 25 MG VIAL As Ordered ONE (13:15)
[2025-03-23] MEDS: ceFAZolin SOD 2 GM IV ONCE IV ONE (13:30)
[2025-03-23] MEDS: INDOCYANINE GREEN 25 MG VIAL IV ONE (13:33)
[2025-03-23] MEDS: HEPARIN SOD 5000 UNITS/ML 1 ML VIAL/SYRINGE SQ ONE (13:55)
[2025-03-23] MEDS ORDERED: KETAMINE INJ 500 MG/5 ML VIAL As Ordered ONE (14:12)
[2025-03-23] MEDS ORDERED: ALBUTEROL 6.7 GM INHALER **FOR ANES. CART/OMNICELL ONLY As Ordered ONE (14:25)
[2025-03-23] MEDS ORDERED: SUGAMMADEX SODIUM 500 MG/5 ML VIAL As Ordered ONE (14:54)
[2025-03-23] MEDS ORDERED: ACETAMINOPHEN 1000MG/100ML IV BAG As Ordered ONE (14:54)
[2025-03-23] MEDS ORDERED: ONDANSETRON 4MG 2ML VIAL As Ordered ONE (14:54)
[2025-03-23] MEDS ORDERED: PHENYLephrine 500MCG 5ML (100MCG/ML) SYRINGE As Ordered ONE (15:01)
[2025-03-23] MEDS ORDERED: ALBUTEROL SULFATE 2.5 MG/0.5 ML INH CONCENTRATE NEB SOLN INH ONE (15:45)
[2025-03-23] MEDS: HYDROMORPHONE HCL 0.5 MG/0.5 ML SYRINGE IV PRN (16:11)
[2025-03-23] MEDS: ONDANSETRON 4MG 2ML VIAL IV PRN (16:11)
[2025-03-23 17:35] VITALS: BP 139/78; TEMP 97.7; O2SAT 96
== END 2025-03-23 17:48 | disposition home or self-care (01) ==
LOC: M SDC 10:32
PROVIDERS: ATTEND Surgery
DX: K82.8 Other specified diseases of gallbladder (principal); E11.9 Type 2 diabetes mellitus without complications; J45.20 Mild intermittent asthma, uncomplicated; E78.00 Pure hypercholesterolemia, unspecified; Z79.85 Long-term (current) use of injectable non-insulin antidiabetic drugs; Z79.51 Long term (current) use of inhaled steroids; Z79.4 Long term (current) use of insulin; M06.9 Rheumatoid arthritis, unspecified; K21.9 Gastro-esophageal reflux disease without esophagitis; M79.7 Fibromyalgia; G25.81 Restless legs syndrome; F41.9 Anxiety disorder, unspecified; F32.A Depression, unspecified; Z90.710 Acquired absence of both cervix and uterus; F17.210 Nicotine dependence, cigarettes, uncomplicated; Z88.8 Allergy status to other drugs, medicaments and biological substances; Z88.5 Allergy status to narcotic agent; Z88.1 Allergy status to other antibiotic agents; Z91.048 Other nonmedicinal substance allergy status; Z92.21 Personal history of antineoplastic chemotherapy; G47.30 Sleep apnea, unspecified
CPT/HCPCS: 47562; 88304; J0131; J0665; J0690; J1171; J2250; J2371; J2405; J2765; J3010; Q9968; S2900

== ENCOUNTER → 2025-05-24 | Outpatient (CLI) | payer MEDICARE, MEDICAID ==
[~2025-05-24] MED LIST changes: +CLOT1CRE71; -LIDOCAINE 2% 100 MG/5 ML SDV (FOR ANES.) As Ordered ONE; -MIDAZOLAM INJ 2 MG/2 ML VIAL As Ordered ONE; -ROCURONIUM BROMIDE 50MG/5ML VIAL As Ordered ONE; +TIRZ15PE SQ; -VITA500T17 PO; +VITA500T8 PO
[2025-05-24 14:24] LABS: BASO # 0.0 10^3/uL (0.0-0.2); BASO % 0.3 % (0.0-1.0); EOS # 0.4 10^3/uL (0.0-0.5); EOS % 3.6 % (0.0-3.0); LYMPH # 2.1 10^3/uL (1.5-5.0); LYMPH % 22.0 % (24.0-44.0); MONO # 0.5 10^3/uL (0.0-0.8); MONO % 5.5 % (2.0-8.0); NEUTROPHILS # 6.6 10^3/uL (1.5-8.5); NEUTROPHILS % 68.0 % (36.0-66.0); PLATELET COUNT, AUTOMATED 221 10^3/uL (150-450)
[2025-05-24 14:30] LABS: ERYTHROCYTE SEDIMENTATION RATE 87 mm/hr (0-20)
[2025-05-24 15:22] LABS: C REACTIVE PROTEIN QUANTITATIV 3.13 MG/DL (<1.0)
[2025-05-24 15:35] LABS: ALT/SGPT 48 U/L (7.0-40); AST/SGOT 34 U/L (<34); CALCIUM LEVEL 9.3 MG/DL (8.5-10.1); CARBON DIOXIDE LEVEL 27 MMOL/L (20-31); CHLORIDE LEVEL 101 MMOL/L (98-107); CREATININE FOR GFR 0.51 MG/DL (0.55-1.30); GLOMERULAR FILTRATION RATE > 90.0 (>58); POTASSIUM SERUM 4.6 MMOL/L (3.5-5.1); SODIUM LEVEL 139 MMOL/L (136-145)
== END ==
LOC: M LAB 13:29
PROVIDERS: ATTEND Internal Medicine
DX: M06.9 Rheumatoid arthritis, unspecified (principal)

== ENCOUNTER 2025-05-25 10:51 | Outpatient (CLI) | payer MEDICARE, MEDICAID ==
[~2025-05-25] VITALS: Ht 165.1 cm; Wt 148.0 kg
[~2025-05-25 10:51] MED LIST changes: +ALBUTEROL SULFATE 2.5 MG/0.5 ML INH CONCENTRATE NEB SOLN INH PRN; +EPINEPHrine INJ 1 MG/ML 1ML AMP IM PRN; +diphenhydrAMINE 50 MG/ML VIAL IV PRN
[2025-05-25 11:00] VITALS: BP 183/74; O2SAT 96
[2025-05-25] MEDS ORDERED: diphenhydrAMINE 50 MG/ML VIAL IV ONE (11:00)
[2025-05-25] MEDS ORDERED: ACETAMINOPHEN 325 MG TAB PO ONE (11:00)
[2025-05-25] MEDS: TOCILIZUMAB 800 MG in NS 60 ML IV ONE (12:29)
[2025-05-25 13:25] VITALS: BP 140/140; O2SAT 98
== END 2025-05-25 13:40 ==
LOC: M INFU 10:51
PROVIDERS: ATTEND Internal Medicine
DX: M06.9 Rheumatoid arthritis, unspecified (principal); Z88.1 Allergy status to other antibiotic agents; Z88.5 Allergy status to narcotic agent; Z88.8 Allergy status to other drugs, medicaments and biological substances
CPT/HCPCS: 96365; J3262

== ENCOUNTER 2025-06-22 10:57 | Outpatient (CLI) | payer MEDICARE, MEDICAID ==
[~2025-06-22] VITALS: Ht 167.6 cm; Wt 148.6 kg
[2025-06-22 11:00] VITALS: BP 158/90; O2SAT 98
[2025-06-22] MEDS: diphenhydrAMINE 50MG IV PRIOR TO INFUSION IV ONE (11:41)
[2025-06-22] MEDS: TOCILIZUMAB 800 MG in NS 60 ML IV ONE (11:41)
[2025-06-22] MEDS: ACETAMINOPHEN 650MG PO PRIOR TO INFUSION PO ONE (11:41)
[2025-06-22 12:39] VITALS: BP 151/67; O2SAT 97
[2025-06-22 12:41] VITALS: BP 151/67; TEMP 36.7; O2SAT 97
== END 2025-06-22 12:40 ==
LOC: M INFU 10:57
PROVIDERS: ATTEND Internal Medicine
DX: M06.9 Rheumatoid arthritis, unspecified (principal); Z88.1 Allergy status to other antibiotic agents; Z88.5 Allergy status to narcotic agent; Z88.8 Allergy status to other drugs, medicaments and biological substances
CPT/HCPCS: 96365; J3262

== ENCOUNTER → 2025-07-04 | Outpatient (REF) | payer MEDICARE ==
[~2025-07-04] MED LIST changes: -ALBUTEROL SULFATE 2.5 MG/0.5 ML INH CONCENTRATE NEB SOLN INH PRN; -EPINEPHrine INJ 1 MG/ML 1ML AMP IM PRN; -diphenhydrAMINE 50 MG/ML VIAL IV PRN
[2025-07-04 18:04] LABS: BASO # 0.1 10^3/uL (0.0-0.2); BASO % 0.8 % (0.0-1.0); EOS # 0.7 10^3/uL (0.0-0.5); EOS % 6.8 % (0.0-3.0); LYMPH # 3.3 10^3/uL (1.5-5.0); LYMPH % 32.8 % (24.0-44.0); MONO # 0.7 10^3/uL (0.0-0.8); MONO % 6.9 % (2.0-8.0); NEUTROPHILS # 5.3 10^3/uL (1.5-8.5); NEUTROPHILS % 52.3 % (36.0-66.0); PLATELET COUNT, AUTOMATED 160 10^3/uL (150-450)
[2025-07-04 18:14] LABS: C REACTIVE PROTEIN QUANTITATIV < 0.50 MG/DL (<1.0)
[2025-07-04 18:19] LABS: ALT/SGPT 111 U/L (7.0-40); AST/SGOT 47 U/L (<34); CALCIUM LEVEL 9.1 MG/DL (8.5-10.1); CARBON DIOXIDE LEVEL 31 MMOL/L (20-31); CHLORIDE LEVEL 101 MMOL/L (98-107); CREATININE FOR GFR 0.57 MG/DL (0.55-1.30); GLOMERULAR FILTRATION RATE > 90.0 (>58); POTASSIUM SERUM 5.2 MMOL/L (3.5-5.1); SODIUM LEVEL 140 MMOL/L (136-145); TOTAL 25(OH) VITAMIN D 16.2 NG/ML (20.0-100.0)
[2025-07-05 11:47] LABS: ERYTHROCYTE SEDIMENTATION RATE 7 mm/hr (0-20)
== END ==
LOC: M SFHCRHEU 15:53
PROVIDERS: ATTEND Internal Medicine
DX: E55.9 Vitamin D deficiency, unspecified (principal); M06.9 Rheumatoid arthritis, unspecified

== ENCOUNTER 2025-07-20 10:51 | Outpatient (CLI) | payer MEDICARE, MEDICAID ==
[~2025-07-20] VITALS: Ht 165.1 cm; Wt 145.9 kg
[~2025-07-20 10:51] MED LIST changes: +ALBUTEROL SULFATE 2.5 MG/0.5 ML INH CONCENTRATE NEB SOLN INH PRN; +EPINEPHrine INJ 1 MG/ML 1ML AMP IM PRN; +diphenhydrAMINE 50 MG/ML VIAL IV PRN
[2025-07-20 11:00] VITALS: BP 122/71; O2SAT 95
[2025-07-20] MEDS ORDERED: diphenhydrAMINE 50 MG/ML VIAL IV ONE (11:00)
[2025-07-20] MEDS ORDERED: ACETAMINOPHEN 325 MG TAB PO ONE (11:00)
[2025-07-20] MEDS: TOCILIZUMAB 800 MG in NS 60 ML IV ONE (11:18)
[2025-07-20 12:35] VITALS: BP 113/53; O2SAT 95
== END 2025-07-20 12:35 | disposition home or self-care (01) ==
LOC: M INFU 10:51
PROVIDERS: ATTEND Internal Medicine
DX: M06.9 Rheumatoid arthritis, unspecified (principal); Z88.1 Allergy status to other antibiotic agents; Z88.5 Allergy status to narcotic agent; Z88.8 Allergy status to other drugs, medicaments and biological substances; Z91.09 Other allergy status, other than to drugs and biological substances
CPT/HCPCS: 96365; J3262

== ENCOUNTER 2025-08-17 10:47 | Outpatient (CLI) | payer MEDICARE, MEDICAID ==
[~2025-08-17] VITALS: Ht 162.6 cm; Wt 145.0 kg
[2025-08-17] MEDS ORDERED: ACETAMINOPHEN 650MG PO PRIOR TO INFUSION PO ONE (11:00)
[2025-08-17] MEDS ORDERED: diphenhydrAMINE 50MG IV PRIOR TO INFUSION IV ONE (11:00)
[2025-08-17 11:05] VITALS: BP 160/90; O2SAT 98
[2025-08-17] MEDS: [UNRECOGNIZED DRUG - OTHER] IV ONE (11:31)
[2025-08-17 12:28] VITALS: BP 140/74; O2SAT 97
== END 2025-08-17 12:30 | disposition home or self-care (01) ==
LOC: M INFU 10:47
PROVIDERS: ATTEND Internal Medicine
DX: M05.9 Rheumatoid arthritis with rheumatoid factor, unspecified (principal); Z88.1 Allergy status to other antibiotic agents; Z88.5 Allergy status to narcotic agent; Z88.8 Allergy status to other drugs, medicaments and biological substances
CPT/HCPCS: 96365; J3262

== ENCOUNTER 2025-09-13 13:31 | Observation (INO) | payer MEDICARE, MEDICAID ==
[~2025-09-13] VITALS: Ht 165.1 cm; Wt 144.5 kg
[~2025-09-13 13:31] MED LIST changes: -ALBUTEROL SULFATE 2.5 MG/0.5 ML INH CONCENTRATE NEB SOLN INH PRN; -EPINEPHrine INJ 1 MG/ML 1ML AMP IM PRN; -diphenhydrAMINE 50 MG/ML VIAL IV PRN
[2025-09-13] MEDS: IPRATROPIUM 0.5 MG/ALBUTEROL 2.5 MG INH SOL UD 3 ML NEB ONE (14:48)
[2025-09-13 15:00] LABS: BASO # 0.1 10^3/uL (0.0-0.2); BASO % 0.4 % (0.0-1.0); EOS # 0.3 10^3/uL (0.0-0.5); EOS % 2.0 % (0.0-3.0); LYMPH # 2.6 10^3/uL (1.5-5.0); LYMPH % 19.8 % (24.0-44.0); MONO # 0.5 10^3/uL (0.0-0.8); MONO % 3.7 % (2.0-8.0); NEUTROPHILS # 9.8 10^3/uL (1.5-8.5); NEUTROPHILS % 73.4 % (36.0-66.0); PLATELET COUNT, AUTOMATED 142 10^3/uL (150-450)
[2025-09-13 15:24] LABS: C REACTIVE PROTEIN QUANTITATIV 3.89 MG/DL (<1.0)
[2025-09-13 15:51] LABS: ALT/SGPT 55 U/L (7.0-40); AST/SGOT 24 U/L (<34); CALCIUM LEVEL 9.1 MG/DL (8.5-10.1); CARBON DIOXIDE LEVEL 25 MMOL/L (20-31); CHLORIDE LEVEL 95 MMOL/L (98-107); CREATININE FOR GFR 0.47 MG/DL (0.55-1.30); GLOMERULAR FILTRATION RATE > 90.0 (>58); POTASSIUM SERUM 4.4 MMOL/L (3.5-5.1); SODIUM LEVEL 129 MMOL/L (136-145)
[2025-09-13] MEDS: NS (Normal Saline) 0.9% 1,000 ML IV ONE (15:55)
[2025-09-13 15:59] LABS: HCG, SERUM QUALITATIVE NEGATIVE (NEGATIVE)
[2025-09-13 16:02] LABS: OSMOLALITY SERUM 310 MOSM/KG (275-295)
[2025-09-13 16:17] LABS: ACETONE/KETONE 1.22 MMOL/L (0.02-0.27)
[2025-09-13] MEDS ORDERED: ISOVUE-370 76% 100 ML VIAL As Ordered ONE (16:21)
[2025-09-13 16:26] LABS: VENOUS BASE EXCESS -0.9 (-2.0-2.0); VENOUS HCO3 24.1 MMOL/L (23.0-27.0); VENOUS O2 SATURATION 82.5 % (60.0-80.0); VENOUS PARTIAL PRESSURE CO2 41.0 mmHg (38.0-50.0); VENOUS PARTIAL PRESSURE O2 47.8 mmHg (30.0-50.0); VENOUS PH 7.387 UNITS (7.330-7.430); VENOUS STANDARD HCO3 23.4 MMOL/L; VENOUS TOTAL CO2 25.4 MMOL/L (24.0-28.0)
[2025-09-13] MEDS: LIDOCAINE 2% W/EPINEPHrine 20 ML VIAL **PRES FREE INJ ONE (18:10)
[2025-09-13] MEDS: cefTRIAXone SOD 2 GM in DEXTROSE 5% (D5W) ADV/MINI-BAG 50 ML IV ONE (18:25)
[2025-09-13] MEDS ORDERED: ACETAMINOPHEN 325 MG TAB PO PRN (19:50)
[2025-09-13] MEDS ORDERED: MOM 30 ML SUSPENSION UDC PO PRN (19:50)
[2025-09-13] MEDS: ALBUTEROL SULFATE 2.5 MG/0.5 ML INH CONCENTRATE NEB SOLN INH SCH (20:00)
[2025-09-13] MEDS ORDERED: VANCOMYCIN HCL 1,000 MG, VIAL MATE ADAPTER 1 EACH in NS 250 ML IV SCH (20:10)
[2025-09-13] MEDS ORDERED: IPRATROPIUM 0.5 MG/ALBUTEROL 2.5 MG INH SOL UD 3 ML NEB PRN (20:15)
[2025-09-13] MEDS: VANCOMYCIN HCL 2,000 MG, VIAL MATE ADAPTER 1 EACH in NS 500 ML IV ONE (20:37)
[2025-09-13] MEDS ORDERED: GLUCOSE 4 GM CHEW PO PRN (20:55)
[2025-09-13] MEDS ORDERED: GLUCAGON INJ 1 MG VIAL SC PRN (20:55)
[2025-09-13] MEDS ORDERED: DEXTROSE 50% 50 ML SYRINGE IV PRN (20:55)
[2025-09-13] MEDS: DOCUSATE SODIUM 100 MG CAPSULE PO SCH (21:00)
[2025-09-13] MEDS: CLOTRIMAZOLE 1% TOPICAL CREAM 30 GM EXT SCH (21:00)
[2025-09-13] MEDS: INSULIN LISPRO (NovoLOG) PER UNIT SC SCH (21:16)
[2025-09-13] MEDS: NS 500 ML IV ONE (21:55)
[2025-09-13] MEDS: OSELTAMIVIR PHOSPHATE 75 MG CAP PO SCH (22:47)
[2025-09-13] MEDS: LanTUS (INSULIN GLARGINE INJ) 1 UNITS/0.01 ML SC ONE (22:47)
[2025-09-13 22:57] LABS: ESTIMATED AVERAGE GLUCOSE 240.0 MG/DL (60-110)
[2025-09-13] MEDS: AMPICILLIN SOD/SULBACTAM SOD 3 GM in DEXTROSE 5% (D5W) MINI-BAG PLU 100 ML IV SCH (23:00)
[2025-09-14] MEDS ORDERED: ALBUTEROL SULFATE 2.5 MG/0.5 ML INH CONCENTRATE NEB SOLN INH SCH
[2025-09-14] MEDS: VANCOMYCIN HCL 1,500 MG, VIAL MATE ADAPTER 1 EACH in NS 500 ML IV SCH (04:52)
[2025-09-14 07:47] LABS: BASO # 0.1 10^3/uL (0.0-0.2); BASO % 0.5 % (0.0-1.0); EOS # 0.6 10^3/uL (0.0-0.5); EOS % 4.9 % (0.0-3.0); LYMPH # 2.9 10^3/uL (1.5-5.0); LYMPH % 23.7 % (24.0-44.0); MONO # 0.6 10^3/uL (0.0-0.8); MONO % 5.2 % (2.0-8.0); NEUTROPHILS # 7.9 10^3/uL (1.5-8.5); NEUTROPHILS % 65.0 % (36.0-66.0); PLATELET COUNT, AUTOMATED 154 10^3/uL (150-450)
[2025-09-14 08:16] LABS: C REACTIVE PROTEIN QUANTITATIV 4.28 MG/DL (<1.0); CALCIUM LEVEL 8.5 MG/DL (8.5-10.1); CARBON DIOXIDE LEVEL 23 MMOL/L (20-31); CHLORIDE LEVEL 99 MMOL/L (98-107); CREATININE FOR GFR 0.49 MG/DL (0.55-1.30); GLOMERULAR FILTRATION RATE > 90.0 (>58); POTASSIUM SERUM 3.7 MMOL/L (3.5-5.1); SODIUM LEVEL 135 MMOL/L (136-145)
[2025-09-14] MEDS: INSULIN LISPRO (NovoLOG) PER UNIT SC SCH (08:16)
[2025-09-14] MEDS ORDERED: HOME MED LIST COMPLETE! XX SCH (10:20)
[2025-09-14] MEDS ORDERED: PROBCAP14 PO (10:21)
[2025-09-14] MEDS ORDERED: DOXY100C3 PO (10:21)
[2025-09-14] MEDS ORDERED: OSEL75CA2 PO (10:21)
[2025-09-14] MEDS ORDERED: AMOX875T2 PO (10:21)
[2025-09-14 12:14] VITALS: BP 154/73; TEMP 98.5; O2SAT 96
[2025-09-15] MEDS ORDERED: ENOXAPARIN 40 MG/0.4 ML SYRINGE (J1650 PER 10MG) SC SCH (09:00)
[2025-09-20] MEDS ORDERED: FLUC-1 PO (11:33)
== END 2025-09-14 12:20 | disposition home or self-care (01) ==
LOC: M ED 13:31 → M ED INP 13:32
PROVIDERS: ADMIT Student in an Organized Health Care Education/Training Program; ATTEND Student in an Organized Health Care Education/Training Program
DX: L02.416 Cutaneous abscess of left lower limb (principal); E11.65 Type 2 diabetes mellitus with hyperglycemia; E66.01 Morbid (severe) obesity due to excess calories; J45.909 Unspecified asthma, uncomplicated; F17.210 Nicotine dependence, cigarettes, uncomplicated; J10.1 Influenza due to other identified influenza virus with other respiratory manifestations; I10 Essential (primary) hypertension; F32.A Depression, unspecified; F41.9 Anxiety disorder, unspecified; K21.9 Gastro-esophageal reflux disease without esophagitis; E11.42 Type 2 diabetes mellitus with diabetic polyneuropathy; Z79.51 Long term (current) use of inhaled steroids; Z79.4 Long term (current) use of insulin; Z79.899 Other long term (current) drug therapy; Z88.5 Allergy status to narcotic agent; Z88.8 Allergy status to other drugs, medicaments and biological substances; Z91.048 Other nonmedicinal substance allergy status
CPT/HCPCS: 10060; 36415; 71045; 72193; 80048; 80053; 82010; 82803; 83036; 83605; 83930; 84145; 84703; 85025; 85652; 86140; 87040; 87070; 87077; 87186; 87486; 87581; 87633; 87798; 94640; 96361; 96365; 96366; 96368; 96375; 99285; G0378; J0295; J1815; J3374; Q9967